=== PATIENT | female | born 1950 | race Caucasian/White ===

== ENCOUNTER 2016-11-25 15:35 | Inpatient (IN) | payer MEDICARE, OTHER ==
[2016-11-25 18:08] LABS: Urine Bacteria Absent (Absent); Urine Bilirubin Negative (Negative); Urine Glucose Negative (Negative); Urine Nitrite Negative (Negative)
[2016-11-25] MEDS ORDERED: NS 0.9% 1000 ML* 1,000 ML IV ONE ×2 (18:28→20:36)
[2016-11-25] MEDS ORDERED: Morphine INJ* 4 MG/ML 1 ML SYRINGE IV ONE (18:28)
--- NOTE | 2016-11-25 18:39 | ED ---
GI/ HPI - HPI Summary HPI Summary: Pt here w/ possible UTI. Started as pressure in lower pelvic area associated w/ urgency to urinate. She admits she ignored this and sx advanced to incontinence. States she's had UTI's in the past and this feels similar. Also admits to incontinence over the years but worse with recent sx. Vomited once. This has progressed to flank pain today - Rt > Lt. She also reports a fever last night of 102F - took excederin w/ some relief. Fever returned today and took excederin again at 11:00. Went to PCP who dx'd her w/ UTI and provided zofran along with cipro. She has taken 1 dose of each - nausea and vomiting resolved but feeling worse over all in general (legs are weak, difficulty recalling, etc), decided to come to ED. Pain in flanks worse with driving over bumps on way in today. Denies fullness in vaginal area - still has uterus and ovaries - no itching or irritation at present. - History of Current Complaint Chief Complaint: EDFlankPain Time Seen by Provider: 11/25/16 18:12 Stated Complaint: POSS UTI/FEVER Hx Obtained From: Patient, Family/Commutator Operator - daughter - nurse Pain Intensity: 5 - Allergy/Home Medications Allergies/Adverse Reactions: Allergies Allergy/AdvReac Type Severity Reaction Status Date / Time Latex Allergy Rash Verified 07/08/13 11:32 Penicillins Allergy Hives Verified 07/08/13 11:32 Sulfa Drugs Allergy Hives Verified 07/08/13 11:32 PMH/Surg Hx/FS Hx/Imm Hx Previously Healthy: Yes Endocrine/Hematology History: Denies: Hx Anticoagulant Therapy, Hx Blood Disorders Cardiovascular History: Reports: Hx Hypertension - controlled w/ atenolol GI History: Reports: Other GI Disorders - perferated bowel 10/2013 - resected Musculoskeletal History: Reports: Other Musculoskeletal History - left ankle/ foot surgery Sensory History: Reports: Hx Contacts or Glasses - reading glasses. Opthamlomology History: Reports: Hx Contacts or Glasses - reading glasses. 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 Lives: With Family - a friend Alcohol Use: Daily - couple of glasses of wine with dinner Hx Substance Use: No - none currently Substance Use Type: Reports: Marijuana Hx Tobacco Use: Yes Smoking Status (MU): Current Every Day Smoker Amount Used/How Often: 2 packs per week Length of Time of Smoking/Using Tobacco: Quit but recently restarted Review of Systems Positive: Fever - see HPI Cardiovascular: Negative Negative: Chest Pain Respiratory: Negative Negative: Shortness Of Breath Gastrointestinal: Other - see HPI Positive: Diarrhea - baseline Positive: see HPI Musculoskeletal: Negative Skin: Negative Neurological: Negative Psychological: Normal All Other Systems Reviewed And Are Negative: Yes Physical Exam Triage Information Reviewed: Yes Vital Signs On Initial Exam: Initial Vitals Temp Pulse Resp BP Pulse Ox 98.4 F 87 20 183/50 98 11/25/16 15:59 11/25/16 15:59 11/25/16 15:59 11/25/16 15:59 11/25/16 15:59 Vital Signs Reviewed: Yes Appearance: Positive: Well-Appearing - appears mildly fatigued, No Pain Distress - at rest - appears uncomfortable w/ sitting up, trying to move, Well- Nourished Skin: Positive: Warm, Dry Head/Face: Positive: Normal Head/Face Inspection Eyes: Positive: Normal, EOMI, Conjunctiva Clear - anicteric sclera ENT: Positive: Hearing grossly normal, Pharynx normal - mucosa moist Respiratory/Lung Sounds: Positive: Clear to Auscultation, Breath Sounds Present. Negative: Rales, Rhonchi, Wheezes Cardiovascular: Positive: Normal, RRR, Pulses are Symmetrical in both Upper and Lower Extremities Abdomen Description: Positive: Soft, CVA Tenderness (R) - Rt > Lt, CVA Tenderness (L), Other: - RUQ TTP, Rt side,flank and lower pelvis TTP; Lt side TTP as well - no rebounding Bowel Sounds: Positive: Present Musculoskeletal: Positive: Normal, Strength/ROM Intact Neurological: Positive: Normal, Sensory/Motor Intact, Alert, Oriented to Person Place, Time, CN Intact II-III Psychiatric: Positive: Normal - Philip Coma Scale Coma Scale Total: 15 Diagnostics - Vital Signs Vital Signs Temp Pulse Resp BP Pulse Ox 11/25/16 17:47 89 98 11/25/16 17:43 116/58 11/25/16 16:02 98.9 F 91 20 183/50 100 11/25/16 15:59 98.4 F 87 20 183/50 98 - Laboratory Lab Results: Lab Results 11/25/16 Range/Units 17:55 Urine Color Yellow Urine Appearance Cloudy Urine pH 7.0 (5-9) Ur Specific [place] 1.009 L (1.010-1.030) Urine Protein 1+(30 mg/dl) H (Negative) Urine Ketones Trace H (Negative) Urine Blood 2+ H (Negative) Urine Nitrate Negative (Negative) Urine Bilirubin Negative (Negative) Urine Urobilinogen Negative (Negative) Ur Leukocyte Esterase 3+ H (Negative) Urine WBC (Auto) 3+(>20/hpf) H (Absent) Urine RBC (Auto) 3+(>10/hpf) H (Absent) Urine Bacteria Absent (Absent) Urine Glucose Negative (Negative) Lab Statement: Any lab studies that have been ordered have been reviewed, and results considered in the medical decision making process.
[2016-11-25 18:59] LABS: Hematocrit 39 % (35-47); Mean Corpuscular HGB Conc 33 g/dl (31-36); Mean Corpuscular Hemoglobin 32 pg (27-31); Mean Corpuscular Volume 96 fL (80-97); Mean Platelet Volume 8 um3 (7.4-10.4); Red Blood Count 4.11 10^6/ul (4.0-5.4); Red Cell Distribution Width 13 % (10.5-15); White Blood Count 20.7 10^3/ul (3.5-10.8)
[2016-11-25 19:14] LABS: Albumin 3.9 g/dL (3.2-5.2); BUN/Creatinine Ratio 11.9 (8-20); C Reactive Protein 175.51 mg/L (< 5.00); Calcium 9.8 mg/dL (8.6-10.3); EGFR African American 87.8 (>60); EGFR Non-African American 68.3 (>60); Potassium 3.7 mmol/L (3.5-5.0); Total Bilirubin 0.8 mg/dL (0.2-1.0); Total Protein 6.9 g/dL (6.4-8.9)
--- NOTE | 2016-11-25 19:28 | RAD ---
INDICATION: Urinary tract infection right greater than left flank pain. COMPARISON: Comparison is made with a prior CT of the abdomen and pelvis from November 06, 2012. TECHNIQUE: A CT scan of the abdomen and pelvis was performed without intravenous or oral contrast. Contiguous axial sections were obtained from the lung bases through the symphysis pubis. Images were reconstructed in the coronal and sagittal planes. FINDINGS: There is mild dependent bilateral lower lobe subsegmental atelectasis. No pleural effusion is present. There is mild to moderate enlargement of the liver and spleen. No significant focal abnormalities are seen on this noncontrast study. No calcified gallstones are noted. The pancreas appears to be within normal limits. The adrenal glands and kidneys are normal in size. No renal calculi or hydronephrosis is seen. There is perinephric stranding around the right kidney which is a nonspecific finding although given the patient's history of a urinary tract infection would be suspicious for pyelonephritis. No ureteral or bladder calculi are seen. There is a small bubble of air within the urinary bladder. There is mild stranding around the urinary bladder suspicious for cystitis. The aorta is normal in caliber with moderate calcific plaque present. No significant enlarged retroperitoneal lymph nodes are seen. The stomach, small and large bowel appear nondistended. The appendix is not visualized. There is a surgical suture line present in the descending and proximal transverse colon. There is no evidence for diverticulitis or colitis. No free intraperitoneal air or fluid is seen. There are mild compression fractures of the L1 and L2 vertebral body superior endplates which are unchanged. IMPRESSION: 1. THERE IS PERINEPHRIC STRANDING AROUND THE RIGHT KIDNEY AND STRANDING AROUND THE URINARY BLADDER. THESE FINDINGS ARE NONSPECIFIC ALTHOUGH GIVEN THE PATIENT'S HISTORY OF URINARY TRACT INFECTION WOULD BE SUSPICIOUS FOR CYSTITIS AND PYELONEPHRITIS. 2. HEPATOSPLENOMEGALY, UNCHANGED.
[2016-11-25] MEDS ORDERED: Ondansetron INJ* 2 MG/ML VIAL IV PRN (20:36)
[2016-11-25] MEDS ORDERED: Nicotine GUM* 2 MG PO PRN (20:44)
[2016-11-25] MEDS ORDERED: NS 0.9% 1000 ML* 1,000 ML IV SCH (20:45)
[2016-11-25] MEDS: clonazePAM TAB(*) 1 MG PO SCH (22:24)
[2016-11-25] MEDS: traZODone TAB* 100 MG PO PRN (22:25)
[2016-11-25] MEDS: diPHENhydraMINE PO* 50 MG PO SCH (22:25)
[2016-11-25] MEDS: Lithium Carbonate TAB* 300 MG PO SCH (22:30)
[2016-11-25] MEDS: Heparin VIAL(*) 5000 UNITS/ML VIAL (FIVE THOUSAND) SUBCUT SCH (22:33)
--- NOTE | 2016-11-25 23:02 | HP ---
CC: Dr. Kinsey* HISTORY AND PHYSICAL: DATE OF ADMISSION: 11/25/16 PRIMARY CARE PROVIDER: Dr. Kinsey. ATTENDING PHYSICIAN WHILE IN THE HOSPITAL: Dr. Vikram Munguia * (report dictated by Rehan Rivera NP) CHIEF COMPLAINT: 1. Not feeling well. 2. Back pain. 3. Fever. HISTORY OF PRESENT ILLNESS: Ms. Zimmerman is a 65-year-old female patient, she has a history of gastrointestinal AVM, status post bowel resection; history of hypertension; anxiety. She comes into the ER today stating the last couple of weeks, she has not been feeling well. She started out having some urgency and frequency. She then developed having a backache throughout the last week, but last night it got much worse, she became nauseated, she was having dry heave, she vomited, and she spiked a fever of 102.2. She was concerned, she went to her primary today, who evaluated her. Her primary was concerned that she may have a pyelonephritis. She instructed the patient to return to the ER should she have any fevers, should she not feel well, or should she not be able to keep the medications down. She, today, was not feeling well despite being on antibiotics just started today, she was started on Keflex, and came to the ER. She was evaluated, noticed to have elevated white count, her CT scan showed that she had pyelonephritis, we were asked to evaluate for admission. PAST MEDICAL HISTORY: Significant for: 1. AVM. 2. Hypertension. 3. Anxiety. PAST SURGICAL HISTORY: She has had: 1. Tubal ligation. 2. Bowel resection. 3. Heart cath x2. MEDICATIONS: Home meds include: 1. Trazodone 100 mg at bedtime as needed. 2. Benadryl 50 mg at bedtime. 3. Clonazepam 1 mg at bedtime, 0.5 mg in the morning as needed. 4. Wellbutrin 200 mg daily. 5. Pravachol 20 mg at bedtime. 6. Multivitamin 1 tablet daily. 7. [place] 300 mg daily, 600 mg at bedtime. 8. Atenolol 25 mg daily. ALLERGIES TO MEDICATIONS: LATEX, PENICILLIN, and SULFA. FAMILY HISTORY: Father had heart disease, mother has fibromyalgia and still alive at 91. SOCIAL HISTORY: She is a smoker. She does drink about 1 to 2 glasses of wine on nightly basis. Surrogate decision make is her daughter, Hyacinth. REVIEW OF SYSTEMS: There is a documented fever. She denied having any significant weight change. There was no double vision. She denied having any ear discharge. There was no rhinorrhea. No sore throat. No thyroid enlargement. Denied having any chest pain. There was no orthopnea, no nocturnal dyspnea. There was no abdominal pain. She was having some flank pain radiating on the right side into the front of her abdomen. There was nausea and vomiting. There was no dysuria, but there is frequency and urgency. She denied having any lightheadedness. No loss of consciousness. No pruritus , no skin ulcerations. Review of 14 systems completed, all others negative. PHYSICAL EXAMINATION GENERAL: At this time, Ms. Zimmerman is a 65-year-old female patient. She is sitting in the ER stretcher. She does not appear to be in any acute distress. VITAL SIGNS: Reveal blood pressure 127/45, pulse 82, respirations 16, O2 sat 98 %, temperature 98.9. HEENT: Head is atraumatic and normocephalic. Eyes, EOMs are intact. Sclerae anicteric, not pale. Throat: Oral mucosa appears to be moist. No oropharyngeal erythema. NECK: Supple. LUNGS: Clear to auscultation bilaterally. No wheezes, rales, or rhonchi. HEART: Heart sounds S1 and S2. Regular rate and rhythm. No murmurs, rubs, or gallops. ABDOMEN: Soft, flat. There was CVA tenderness on the right side. EXTREMITIES: Pulses 2+ throughout. She is able to move all 4 extremities with 5/5 strength. NEUROLOGIC: The patient is awake, she is alert, she is oriented x3. Tongue midline. Emergency Operator were equal. No gross focal deficits. SKIN: Grossly intact. DIAGNOSTIC STUDIES/LAB DATA: Today revealed WBC of 20.7, RBC of 4.11, hemoglobin 13.0, hematocrit 39, platelet count 206. Sodium is 133, potassium 3.7, chloride 102, bicarb of 23, BUN 10, creatinine of 0.84, glucose 117, lactate 0.7, calcium 9.8. Total bili 0.8, AST 11, ALT 10, CRP 175. Albumin 3.9 , lipase 16. Urine showed a low specific gravity, 3+ wbc's, 3+ leukocyte esterase, 3+ rbc's. She had an abdominal pelvis CT obtained today, which revealed, impression: There is perinephritic stranding around the right kidney and stranding around the urinary bladder. These findings are not specific, although given the patient's history of urinary tract infection, this would be suspicious for cystitis and pyelonephritis, hepatosplenomegaly unchanged. Old medical records reviewed. ASSESSMENT AND PLAN: Ms. Zimmerman is a 65-year-old female patient, coming into the emergency department today with complaints of right-sided flank pain. In addition to this, also complains of urgency and frequency, on evaluation found to have an elevated white count and found to have CT scan concerning for pyelonephritis. She will be admitted under inpatient status for: 1. Pyelonephritis, at this point I will go ahead and hydrate her with 2 L of fluid. Blood cultures were sent by the ED. I will go ahead and put her on Rocephin and we will continue to follow. 2. History of arteriovenous malformation. She can follow with primary, not an active issue at this point, this has been resected. 3. Hypertension. Continue meds as prescribed. 4. History of anxiety. Continue her current medical regimen. 5. DVT prophylaxis. She is high risk, will be placed on heparin subcu. 6. Code status. She wished to be DNR. 7. Fluids, electrolytes, and nutrition. She can have a heart-healthy diet. TIME SPENT: On admission was 60 minutes, greater than half the time spent face- to- face with the patient obtaining my history and physical, other half time spent going over the plan of care with the patient and implementing plan of care. I did discuss the plan of care with my attending, Dr. Munguia; he is in agreement. REHAN RIVERA, MANAGER TRAFFIC [id number]/[facility] #: [id number] [place]
[2016-11-26] MEDS: Acetaminophen TAB* 325 MG PO PRN ×4 (00:50→20:41)
[2016-11-26] MEDS ORDERED: NS 0.9% 1000 ML* 1,000 ML IV ONE (04:30)
[2016-11-26] MEDS: Heparin VIAL(*) 5000 UNITS/ML VIAL (FIVE THOUSAND) SUBCUT SCH ×3 (06:00→22:00)
[2016-11-26 06:49] LABS: Hematocrit 35 % (35-47); Hemoglobin 11.5 g/dl (12.0-16.0); Mean Corpuscular HGB Conc 33 g/dl (31-36); Mean Corpuscular Hemoglobin 32 pg (27-31); Mean Corpuscular Volume 98 fL (80-97); Mean Platelet Volume 9 um3 (7.4-10.4); Red Blood Count 3.54 10^6/ul (4.0-5.4); Red Cell Distribution Width 13 % (10.5-15); White Blood Count 18.3 10^3/ul (3.5-10.8)
[2016-11-26 07:09] LABS: BUN/Creatinine Ratio 12.5 (8-20); Calcium 8.2 mg/dL (8.6-10.3); EGFR African American 104.9 (>60); EGFR Non-African American 81.6 (>60); Potassium 3.4 mmol/L (3.5-5.0)
[2016-11-26] MEDS: Lithium Carbonate TAB* 300 MG PO SCH ×2 (08:10→20:43)
[2016-11-26] MEDS: buPROPion TAB* 100 MG PO SCH (08:10)
--- NOTE | 2016-11-26 08:47 | PN ---
Subjective Date of Service: 11/26/16 Interval History: Patient seen this morning. Says she is feeling a little better today. Still feeling some flank pain and feels "wiped out". Has been urinating, no dysuria but feels some lower abdominal pressure. Family History: Unchanged from Admission Social History: Unchanged from Admission Past Medical History: Unchanged from Admission Objective Active Medications: Acetaminophen (Tylenol Tab*) 650 mg PO Q4H PRN Atenolol (Tenormin Tab*) 25 mg PO DAILY ISAIAH Bupropion HCl (Wellbutrin Tab*) 200 mg PO DAILY ISAIAH Clonazepam (Klonopin Tab(*)) 1 mg PO BEDTIME ISAIAH Diphenhydramine HCl (Benadryl Po*) 50 mg PO BEDTIME ISAIAH Heparin Sodium (Porcine) (Heparin Vial(*)) 5,000 units SUBCUT Q8HR ISAIAH Sodium Chloride (Ns 0.9% 1000 Ml*) 1,000 mls @ 125 mls/hr IV PER RATE ISAIAH Ceftriaxone Sodium 1,000 mg/ (Sodium Chloride) 50 mls @ 200 mls/hr IVPB Q24H ISAIAH [place] Carbonate ([place] Carbonate Tab*) 300 mg PO DAILY ISAIAH [place] Carbonate ([place] Carbonate Tab*) 600 mg PO BEDTIME ISAIAH Nicotine Polacrilex (Nicotine Gum*) 2 mg PO Q2H PRN Ondansetron HCl (Zofran Inj*) 4 mg IV Q6H PRN Trazodone HCl (Desyrel Tab*) 100 mg PO BEDTIME PRN Vital Signs 11/25/16 11/25/16 11/25/16 21:00 21:50 22:15 Temperature 100.3 F Pulse Rate 79 87 Respiratory 18 18 Rate Blood Pressure 129/52 (mmHg) O2 Sat by Pulse 95 94 Oximetry 11/26/16 11/26/16 11/26/16 03:39 06:04 07:24 Temperature 98.8 F 98.7 F Pulse Rate 77 78 73 Respiratory 16 17 Rate Blood Pressure 88/42 98/50 99/52 (mmHg) O2 Sat by Pulse 92 93 92 Oximetry Oxygen Devices in Use Now: None Appearance: Middle-aged, F, laying in bed in NAD Eyes: No Scleral Icterus Ears/Nose/Mouth/Throat: Mucous Membranes Moist Neck: NL Appearance and Movements; NL JVP Respiratory: Symmetrical Chest Expansion and Respiratory Effort, Clear to Auscultation Cardiovascular: NL Sounds; No Murmurs; No JVD, RRR Abdominal: NL Sounds; No Tenderness; No Distention, - - B/L CVA tenderness, R>L Lymphatic: No Cervical Adenopathy Extremities: No Edema Skin: No Rash or Ulcers Neurological: Alert and Oriented x 3 Result Diagrams: 11/26/16 06:23 11/26/16 06:23 Additional Lab and Data: Assess/Plan/Problems-Billing Assessment: Pyelonephritis in a 65 yo F with hx of HTN, anxiety - Patient Problems (1) Pyelonephritis Current Visit: Yes Comment: Leukocytosis trending down but still elevated at 18K. Continue IV CTX and NS 100 cc/hr. Follow culture data. (2) HTN (hypertension) Current Visit: Yes Comment: BPs low this AM. Holding Atenolol. (3) Anxiety Current Visit: Yes Comment: Depression. Continue home psych meds. (4) DVT prophylaxis Current Visit: Yes Comment: HSQ Status and Disposition: Inpatient for pyelonephritis, IV ABx
[2016-11-26] MEDS ORDERED: Ibuprofen TAB* 400 MG PO PRN (08:56)
[2016-11-26] MEDS ORDERED: Atenolol TAB* 25 MG PO SCH (09:00)
[2016-11-26] MEDS ORDERED: LORazepam TAB(*) 0.5 MG PO PRN (09:01)
[2016-11-26] MEDS: oxyCODONE/Acetamin 5/325 MG* TAB PO PRN ×3 (09:22→20:40)
[2016-11-26] MEDS: NS 0.9% 1000 ML* 1,000 ML IV SCH (19:14)
[2016-11-26] MEDS: cefTRIAXone VIAL(*) 1,000 MG in NS 0.9% 50 ML* 50 ML IVPB SCH (19:15)
[2016-11-26] MEDS: diPHENhydraMINE PO* 50 MG PO SCH (20:42)
[2016-11-26] MEDS: clonazePAM TAB(*) 1 MG PO SCH (20:43)
[2016-11-26] MEDS: traZODone TAB* 100 MG PO PRN (20:47)
[2016-11-27] MEDS: oxyCODONE/Acetamin 5/325 MG* TAB PO PRN ×2 (03:16→20:07)
[2016-11-27] MEDS: Acetaminophen TAB* 325 MG PO PRN (03:16)
[2016-11-27] MEDS: NS 0.9% 1000 ML* 1,000 ML IV SCH (05:00)
[2016-11-27] MEDS: Heparin VIAL(*) 5000 UNITS/ML VIAL (FIVE THOUSAND) SUBCUT SCH ×3 (05:29→21:20)
[2016-11-27 05:32] LABS: Hematocrit 32 % (35-47); Hemoglobin 10.6 g/dl (12.0-16.0); Mean Corpuscular HGB Conc 33 g/dl (31-36); Mean Corpuscular Hemoglobin 32 pg (27-31); Mean Corpuscular Volume 98 fL (80-97); Mean Platelet Volume 8 um3 (7.4-10.4); Red Blood Count 3.28 10^6/ul (4.0-5.4); Red Cell Distribution Width 13 % (10.5-15); White Blood Count 10.7 10^3/ul (3.5-10.8)
--- NOTE | 2016-11-27 08:18 | PN ---
Subjective Date of Service: 11/27/16 Interval History: Fever to 101F yesterday afternoon. Patient says she is still feeling "worn out". Pain in R flank seems to be less constant and less severe. Ambulating to the bathroom to urinate, does feel a bit light-headed at times. No chest pain, no SOB, no dysuria. Family History: Unchanged from Admission Social History: Unchanged from Admission Past Medical History: Unchanged from Admission Objective Active Medications: Acetaminophen (Tylenol Tab*) 325 mg PO Q4H PRN Bupropion HCl (Wellbutrin Tab*) 200 mg PO DAILY ISAIAH Clonazepam (Klonopin Tab(*)) 1 mg PO BEDTIME ISAIAH Diphenhydramine HCl (Benadryl Po*) 50 mg PO BEDTIME ISAIAH Heparin Sodium (Porcine) (Heparin Vial(*)) 5,000 units SUBCUT Q8HR ISAIAH Ceftriaxone Sodium 1,000 mg/ (Sodium Chloride) 50 mls @ 200 mls/hr IVPB Q24H ISAIAH [place] Carbonate ([place]el Carbonate Tab*) 300 mg PO DAILY ISAIAH [place]el Carbonate ([place]el Carbonate Tab*) 600 mg PO BEDTIME ISAIAH Nicotine Polacrilex (Nicotine Gum*) 2 mg PO Q2H PRN Ondansetron HCl (Zofran Inj*) 4 mg IV Q6H PRN Oxycodone/Acetaminophen (Percocet 5/325 Tab*) 1 tab PO Q6H PRN Trazodone HCl (Desyrel Tab*) 100 mg PO BEDTIME PRN Vital Signs 11/26/16 11/26/16 11/26/16 08:30 09:22 11:18 Temperature 99.1 F Pulse Rate 74 Respiratory 14 16 Rate Blood Pressure 89/41 (mmHg) O2 Sat by Pulse 92 95 Oximetry 11/26/16 11/26/16 11/26/16 11:20 15:10 15:16 Temperature 101.0 F Pulse Rate Respiratory 16 16 Rate Blood Pressure (mmHg) O2 Sat by Pulse Oximetry 11/26/16 11/26/16 11/26/16 15:46 17:02 19:25 Temperature 99.4 F 99.2 F Pulse Rate 79 80 Respiratory 17 16 17 Rate Blood Pressure 108/40 106/46 (mmHg) O2 Sat by Pulse 98 97 Oximetry 11/26/16 11/26/16 11/26/16 20:00 20:40 20:42 Temperature Pulse Rate Respiratory 16 16 16 Rate Blood Pressure (mmHg) O2 Sat by Pulse Oximetry 11/26/16 11/26/16 11/27/16 20:43 23:54 03:13 Temperature 99.9 F 99.3 F Pulse Rate 89 83 Respiratory 16 20 16 Rate Blood Pressure 109/42 114/33 (mmHg) O2 Sat by Pulse 94 99 Oximetry 11/27/16 11/27/16 11/27/16 03:16 04:15 04:22 Temperature Pulse Rate 81 Respiratory 16 14 Rate Blood Pressure 92/32 90/32 (mmHg) O2 Sat by Pulse 92 Oximetry 11/27/16 05:35 Temperature Pulse Rate 80 Respiratory 14 Rate Blood Pressure 100/44 (mmHg) O2 Sat by Pulse 93 Oximetry Oxygen Devices in Use Now: None Appearance: Middle-aged, F, laying in bed in NAD Eyes: No Scleral Icterus Ears/Nose/Mouth/Throat: Mucous Membranes Moist Neck: NL Appearance and Movements; NL JVP Respiratory: Symmetrical Chest Expansion and Respiratory Effort, Clear to Auscultation Cardiovascular: NL Sounds; No Murmurs; No JVD, RRR Abdominal: NL Sounds; No Tenderness; No Distention, - - R CVA tenderness Lymphatic: No Cervical Adenopathy Extremities: No Edema Skin: No Rash or Ulcers Neurological: Alert and Oriented x 3 Result Diagrams: 11/27/16 05:24 11/26/16 06:23 Additional Lab and Data: Assess/Plan/Problems-Billing Assessment: Pyelonephritis in a 65 yo F with hx of HTN, anxiety - Patient Problems (1) Pyelonephritis Current Visit: Yes Comment: Leukocytosis resolved, fever of 101F on 11/26. Continue IV CTX for now. Will d/c IVF and monitor BPs. No growth on UCx or BCx (2) HTN (hypertension) Current Visit: Yes Comment: BPs continue to be soft. Holding Atenolol. (3) Anxiety Current Visit: Yes Comment: Depression. Continue home psych meds. (4) DVT prophylaxis Current Visit: Yes Comment: HSQ Status and Disposition: Inpatient for pyelonephritis, IV ABx
[2016-11-27] MEDS: Lithium Carbonate TAB* 300 MG PO SCH ×2 (09:02→21:18)
[2016-11-27] MEDS: buPROPion TAB* 100 MG PO SCH (09:02)
[2016-11-27] MEDS: cefTRIAXone VIAL(*) 1,000 MG in NS 0.9% 50 ML* 50 ML IVPB SCH (20:08)
[2016-11-27] MEDS: diPHENhydraMINE PO* 50 MG PO SCH (21:19)
[2016-11-27] MEDS: clonazePAM TAB(*) 1 MG PO SCH (21:19)
[2016-11-27] MEDS: traZODone TAB* 100 MG PO PRN (21:28)
[2016-11-28] MEDS: Heparin VIAL(*) 5000 UNITS/ML VIAL (FIVE THOUSAND) SUBCUT SCH (06:22)
[2016-11-28 07:39] VITALS: BP 134/56
--- NOTE | 2016-11-28 08:37 | DCNOTE ---
Patient seen this morning. Feeling better. Still some mild flank pain at times. Fever overnight. On exam, RRR, s1 and s2 present, no m/g/r, lungs CTA B/L, no w/r/r, abd soft, NTND, BS+ D/C home to complete course of oral ABx for pyelo. F/U with PCP.
[2016-11-28] MEDS: Lithium Carbonate TAB* 300 MG PO SCH (08:45)
[2016-11-28] MEDS: buPROPion TAB* 100 MG PO SCH (08:45)
--- NOTE | 2016-11-29 11:55 | DS ---
CC: Dr. Kinsey DISCHARGE SUMMARY: DATE OF ADMISSION: 11/25/16 DATE OF DISCHARGE: 11/28/16 PRIMARY CARE PHYSICIAN: Dr. Kinsey. PRINCIPAL DISCHARGE DIAGNOSIS: Pyelonephritis. SECONDARY DIAGNOSES: 1. Hypertension. 2. Anxiety. DISCHARGE MEDICATION REGIMEN: 1. Ciprofloxacin 500 mg by mouth 2 times daily. 2. [place] 300 mg by mouth daily. 3. Bupropion 200 mg by mouth daily. 4. [place] 600 mg by mouth at bedtime. 5. Atenolol 25 mg by mouth daily. 6. Multivitamin 1 tablet by mouth daily. 7. Pravastatin 20 mg by mouth daily. 8. Klonopin 1 mg by mouth at bedtime, 0.5 mg by mouth every morning as needed for anxiety. 9. Benadryl 50 mg by mouth at bedtime. 10. Trazodone 100 mg by mouth at bedtime as needed for insomnia. STUDIES DURING HOSPITALIZATION: CT of the abdomen and pelvis without contrast, impression: Perinep hric stranding around the right kidney and stranding around the urinary bladder, these findings are not specific although given the patient's history of urinary tract infection, it would be suspicious for cystitis, pyelonephritis, hepatosplenomegaly unchanged. HISTORY OF PRESENT ILLNESS AND HOSPITAL SUMMARY: Please see the full history and physical by Rehan molina NP, for full details. Briefly, Ms. Zimmerman is a 65-year- old female with past medical histor y as above, who presented to the hospital with urgency and frequency which developed into back pain, nausea, vomiting, and fever. Patient came into the hospital and was diagnosed with pyelonephritis. She was started on ceftriaxone and given IV fluids. Over the course of the following days, her sym ptoms improved. Her blood pressures remained a bit on the soft side. However, on the day of dischar ge they seem to have normalized. The patient had a fever of 101.1 at 3 a.m. on the day of discharge ; however, she was feeling significantly better, had been ambulating around the unit, having good p. o. intake, and a decision was made to discharge her to complete oral antibiotics as an outpatient. The patient is to follow up with her PCP. TIME SPENT: Total time spent on this discharge, 35 minutes. This is a summary of the hospitalization. Please see the full medical record for further details. [id number]/[facility] #: [id number]
== END 2016-11-28 10:55 | disposition home or self-care (01) | DRG 690 ==
LOC: ED 15:35 → MED 20:32
PROVIDERS: ADMIT Hospitalist; ATTEND Hospitalist
DX: N12 Tubulo-interstitial nephritis, not specified as acute or chronic (principal); R16.2 Hepatomegaly with splenomegaly, not elsewhere classified; I10 Essential (primary) hypertension; Z88.0 Allergy status to penicillin; Z88.2 Allergy status to sulfonamides; Z91.040 Latex allergy status; F41.9 Anxiety disorder, unspecified; F32.9 Major depressive disorder, single episode, unspecified; F17.200 Nicotine dependence, unspecified, uncomplicated; R40.2412 Glasgow coma scale score 13-15, at arrival to emergency department; Z98.51 Tubal ligation status; Z82.49 Family history of ischemic heart disease and other diseases of the circulatory system
CPT/HCPCS: 36415; 74176; 80048; 80053; 81003; 81015; 83605; 83690; 85025; 85610; 86140; 87040; 87086; 94760; A9270-GY; J0696; J1644; J2270

== ENCOUNTER 2018-03-31 14:42 | Emergency (ER) | payer MEDICARE, MEDICAID, OTHER ==
[2018-03-31 15:07] LABS: ABS Basophils 0 10^3/ul (0-0.2); ABS Eosinophils 0.2 10^3/ul (0-0.6); ABS Lymphocytes 2.4 10^3/ul (1.0-4.8); ABS Monocytes 0.6 10^3/ul (0-0.8); ABS Neutrophils 7.3 10^3/ul (1.5-7.7); ABS Nucleated RBC 0 10^3/ul; Eosinophil % 1.8 % (0-6); Hematocrit 43 % (35-47); Hemoglobin 14.6 g/dl (12.0-16.0); Lymphocyte % 22.5 % (25-47); Mean Corpuscular HGB Conc 34 g/dl (31-36); Mean Corpuscular Hemoglobin 33 pg (27-31); Mean Corpuscular Volume 96 fL (80-97); Mean Platelet Volume 7.7 um3 (7.4-10.4); Nucleated Red Blood Cells % 0.1; Platelet Count 261 10^3/ul (150-450); Red Blood Count 4.46 10^6/ul (4.00-5.40); Red Cell Distribution Width 14 % (10.5-15); White Blood Count 10.5 10^3/ul (3.5-10.8)
--- NOTE | 2018-03-31 15:07 | ED ---
Abdominal Pain/Female - HPI Summary HPI Summary: This patient is a 67 year old F presenting to [facility] with a chief complaint of abdominal pain. She states the pain radiates to her back and describes it as being shot through the abdomen. She also states the pain radiates to her jaw. She denies nausea, vomiting, and sweating. The patient has a Hx of angina, HTN, HLD. She rates her pain 0/10 in severity. - History of Current Complaint Chief Complaint: EDChestPainROMI Stated Complaint: CHEST PAIN Time Seen by Provider: 03/31/18 14:51 Hx Obtained From: Patient Onset/Duration: Sudden Onset Severity Initially: Mild Severity Currently: None Pain Intensity: 0 Pain Scale Used: 0-10 Numeric Location: Diffuse Radiates to: Back, Other - Jaw Allergies/Adverse Reactions: Allergies Allergy/AdvReac Type Severity Reaction Status Date / Time latex Allergy Swelling Verified 03/31/18 14:45 Penicillins Allergy Hives Verified 03/31/18 14:45 Sulfa (Sulfonamide Allergy Hives Verified 03/31/18 14:45 Antibiotics) PMH/Surg Hx/FS Hx/Imm Hx Endocrine/Hematology History: Denies: Hx Anticoagulant Therapy, Hx Blood Disorders Cardiovascular History: Reports: Hx Hypertension - controlled w/ atenolol GI History: Reports: Other GI Disorders - perferated bowel 10/2013 - resected Musculoskeletal History: Reports: Other Musculoskeletal History - left ankle/ foot surgery Sensory History: Reports: Hx Contacts or Glasses - reading glasses. Denies: Hx Hearing Aid Opthamlomology History: Reports: Hx Contacts or Glasses - reading glasses. 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 Hx Anesthesia Reactions: No - Immunization History Date of Tetanus Vaccine: Unknown Date of Influenza Vaccine: Unknown Infectious Disease History: No Infectious Disease History: Denies: Traveled Outside the [place] in Last 30 Days - Family History Known Family History: Positive: Other - child w/ opiate addiction - Social History Alcohol Use: Daily - couple of glasses of wine with dinner Hx Substance Use: No - none currently Substance Use Type: Reports: Marijuana Hx Tobacco Use: Yes Smoking Status (MU): Current Every Day Smoker Amount Used/How Often: 2 packs per week Length of Time of Smoking/Using Tobacco: Quit but recently restarted Review of Systems Negative: Fever, Skin Diaphoresis Positive: Abdominal Pain. Negative: Vomiting, Nausea All Other Systems Reviewed And Are Negative: Yes Physical Exam - Summary Physical Exam Summary: VITAL SIGNS: Reviewed. GENERAL: Patient is a well-developed and nourished FEMALE who is lying comfortable in the stretcher. Patient is not in any acute respiratory distress. HEAD AND FACE: No signs of trauma. No ecchymosis, hematomas or skull depressions. No sinus tenderness. EYES: PERRLA, EOMI x 2, No injected conjunctiva, no nystagmus. EARS: Hearing grossly intact. Ear canals and tympanic membranes are within normal limits. MOUTH: Oropharynx within normal limits. NECK: Supple, trachea is midline, no adenopathy, no JVD, no carotid bruit, no c- spine tenderness, neck with full ROM. CHEST: Symmetric, no tenderness at palpation LUNGS: Clear to auscultation bilaterally. No wheezing or crackles. CVS: Regular rate and rhythm, S1 and S2 present, no murmurs or gallops appreciated. ABDOMEN: Soft, non-tender. No signs of distention. No rebound no guarding, and no masses palpated. Bowel sounds are normal. EXTREMITIES: FROM in all major joints, no edema, no cyanosis or clubbing. NEURO: Alert and oriented x 3. No acute neurological deficits. Speech is normal and follows commands. SKIN: Dry and warm Triage Information Reviewed: Yes Vital Signs On Initial Exam: Initial Vitals Temp Pulse Resp BP Pulse Ox 97.6 F 86 14 141/64 100 03/31/18 14:45 03/31/18 14:45 03/31/18 14:45 03/31/18 14:45 03/31/18 14:45 Vital Signs Reviewed: Yes Diagnostics - Vital Signs Vital Signs Temp Pulse Resp BP Pulse Ox 03/31/18 14:45 97.6 F 86 14 141/64 100 - Laboratory Result Diagrams: 03/31/18 14:58 03/31/18 14:58 Lab Statement: Any lab studies that have been ordered have been reviewed, and results considered in the medical decision making process. - Radiology Chest XR Xray Interpretation: No Acute Changes Radiology Interpretation Completed By: Radiologist - No active cardiopulmonary disease is noted. ED Physician has reviewed this report. - EKG 1515 Cardiac Rate: NL - 78 BPM EKG Rhythm: Sinus Rhythm EKG Interpretation: ST depression in V4, V5, and V6. Re-Evaluation - Re-Evaluation First Eval Re-Evaluation Time: 18:33 Change: Improved - Discussed results and plan for discharge. Abdominal Pain Fem Course/Dx - Course Course Of Treatment: This patient is a 67 year old F presenting to [facility] with a chief complaint of abdominal pain. She states the pain radiates to her back and describes it as being shot through the abdomen. She also states the pain radiates to her jaw. She denies nausea, vomiting, and sweating. The patient has a Hx of angina, HTN, HLD. She rates her pain 0/10 in severity. Blood test results without any significant abnormality. 2 troponins 4 hours apart 0.00. The patient also continues to be asymptomatic. The patient does have any chest pain. At this time I discussed all the findings and test results with the patient and the need to follow-up with primary care physician. The patient also be be given a referral for cardiology follow-up. I offered the patient to give a prescription for nitroglycerin however she declined. I discussed all the findings and test results with the patient. Patient was instructed to return to the emergency room immediately if any of the symptoms return or worsens. Plan of care was discussed with the patient and understands and agrees. All questions were answered at patient satisfaction. There were no further complaints or concerns. Lung exam before discharge: CTA B/L. Good air exchange. No wheezing or crackles heard. CVS: S1 and S2 present. No murmurs appreciated. Patient is alert and oriented x 3. Patient is hemodynamically stable. Patient will be discharged home with follow up PCP in the next 2-3 days. Heart score = 2 - Diagnoses Differential Diagnosis: Positive: ACS, VA, Pneumonia, Urinary Tract Infection Provider Diagnoses: Atypical chest pain Discharge - Sign-Out/Discharge Documenting (check all that apply): Patient Departure - Discharge - Discharge Plan Condition: Stable Disposition: HOME Patient Education Materials: Chest Pain (ED) Referrals: [facility] [Provider Group] Brittany Kinsey DO [Primary Care Provider] - Additional Instructions: Return to ED if experiencing any new or worsening symptoms. - Billing Disposition and Condition Condition: STABLE Disposition: Home - Attestation Statements Document Initiated by Scribe: Yes Documenting Scribe: Carson Tsai Provider For Whom Scribe is Documenting (Include Credential): Sharif Castellanos MD Scribe Attestation: ICarson, scribed for Sharif Castellanos MD on 04/01/18 at 0750. Scribe Documentation Reviewed: Yes Provider Attestation: The documentation as recorded by the Carson howe accurately reflects the service I personally performed and the decisions made by , Sharif Castellanos MD
[2018-03-31 15:19] LABS: INR 0.86 (0.77-1.02)
--- NOTE | 2018-03-31 15:24 | RAD ---
Indication: Chest pain. Single frontal view of the chest performed at 1504 hours was reviewed. No prior study is available. No mediastinal shift is noted. Heart is of normal size and configuration. Lung murray appear clear. IMPRESSION: NO ACTIVE CARDIOPULMONARY DISEASE IS NOTED.
[2018-03-31 15:25] LABS: EGFR Non-African American 76.1 (>60)
[2018-03-31] MEDS ORDERED: Magnesium Oxide TAB* 400 MG PO ONE (15:49)
[2018-03-31 16:30] LABS: Urine Appearance Clear; Urine Blood Negative (Negative); Urine Color Yellow; Urine Ketones Negative (Negative); Urine Protein Negative (Negative); Urine Specific Gravity 1.012 (1.010-1.030); Urine Urobilinogen Negative (Negative)
[2018-03-31 20:02] VITALS: BP 133/74
== END 2018-03-31 19:00 | disposition home or self-care (01) ==
LOC: ED 14:42
DX: R07.89 Other chest pain (principal); F17.210 Nicotine dependence, cigarettes, uncomplicated; Z88.0 Allergy status to penicillin; I10 Essential (primary) hypertension
CPT/HCPCS: 36415; 71045; 80053; 81003; 82550; 82553; 83605; 83735; 83880; 84443; 84484; 85025; 85610; 85730; 93005; 99283

== ENCOUNTER 2019-04-05 10:24 | Emergency (ER) | payer MEDICARE, MEDICAID ==
--- OUTSIDE RECORDS SUMMARY | 2019-04-05 11:01 | XMS REPORT | Continuity of Care Document ---
:1950 External Reference #:[id number] Author Name Lamont Krishnamurthy MD (transmitted by agent of provider Azucena Gomes) Address [address], [address] [place] [address] Care Team Providers Name Role Phone Jonathon Kinsey, - Family Care Team Information [employer] Medicine Problems Description No Information Available Social History Type Date Description Comments Sex Unknown ETOH Use consumes 1-2 glasses of wine per day Tobacco Use Start: Unknown Light tobacco smoker (10 or fewer cigarettes/day) Recreational Drug Use Never Used Drugs Smoking Status Reviewed: 03/07/19 Light tobacco smoker (10 or fewer cigarettes/day) Exercise Type/Frequency Exercises sporadically Allergies, Adverse Reactions, Alerts Active Allergies Reaction Severity Comments Date Penicillin 10/01/2018 Sulfa Antibiotics 10/01/2018 Latex 10/01/2018 Medications Active Medications SIG Qnty Indications Ordering Date Provider Nicotine Step 1 1 patch apply to Z72.0 Lamont Krishnamurthy, 03/07/2019 skin every day 21mg/24HR Patches 24HR Aspirin 81 take 1 tab by mouth 90tabs Thelma Nguyen, 02/14/2019 81mg Tablets daily N.P. Nitroglycerin 1 sl q5 mins x3 as 25tabs R07.9 Konstantin Lawrence 01/14/2019 0.4mg needed for chest Yazan Atkinson Tablets Sub pain Ventolin HFA 2 inhalations every Unknown 4-6 hours 108(90Base) mcg/Act Aerosol Advair Diskus 1 puff twice a day Unknown 250-50mcg/Dose Aerosol Gabapentin 1 by mouth twice a Unknown 300mg day Capsules Atenolol 1 by mouth every Unknown 25mg Tablets day Pravastatin Sodium take one tablet by Unknown 40mg mouth every evening Tablets Omeprazole 1 by mouth every Unknown 20mg day Capsules DR Staples Complete daily Unknown Capsules Benadryl Allergy 2 tablets as Unknown 25mg needed Capsules Clonazepam 1 tablet by mouth Unknown 1mg Tablets twice daily as needed Thebes Carbonate 1 capsule in the Unknown 300mg morning, and 2 at Capsules night Trazodone HCL 1/2- 1 every night Unknown 100mg at bedtime Tablets Wellbutrin SR take one tablet by Unknown 150mg mouth three times Tablets ER 12HR daily, needs appt for further refills History Medications Nitro-Dur 1 patch every day 30units R07.9 Konstantin Lawrence 01/14/2019 - 0.1mg/HR on in the Yazan Atkinson 02/14/2019 Patches 24HR morning, off at night Fluticasone 1 snort nasal 32gm J32.9 Lamont Krishnamurthy MD 01/03/2019 - Propionate twice a day 02/02/2019 50mcg/Act Suspension Immunizations Description No Information Available Vital Signs Date Vital Result Comment 03/07/2019 11:07am Height 65 inches 5'5" Weight 161.00 lb Heart Rate 76 /min BP Systolic Sitting 132 mmHg Lue regular cuff BP Diastolic Sitting 86 mmHg Lue regular cuff Respiratory Rate 12 /min O2 % BldC Oximetry 96 % BMI (Body Mass Index) 26.8 kg/m2 02/14/2019 11:22am Height 65 inches 5'5" Weight 161.25 lb with shoes Heart Rate 80 /min left radial BP Systolic Sitting 132 mmHg ule reg cuff BP Diastolic Sitting 90 mmHg ule reg cuff BMI (Body Mass Index) 26.8 kg/m2 Results Test Date Facility Test Result H/L Range Note Cath Panel 02/04/2019 [facility] Partial 31.2 seconds Normal 26.0-38.[address] [place] [address] PTT [phone] CBC Auto 02/04/2019 [facility] White Blood 10.7 10^3/uL Normal 3.5-10.[address] [place] [address] [phone] Red Blood Count 4.17 10^6/uL Normal 3.70-4.87 Hemoglobin 14.0 g/dL Normal 12.0-16.0 Hematocrit 41 % Normal 35-47 Mean Corpuscular Volume 98 fL High 80-97 Mean Corpuscular Hemoglobin 34 pg High 27-31 Mean Corpuscular HGB Conc 34 g/dL Normal 31-36 Red Cell Distribution Width 13 % Normal 10-15 Platelet Count 271 10^3/uL Normal 150-450 Mean Platelet Volume 7.9 fL Normal 7.4-10.4 Abs Neutrophils 6.8 10^3/uL Normal 1.5-7.7 Abs Lymphocytes 3.0 10^3/uL Normal 1.0-4.8 Abs Monocytes 0.6 10^3/uL Normal 0-0.8 Abs Eosinophils 0.2 10^3/uL Normal 0-0.6 Abs Basophils 0.1 10^3/uL Normal 0-0.2 Abs Nucleated RBC 0.0 10^3/uL Granulocyte % 63.3 % Lymphocyte % 28.3 % Monocyte % 5.7 % Eosinophil % 2.2 % Basophil % 0.5 % Nucleated Red Blood Cells % 0.0 Inr/Protime 02/04/2019 [facility] Inr 0.92 Normal 0.82-1.[address] [place] [address] [phone] Lipid Panel - 02/04/2019 [facility] Creatine 29 U/L Normal 10- 223 [address] Kinase(CK) [place] [address] [phone] Comp Metabolic 02/04/2019 [facility] Sodium 139 Normal 135- [address] mmol/[place] [address] [phone] Potassium 4.5 mmol/L Normal 3.5-5.0 Chloride 107 mmol/L Normal 101-111 Co2 Carbon Dioxide 27 mmol/L Normal 22-32 Anion Gap 5 mmol/L Normal 2-11 Glucose 83 mg/dL Normal 70-100 Blood Urea Nitrogen 9 mg/dL Normal 6-24 Creatinine 0.84 mg/dL Normal 0.51-0.95 BUN/Creatinine Ratio 10.7 Normal 8-20 Calcium 10.5 mg/dL High 8.6-10.3 Total Protein 6.3 g/dL Low 6.4-8.9 Albumin 4.2 g/dL Normal 3.2-5.2 Globulin 2.1 g/dL Normal 2-4 Albumin/Globulin Ratio 2.0 Normal 1-3 Total Bilirubin 0.30 mg/dL Normal 0.2-1.0 Alkaline Phosphatase 50 U/L Normal 34-104 Alt 14 U/L Normal 7-52 Ast 14 U/L Normal 13-39 Egfr Non- 67.6 >60 Egfr 81.8 >60 4 Lipid Profile 02/04/2019 [facility] Triglycerides 348 mg/dL 5 (Trig/Chol/HDL) [address] [place] [address] [phone] Cholesterol 187 mg/dL 6 HDL Cholesterol 47.4 mg/dL 7 LDL Cholesterol 70 mg/dL 8 1 FASTING Copy Result to: JONATHON KINSEY ([id number]) 2 Standard intensity warfarin therapeutic range: 2.0-3.0 High intensity warfarin therapeutic range: 2.5-3.5 3 FASTING Copy Result to: JONATHON KINSEY ([id number]) 4 Because ethnic data is not always readily available, this report includes an eGFR for both -Americans and non- Americans. The National Kidney Disease Education Program (NKDEP) does not endorse the use of the MDRD equation for patients that are not between the ages of 18 and 70, are , have extremes of body size, muscle mass, or nutritional status, or are non- or non-. According to the National Kidney Foundation, irrespective of diagnosis, the stage of the disease is based on the level of kidney function: Stage Description GFR(mL/min/1.73 m(2)) 1 Kidney damage with normal or decreased GFR 90 2 Kidney damage with mild decrease in GFR 60-89 3 Moderate decrease in GFR 30-59 4 Severe decrease in GFR 15-29 5 Kidney failure <15 (or dialysis) 5 Desirable: <150 Borderline High: 150-199 High: 200-499 Very High: >500 6 Desirable: <200 Borderline High: 200-239 High: >239 7 Low: <40 Desirable: 40-60 High: >60 8 Desirable: <100 Near Optimal: 100-129 Borderline High: 130-159 High: 160-189 Very High: >189 Procedures Date Code Description Status 02/05/2019 21248 Intravascular Blood Flow Velocity Completed 02/05/2019 94252 Left Heart Cath. Incl S/I Coronaries, Angio S/I V Gram If Completed Done 01/18/2019 99753 Treadmill Interp/Report Only Completed 01/18/2019 93436 Stress Test Supervsn W/Out I/R Completed 01/14/2019 21504 EKG Tracing & Interpretation Completed 11/14/2018 58740 ECHO Stress Test Incl Perf Contiuous ekg Monitoring W/Phys Completed Superv Medical Devices Description No Information Available Encounters Type Date Location Provider Dx Diagnosis Office Visit 02/14/2019 [facility] Thelma Nguyen, R07.9 Chest pain , 11:30a N.P. 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 02/14/2019 I11.9 Hypertensive heart disease Thelma Nguyen, N.P. 02/14/2019 I10 Benign hypertension Thelma Nguyen, N.P. 02/14/2019 E78.00 Hypercholesterolemia Thelma Nguyen, N.P. 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 01/14/2019 I20.9 Angina pectoris Konstantin Atkinson M.D. 01/14/2019 I11.9 Hypertensive heart disease Konstantin Atkinson M.D. 01/14/2019 I10 Benign hypertension Konstantin Atkinson M.D. 01/14/2019 E78.00 Hypercholesterolemia Konstantin Atkinson M.D. 01/14/2019 J44.9 Chronic obstructive lung disease Konstantin Atkinson M.D. 01/03/2019 R05 Cough Lamont Krishnamurthy MD 01/03/2019 Z72.0 Tobacco use Lamont Krishnamurthy MD 01/03/2019 G47.30 Sleep apnea, unspecified Lamont Krishnamurthy MD 01/03/2019 J32.9 Chronic sinusitis, unspecified Lamont Krishnamurthy MD 12/03/2018 M54.5 Low back pain Kai Boyd MD 12/03/2018 M47.26 Other spondylosis with radiculopathy, Kai Boyd MD lumbar region 11/14/2018 R07.89 Chest discomfort Konstantin Atkinson M.D. 11/14/2018 E78.00 Hypercholesterolemia Konstantin Atkinson M.D. 11/14/2018 I10 Essential hypertension Konstantin Atkinson M.D. 10/01/2018 M54.5 Low back pain Kai Boyd MD 10/01/2018 M54.16 Radiculopathy, lumbar region Kai Boyd MD 10/01/2018 M25.552 Pain in left hip Kai Boyd MD 10/01/2018 M25.562 Pain in left knee Kai Boyd MD Plan of Treatment Future Appointment(s):05/27/2019 11:00 am - Konstantin Atkinson M.D. at [place] [facility]/23/2020 8:30 am - Efe Martinez M.D. at [facility]03/07/2019 - Lamont Krishnamurthy, MDR05 CoughComments:The patient should continue use Advair. I have counseled the patient on daily use of Advair. The albuterol can be used on an as-needed basis.J44.9 Chronic obstructive lung diseaseComments:Continue the patient on Advair and albuterol when necessary. I am using the steroid component in her inhalers as she has a clinically significant bronchodilator response. She will establish care withthe judicial reporter in [place].Z72.0 Tobacco useNew Medication:Nicotine Step 1 21 mg/24HR - 1 patch apply to skin every dayComments:I counseled the patient on tobacco cessation. She is interested in nicotine patches. I will prescribe nicotine patches for her. I reviewed her low dose CT chest report findings with her. She is to establish care with a judicial reporter in [place] and continue low dose CT chest in 1 year. I communicated this to the patient.G47.30 Sleep apnea, unspecifiedComments:She reports that she should undergo sleep study in [place]. The patient is instructed to exercise care when operating heavy machinery and driving. Functional Status Description No Information Available Mental Status Description No Information Available Referrals Description No Information Available
--- OUTSIDE RECORDS SUMMARY | 2019-04-05 11:01 | XMS REPORT | Continuity of Care Document ---
:1950 External Reference #:[id number] Author Name Thelma Nguyen N.P. (transmitted by agent of provider Denisse Golden) Address [address] [place] [address] Care Team Providers Name Role Phone Jonathon Kinsey, DO - Family Care Team Information [employer] Supervisor [phone] Medicine Problems Description No Information Available Social History Type Date Description Comments Sex Unknown ETOH Use consumes 1-2 glasses of wine per day Tobacco Use Start: Unknown Light tobacco smoker (10 or fewer cigarettes/day) Recreational Drug Use Never Used Drugs Smoking Status Reviewed: 02/14/19 Light tobacco smoker (10 or fewer cigarettes/day) Exercise Type/Frequency Exercises sporadically Allergies, Adverse Reactions, Alerts Active Allergies Reaction Severity Comments Date Penicillin 10/01/2018 Sulfa Antibiotics 10/01/2018 Latex 10/01/2018 Medications Active Medications SIG Qnty Indications Ordering Date Provider Nitroglycerin 1 sl q5 mins x3 as 25tabs R07.9 Konstantin Lawrence 01/14/2019 0.4mg needed for chest Yazan Atkinson Tablets Sub pain Wellbutrin SR take one tablet by Unknown 150mg mouth three times Tablets ER 12HR daily, needs appt for further refills Trazodone HCL 1/2- 1 every night Unknown 100mg at bedtime Tablets [place] Carbonate 1 capsule in the Unknown 300mg morning, and 2 at Capsules night Clonazepam 1 tablet by mouth Unknown 1mg Tablets twice daily as needed Benadryl Allergy 2 tablets as Unknown 25mg needed Capsules Multi Complete daily Unknown Capsules Omeprazole 1 by mouth every Unknown 20mg day Capsules DR Pravastatin Sodium take one tablet by Unknown 40mg mouth every evening Tablets Atenolol 1 by mouth every Unknown 25mg Tablets day Gabapentin 1 by mouth twice a Unknown 300mg day Capsules Turmeric 1 by mouth every Unknown 500mg Tablets day Advair Diskus 1 puff twice a day Unknown 250-50mcg/Dose Aerosol Ventolin HFA 2 inhalations every Unknown 4-6 hours 108(90Base) mcg/Act Aerosol History Medications Nitro-Dur 1 patch every day 30units R07.9 Konstantin Lawrence 01/14/2019 - 0.1mg/HR on in the Yazan Atkinson 02/14/2019 Patches 24HR morning, off at night Fluticasone 1 snort nasal 32gm J32.9 Lamont Krishnamurthy MD 01/03/2019 - Propionate twice a day 02/02/2019 50mcg/Act Suspension Immunizations Description No Information Available Vital Signs Date Vital Result Comment 02/14/2019 11:22am Height 65 inches 5'5" Weight 161.25 lb with shoes Heart Rate 80 /min left radial BP Systolic Sitting 132 mmHg ule reg cuff BP Diastolic Sitting 90 mmHg ule reg cuff BMI (Body Mass Index) 26.8 kg/m2 01/14/2019 9:33am Height 65 inches 5'5" Weight 162.75 lb with shoes Heart Rate 70 /min radial, regular BP Systolic Sitting 134 mmHg Ra, reg cuff BP Diastolic Sitting 86 mmHg Ra, reg cuff BP Systolic Standing 130 mmHg LA sitting, reg cuff BP Diastolic Standing 84 mmHg LA sitting, reg cuff BP Systolic Lying Down 116 mmHg LA standing, reg cuff BP Diastolic Lying Down 80 mmHg LA standing, reg cuff BMI (Body Mass Index) 27.1 kg/m2 Ejection Fraction 55%-60% stress echo 11/14/18 Results Test Date Facility Test Result H/L Range Note Cath Panel 02/04/2019 [facility] Partial 31.2 seconds Normal 26.0-38.[address] [place] [address] PTT [phone] CBC Auto 02/04/2019 [facility] White Blood 10.7 10^3/uL Normal 3.5-10.[address] [place] [address] [phone] Red Blood Count 4.17 10^6/uL Normal 3.70-4.87 [...] Red Blood Cells % 0.0 Inr/Protime 02/04/2019 [facility] Inr 0.92 Normal 0.82-1.[address] [place] [address] [phone] Lipid Panel - 02/04/2019 [facility] Creatine 29 U/L Normal 10- 223 [address] Kinase(CK) [place] [address] [phone] Comp Metabolic 02/04/2019 [facility] Sodium 139 Normal 135- [address] mmol/[place] [address] [phone] Potassium 4.5 mmol/L Normal 3.5-5.0 Chloride 107 [...] Egfr 81.8 >60 4 Lipid Profile 02/04/2019 [facility] Triglycerides 348 mg/dL 5 (Trig/Chol/HDL) [address] [place] [address] [phone] Cholesterol 187 mg/dL 6 HDL Cholesterol 47.4 mg/dL 7 LDL Cholesterol 70 mg/dL 8 1 FASTING Copy Result to: JONATHON KINSEY ([id number]) 2 Standard intensity warfarin therapeutic range: 2.0-3.0 High intensity warfarin therapeutic range: 2.5-3.5 3 FASTING Copy Result to: JONATHON KINSEY ([id number]) 4 Because ethnic data is not always [...] >189 Procedures Date Code Description Status 02/05/2019 62473 Intravascular Blood Flow Velocity Completed 02/05/2019 69132 Left Heart Cath. Incl S/I Coronaries, Angio S/I V Gram If Completed Done 01/18/2019 65874 Treadmill Interp/Report Only Completed 01/18/2019 68244 Stress Test Supervsn W/Out I/R Completed 01/14/2019 55248 EKG Tracing & Interpretation Completed 11/14/2018 05966 ECHO Stress Test Incl Perf Contiuous ekg Monitoring W/Phys Completed Superv Medical Devices Description No Information Available Encounters Type Date Location Provider Dx Diagnosis Office Visit 01/14/2019 [facility] Konstantin Lawrence I20.9 Angina pectoris, 9:40a Yazan Atkinson unspecified I11.9 Hypertensive heart disease without heart failure I10 Essential (primary) hypertension E78.00 Pure hypercholesterolemia, unspecified J44.9 Chronic obstructive pulmonary disease, unspecified Office Visit 01/03/2019 9:15a [facility] Lamont Krishnamurthy MD R05 [facility] Z72.0 Tobacco use G47.30 Sleep apnea, unspecified J32.9 Chronic sinusitis, unspecified Office Visit 12/03/2018 10:00a [facility] Kai Combs M54.5 [facility] AT Dwayne Boyd MD pain M47.26 Other spondylosis with radiculopathy, lumbar region Office Visit 10/01/2018 10:00a [facility] Kai Combs M54.5 [facility] Dwayne Boyd MD pain M54.16 Radiculopathy, lumbar region M25.552 Pain in left hip M25.562 Pain in left knee Assessments Date Code Description Provider 02/14/2019 R07.9 Chest pain, unspecified Thelma Nguyen, N.P. 02/14/2019 I11.9 Hypertensive heart disease Thelma Nguyen, N.P. 02/14/2019 I10 Benign hypertension Thelma Nguyen, N.P. 02/14/2019 E78.00 Hypercholesterolemia Thelma Nguyen, N.P. 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 at [facility]27/23/2020 8:30 am - Efe Martinez M.D. at [facility]02/14/2019 - Thelma Nguyen N.P.R07.9 Chest pain, unspecifiedFollow up:[facility] 05/2019Recommendations:Ok to take nitro for chest pain. If episodes > 1x week, we could reconsider other medication for them.I11.9 Hypertensive heart diseaseRecommendations:BP ok 128/84 If palpitations continue, we could get a holter.I10 Benign azsyufvcczcsN53.00 HypercholesterolemiaRecommendations:cholesterol at goal. triglycerides are 348; try to avoid rice, pasta, sugar, potatoes. Taking fish oil may help.I25.10 Atherosclerotic heart disease of mohe[place] coronary artery without angina pectorisRecommendations:Start ASA for mild coronary disease in left main. Functional Status Description No Information Available Mental Status Description No Information Available Referrals Description No Information Available
--- NOTE | 2019-04-05 12:33 | ED ---
Lower Extremity - HPI Summary HPI Summary: 68 year old female reports to [facility] with a chief complaint of intermittent left calf pain that began last week, worse since last night. She also reports back pain, left calf numbness, myalgia throughout her body, and shaky hands that prevent her from writing. Brain MRI from several months ago was interpreted negative. She has a history of bipolar disorder. PSHx of a bowel resection for AVM. She smokes 10 cigarettes a day, but is trying to quit. Drinks alcohol daily. No recreational drug history. Family history of AR and HTN. She experiences a large amount of stress at home. - History of Current Complaint Chief Complaint: EDExtremityLower Stated Complaint: LEFT LEG AND BACK PAIN PER PT Time Seen by Provider: 04/05/19 12:08 Hx Obtained From: Patient Onset of Pain: Days Onset/Duration: Still Present Severity Initially: Mild Severity Currently: Moderate Pain Intensity: 4 Pain Scale Used: 0-10 Numeric Timing: Intermittent, Lasting Minutes Location: Is Discrete @ - Left calf Associated Signs And Symptoms: Positive: Other - Back pain, general myalgia, hands shake Able to Bear Weight: Yes - Allergies/Home Medications Allergies/Adverse Reactions: Allergies Allergy/AdvReac Type Severity Reaction Status Date / Time latex Allergy Swelling Verified 04/05/19 10:31 Sulfa (Sulfonamide Allergy Hives Verified 04/05/19 10:31 Antibiotics) Home Medications: Home Medications Fluticasone NASAL SPRAY 50MCG* [Flonase NASAL SPRAY 50MCG*] 1 spray BOTH NARES DAILY 04/05/19 [History Confirmed 04/05/19] Gabapentin CAP(*) [Neurontin 300 CAP(*)] 300 mg PO BID 04/05/19 [History Confirmed 04/05/19] Nitroglycerin 0.1 mg/Hr PATCH* [Nitroglycerin 2.5 MG PATCH*] 1 patch TRANSDERM DAILY 04/05/19 [History Confirmed 04/05/19] PMH/Surg Hx/FS Hx/Imm Hx Endocrine/Hematology History: Denies: Hx Anticoagulant Therapy, Hx Blood Disorders, Hx Diabetes Cardiovascular History: Reports: Hx Angina, Hx Hypercholesterolemia, Hx Hypertension - controlled w/ atenolol Denies: Hx Pacemaker/ICD Respiratory History: Reports: Hx Chronic Obstructive Pulmonary Disease (COPD) GI History: Reports: Other GI Disorders - perferated bowel 10/2013 - resected History: Denies: Hx Dialysis, Hx Renal Disease Musculoskeletal History: Reports: Other Musculoskeletal History - left ankle/ foot surgery Sensory History: Denies: Hx Contacts or Glasses, Hx Hearing Aid Opthamlomology History: Denies: Hx Contacts or Glasses Psychiatric History: Reports: Hx Anxiety, Hx Depression, Hx Suicide Attempt Denies: Hx Panic Disorder - Cancer History Cancer Type, Location 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 - Surgical History Surgery Procedure, Year, and Place: perforated bowel-resection, left ankle/foot surgery, c-sections, tubal Hx Anesthesia Reactions: No - Immunization History Date of Tetanus Vaccine: Unknown Date of Influenza Vaccine: Unknown Infectious Disease History: No Infectious Disease History: Denies: Traveled Outside the [place] in Last 30 Days - Family History Known Family History: Positive: Other - child w/ opiate addiction - Social History Alcohol Use: Daily Alcohol Amount: 2 glasses wine per night Hx Substance Use: No - none currently Substance Use Type: Reports: Marijuana Substance Use Comment - Amount & Last Used: rare Hx Tobacco Use: Yes Smoking Status (MU): Light Every Day Tobacco Smoker Type: Cigarettes Amount Used/How Often: 2 packs per week Length of Time of Smoking/Using Tobacco: Quit but recently restarted Have You Smoked in the Last Year: Yes Review of Systems Positive: Myalgia, Other - Hands shake, back pain Positive: Numbness All Other Systems Reviewed And Are Negative: Yes Physical Exam - Summary Physical Exam Summary: VITAL SIGNS: Reviewed. GENERAL: Patient is a well-developed and nourished female who is lying comfortable in the stretcher.Patient is not in any acute respiratory distress. HEAD AND FACE: No signs of trauma. No ecchymosis, hematomas or skull depressions. No sinus tenderness. EYES: PERRLA, EOMI x 2, No injected conjunctiva, no nystagmus. No photophobia. EARS: Hearing grossly intact. Ear canals and tympanic membranes are within normal limits. MOUTH: Oropharynx within normal limits. NECK: Supple, trachea is midline, no adenopathy, no JVD, no carotid bruit, no c- spine tenderness, neck with full ROM. No meningeal signs, no Kernig's or brudzinskis signs. CHEST: Symmetric, no tenderness at palpation. LUNGS: Clear to auscultation bilaterally. No wheezing or crackles. CVS: Regular rate and rhythm, S1 and S2 present, no murmurs or gallops appreciated. ABDOMEN: Soft, non-tender. No signs of distention. No rebound, no guarding, and no masses palpated. Bowel sounds are normal. EXTREMITIES: FROM in all major joints, no edema, no cyanosis or clubbing. NEURO: Alert and oriented x 3. No acute neurological deficits. Speech is normal and follows commands. SKIN: Dry and warm. GCS: 15 NIH: 0 Triage Information Reviewed: Yes Vital Signs On Initial Exam: Initial Vitals Temp Pulse Resp BP Pulse Ox 98.1 F 84 16 140/72 96 04/05/19 10:28 04/05/19 10:28 04/05/19 10:28 04/05/19 10:28 04/05/19 10:28 Vital Signs Reviewed: Yes - [place] Coma Scale Best Eye Response: 4 - Spontaneous Best Motor Response: 6 - Obeys Commands Best Verbal Response: 5 - Oriented Coma Scale Total: 15 Procedures - Sedation Patient Received Moderate/Deep Sedation with Procedure: No Diagnostics - Vital Signs Vital Signs Temp Pulse Resp BP Pulse Ox 04/05/19 10:28 98.1 F 84 16 140/72 96 - Laboratory Result Diagrams: 04/05/19 12:44 04/05/19 12:43 Lab Statement: Any lab studies that have been ordered have been reviewed, and results considered in the medical decision making process. - Ultrasound Venous Doppler Study Ultrasound Interpretation Completed By: Radiologist Summary of Ultrasound Findings: NO EVIDENCE OF DEEP VENOUS THROMBOSIS IS IDENTIFIED. An ED physician has reviewed this report. National Institutes Of Health - NIH Scale Level of Consciousness: Alert/Keenly Responsive Ask Patient the Month and His/Her Age: Both Correct Ask Pt to Open/Close Eyes and Maintenance Controller/Release Non-Paretic Hand: Both Correctly Best Gaze (Only Horizontal Eye Movement): Normal Visual Field Testing: No Visual Loss Facial Paresis-Pt to Smile & Close Eyes or Grimace Symmetry: Normal/Symmetrical Motor Function - Right Arm: No Drift-Holds 10 Seconds Motor Function - Left Arm: No Drift-Holds 10 Seconds Motor Function - Right Leg: No Drift-Holds 10 Seconds Motor Function - Left Leg: No Drift-Holds 10 Seconds Limb Ataxia-Must be out of Proportion to Weakness Present: Absent Sensory (Use Pinprick to Test Arms/Legs/Trunk/Face): Normal Best Language (Describe Picture, Name Items): No Aphasia Dysarthria (Read Several Words): Normal Extinction and Inattention: No Abnormality Total Score: 0 Lower Extremity Course/Dx - Course Assessment/Plan: Patient is a 68-year-old female who presents to the emergency department with chief complaint of having intermittent left calf pain. Patient also reports that she has myalgias: Often she has an appointment with a neurologist. Blood test results without any significant abnormality. Urinalysis contaminated therefore we will send for urine culture. Left lower extremity ultrasound impression: Negative for DVT. Therefore the patient was discharged home with follow-up with her primary care physician or neurologist. At this point I discussed all the findings and test results with the patient. He was instructed to return to the emergency room immediately if any of the symptoms return or worsen. Patient understand and agree. Neurological exam before discharge: Patient is alert and oriented x 3. No acute neurological deficits. Patient's vital signs are stable. Patient is to follow up with CPP in the next 2 3 days. They understand and agree. Plan of care was discussed with the patient and patient understands and agrees with the plan of care. All questions were answered at the patient's satisfaction. There were no further complaints or concerns. - Diagnoses Provider Diagnoses: Calf pain Discharge ED - Sign-Out/Discharge Documenting (check all that apply): Patient Departure - discharge - Discharge Plan Condition: Stable Disposition: HOME Patient Education Materials: Leg Cramps (ED) Referrals: Brittany Kinsey DO [Primary Care Provider] - Additional Instructions: Follow up with your primary care provider in 2-3 days. Return to the Emergency Department if you experience new or worsened symptoms. - Attestation Statements Document Initiated by Opal: Yes Documenting Scribe: Esteban Hernandez Provider For Whom Opal is Documenting (Include Credential): Dr. Sharif Castellanos MD. Scribe Attestation: Esteban Hammer scribed for Dr. Sharif Castellanos MD. on 04/05/19 at 1736. Status of Scribe Document: Ready
[2019-04-05 12:52] LABS: ABS Basophils 0.1 10^3/ul (0-0.2); ABS Eosinophils 0.2 10^3/ul (0-0.6); ABS Monocytes 0.5 10^3/ul (0-0.8); ABS Neutrophils 7.4 10^3/ul (1.5-7.7); Hematocrit 42 % (35-47); Hemoglobin 14.2 g/dL (12.0-16.0); Lymphocyte % 19.8 %; Mean Corpuscular HGB Conc 34 g/dL (31-36); Mean Corpuscular Hemoglobin 33 pg (27-31); Mean Corpuscular Volume 99 fL (80-97); Mean Platelet Volume 7.4 fL (7.4-10.4); Platelet Count 263 10^3/uL (150-450); Red Blood Count 4.26 10^6 /uL (3.70-4.87); Red Cell Distribution Width 14 % (10-15); White Blood Count 10.2 10^3/uL (3.5-10.8)
[2019-04-05 13:11] LABS: C Reactive Protein 4.22 mg/L (<8.01); Uric Acid 4.9 mg/dL (2.3-6.6)
[2019-04-05 14:59] LABS: Urine Appearance Cloudy; Urine Bacteria 1+ (Absent); Urine Bilirubin Negative (Negative); Urine Blood Negative (Negative); Urine Color Yellow; Urine Glucose Negative (Negative); Urine Ketones Negative (Negative); Urine Nitrite Negative (Negative); Urine Protein Negative (Negative); Urine Red Blood Cell Trace(0-2/hpf) (Absent); Urine Specific Gravity 1.013 (1.010-1.030); Urine Squamous Epithelial Cell Present (Absent); Urine Urobilinogen Negative (Negative); Urine White Blood Cell 3+(>20/hpf) (Absent)
[2019-04-05 15:37] LABS: Albumin 4.2 g/dL (3.2-5.2); Potassium 4.4 mmol/L (3.5-5.0); Total Bilirubin 0.5 mg/dL (0.2-1.0)
[2019-04-05 15:44] LABS: Albumin/Globulin Ratio 1.4 (1-3); BUN/Creatinine Ratio 15.9 (8-20); EGFR African American 84.1 (>60); EGFR Non-African American 69.5 (>60); Total Protein 7.2 g/dL (6.4-8.9)
[2019-04-05 16:18] VITALS: BP 142/78
[2019-04-05 16:18] LABS: Lithium 0.93 mmol/L (0.6-1.2)
--- NOTE | 2019-04-07 15:22 | ED ---
Imaging and Labs Follow Up Follow Up Type: Labs/Cultures Labs/Culture Result: Urine culture growing >100k GBS Patient Communication/Plan: Called and spoke with pt. today at 1515. Pt. notes she has been having mild dysuria. Will tx with keflex. Rx sent to pharmacy. Provider Diagnoses: Calf pain
== END 2019-04-05 16:19 | disposition home or self-care (01) ==
LOC: ED 10:24
DX: M79.662 Pain in left lower leg (principal); E78.00 Pure hypercholesterolemia, unspecified; I10 Essential (primary) hypertension; J44.9 Chronic obstructive pulmonary disease, unspecified; F31.9 Bipolar disorder, unspecified; F17.210 Nicotine dependence, cigarettes, uncomplicated; Z88.2 Allergy status to sulfonamides; Z91.040 Latex allergy status; Z79.51 Long term (current) use of inhaled steroids; Z79.899 Other long term (current) drug therapy
CPT/HCPCS: 36415; 80053; 80178; 81003; 81015; 84550; 85025; 86140; 87077; 87086; 99282

== ENCOUNTER 2019-05-18 16:19 | Emergency (ER) | payer MEDICARE, MEDICAID ==
--- NOTE | 2019-05-18 17:05 | ED ---
Lower Extremity - HPI Summary HPI Summary: The pt is a 68 yr old female presenting to [facility] c/o lower left extremity cramping beginning 2 months [employer]. She notes that she has had LLE cramping on and off for about 2 months and has been seen many times at the ED for similar symptoms. She had ultrasounds which were negative and has also seen the primary provider with no diagnosis. She is currently seeing neurology for possible parkinsons disease. She states the spasm happens when she has been sleeping and then wakes up but the cramp starts before she gets out of bed. She rates her current pain severity a 5/10. No aggravating or alleviating factors noted. She also denies any fever. She has Hx of cyst behind her left knee. - History of Current Complaint Chief Complaint: EDExtremityLower Stated Complaint: CRAMP IN LEFT LEG PER PT Time Seen by Provider: 05/18/19 16:54 Hx Obtained From: Patient Onset of Pain: Prior to Arrival Onset/Duration: Weeks - 2 months Severity Initially: Moderate Severity Currently: Moderate Pain Intensity: 5 Pain Scale Used: 0-10 Numeric Timing: Intermittent, Lasting Weeks Location: Is Discrete @ - LLE Character Of Pain: Sharp Associated Signs And Symptoms: Negative: Fever Aggravating Factor(s): Nothing Alleviating Factor(s): Nothing - Allergies/Home Medications Allergies/Adverse Reactions: Allergies Allergy/AdvReac Type Severity Reaction Status Date / Time latex Allergy Swelling Verified 05/18/19 16:27 Sulfa (Sulfonamide Allergy Hives Verified 05/18/19 16:27 Antibiotics) PMH/Surg Hx/FS Hx/Imm Hx Endocrine/Hematology History: Denies: Hx Anticoagulant Therapy, Hx Blood Disorders, Hx Diabetes Cardiovascular History: Reports: Hx Angina, Hx Hypercholesterolemia, Hx Hypertension - controlled w/ atenolol Denies: Hx Pacemaker/ICD Respiratory History: Reports: Hx Chronic Obstructive Pulmonary Disease (COPD) GI History: Reports: Other GI Disorders - perferated bowel 10/2013 - resected History: Denies: Hx Dialysis, Hx Renal Disease Musculoskeletal History: Reports: Other Musculoskeletal History - left ankle/ foot surgery Sensory History: Denies: Hx Contacts or Glasses, Hx Hearing Aid Opthamlomology History: Denies: Hx Contacts or Glasses Psychiatric History: Reports: Hx Anxiety, Hx Depression, Hx Suicide Attempt Denies: Hx Panic Disorder - Cancer History Cancer Type, Location 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 - Surgical History Surgery Procedure, Year, and Place: perforated bowel-resection, left ankle/foot surgery, c-sections, tubal Hx Anesthesia Reactions: No - Immunization History Date of Tetanus Vaccine: Unknown Date of Influenza Vaccine: Unknown Infectious Disease History: No Infectious Disease History: Denies: Traveled Outside the [place] in Last 30 Days - Family History Known Family History: Positive: Other - child w/ opiate addiction - Social History Alcohol Use: Daily Alcohol Amount: 2 glasses wine per night Hx Substance Use: No - none currently Substance Use Type: Reports: Marijuana Substance Use Comment - Amount & Last Used: rare Hx Tobacco Use: Yes Smoking Status (MU): Light Every Day Tobacco Smoker Type: Cigarettes Amount Used/How Often: 2 packs per week Length of Time of Smoking/Using Tobacco: Quit but recently restarted Have You Smoked in the Last Year: Yes Review of Systems Negative: Fever Musculoskeletal: Other - pos - LLE cramping All Other Systems Reviewed And Are Negative: Yes Physical Exam - Summary Physical Exam Summary: Constitutional: Well-developed, Well-nourished, Alert. (-) Distressed Skin: Warm, Dry HENT: Normocephalic; Atraumatic Eyes: Conjunctiva normal Neck: Musculoskeletal ROM normal neck. (-) JVD, (-) Stridor, (-) Tracheal deviation Cardio: Rhythm regular, rate normal, Heart sounds normal; Intact distal pulses; The pedal pulses are 2+ and symmetric. Radial pulses are 2+ and symmetric. (-) Murmur Pulmonary/Chest wall: Effort normal. (-) Respiratory distress, (-) Wheezes, (-) Rales Abd: Soft, (-) tenderness, (-) Distension, (-) Guarding, (-) Rebound Musculoskeletal: (-) Edema Left Leg: No pain at palpation throughout the calve, no swelling or erythema, NV intact Lymph: (-) Cervical adenopathy Neuro: Alert, Oriented x3 Psych: Mood and affect Normal Triage Information Reviewed: Yes Vital Signs On Initial Exam: Initial Vitals Temp Pulse Resp BP Pulse Ox 96.1 F 67 14 135/60 98 05/18/19 16:20 05/18/19 16:20 05/18/19 16:20 05/18/19 16:20 05/18/19 16:20 Vital Signs Reviewed: Yes Procedures - Sedation Patient Received Moderate/Deep Sedation with Procedure: No Diagnostics - Vital Signs Vital Signs Temp Pulse Resp BP Pulse Ox 05/18/19 16:20 96.1 F 67 14 135/60 98 - Laboratory Lab Statement: Any lab studies that have been ordered have been reviewed, and results considered in the medical decision making process. Lower Extremity Course/Dx - Course Course Of Treatment: The pt is a 68 yr old female presenting to [facility] c/o lower left extremity cramping beginning 2 months [employer]. She notes that she has had LLE cramping on and off for about 2 months and has been seen many times at the ED for similar symptoms. She had ultrasounds which were negative and has also seen the primary provider with no diagnosis. She is currently seeing neurology for possible parkinsons disease. She states the spasm happens when she has been sleeping and then wakes up but the cramp starts before she gets out of bed. No test or imaging results to report. Final Dx are leg pain and neuropathy. Pt will be discharged home with ortho and PCP follow up. Pt is agreeable with this plan. - Diagnoses Provider Diagnoses: Leg pain, Neuropathy Discharge ED - Sign-Out/Discharge Documenting (check all that apply): Patient Departure - discharge - Discharge Plan Condition: Stable Disposition: HOME Prescriptions: Cyclobenzaprine TAB* [Flexeril 10 MG TAB*] 10 mg PO TID PRN #15 tab PRN Reason: Spasms predniSONE [Prednisone 20 MG TAB] 40 mg PO DAILY 4 Days #8 tablet Patient Education Materials: Leg Cramps (ED) Referrals: Brittany Kinsey DO [Primary Care Provider] - 3 Days Kentrell Duarte MD [Medical Doctor] - 3 Days Additional Instructions: Please follow up with you primary care provider within 3 days. Please return to the ED for any new or worsening symptoms. - Billing Disposition and Condition Condition: STABLE Disposition: Home - Attestation Statements Document Initiated by Lilyibe: Yes Documenting Scribe: Atul Guillermo Provider For Whom Opal is Documenting (Include Credential): Charles Frost DO Scribe Attestation: Atul Hammer scribed for Charles Frost DO on 05/18/19 at 1825. Scribe Documentation Reviewed: Yes Provider Attestation: The documentation as recorded by the Atul howe accurately reflects the service I personally performed and the decisions made by me, Charles Frost, DO Status of Scribnilsa Document: Viewed
[2019-05-18] MEDS ORDERED: Cyclobenzaprine TAB* 10 MG PO ONE (17:15)
[2019-05-18] MEDS ORDERED: predniSONE TAB* 20 MG PO ONE (17:15)
[2019-05-18 18:03] VITALS: BP 140/73
--- OUTSIDE RECORDS SUMMARY | 2019-05-21 15:42 | XMS REPORT | Continuity of Care Document ---
:1950 External Reference #:[id number] Author Name Harvey Rivera N.P. (transmitted by agent of provider Neisha Gonzales) Address [address], [place] [address] Care Team Providers Name Role Phone Brittany Kinsey, DO - Family Care Team Information Case Reviewer Medicine Problems Description No Information Available Social History Type Date Description Comments Sex Unknown ETOH Use consumes 1-2 glasses of wine per day Tobacco Use Start: Unknown Light tobacco smoker (10 or fewer cigarettes/day) Recreational Drug Use Never Used Drugs Smoking Status Reviewed: 05/13/19 Light tobacco smoker (10 or fewer cigarettes/day) Exercise Type/Frequency Exercises sporadically Allergies, Adverse Reactions, Alerts Active Allergies Reaction Severity Comments Date Penicillin 10/01/2018 Sulfa Antibiotics 10/01/2018 Latex 10/01/2018 Medications Active Medications SIG Qnty Indications Ordering Provider Date Fluticasone Propionate 1 snort nasal 32gm J32.9 Lamont Krishnamurthy MD 2018 twice a day 50mcg/Act Suspension Fish Oil 1 by mouth every Unknown 500mg Capsules day Albuterol Sulfate HFA Unknown 108(90Base) mcg/Act Aerosol Advair Diskus 1 puff twice a Unknown day 250-50mcg/Dose Aerosol Atenolol 1 by mouth every Unknown 25mg Tablets day Pravastatin Sodium take one tablet Unknown 40mg by mouth every Tablets evening Omeprazole 1 by mouth every Unknown 20mg Capsules day DR Multi Complete daily Unknown Capsules Benadryl Allergy 2 tablets as Unknown 25mg needed Capsules Clonazepam 1 tablet by mouth Unknown 1mg Tablets twice daily as needed [place] Carbonate 1 capsule in the Unknown 300mg morning, and 2 at Capsules night Trazodone HCL 1/2- 1 every Unknown 100mg night at bedtime Tablets Wellbutrin SR take one tablet Unknown 150mg by mouth three Tablets ER 12HR times daily, needs appt for further refills History Medications Nicotine Step 1 1 patch apply Z72.0 Lamont Krishnamurthy MD 03/07/2019 - 21mg/24HR to skin every 04/06/2019 Patches 24HR day Aspirin 81 take 1 tab by 90tabs Thelma Nguyen 02/14/2019 - 81mg Tablets mouth daily N.P. 04/23/2019 DR Oneil 1 patch every 30units R07.9 Konstantin Lawrence 01/14/2019 - 0.1mg/HR day on in the Yazan Atkinson 05/05/2019 Patches 24HR morning, off at night Nitroglycerin 1 sl q5 mins x3 25tabs R07.9 Konstantin Lawrence 01/14/2019 - 0.4mg as needed for Yazan Atkinson 05/05/2019 Tablets Sub chest pain Immunizations Description No Information Available Vital Signs Date Vital Result Comment 05/13/2019 9:50am Height 65 inches 5'5" Weight 162.00 lb Heart Rate 68 /min BP Systolic 122 mmHg BP Diastolic 84 mmHg BMI (Body Mass Index) 27.0 kg/m2 05/06/2019 8:39am Height 65 inches 5'5" Weight 166.25 lb Heart Rate 61 /min BP Systolic Sitting 142 mmHg BP Diastolic Sitting 88 mmHg Body Temperature 98.3 F BMI (Body Mass Index) 27.7 kg/m2 Results Test Acquired Date Facility Test Result H/L Range Note Cath Panel 02/04/2019 [facility] Partial 31.2 seconds Normal 26.0-38.[address] [place] [address] PTT [phone] CBC Auto 02/04/2019 [facility] White Blood 10.7 10^3/uL Normal 3.5-10.[address] [place] [address] [phone] Red Blood Count 4.17 10^6/uL Normal 3.70-4.87 [...] Red Blood Cells % 0.0 Inr/Protime 02/04/2019 [facility] Inr 0.92 Normal 0.82-1.[address] [place] [address] [phone] Lipid Panel - 02/04/2019 [facility] Creatine 29 U/L Normal 10- 223 [address] [address] Kinase(CK) [place] [address] [phone] Comp Metabolic 02/04/2019 [facility] Sodium 139 Normal 135- [address] mmol/[place] [address] [phone] Potassium 4.5 mmol/L Normal 3.5-5.0 Chloride 107 [...] Egfr 81.8 >60 4 Lipid Profile 02/04/2019 [facility] Triglycerides 348 mg/dL 5 (Trig/Chol/HDL) [address] [place] [address] [phone] Cholesterol 187 mg/dL 6 HDL Cholesterol 47.4 mg/dL 7 LDL Cholesterol 70 mg/dL 8 1 FASTING Copy Result to: BRITTANY KINSEY ([id number]) 2 Standard intensity warfarin therapeutic range: 2.0-3.0 High intensity warfarin therapeutic range: 2.5-3.5 3 FASTING Copy Result to: BRITTANY KINSEY ([id number]) 4 Because ethnic data is not always [...] High: >189 Procedures Date Code Description Status 03/04/2019 12117 Diffusing Capacity Completed 03/04/2019 03605 Plethysmography Determination Lung Volumes & Per Airway Completed Resist 03/04/2019 62122 Pulmonary Function><Bronchodil Completed 02/05/2019 68882 Intravascular Blood Flow Velocity Completed 02/05/2019 38021 Left Heart Cath. Incl S/I Coronaries, Angio S/I V Gram If Completed Done 01/18/2019 21647 Treadmill Interp/Report Only Completed 01/18/2019 72832 Stress Test Supervsn W/Out I/R Completed 01/14/2019 40940 EKG Tracing & Interpretation Completed 11/14/2018 41185 ECHO Stress Test Incl Perf Contiuous ekg Monitoring W/Phys Completed Superv Medical Devices Description No Information Available Encounters Type Date Location Provider Dx Diagnosis Office Visit 03/07/2019 11:20a [facility] Lamont Krishnamurthy MD R05 [facility] J44.9 Chronic obstructive pulmonary disease, unspecified Z72.0 Tobacco use G47.30 Sleep apnea, unspecified Office Visit 02/14/2019 11:30a [facility] Thelma Robins R07.9 Chest pain, Patrick, N.P. unspecified I11.9 Hypertensive heart disease without heart failure I10 Essential (primary) hypertension E78.00 Pure hypercholesterolemia, unspecified I25.10 Athscl heart disease of [place] coronary artery w/o ang pctrs Office Visit 01/14/2019 9:40a [facility] Konstantin Lawrence I20.9 Angina pectorisDemetrio M.D. unspecified I11.9 Hypertensive heart disease without heart failure I10 Essential (primary) hypertension E78.00 Pure hypercholesterolemia, unspecified J44.9 Chronic obstructive pulmonary disease, unspecified Office Visit 01/03/2019 9:15a [facility] Lamont Krishnamurthy MD R05 [facility] Z72.0 Tobacco use G47.30 Sleep apnea, unspecified J32.9 Chronic sinusitis, unspecified Office Visit 12/03/2018 10:00a [facility] Kai F M54.5 Low back at Dwayne Boyd MD pain M47.26 Other spondylosis with radiculopathy, lumbar region Assessments Date Code Description Provider 05/13/2019 R25.1 Tremor, unspecified Harvey Rivera N.P. 05/13/2019 R26.81 Unsteadiness on feet Harvey Rivera, N.P. 05/13/2019 R41.3 Other amnesia Harvey Rivera, N.P. 05/13/2019 G40.89 Other seizures Harvey Rivera, N.P. 05/13/2019 R13.10 Dysphagia, unspecified Harvey Rivera, N.P. 05/06/2019 R25.2 Cramp and spasm Kai Boyd MD 05/06/2019 M25.562 Pain in left knee Kai Boyd MD 03/07/2019 R05 Cough Lamont Krishnamurthy MD 03/07/2019 J44.9 Chronic obstructive lung disease Lamont Krishnamurthy MD 03/07/2019 Z72.0 Tobacco use Lamont Krishnamurthy MD 03/07/2019 G47.30 Sleep apnea, unspecified Lamont Krishnamurthy MD 03/04/2019 R05 Cough Soraya Lee MD 02/14/2019 R07.9 Chest pain, unspecified Thelma Nguyen, N.P. 02/14/2019 I11.9 Hypertensive heart disease Thelma Nguyen, N.P. 02/14/2019 I10 Benign hypertension Thelma Nguyen, N.P. 02/14/2019 E78.00 Hypercholesterolemia Thelma Nguyen, N.P. 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 01/18/2019 R07.9 Chest pain, unspecified Konstantin Atkinson [...] 11/14/2018 I10 Essential hypertension Konstantin Atkinson M.D. Plan of Treatment Future Appointment(s):07/19/2019 9:30 am - Harvey Rivera N.PRoel at [facility]06/17/2019 8:15 am - Kai Boyd MD at [facility] at Rxcopunx84/09/2019 11:00 am - Konstantin Atkinson M.D. at [place] [facility]dvlujyexp40/25/2019 - Harvey Rivera, N.PRoelR25.1 Tremor, unspecifiedFollow up:6-8 mfbqtZ27.81 Unsteadiness on feetNew Therapy:Physical XxkspyvM71.3 Other aqjqaqsM86.89 Other wltetycgQ08.10 Dysphagia, unspecifiedNew Therapy:Speech Therapy Functional Status Description No Information Available Mental Status Description No Information Available Referrals Description No Information Available
--- OUTSIDE RECORDS SUMMARY | 2019-05-21 15:42 | XMS REPORT | Continuity of Care Document ---
:1950 External Reference #:[id number] Author Name Kai Boyd MD (transmitted by agent of provider Cintia Kraus) Address [address] [place] [address] Care Team Providers Name Role Phone Jonathon Kinsey, DO - Family Care Team Information Table Games Dual Rate Supervisor Medicine Problems Description No Information Available Social History Type Date Description Comments Sex Unknown ETOH Use consumes 1-2 glasses of wine per day Tobacco Use Start: Unknown Light tobacco smoker (10 or fewer cigarettes/day) Recreational Drug Use Never Used Drugs Smoking Status Reviewed: 05/06/19 Light tobacco smoker (10 or fewer cigarettes/day) Exercise Type/Frequency Exercises sporadically Allergies, Adverse Reactions, Alerts Active Allergies Reaction Severity Comments Date Penicillin 10/01/2018 Sulfa Antibiotics 10/01/2018 Latex 10/01/2018 Medications Active Medications SIG Qnty Indications Ordering Provider Date Fluticasone Propionate 1 snort nasal 32gm J32.9 Lamont Krishnamurthy MD 2018 twice a day 50mcg/Act Suspension Diclofenac Sodium one tablet by Unknown 50mg mouth tid Tablets Albuterol Sulfate HFA Unknown 108(90Base) mcg/Act Aerosol Advair Diskus 1 puff twice a Unknown day 250-50mcg/Dose Aerosol Atenolol 1 by mouth every Unknown 25mg Tablets day Pravastatin Sodium take one tablet Unknown 40mg by mouth every Tablets evening Omeprazole 1 by mouth every Unknown 20mg Capsules day Multi Complete daily Unknown Capsules Benadryl Allergy 2 tablets as Unknown 25mg needed Capsules Clonazepam 1 tablet by mouth Unknown 1mg Tablets twice daily as needed [place] Carbonate 1 capsule in the Unknown 300mg [...] Available Vital Signs Date Vital Result Comment 05/06/2019 8:39am Height 65 inches 5'5" Weight 166.25 lb Heart Rate 61 /min BP Systolic Sitting 142 mmHg BP Diastolic Sitting 88 mmHg Body Temperature 98.3 F BMI (Body Mass Index) 27.7 kg/m2 03/07/2019 11:07am Height 65 inches 5'5" Weight 161.00 lb Heart Rate 76 /min BP Systolic Sitting 132 mmHg Lue regular cuff BP Diastolic Sitting 86 mmHg Lue regular cuff Respiratory Rate 12 /min O2 % BldC Oximetry 96 % BMI (Body Mass Index) 26.8 kg/m2 Results Test Acquired Date Facility Test Result H/L Range Note Cath Panel 02/04/2019 [facility] Partial 31.2 seconds Normal 26.0-38.[address] [place] [address] PTT [phone] CBC Auto 02/04/2019 [facility] White Blood 10.7 10^3/uL Normal 3.5-10.[address] [place] [address] [phone] Red Blood Count 4.17 10^6/uL Normal 3.70-4.87 [...] Red Blood Cells % 0.0 Inr/Protime 02/04/2019 [facility] Inr 0.92 Normal 0.82-1.[address] [place] [address] [phone] Lipid Panel - 02/04/2019 [facility] Creatine 29 U/L Normal 10- 223 [address] [address] Kinase(CK) [place] [address] [phone] Comp Metabolic 02/04/2019 [facility] Sodium 139 Normal 135- [address] mmol/[place] [address] [phone] Potassium 4.5 mmol/L Normal 3.5-5.0 Chloride 107 [...] Egfr 81.8 >60 4 Lipid Profile 02/04/2019 [facility] Triglycerides 348 mg/dL 5 (Trig/Chol/HDL) [address] [place] [address] [phone] Cholesterol 187 mg/dL 6 HDL Cholesterol 47.4 mg/dL 7 LDL Cholesterol 70 mg/dL 8 1 FASTING Copy Result to: JONATHON KINSEY ([id number]) 2 Standard intensity warfarin therapeutic range: 2.0-3.0 High intensity warfarin therapeutic range: 2.5-3.5 3 FASTING Copy Result to: JONATHON KINSEY ([id number]) 4 Because ethnic data is not always [...] >189 Procedures Date Code Description Status 03/04/2019 90217 Diffusing Capacity Completed 03/04/2019 85107 Plethysmography Determination Lung Volumes & Per Airway Completed Resist 03/04/2019 56839 Pulmonary Function><Bronchodil Completed 02/05/2019 55162 Intravascular Blood Flow Velocity Completed 02/05/2019 69208 Left Heart Cath. Incl S/I Coronaries, Angio S/I V Gram If Completed Done 01/18/2019 25108 Treadmill Interp/Report Only Completed 01/18/2019 20142 Stress Test Supervsn W/Out I/R Completed 01/14/2019 31851 EKG Tracing & Interpretation Completed 11/14/2018 80890 ECHO Stress Test Incl Perf Contiuous ekg Monitoring W/Phys Completed Superv Medical Devices Description No Information Available Encounters Type Date Location Provider Dx Diagnosis Office Visit 03/07/2019 11:20a Pulmonology And Sleep Lamont Krishnamurthy MD R05 [facility] J44.9 Chronic obstructive pulmonary disease, unspecified Z72.0 Tobacco use G47.30 Sleep apnea, unspecified Office Visit 02/14/2019 11:30a [facility] Thelma Robins R07.9 Chest pain, Foster, N.P. unspecified I11.9 Hypertensive heart disease without heart failure I10 Essential (primary) hypertension E78.00 Pure hypercholesterolemia, unspecified I25.10 Athscl heart disease of [place] coronary artery w/o ang pctrs Office Visit 01/14/2019 9:40a [facility] Konstantin Lawrence I20.9 Angina pectorisDemetrio M.D. unspecified I11.9 Hypertensive heart disease without heart failure I10 Essential (primary) hypertension E78.00 Pure hypercholesterolemia, unspecified J44.9 Chronic obstructive pulmonary disease, unspecified Office Visit 01/03/2019 9:15a Pul[facility]ology And Sleep Lamont Krishnamurthy MD R05 [facility] Z72.0 Tobacco use G47.30 Sleep apnea, unspecified J32.9 Chronic sinusitis, unspecified Office Visit 12/03/2018 10:00a [facility] Kai F M54.5 Low back at Dwayne Boyd MD pain M47.26 Other spondylosis with radiculopathy, lumbar region Assessments Date Code Description Provider 05/06/2019 R25.2 Cramp and spasm Kai Boyd [...] N.P. 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 Plan of Treatment Future Appointment(s):06/17/2019 8:15 am - Kai Boyd MD at [facility] at Qzuxrzql67/25/2019 10:00 am - Harvey Rivera N.P. at [facility]05/27/2019 11:00 am - Konstantin Atkinson M.D. at [facility]05/06/2019 - Kai Boyd, MDR25.2 Cramp and spasmFollow up:Follow up: 6 weeks prn Patient will be seeing a neurologist next week.M25.562 Pain in left knee Functional Status Description No Information Available Mental Status Description No Information Available Referrals Description No Information Available
--- OUTSIDE RECORDS SUMMARY | 2019-05-21 15:42 | XMS REPORT ---
:1950 Author Organization [facility] Care Team Providers Name Role Phone PaulYessyalexsandra Primary Care Physician Unavailable Allergies, Adverse Reactions, Alerts Allergy Code CodeSystem Reaction Severity Criticality Status Start Substance Date Moderate Medications Medication Medication Medication Start Stop Route Dose Status Fill Code CodeSystem Date Date Instructions bupropion HCl 030827 RxNorm 2019- oral 150 mg completed for 90 5- 05-17 tablet day(s) sustaine d-releas e 12 hr pravastatin 713149 RxNorm 2017-06 oral 40 mg active for 90 2-13 tablet day(s) trazodone 507987 RxNorm 2018- oral 100 mg completed for 90 2- 05-17 tablet day(s) atenolol 903110 RxNorm oral 25 mg active for 90 3-18 tablet day(s) clonazepam 902901 RxNorm 2019- oral 1 mg completed for 30 5- 06-06 tablet day(s) gabapentin 768262 RxNorm oral 100 mg active for 30 3-22 capsule day(s) clonazepam 452543 RxNorm 2019- oral 1 mg completed for 30 3-19 05-07 tablet day(s) lithium 19780125 RxNorm 2019- oral 300 mg completed for 30 carbonate 2-20 05-17 capsule day(s) bupropion HCl 986972 RxNorm 2019- oral 150 mg 2 active 2 tablet 11-02 08-15 tablet once a day sustaine for 90 day(s) d-releas e 12 hr once a day trazodone 395714 RxNorm 2019- oral 100 mg 1 active 1 tablet at 11-02 08-15 tablet bedtime for at 90 day(s) bedtime clonazepam 702449 RxNorm 2018- oral 1 mg 1 completed 1 tablet 12-10-24 tablet twice a day twice a as needed for day 30 day(s) lithium 103790 RxNorm 2018- oral 300 mg active for 30 carbonate 17 08-15 capsule day(s) Problems Problem Code CodeSystem Alternate Alternate Start End Status Narrative Name Code CodeSystem Date Date Bipolar 45354363 SNOMED-CT 2018-08 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 Relevant diagnostic tests/laboratory data Narrative No Information Procedures Procedure Code CodeSystem Target Date of Status Service Device Device Device Name Site Procedure Delivery Code Name UID Location Psychotherap 960040 SNOMED-CT () 2019-04-15 complete Mental y, 45 04 d Health- minutes with [place] patient [address], [phone] [id number] Psychotherap 727579 SNOMED-CT () 2019-03-01 complete Mental y, 45 04 d Health- minutes with [place] patient [address], [phone] Office or 965361 SNOMED-CT () 2019-04-19 complete Mental other 6 d Health- outpatient [place] visit for [address], established [id number] patient, [phone] which requires at least 2 of these 3 de la fuente components: A problem focused history; A problem focused examination; Straightforw mark medical decision making. Counselin Office or 012508 SNOMED-CT () 2018-11-14 complete Mental other 6 d Health- outpatient [place] visit for [address], [facility] [phone] patient, [phone] which requires at least 2 of these 3 de la fuente components: A problem focused history; A problem focused examination; Straightforw mark medical decision making. Counselin Office or 124439 SNOMED-CT () 2019-02-15 complete Mental other 6 d Health- outpatient [place] visit for [address], established [phone] patient, [phone] which requires at least 2 of these 3 de la fuente components: A problem focused history; A problem focused examination; Straightforw mark medical decision making. Rashmi SNOMED-CT () 2019-03-19 complete Mental d Health- [place] [address], [phone] Encounters/Encounter Diagnoses Encounter Name Encounter Diagnosis Diagnosis Diagnosis Date of Service Code Code Name CodeSystem Diagnosis Delivery Location [facility] [address]178 [id number] Bipolar II SNOMED-CT 2019-05-06 Behavioral Individual 30 disorder [facility] , , , Vital Signs No Information Social History Element Description Description Start End Code CodeSystem AdditionalInfo Date Date SexAssignedAtBirth Female 1950-0 F AdministrativeGender 6-24 Hospital Discharge Instructions Reason For Referral Medical Equipment FDA Assessments
== END 2019-05-18 18:00 | disposition home or self-care (01) ==
LOC: ED 16:19
DX: M79.605 Pain in left leg (principal); G62.9 Polyneuropathy, unspecified; I10 Essential (primary) hypertension; Z88.2 Allergy status to sulfonamides; Z91.040 Latex allergy status; F17.210 Nicotine dependence, cigarettes, uncomplicated
CPT/HCPCS: 99281; A9270-GY; J7512

== ENCOUNTER 2019-06-13 08:45 | Emergency (ER) | payer MEDICARE, MEDICAID ==
--- OUTSIDE RECORDS SUMMARY | 2019-06-13 09:39 | XMS REPORT | Continuity of Care Document ---
:1950 External Reference #:[id number] Author Name Konstantin Atkinson M.D. (transmitted by agent of provider Bailee Thrasher ) Address [address] [facility] [address] [place] [address] Care Team Providers Name Role Phone Brittany Kinsey, DO - Family Care Team Information Local Company [employer] Medicine Problems Description No Information Available Social History Type Date Description Comments Sex Unknown ETOH Use consumes 1-2 glasses of wine per day Tobacco Use Start: Unknown Light tobacco smoker (10 or fewer cigarettes/day) Recreational Drug Use Never Used Drugs Smoking Status Reviewed: 05/27/19 Light tobacco smoker (10 or fewer cigarettes/day) Exercise Type/Frequency Exercises sporadically Allergies, Adverse Reactions, Alerts Active Allergies Reaction Severity Comments Date Penicillin 10/01/2018 Sulfa Antibiotics 10/01/2018 Latex 10/01/2018 Medications Active Medications SIG Qnty Indications Ordering Provider Date Atorvastatin Calcium 1 by mouth every 90tabs Konstantin Lawrence 05/27/2019 day Yazan Atkinson 10mg Tablets Fluticasone 1 snort nasal 32gm J32.9 Lamont Krishnamurthy MD 01/03/2019 Propionate twice a day 50mcg/Act Suspension Tums 1 tab by mouth Unknown 500mg Chewtabs four times a day as needed Fish Oil 1 by mouth every Unknown 500mg Capsules day Albuterol Sulfate HFA 1 puff as needed Unknown 108(90Base) mcg/Act Aerosol Advair Diskus 1 puff twice a Unknown day 250-50mcg/Dose Aerosol Atenolol 1 by mouth every Unknown 25mg Tablets day Omeprazole 1 by mouth every Unknown 20mg day Capsules DR Multi Complete daily Unknown Capsules Benadryl Allergy 1 tablet by Unknown 25mg mouth as needed Capsules for insomnia Clonazepam 1 tablet by mouth Unknown 1mg Tablets twice daily as needed Amonate Carbonate 1 capsule in the Unknown 300mg morning, and 2 at Capsules night Trazodone HCL 1/2- 1 every Unknown 100mg night at bedtime Tablets Wellbutrin SR take one tablet Unknown 150mg by mouth twice Tablets ER 12HR times daily, needs appt for further refills History Medications Nicotine Step 1 1 patch apply Z72.0 Lamont Krishnamurthy MD 03/07/2019 - 21mg/24HR to skin every 04/06/2019 Patches 24HR day Aspirin 81 take 1 tab by 90tabs Thelma Nguyen 02/14/2019 - 81mg Tablets mouth daily N.P. 04/23/2019 DR Cash-Dur 1 patch every 30units R07.9 Konstantin Lawrence 01/14/2019 - 0.1mg/HR day on in the Yazan Atkinson 05/05/2019 Patches 24HR morning, off at night Nitroglycerin 1 sl q5 mins x3 25tabs R07.9 Konstantin Lawrence 01/14/2019 - 0.4mg as needed for Yazan Atkinson 05/05/2019 Tablets Sub chest pain Immunizations Description No Information Available Vital Signs Date Vital Result Comment 05/27/2019 11:15am Height 65 inches 5'5" Weight 163.38 lb with shoes Heart Rate 84 /min radial,regular BP Systolic Sitting 138 mmHg LA,reg cuff BP Diastolic Sitting 88 mmHg LA,reg cuff BP Systolic Standing 140 mmHg LA,reg cuff BP Diastolic Standing 90 mmHg LA,reg cuff BP Systolic Lying Down 124 mmHg la repeat sitting BP Diastolic Lying Down 75 mmHg la repeat sitting BMI (Body Mass Index) 27.2 kg/m2 05/13/2019 9:50am Height 65 inches 5'5" Weight 162.00 lb Heart Rate 68 /min BP Systolic 122 mmHg BP Diastolic 84 mmHg BMI (Body Mass Index) 27.0 kg/m2 Results Test Acquired Date Facility Test Result H/L Range Note CBC Auto 05/14/2019 [facility] White Blood 10.6 10^3/uL Normal 3.5-10.[address] [place] [address] [phone] Red Blood Count 4.35 10^6/uL Normal 3.70-4.87 Hemoglobin 14.8 g/dL Normal 12.0-16.0 Hematocrit 43 % Normal 35-47 Mean Corpuscular Volume 99 fL High 80-97 Mean Corpuscular Hemoglobin 34 pg High 27-31 Mean Corpuscular HGB Conc 35 g/dL Normal 31-36 Red Cell Distribution Width 13 % Normal 10-15 Platelet Count 330 10^3/uL Normal 150-450 Mean Platelet Volume 8.0 fL Normal 7.4-10.4 Abs Neutrophils 7.3 10^3/uL Normal 1.5-7.7 Abs Lymphocytes 2.4 10^3/uL Normal 1.0-4.8 Abs Monocytes 0.6 10^3/uL Normal 0-0.8 Abs Eosinophils 0.2 10^3/uL Normal 0-0.6 Abs Basophils 0.0 10^3/uL Normal 0-0.2 Abs Nucleated RBC 0.0 10^3/uL Granulocyte % 69.2 % Lymphocyte % 22.6 % Monocyte % 6.0 % Eosinophil % 1.8 % Basophil % 0.4 % Nucleated Red Blood Cells % 0.2 Comp Metabolic 05/14/2019 [facility] Sodium 138 mmol/L Normal 135-[address] [place] [address] [phone] Potassium 4.0 mmol/L Normal 3.5-5.0 Chloride 105 mmol/L Normal 101-111 Co2 Carbon Dioxide 27 mmol/L Normal 22-32 Anion Gap 6 mmol/L Normal 2-11 Glucose 96 mg/dL Normal 70-100 Blood Urea Nitrogen 10 mg/dL Normal 6-24 Creatinine 0.82 mg/dL Normal 0.51-0.95 BUN/Creatinine Ratio 12.2 Normal 8-20 Calcium 10.7 mg/dL High 8.6-10.3 Total Protein 6.9 g/dL Normal 6.4-8.9 Albumin 4.4 g/dL Normal 3.2-5.2 Globulin 2.5 g/dL Normal 2-4 Albumin/Globulin Ratio 1.8 Normal 1-3 Total Bilirubin 0.60 mg/dL Normal 0.2-1.0 Alkaline Phosphatase 62 U/L Normal 34-104 Alt 13 U/L Normal 7-52 Ast 14 U/L Normal 13-39 Egfr Non- 69.5 >60 Egfr 84.1 >60 1 Laboratory test 05/14/2019 [facility] C Reactive 1.88 mg/L Normal <8.[address] [place] [address] [phone] Erythrocyte Sed Rate 3 mm/Hr Normal 0-29 Ceruloplasmin 23.5 mg/dL 2 Copper, Serum 0.92 g/mL 0.75-1.45 3 Amonate 0.85 mmol/L Normal 0.6-1.2 Vitamin B12 05/14/2019 [facility] Vitamin B12 794 pg/mL Normal 180-914 4 And Folate [address] [facility] [place] [address] [phone] Folic Acid (Folate) > 20.00 ng/mL >3.99 Laboratory test 05/14/2019 [facility] Methylmalonic Acid 0.09 <=0.40 5 finding [address] [facility] Mma nmol/[place] [address] [phone] TSH (Thyroid Stim Horm) 2.08 mcIU/mL Normal 0.34-5.60 Free T4 (Free Thyroxine) 0.85 ng/dL Normal 0.61-1.12 Lipid Profile 02/04/2019 [facility] Triglycerides 348 mg/dL 6 (Trig/Chol/HDL) [address] [place] [address] [phone] Cholesterol 187 mg/dL 7 HDL Cholesterol 47.4 mg/dL 8 LDL Cholesterol 70 mg/dL 9 Comp Metabolic 02/04/2019 [facility] Sodium 139 mmol/L Normal 135-145 Panel [address] [place] [address] [phone] Potassium 4.5 mmol/L Normal 3.5-5.0 Chloride 107 [...] Egfr Non- 67.6 >60 Egfr 81.8 >60 10 Lipid Panel 02/04/2019 [facility] Creatine 29 U/L Normal 10- 223 11 - JFM [address] Kinase(CK) [place] [address] [phone] Inr/Protime 02/04/2019 [facility] Inr 0.92 Normal 0.82-1.[address] [place] [address] [phone] CBC Auto 02/04/2019 [facility] White Blood 10.7 Normal 3.5- 10.[address] Count 10^3/[place] [address] [phone] Red Blood Count 4.17 10^6/uL Normal 3.70-4.87 [...] % Nucleated Red Blood Cells % 0.0 Cath Panel 02/04/2019 [facility] Partial 31.2 seconds Normal 26.0-38.[address] [place] [address] PTT [phone] 1 Because ethnic data is not always readily [...] 15-29 5 Kidney failure <15 (or dialysis) 2 REFERENCE VALUE 20.0 - 51.0 Test Performed by: [address] [address] Echo Tech: Levi Toney M.D. Ph.D.; CLIA# [id number] 3 ADDITIONAL INFORMATION This test was developed and its performance characteristics determined by [facility] in a manner consistent with CLIA requirements. This test has not been cleared or approved by the U.S. Food and Drug Administration. Test Performed by: [facility] [address] [place] [address] Echo Tech: Levi Toney M.D. Ph.D.; CLIA# [id number] 4 Normal Range 180 to 914 Indeterminate Range 145 to 180 Deficient Range <145 5 ADDITIONAL INFORMATION This test was developed and its performance characteristics determined by [facility] in a manner consistent with CLIA requirements. This test has not been cleared or approved by the U.S. Food and Drug Administration. Test Performed by: [facility] - [address] [address] Echo Tech: Levi Toney M.D. Ph.D.; CLIA# [id number] 6 Desirable: <150 Borderline High: 150-199 High: 200-499 Very High: >500 7 Desirable: <200 Borderline High: 200-239 High: >239 8 Low: <40 Desirable: 40-60 High: >60 9 Desirable: <100 Near Optimal: 100-129 Borderline High: 130-159 High: 160-189 Very High: >189 10 Because ethnic data is not always readily [...] 15-29 5 Kidney failure <15 (or dialysis) 11 FASTING Copy Result to: BRITTANY KINSEY ([id number]) 12 Standard intensity warfarin therapeutic range: 2.0-3.0 High intensity warfarin therapeutic range: 2.5-3.5 13 FASTING Copy Result to: BRITTANY KINSEY ([id number]) Procedures Date Code Description Status 05/27/2019 99136 EKG Tracing & Interpretation Completed 03/04/2019 58900 Diffusing Capacity Completed 03/04/2019 63283 Plethysmography Determination Lung Volumes & Per Airway Completed Resist 03/04/2019 22004 Pulmonary Function><Bronchodil Completed 02/05/2019 86023 Intravascular Blood Flow Velocity Completed 02/05/2019 17252 Left Heart Cath. Incl S/I Coronaries, Angio S/I V Gram If Completed Done 01/18/2019 22714 Treadmill Interp/Report Only Completed 01/18/2019 14795 Stress Test Supervsn W/Out I/R Completed 01/14/2019 72130 EKG Tracing & Interpretation Completed Medical Devices Description No Information Available Encounters Type Date Location Provider Dx Diagnosis Office Visit 05/06/2019 [facility] Kai Combs R25.2 Cramp and spasm 8:15a at Dwayne Boyd MD M25.562 Pain in left knee Office Visit 03/07/2019 11:20a [facility] Lamont Krishnamurthy MD R05 [facility] [address] J44.9 Chronic obstructive pulmonary disease, unspecified Z72.0 Tobacco use G47.30 Sleep apnea, unspecified Office Visit 02/14/2019 11:30a [facility] Thelma Robins R07.9 Chest pain, Foster, N.P. 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 unspecified I11.9 Hypertensive heart disease without heart failure I10 Essential (primary) hypertension E78.00 Pure hypercholesterolemia, unspecified J44.9 Chronic obstructive pulmonary disease, unspecified Office Visit 01/03/2019 9:15a [facility] Lamont Krishnamurthy MD R05 [facility] [address] Z72.0 Tobacco use G47.30 Sleep apnea, unspecified J32.9 Chronic sinusitis, unspecified Office Visit 12/03/2018 10:00a [facility] Kai Combs M54.5 Low back at Dwayne Boyd MD pain M47.26 Other spondylosis with radiculopathy, lumbar region Assessments Date Code Description Provider 05/27/2019 R25.2 Cramp and spasm Konstantin Atkinson M.D. 05/27/2019 I10 Benign hypertension Konstantin Atkinson M.D. 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 05/27/2019 E78.5 Hyperlipidemia Konstantin Atkinson M.D. 05/13/2019 R25.1 Tremor, unspecified Harvey Rivera, N.P. 05/13/2019 R26.81 Unsteadiness on feet Harvey Rivera, N.P. 05/13/2019 R41.3 Other amnesia Harvey Miguel, N.P. 05/13/2019 G40.89 Other seizures Harvey Miguel, N.P. 05/13/2019 R13.10 Dysphagia, unspecified Harvey Rivera, [...] N.P. 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 at [facility]06/20/2019 3:00 pm - Thelma Nguyen N.PRoel at [facility]07/19/2019 9:30 am - Harvey Rivera N.P. at [facility]06/17/2019 8:15 am - Kai Boyd MD at [facility] at [facility]/09/2019 - Konstantin Atkinson M.D.R25.2 Cramp and spasmFollow up:ov 2 -4 weeks [employer] Thelma ov J[facility] 4 mI10 Benign rttizxpqeyebP83.10 Atherosclerotic heart disease of pala coronary artery without angina cixzsskhX28.4 Diffuse spasm of ekvtmrtrmR13.5 Hyperlipidemia Functional Status Description No Information Available Mental Status Description No Information Available Referrals Description No Information Available
[2019-06-13 10:22] VITALS: BP 145/83
--- NOTE | 2019-06-13 11:05 | ED ---
Lower Extremity - HPI Summary HPI Summary: This patient is a 68-year-old female with a history of left lower leg cramping as any to the ED with left leg cramping since last evening. 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 With ambulation, symptoms resolved. She does have a history of low back pain and recently had an MRI obtained last week. She does not results. She states she has had spinal stenosis in pinched nerves which she feels is contributory. Her cramping is to the left lower extremity just below the knee to the lateral side. She states the area cramps and spasms and improves with ambulation. She was previously placed on magnesium, however she discontinued this medication and she feels this was interfering with her lithium and Wellbutrin. She recently discontinued her Wellbutrin and [place] because she thought these medications were contributing to her symptoms. - History of Current Complaint Chief Complaint: EDExtremityLower Stated Complaint: LEG PAIN PER PT Time Seen by Provider: 06/13/19 08:51 Hx Obtained From: Patient Mechanism Of Injury: Other - spasms - LLE Onset/Duration: Worse Since - last evening Severity Initially: Moderate Severity Currently: Moderate Pain Intensity: 0 Pain Scale Used: 0-10 Numeric Timing: Constant Location: Is Discrete @ - left lower ext - lateral side Aggravating Factor(s): Nothing Alleviating Factor(s): Other - walking Able to Bear Weight: Yes - Allergies/Home Medications Allergies/Adverse Reactions: Allergies Allergy/AdvReac Type Severity Reaction Status Date / Time Sulfa (Sulfonamide Allergy Intermediate Hives Verified 06/13/19 08:50 Antibiotics) latex Allergy Mild Swelling Verified 06/13/19 08:50 PMH/Surg Hx/FS Hx/Imm Hx Previously Healthy: Yes Endocrine/Hematology History: Denies: Hx Anticoagulant Therapy, Hx Blood Disorders, Hx Diabetes Cardiovascular History: Reports: Hx Angina, Hx Hypercholesterolemia, Hx Hypertension - controlled w/ atenolol Denies: Hx Pacemaker/ICD Respiratory History: Reports: Hx Chronic Obstructive Pulmonary Disease (COPD) GI History: Reports: Other GI Disorders - perferated bowel 10/2013 - resected History: Denies: Hx Dialysis, Hx Renal Disease Musculoskeletal History: Reports: Other Musculoskeletal History - left ankle/ foot surgery Sensory History: Denies: Hx Contacts or Glasses, Hx Hearing Aid Opthamlomology History: Denies: Hx Contacts or Glasses Psychiatric History: Reports: Hx Anxiety, Hx Depression, Hx Suicide Attempt Denies: Hx Panic Disorder - Cancer History Cancer Type, Location 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 left ankle/foot surgery - [facility]. tubal Hx Anesthesia Reactions: No - Immunization History Date of Tetanus Vaccine: Unknown Date of Influenza Vaccine: Unknown Hx Pertussis Vaccination: No Immunizations Up to Date: Yes Infectious Disease History: No Infectious Disease History: Denies: Traveled Outside the in Last 30 Days - Family History Known Family History: Positive: Other - child w/ opiate addiction - Social History Occupation: Unemployed Lives: With Family Alcohol Use: Daily Alcohol Amount: 2 glasses wine per night Hx Substance Use: No - none currently Substance Use Type: Reports: Marijuana Substance Use Comment - Amount & Last Used: rare Hx Tobacco Use: Yes Smoking Status (MU): Light Every Day Tobacco Smoker Type: Cigarettes Amount Used/How Often: 2 packs per week Length of Time of Smoking/Using Tobacco: Quit but recently restarted Have You Smoked in the Last Year: Yes Review of Systems Negative: Fever, Chills, Fatigue, Skin Diaphoresis Negative: Palpitations, Chest Pain Negative: Shortness Of Breath, Cough Negative: Abdominal Pain, Vomiting, Diarrhea Positive: Other - spasms - LLE. Negative: Arthralgia, Myalgia Skin: Negative All Other Systems Reviewed And Are Negative: Yes Physical Exam Triage Information Reviewed: Yes Vital Signs On Initial Exam: Initial Vitals Temp Pulse Resp BP Pulse Ox 98.0 F 91 19 144/68 98 06/13/19 08:46 06/13/19 08:46 06/13/19 08:46 06/13/19 08:46 06/13/19 08:46 Vital Signs Reviewed: Yes Appearance: Positive: Well-Appearing, Well-Nourished Skin: Positive: Warm, Skin Color Reflects Adequate Perfusion Head/Face: Positive: Normal Head/Face Inspection Neck: Positive: Supple, Nontender, No Lymphadenopathy Respiratory/Lung Sounds: Positive: Clear to Auscultation, Breath Sounds Present Cardiovascular: Positive: RRR, Pulses are Symmetrical in both Upper and Lower Extremities Musculoskeletal: Positive: Other - left leg cramping Neurological: Positive: Speech Normal Psychiatric: Positive: Affect/Mood Appropriate AVPU Assessment: Alert Procedures - Sedation Patient Received Moderate/Deep Sedation with Procedure: No Diagnostics - Vital Signs Vital Signs Temp Pulse Resp BP Pulse Ox 06/13/19 10:17 97.3 F 80 18 145/83 98 06/13/19 08:46 98.0 F 91 19 144/68 98 - Laboratory Lab Statement: Any lab studies that have been ordered have been reviewed, and results considered in the medical decision making process. Lower Extremity Course/Dx - Course Course Of Treatment: Discussed with patient at length the probable causes of her symptoms. She has been seen for this leg cramping for the past several months to year, without improvement, likely this is restless leg syndrome. She is currently being worked up for parkinsonian-like symptoms to her neurologist. She has not seen a neurosurgeon, however recently had an MRI completed of her lower spine due to low back pain. She states the low back pain started many years ago and has progressively worsened. She was previously on magnesium for her leg cramping, however she discontinue this medication. I discussed with the patient this is likely restless leg syndrome and have given her instructions for magnesium gluconate 400 mg at bedtime, drinking plenty of water and exercising the leg when the area begins to cramp. I discussed that her at home medications such as her muscle cramping medications since they have not been helping, there is little evidence a new medication of this nature would be of benefit. I have encouraged an RLS medication and encouraged her to speak with her PCP regarding this. MRI results given to pt. She is ambulating well at discharge and denies any symptoms currently. - Diagnoses Differential Diagnosis/HQI/PQRI: Positive: Other - RLS, nerve pain Provider Diagnoses: Leg cramps Discharge ED - Sign-Out/Discharge Documenting (check all that apply): Patient Departure - Discharge Plan Condition: Stable Disposition: HOME Patient Education Materials: Restless Legs Syndrome (ED) Referrals: Brittany Kinsey DO [Primary Care Provider] - Alyse Lambert MD [Medical Doctor] - Additional Instructions: Please follow up with your PCP related to your spasms/restless leg Take magnesium glycinate 400 mg at bedtime Drink plenty of water throughout the day and especially prior to sleep If you develop cramps in the middle of the night, try taking a tablespoon of mustard Also get up in the middle of the night while having the leg cramps to try to exercise the leg, this should fatigue it enough to get back to bed Most leg cramps will last for several hours Only exercise and walking during the cramps will help relieve the symptoms more immediately Eat plenty of bananas, sweet potatoes and potassium-rich foods Talk to your PCP about possibly starting a restless leg syndrome medication and tryout for a minimum of 8 weeks - Billing Disposition and Condition Condition: STABLE Disposition: Home - Attestation Statements Provider Attestation: I was available for consultation for this patient. I did not evaluate the patient or participate in any medical decision making or disposition decisions unless I am specifically named in the chart as having consulted on the patient. If I have consulted on the patient, please see my own ED note on the patient encounter. Guido Haines MD
== END 2019-06-13 10:18 | disposition home or self-care (01) ==
LOC: ED 08:45
DX: R25.2 Cramp and spasm (principal); E78.00 Pure hypercholesterolemia, unspecified; I10 Essential (primary) hypertension; J44.9 Chronic obstructive pulmonary disease, unspecified; F41.9 Anxiety disorder, unspecified; F32.9 Major depressive disorder, single episode, unspecified; F17.210 Nicotine dependence, cigarettes, uncomplicated; Z85.820 Personal history of malignant melanoma of skin; Z88.2 Allergy status to sulfonamides; Z91.040 Latex allergy status
CPT/HCPCS: 99282

== ENCOUNTER 2019-06-14 11:51 | Emergency (ER) | payer MEDICARE, MEDICAID ==
[2019-06-14] MEDS ORDERED: NS 0.9% 1000 ML** 1,000 ML IV ONE (12:04)
[2019-06-14] MEDS ORDERED: Magnesium Sulfate 2 GM IV* 2 GM/50 ML BAG IVPB ONE (12:04)
--- NOTE | 2019-06-14 12:04 | ED ---
Lower Extremity - HPI Summary HPI Summary: This pt is a 68 y/o female presenting to [facility] via EMS for left leg and left foot pain for the past 2.5 months. Pt reports the first time she came to the ED for leg pain was on April 02, 2019 however she had been having this pain a week before that. Pt describes pain as cramping. She states she usually gets only one episode of cramping that starts at 0300 but for the past 2 days she has had two episodes of leg cramping. Pt reports she had an MRI and was told her leg cramping might be due to "something" in her lumbar region in her spine. Pt was in the ED yesterday and was discharged home with referral to a neurosurgeon. She states there's only one neurosurgeon in the area and would like a referral to another one who can see her sooner. PMHx previous surgeries in left foot, "years ago" done at [facility] for a workers comp case, bowel resection in 1011 or 2012. She states she discontinued her [place] to take magnesium and Ibuprofen. Pt also discontinued her Wellbutrin because CANDIDA Fernando found "spikes in brain waves" that might cause seizures. Of note, patient had a lumbar spine MRI showing severe left L5-S1 stenosis as well as moderate L3-L4 stenosis on the right. - History of Current Complaint Stated Complaint: LEG CRAMPS Hx Obtained From: Patient Mechanism Of Injury: Other - no known trauma Onset/Duration: Weeks Severity Currently: Moderate Pain Intensity: 7 Pain Scale Used: 0-10 Numeric Timing: Lasting Weeks Location: Is Discrete @ - left leg Associated Signs And Symptoms: Positive: Swelling Aggravating Factor(s): Nothing Alleviating Factor(s): Nothing Able to Bear Weight: Yes - Allergies/Home Medications Allergies/Adverse Reactions: Allergies Allergy/AdvReac Type Severity Reaction Status Date / Time Sulfa (Sulfonamide Allergy Intermediate Hives Verified 06/13/19 08:50 Antibiotics) latex Allergy Mild Swelling Verified 06/13/19 08:50 PMH/Surg Hx/FS Hx/Imm Hx Endocrine/Hematology History: Denies: Hx Anticoagulant Therapy, Hx Blood Disorders, Hx Diabetes Cardiovascular History: Reports: Hx Angina, Hx Hypercholesterolemia, Hx Hypertension - controlled w/ atenolol Denies: Hx Pacemaker/ICD Respiratory History: Reports: Hx Chronic Obstructive Pulmonary Disease (COPD) GI History: Reports: Other GI Disorders - perferated bowel 10/2013 - resected History: Denies: Hx Dialysis, Hx Renal Disease Musculoskeletal History: Reports: Other Musculoskeletal History - left ankle/ foot surgery Sensory History: Denies: Hx Contacts or Glasses, Hx Hearing Aid Opthamlomology History: Denies: Hx Contacts or Glasses Psychiatric History: Reports: Hx Anxiety, Hx Depression, Hx Suicide Attempt Denies: Hx Panic Disorder - Cancer History Cancer Type, Location 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 left ankle/[place] [facility] [place] tub[place] Hx Anesthesia Reactions: No - Immunization History Date of Tetanus Vaccine: Unknown Date of Influenza Vaccine: Unknown Infectious Disease History: Denies: Traveled Outside the in Last 30 Days - Family History Known Family History: Positive: Other - child w/ opiate addiction - Social History Alcohol Use: Daily Alcohol Amount: 2 glasses wine per night Hx Substance Use: No - none currently Substance Use Type: Reports: Marijuana Substance Use Comment - Amount & Last Used: rare Hx Tobacco Use: Yes Smoking Status (MU): Light Every Day Tobacco Smoker Type: Cigarettes Amount Used/How Often: 2 packs per week Length of Time of Smoking/Using Tobacco: Quit but recently restarted Have You Smoked in the Last Year: Yes Review of Systems Negative: Fever Cardiovascular: Negative Respiratory: Negative Gastrointestinal: Negative Musculoskeletal: Other - POSITIVE: left leg pain and left foot pain Positive: Edema - left All Other Systems Reviewed And Are Negative: Yes Physical Exam - Summary Physical Exam Summary: Constitutional: Well-developed, Well-nourished, Alert. (-) Distressed Skin: Warm, Dry HENT: Normocephalic; Atraumatic Eyes: Conjunctiva normal Neck: Musculoskeletal ROM normal neck. (-) JVD, (-) Stridor Cardio: Rhythm regular, rate normal, Heart sounds normal; Intact distal pulses; Radial pulses are 2+ and symmetric. (-) Murmur Pulmonary/Chest wall: Effort normal. (-) Respiratory distress, (-) Wheezes, (-) Rales Abd: Soft, (-) tenderness, (-) Distension, (-) Guarding, (-) Rebound Musculoskeletal: Old scar to left ankle. Patient is clutching her left calf. Tenderness to left calf. Neuro: Alert, Oriented x3, strength 5/5 LE. SILT. Psych: Mood and affect Normal Triage Information Reviewed: Yes Vital Signs On Initial Exam: Initial Vitals Temp Pulse Resp BP Pulse Ox 98.1 F 96 19 131/72 96 06/14/19 11:56 06/14/19 11:56 06/14/19 11:56 06/14/19 11:56 06/14/19 11:56 Vital Signs Reviewed: Yes Procedures - Sedation Patient Received Moderate/Deep Sedation with Procedure: No Re-Evaluation - Re-Evaluation First Eval Re-Evaluation Time: 12:25 Comment: Per ED nurse, Crys, pt is reporting SI with a plan. Second Eval Re-Evaluation Time: 13:04 Comment: Her SI plan is to cut or burn herself or get in her car and turn on the garage. Third Eval Re-Evaluation Time: 14:31 Comment: Mental health veneer stapler reports she did a mental health evaluation and case was discussed with Dr. Padgett, psychiatrist. Dr. Padgett recommends discharge with outpatient follow up. Dx: depression NOS. Fourth Eval Re-Evaluation Time: 14:40 Comment: Discussed discharge plan with pt. Lower Extremity Course/Dx - Course Course Of Treatment: 68-year-old female with a history of lumbar stenosis recent MRI showing severe stenosis of the left side L5-S1, presenting w left calf cramping. Physical exam with a well-appearing female, neuro exam notable for sensation intact LE, strength 5/5 bilaterally. Suspect that cramping could be secondary to some neuropathy secondary to her severe stenosis. Patient wa given gabapentin and Flexeril. She is to follow-up with neurosurgery. While in the ED, patient admitted to having some passive suicidal ideation, patient was seen and cleared by psychiatry team. - Diagnoses Provider Diagnoses: Depression, Lumbar radiculopathy Discharge ED - Sign-Out/Discharge Documenting (check all that apply): Patient Departure - Discharge home - Discharge Plan Condition: Stable Disposition: HOME Prescriptions: Cyclobenzaprine TAB* [Flexeril 10 MG TAB*] 10 mg PO TID PRN 4 Days #12 tab PRN Reason: Pain - Moderate Gabapentin CAP(*) [Neurontin 300 CAP(*)] 300 mg PO BEDTIME 30 Days #30 cap Patient Education Materials: Lumbar Radiculopathy (ED) Referrals: Brittany Kinsey DO [Primary Care Provider] - Additional Instructions: You were seen in the emergency department for leg cramping and suicidal ideation. You can take gabapentin at night freely crabbing as well as Flexeril as needed. Please follow up with our neurosurgeon or a neurosurgeon her choice. Please follow up with your primary care doctor in next 2-3 days and return to emergency department for worsening pain, bowel or bladder problems, numbness or weakness of legs, or concerning symptoms. It was a pleasure taking care of you today. - Billing Disposition and Condition Condition: STABLE Disposition: Home - Attestation Statements Document Initiated by Opal: Yes Documenting Scribe: Claire Monson Provider For Whom Opal is Documenting (Include Credential): Guido Haines MD Scribe Attestation: Claire Hammer, scribed for Guido Haines MD on 06/14/19 at 1907. Scribe Documentation Reviewed: Yes Provider Attestation: The documentation as recorded by the Claire howe accurately reflects the service I personally performed and the decisions made by me, Guido Haines MD Status of Scribe Document: Viewed
[2019-06-14] MEDS ORDERED: Cyclobenzaprine TAB* 10 MG PO ONE (12:05)
[2019-06-14] MEDS ORDERED: Gabapentin CAP(*) 300 MG PO ONE (12:22)
[2019-06-14 14:54] VITALS: BP 139/77
== END 2019-06-14 14:53 | disposition home or self-care (01) ==
LOC: ED 11:51
DX: M54.16 Radiculopathy, lumbar region (principal); F32.9 Major depressive disorder, single episode, unspecified; E78.00 Pure hypercholesterolemia, unspecified; I10 Essential (primary) hypertension; J44.9 Chronic obstructive pulmonary disease, unspecified; F41.9 Anxiety disorder, unspecified; F17.210 Nicotine dependence, cigarettes, uncomplicated; Z85.820 Personal history of malignant melanoma of skin; Z98.51 Tubal ligation status; Z79.899 Other long term (current) drug therapy; Z88.2 Allergy status to sulfonamides; Z91.040 Latex allergy status
CPT/HCPCS: 99285; A9270-GY

== ENCOUNTER 2019-08-23 20:12 | Inpatient (IN) | payer MEDICARE, MEDICAID ==
[2019-08-23 21:00] LABS: ABS Basophils 0.1 10^3/ul (0-0.2); ABS Eosinophils 0.2 10^3/ul (0-0.6); ABS Lymphocytes 2.7 10^3/ul (1.0-4.8); ABS Monocytes 0.6 10^3/ul (0-0.8); ABS Neutrophils 5.1 10^3/ul (1.5-7.7); Eosinophil % 2.5 %; Hematocrit 40 % (35-47); Hemoglobin 14.2 g/dL (12.0-16.0); Lymphocyte % 31.1 %; Mean Corpuscular HGB Conc 35 g/dL (31-36); Mean Corpuscular Hemoglobin 33 pg (27-31); Mean Corpuscular Volume 94 fL (80-97); Mean Platelet Volume 8.2 fL (7.4-10.4); Nucleated Red Blood Cells % 0.1; Platelet Count 222 10^3/uL (150-450); Red Blood Count 4.29 10^6 /uL (3.70-4.87); Red Cell Distribution Width 13 % (10-15); White Blood Count 8.7 10^3/uL (3.5-10.8)
[2019-08-23 21:16] LABS: Anion Gap 10 mmol/L (2-11); BUN/Creatinine Ratio 22.2 (8-20); Blood Urea Nitrogen 16 mg/dL (6-24); CO2 Carbon Dioxide 24 mmol/L (22-32); Calcium 9.7 mg/dL (8.6-10.3); Chloride 107 mmol/L (101-111); EGFR African American 97.8 (>60); EGFR Non-African American 80.8 (>60); Glucose 99 mg/dL (70-100); Potassium 3.9 mmol/L (3.5-5.0); Sodium 141 mmol/L (135-145); Total Protein 6.6 g/dL (6.4-8.9)
[2019-08-23 21:17] LABS: ALT 12 U/L (7-52); AST 16 U/L (13-39); Albumin/Globulin Ratio 1.5 (1-3); Alkaline Phosphatase 55 U/L (34-104); Globulin 2.6 g/dL (2-4)
--- OUTSIDE RECORDS SUMMARY | 2019-08-23 21:34 | XMS REPORT | Continuity of Care Document ---
:1950 External Reference #:[id number] Author Name Thelma Nguyen N.P. (transmitted by agent of provider Denisse Golden) [facility] [address] [facility] [address] [facility] [place] [address] Care Team Providers Name Role Phone [facility] - Primary Care Care Team Information Client Service Supervisor [phone] Pauline Musa MD - Care Team Information Client Service Supervisor Family Medicine Problems Active Problems Provider Date Other seizures Efe Martinez M.D. Onset: 07/29/2019 Amnesia Efe Martinez M.D. Onset: 07/29/2019 Low back pain Efe Martinez M.D. Onset: 07/29/2019 Abnormal gait Efe Martinez M.D. Onset: 07/29/2019 Abnormal involuntary movement Efe Martinez M.D. Onset: 07/29/2019 Social History Type Date Description Comments Sex Unknown Tobacco Use Start: Unknown Light tobacco smoker (10 or fewer cigarettes/day) Smoking Status Reviewed: 07/31/19 Light tobacco smoker (10 or fewer cigarettes/day) ETOH Use consumes 1-2 glasses of wine per day Tobacco Use Start: Unknown Light tobacco smoker (10 or fewer cigarettes/day) Recreational Drug Use Never Used Drugs Exercise Type/Frequency Exercises sporadically Allergies, Adverse Reactions, Alerts Active Allergies Reaction Severity Comments Date NKDA 06/24/2019 Sulfa Antibiotics 10/01/2018 Latex 10/01/2018 Medications Active Medications SIG Qnty Indications Ordering Date Provider Atorvastatin Calcium 1 by mouth every 90tabs Konstantin Lawrence 05/27/2019 10mg day Yazan Atkinson Tablets Fluticasone Propionate 1 snort nasal 32gm J32.9 Lamont Krishnamurthy MD 2018 twice a day 50mcg/Act Suspension Cyclobenzaprine HCL 1 by mouth two Unknown 5mg times a day Tablets Divalproex Sodium ER Take 1 Tablet By Unknown 500mg Mouth AT Bedtime Tablets ER 24HR For 7 Days Then Increase To 2 AT Bedtime If Needed Olanzapine 1 by mouth every Unknown 5mg Tablets morning Tylenol PM Extra 1 by mouth at Unknown Strength bedtime as 500-25mg Tablets needed insomnia Nitroglycerin one s/l as Unknown 0.3mg Tablets needed for chest Sub pain. Gabapentin 1 by mouth 2x a Unknown 300mg Capsules day Tums 1 tab by mouth Unknown 500mg Chewtabs four times a day as needed Fish Oil 1 by mouth every Unknown 500mg Capsules day Albuterol Sulfate HFA 1 puff as needed Unknown 108(90Base) mcg/Act Aerosol Advair Diskus 1 puff twice a Unknown day 250-50mcg/Dose Aerosol Atenolol 1 by mouth every Unknown 25mg Tablets day Omeprazole 1 by mouth every Unknown 20mg Capsules DR day Multi Complete daily Unknown Capsules Clonazepam 1 tablet by Unknown 1mg Tablets mouth twice daily as needed Trazodone HCL 1/2- 1 every Unknown 100mg Tablets night at bedtime History Medications Nicotine Step 1 1 patch apply to Z72.0 Lamont Krishnamurthy MD 03/07/2019 - skin every day 04/06/2019 21mg/24HR Patches 24HR Aspirin 81 take 1 tab by 90tabs Thelma Nguyen 02/14/2019 - 81mg mouth daily N.P. 04/23/2019 Tablets Immunizations Description No Information Available Vital Signs Date Vital Result Comment 07/31/2019 9:35am Height 64 inches 5'4" Weight 167.12 lb Heart Rate 70 /min Right Radial BP Systolic Sitting 132 mmHg Upe regular cuff BP Diastolic Sitting 90 mmHg Upe regular cuff BP Systolic Standing 136 mmHg Upe regular cuff BP Diastolic Standing 88 mmHg Upe regular cuff BMI (Body Mass Index) 28.7 kg/m2 07/29/2019 10:28am Height 64 inches 5'4" Weight 166.00 lb Heart Rate 78 /min BP Systolic 132 mmHg BP Diastolic 76 mmHg BMI (Body Mass Index) 28.5 kg/m2 Results Test Acquired Date Facility Test Result H/L Range Note Order 07/11/2019 [facility] EEG, Routine <pending> [address] [place] [address] [phone] CBC Auto 05/14/2019 [facility] White Blood 10.6 10^3/uL Normal 3.5-10.[address] [place] [address] [phone] Red Blood Count 4.35 10^6/uL Normal 3.70-4.87 [...] Blood Cells % 0.2 Comp Metabolic 05/14/2019 [facility] Sodium 138 mmol/L Normal 135-[address] [place] [address] [phone] Potassium 4.0 mmol/L Normal 3.5-5.0 Chloride 105 [...] Egfr 84.1 >60 1 Laboratory test 05/14/2019 [facility] C Reactive 1.88 mg/L Normal <8.[address] [place] [address] [phone] Erythrocyte Sed Rate 3 mm/Hr Normal 0-29 Ceruloplasmin 23.5 mg/dL 2 Copper, Serum 0.92 g/mL 0.75-1.45 3 [place] 0.85 mmol/L Normal 0.6-1.2 Vitamin B12 05/14/2019 [facility] Vitamin B12 794 pg/mL Normal 180-914 4 [address] Folate [address] [place] [address] [phone] Folic Acid (Folate) > 20.00 ng/mL >3.99 Laboratory test 05/14/2019 [facility] Methylmalonic Acid 0.09 <=0.40 [address] Mma nmol/[place] [address] [phone] TSH (Thyroid Stim Horm) 2.08 mcIU/mL Normal 0.34-5.60 Free T4 (Free Thyroxine) 0.85 ng/dL Normal 0.61-1.12 Cath Panel 02/04/2019 [facility] Partial 31.2 seconds Normal 26.0-38.[address] [address] PTT [phone] CBC Auto 02/04/2019 [facility] White Blood 10.7 10^3/uL Normal 3.5-10.[address] [place] [address] [phone] Red Blood Count 4.17 10^6/uL Normal 3.70-4.87 [...] Red Blood Cells % 0.0 Inr/Protime 02/04/2019 [facility] Inr 0.92 Normal 0.82-1.[address] [place] [address] [phone] Lipid Panel - 02/04/2019 [facility] Creatine 29 U/L Normal 10- 223 [address] [address] Kinase(CK) [place] [address] [phone] Comp Metabolic 02/04/2019 [facility] Sodium 139 Normal 135- [address] mmol/[place] [address] [phone] Potassium 4.5 mmol/L Normal 3.5-5.0 Chloride 107 [...] Egfr Non- 67.6 >60 Egfr 81.8 >60 9 Lipid Profile 02/04/2019 [facility] Triglycerides 348 mg/dL 10 (Trig/Chol/HDL) [address] [place] [address] [phone] Cholesterol 187 mg/dL 11 HDL Cholesterol 47.4 mg/dL 12 LDL Cholesterol 70 mg/dL 13 1 Because ethnic data is not always [...] VALUE 20.0 - 51.0 Test Performed by: [place] [address] Grinder Dresser: Levi Toney M.D. Ph.D.; CLIA# [id number] 3 ADDITIONAL INFORMATION This test was developed and its performance characteristics determined by [facility] in a manner consistent with CLIA requirements. This test has not been cleared or approved by the U.S. Food and Drug Administration. Test Performed by: [facility] - [facility] [address] [place] [address] Grinder Dresser: Levi Toney M.D. Ph.D.; CLIA# [id number] 4 Normal Range 180 to 914 Indeterminate Range 145 to 180 Deficient Range <145 5 ADDITIONAL INFORMATION This test was developed and its performance characteristics determined by [facility] in a manner consistent with CLIA requirements. This test has not been cleared or approved by the U.S. Food and Drug Administration. Test Performed by: [facility] - [address] [address] Grinder Dresser: Levi Toney M.D. Ph.D.; CLIA# [id number] 6 FASTING Copy Result to: JONATHON LOMELI ([id number]) 7 Standard intensity warfarin therapeutic range: 2.0-3.0 High intensity warfarin therapeutic range: 2.5-3.5 8 FASTING Copy Result to: JONATHON LOMELI ([id number]) 9 Because ethnic data is not always readily [...] 15-29 5 Kidney failure <15 (or dialysis) 10 Desirable: <150 Borderline High: 150-199 High: 200-499 Very High: >500 11 Desirable: <200 Borderline High: 200-239 High: >239 12 Low: <40 Desirable: 40-60 High: >60 13 Desirable: <100 Near Optimal: 100-129 Borderline High: 130-159 High: 160-189 Very High: >189 Procedures Date Code Description Status 05/27/2019 63716 EKG Tracing & Interpretation Completed 05/14/2019 66553 EEG Recording Awake & Drowsy Completed 03/04/2019 97324 Diffusing Capacity Completed 03/04/2019 20733 Plethysmography Determination Lung Volumes & Per Airway Completed Resist 03/04/2019 54130 Pulmonary Function><Bronchodil Completed 02/05/2019 43585 Intravascular Blood Flow Velocity Completed 02/05/2019 56532 Left Heart Cath. Incl S/I Coronaries, Angio S/I V Gram If Completed Done Medical Devices Description No Information Available Encounters Type Date Location Provider Dx Diagnosis Office Visit 06/24/2019 [facility] Harvey Rivera, G40.89 Other seizures 1:00p Services Of Luis N.P. 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 unspecified R26.81 Unsteadiness on feet R41.3 Other amnesia G40.89 Other seizures R13.10 Dysphagia, unspecified Office Visit 05/06/2019 8:15a [facility] Kai Combs R25.2 Cramp and at Dwayne Boyd MD spasm M25.562 Pain in left knee Office Visit 03/07/2019 11:20a [facility] Lamont Krishnamurthy MD R05 Cough [facility] J44.9 Chronic obstructive pulmonary disease, unspecified Z72.0 Tobacco use G47.30 Sleep apnea, unspecified Office Visit 02/14/2019 11:30a [facility] Thelma Robins R07.9 Chest pain, Foster, N.P. unspecified I11.9 Hypertensive heart disease without heart failure I10 Essential (primary) hypertension E78.00 Pure hypercholesterolemia, unspecified I25.10 Athscl heart disease of [place] coronary artery w/o ang pctrs Assessments Date Code Description Provider 07/31/2019 I10 Benign hypertension Thelma S. Patrick, N.P. 07/31/2019 I25.10 Atherosclerotic heart disease of Thelma Robins Patrick, N.P. [place] coronary artery without angina pectoris 07/31/2019 K22.4 Diffuse spasm of esophagus Thelma SteffanyRoel Nguyen, N.P. 07/31/2019 E78.5 Hyperlipidemia Thelma SteffanyRoel Nguyen, N.P. 07/29/2019 R25.1 Tremor, unspecified Efe Martinez M.D. 07/29/2019 R26.81 Unsteadiness on feet Efe Martinez M.D. 07/29/2019 M54.5 Low back pain Efe Martinez M.D. 07/29/2019 R41.3 Other amnesia Efe Martinez M.D. 07/29/2019 G40.89 Other seizures Efe Martinez M.D. 06/24/2019 G40.89 Other seizures Harvey Rivera, N.P. 06/24/2019 R25.1 Tremor, unspecified Harveymelvin Rivera, N.P. 06/24/2019 R26.81 Unsteadiness on feet Harvey Rivera, N.P. 06/24/2019 M54.5 Low back pain Harvey Rivera, N.P. 06/24/2019 R41.3 Other amnesia Harvey Rivera, N.P. 06/17/2019 M25.562 Pain in left knee Kai Boyd MD 06/17/2019 M25.561 Pain in right knee Kai Boyd MD 06/17/2019 M79.662 Pain in left lower leg Kai Boyd MD 05/27/2019 R25.2 Cramp and spasm Konstantin Atkinson M.D. 05/27/2019 I10 Benign hypertension Konstantin Atkinson M.D. 05/27/2019 I25.10 Atherosclerotic heart disease of Konstantin Atkinson M.D. [place] coronary artery without angina pectoris 05/27/2019 K22.4 Diffuse spasm of esophagus Konstantin Atkinson M.D. 05/27/2019 E78.5 Hyperlipidemia Konstantin Atkinson M.D. 05/14/2019 G40.89 Other seizures Davis Salcedo MD 05/13/2019 R25.1 Tremor, unspecified Harvey Rivera, N.P. 05/13/2019 R26.81 Unsteadiness on feet Harveymelvin Rivera, N.P. 05/13/2019 R41.3 Other amnesia Harvey [...] N.P. 02/14/2019 I25.10 Atherosclerotic heart disease of Thelma Nguyen, N.PRoel [place] coronary artery without angina pectoris 02/05/2019 R07.9 Chest pain, unspecified Stepan Thorpe MD, [facility], [facility] Plan of Treatment Future Appointment(s):12/09/2019 4:00 pm - Efe Martinez M.D. at [facility]09/26/2019 8:20 am - Konstantin Atkinson M.D. at [facility] Ctfmubqxmj72/12/2020 - Thelma Nguyen, N.P.I10 Benign hypertensionFollow up:please reprint lab order from 07/08 OV 09/2019 JFMRecommendations:Possibility of adding diltiazem or substituting diltiazem for wljhqldcH30.10 Atherosclerotic heart disease of [place] coronary artery without angina dwzckjdwW21.4 Diffuse spasm of acbiwtgneM31.5 HyperlipidemiaRecommendations: have labs today; we could add fish oil to your regimen. Functional Status Description No Information Available Mental Status Description No Information Available Referrals Refer to Reason for Referral Status Appt Date Alyse Lambert MD Sent [address] [place] [phone]
--- OUTSIDE RECORDS SUMMARY | 2019-08-23 21:34 | XMS REPORT | Continuity of Care Document ---
:1950 External Reference #:[id number] Author Name Efe Martinez M.D. (transmitted by agent of provider Neisha Gonzales) Address [address] [place] [address] Care Team Providers Name Role Phone [facility] - Primary Care Care Team Information Front Office Manager [phone] Pauline Musa MD - Care Team Information Front Office Manager Family Medicine Problems Active Problems Provider Date [...] (10 or fewer cigarettes/day) Smoking Status Reviewed: 07/29/19 Light tobacco smoker (10 or fewer cigarettes/day) [...] two Unknown 5mg times a day Tablets Olanzapine once at bedtime Unknown 10mg Tablets Divalproex Sodium ER Take 1 Tablet [...] 81 take 1 tab by 90tabs Thelma Nguyen, 02/14/2019 - 81mg mouth daily N.P. 04/23/2019 Tablets Immunizations Description No Information Available Vital Signs Date Vital Result Comment 07/29/2019 10:28am Height 64 inches 5'4" Weight 166.00 lb Heart Rate 78 /min BP Systolic 132 mmHg BP Diastolic 76 mmHg BMI (Body Mass Index) 28.5 kg/m2 06/24/2019 1:09pm Height 64 inches 5'4" Weight 166.00 lb Heart Rate 79 /min BP Systolic 136 mmHg BP Diastolic 82 mmHg BMI (Body Mass Index) 28.5 kg/m2 Results Test Acquired Date Facility Test Result H/L Range Note Order 07/11/2019 [facility] EEG, Routine <pending> [address] [place] [address] [phone] CBC Auto 05/14/2019 [facility] White Blood 10.6 10^3/uL Normal 3.5-10.[address] [place] [address] [phone] Red Blood Count 4.35 10^6/uL Normal 3.70-4.87 [...] Blood Cells % 0.2 Comp Metabolic 05/14/2019 [facility] Sodium 138 mmol/L Normal 135-[address] [place] [address] [phone] Potassium 4.0 mmol/L Normal 3.5-5.0 Chloride 105 [...] Egfr 84.1 >60 1 Laboratory test 05/14/2019 [facility] C Reactive 1.88 mg/L Normal <8.[address] [place] [address] [phone] Erythrocyte Sed Rate 3 mm/Hr Normal 0-29 Ceruloplasmin 23.5 mg/dL 2 Copper, Serum 0.92 g/mL 0.75-1.45 3 Villas 0.85 mmol/L Normal 0.6-1.2 Vitamin B12 05/14/2019 [facility] Vitamin B12 794 pg/mL Normal 180-914 [address] F[address] [place] [address] [phone] Folic Acid (Folate) > 20.00 ng/mL >3.99 Laboratory test 05/14/2019 [facility] Methylmalonic Acid 0.09 <=0.40 [address] Mma nmol/[place] [address] [phone] TSH (Thyroid Stim Horm) 2.08 mcIU/mL Normal 0.34-5.60 Free T4 (Free Thyroxine) 0.85 ng/dL Normal 0.61-1.12 Cath Panel 02/04/2019 [facility] Partial 31.2 seconds Normal 26.0-38.[address] [place] [address] PTT [phone] CBC Auto 02/04/2019 [facility] White Blood 10.7 10^3/uL Normal 3.5-10.[address] [place] [address] [phone] Red Blood Count 4.17 10^6/uL Normal 3.70-4.87 [...] Red Blood Cells % 0.0 Inr/Protime 02/04/2019 [facility] Inr 0.92 Normal 0.82-1.[address] [place] [address] [phone] Lipid Panel - 02/04/2019 [facility] Creatine 29 U/L Normal 10- 223 [address] Kinase(CK) [place] [address] [phone] Comp Metabolic 02/04/2019 [facility] Sodium 139 Normal 135- [address] mmol/[place] [address] [phone] Potassium 4.5 mmol/L Normal 3.5-5.0 Chloride 107 [...] Egfr 81.8 >60 9 Lipid Profile 02/04/2019 [facility] Triglycerides 348 mg/dL 10 (Trig/Chol/HDL) [address] [place] [address] [phone] Cholesterol 187 mg/dL 11 HDL Cholesterol 47.4 [...] VALUE 20.0 - 51.0 Test Performed by: [address] [address] Map Drafter: Levi Toney M.D. Ph.D.; CLIA# [id number] 3 ADDITIONAL INFORMATION This test was developed and its performance characteristics determined by [facility] in a manner consistent with CLIA requirements. This test has not been cleared or approved by the U.S. Food and Drug Administration. Test Performed by: [facility] [address] [place] [address] Map Drafter: Levi Toney M.D. Ph.D.; CLIA# [id number] 4 Normal Range 180 to 914 Indeterminate Range 145 to 180 Deficient Range <145 5 ADDITIONAL INFORMATION This test was developed and its performance characteristics determined by [facility] in a manner consistent with CLIA requirements. This test has not been cleared or approved by the U.S. Food and Drug Administration. Test Performed by: [facility] - [address] [address] Map Drafter: Levi Toney M.D. Ph.D.; CLIA# [id number] 6 FASTING Copy Result to: JONATHON LOMELI ([id number]) 7 Standard intensity warfarin therapeutic range: 2.0-3.0 High intensity warfarin therapeutic range: 2.5-3.5 8 FASTING Copy Result to: JONATHON LOMELI ([id number]) 9 Because ethnic data is not always [...] >189 Procedures Date Code Description Status 05/27/2019 38255 EKG Tracing & Interpretation Completed 05/14/2019 60016 EEG Recording Awake & Drowsy Completed 03/04/2019 01282 Diffusing Capacity Completed 03/04/2019 12265 Plethysmography Determination Lung Volumes & Per Airway Completed Resist 03/04/2019 53242 Pulmonary Function><Bronchodil Completed 02/05/2019 74179 Intravascular Blood Flow Velocity Completed 02/05/2019 69953 Left Heart Cath. Incl S/I Coronaries, Angio S/I V Gram If Completed Done Medical Devices Description No Information Available Encounters Type Date Location Provider Dx Diagnosis Office Visit 06/24/2019 [facility] Harvey Rivera, G40.89 Other seizures 1:00p 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 unspecified R26.81 Unsteadiness on feet R41.3 Other amnesia G40.89 Other seizures R13.10 Dysphagia, unspecified Office Visit 05/06/2019 8:15a [facility] Combs R25.2 Cramp and at Dwayne Boyd MD spasm M25.562 Pain in left knee Office Visit 03/07/2019 11:20a [facility] Lamont Krishnamurthy MD R[address] [facility] J44.9 Chronic obstructive pulmonary disease, unspecified Z72.0 Tobacco use G47.30 Sleep apnea, unspecified Office Visit 02/14/2019 11:30a [facility] Thelma S. R07.9 Chest pain, Foster, N.P. unspecified I11.9 Hypertensive heart disease without heart failure I10 Essential (primary) hypertension E78.00 Pure hypercholesterolemia, unspecified I25.10 Athscl heart disease of [place] coronary artery w/o ang pctrs Assessments Date Code Description Provider 07/29/2019 R25.1 Tremor, unspecified Efe Martinez M.D. 07/29/2019 R26.81 Unsteadiness on feet Efe Martinez M.D. 07/29/2019 M54.5 Low back pain Efe Martinez M.D. 07/29/2019 R41.3 Other amnesia Efe Martinez M.D. 07/29/2019 G40.89 Other seizures Efe Martinez M.D. 06/24/2019 G40.89 Other seizures Harvey Rivera, N.P. 06/24/2019 R25.1 Tremor, unspecified Harvey Miguel, N.P. 06/24/2019 R26.81 Unsteadiness on feet Harvey Rivera, N.P. 06/24/2019 M54.5 Low back pain Harveyskinny Rivera, N.P. 06/24/2019 R41.3 Other amnesia Harvey Rivera, N.P. 06/17/2019 M25.562 Pain in left knee Kai Boyd MD 06/17/2019 M25.561 Pain in right knee Kai Boyd MD 06/17/2019 M79.662 Pain in left lower leg Kai Boyd MD 05/27/2019 R25.2 Cramp and spasm Konstantin [place] M.D. 05/27/2019 I10 Benign hypertension Konstantin [place] M.D. 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 02/14/2019 I10 Benign hypertension Thelma Nguyen N.P. 02/14/2019 E78.00 Hypercholesterolemia Thelma Nguyen, N.P. 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 at [facility]07/31/2019 10:00 am - Thelma Nguyen, N.P. at [facility]/09/2020 8:20 am - Konstantin [place] M.D. at [facility]03/2020 - Efe Martinez M.D.R25.1 Tremor, unspecifiedFollow up:Follow up in 4 dtmrtkU73.81 Unsteadiness on feetM54.5 Low back painR41.3 Other pzbljdqK66.89 Other seizures Functional Status Description No Information Available Mental Status Description No Information Available Referrals Refer to Reason for Referral Status Appt Date Alyse Lambert MD Sent [address] [place] [phone]
--- OUTSIDE RECORDS SUMMARY | 2019-08-23 21:34 | XMS REPORT ---
:1950 Author Organization [facility] Care Team Providers Name Role Phone HARPER CONKLIN Primary Care Physician Unavailable Allergies, Adverse Reactions, Alerts Allergy Code CodeSystem Reaction Severity Criticality Status Start Substance Date Moderate Medications Medication Medication Medication Start Stop Route Dose Status Fill Code CodeSystem Date Date Instructions trazodone 208001 RxNorm 2019- oral 100 mg 1 active 1 tablet at 11-02 08-15 tablet bedtime for at 90 day(s) bedtime lithium 19780125 RxNorm 2019- oral 300 mg completed for 30 carbonate 2-20 05-17 capsule day(s) bupropion HCl 413613 RxNorm 2019- oral 150 mg 2 active 2 tablet 11-02 08-15 tablet once a day sustaine for 90 day(s) d-releas e 12 hr once a day lithium 19780125 RxNorm 2018- oral 300 mg active for 30 carbonate 5-17 08-15 capsule day(s) clonazepam 19740727 RxNorm 2019- oral 1 mg completed for 30 - 06-06 tablet day(s) clonazepam 19740727 RxNorm 2019- oral 1 mg completed for 30 -19 05-07 tablet day(s) trazodone 336992 RxNorm 2019- oral 100 mg completed for 90 2-28 05-17 tablet day(s) gabapentin 523452 RxNorm oral 100 mg active for 30 3-22 capsule day(s) atenolol 125755 RxNorm 2019- oral 25 mg active for 90 3-18 tablet day(s) bupropion HCl 140914 RxNorm 2019- oral 150 mg completed for 90 5- 05-17 tablet day(s) sustaine d-releas e 12 hr pravastatin 272321 RxNorm 2017-06 oral 40 mg active for 90 2-13 tablet day(s) clonazepam 187540 RxNorm 2019- oral 1 mg 1 completed 1 tablet 12-10-24 tablet twice a day twice a as needed for day 30 day(s) Problems Problem Code CodeSystem Alternate Alternate Start End Status Narrative Name Code CodeSystem Date Date Bipolar 48108517 SNOMED-CT 2018-08 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 Relevant diagnostic tests/laboratory data Narrative No Information Procedures Procedure Code CodeSystem Target Date of Status Service Device Device Device Name Site Procedure Delivery Code Name UID Location Psychotherap 942252 SNOMED-CT () 2019-04-15 complete Mental y, 45 04 d Health- minutes with [facility] patient [address], [id number] [phone] SNOMED-CT () 2019-06-25 complete Mental d Health- [place], [id number] [id number] Office [place] [id number] SNOMED-CT () 2019-02-15 complete Mental other 6 d Health- outpatient [place] visit for [address], established [id number] patient, [phone] which requires at least 2 of these 3 de [place] fuente components: A problem focused history; A problem focused examination; Straightforw mark medical decision making. Counselin Psychotherap [id number] SNOMED-CT () 2019-05-06 complete Mental y, 45 04 d Health- minutes with [place] patient [address], [id number] [phone] SNOMED-CT () 2019-03-19 complete Mental d Health- [place], [id number] [phone] Office or [id number] SNOMED-CT () 2019-07-04 complete Mental other 7 d Health- outpatient [place] visit for [address], established [id number] patient, [id number] which requires at least 2 of these 3 de la fuente components: An expanded problem focused history; An expanded problem focused examination; Medical decision making of [facility] Office or [id number] SNOMED-CT () 2019-07-11 complete Mental other 7 d Health- outpatient [place] visit for [address], established [id number] patient, [id number] which requires at least 2 of these 3 de la fuente components: An expanded problem focused history; An expanded problem focused examination; Medical decision making of low Psychotherap 149902 SNOMED-CT () 2019-03-01 complete Mental y, 45 04 d Health- minutes with [place] patient [address], [id number] [phone] Psychotherap [id number] SNOMED-CT () 2019-07-15 complete Mental y, 45 04 d Health- minutes with [place] patient [address], [id number] [phone] Office or [id number] SNOMED-CT () 2018-11-14 complete Mental other 6 d Health- outpatient [place] visit for [address], established [id number] patient, [id number] which requires at least 2 of these 3 de la fuente components: A problem focused history; A problem focused examination; Straightforw mark medical decision making. Counselin Office or [id number] SNOMED-CT () 2019-04-19 complete Mental other 6 d Health- outpatient [place] visit for [address] established [id number] patient, [phone] which requires at least 2 of these 3 de la fuente components: A problem focused history; A problem focused examination; Straightforw mark medical decision making. Counselin Encounters/Encounter Diagnoses Encounter Name Encounter Diagnosis Diagnosis Diagnosis Date of Service Code Code Name CodeSystem Diagnosis Delivery Location [facility] - [address] [id number] Bipolar II SNOMED-CT 2019-07-22 Behavioral Individual 30 disorder [facility] , , , Vital Signs No Information Social History Element Description Description Start End Code CodeSystem AdditionalInfo Date Date SexAssignedAtBirth Female 195-0 F AdministrativeGender 6-24 Hospital Discharge Instructions Reason For Referral Medical Equipment FDA Assessments
--- OUTSIDE RECORDS SUMMARY | 2019-08-23 21:34 | XMS REPORT | Summary of Care ---
:1950 Author Organization [facility] Address [address] [facility] [place] [id number] Care Team Providers Name Role Phone Brittany Kinsey DO Primary Care Provider Reason for Referral Refer to Department Only (Routine) Status Reason Specialty Diagnoses / Referred By Referred To Procedures Contact Contact Authorized FAMILY PRACTICE / Diagnoses Hypertension, unspecified type [facility] Judy Mckeon MD [address] [place] [address] Reason for Visit Reason Comments Follow Up Encounter Details Date Type Department Care Team Description 08/14/2019 Office Visit [facility] [place] Hypertension, unspecified type (Primary Dx); Practice Pauline Mckeon MD Bipolar 1 disorder (HCC); [address] [place] [address] Depression, unspecified depression type; [place] [address] [place] [address] Mixed hyperlipidemia [phone] Allergies Active Allergy Reactions Severity Noted Date Comments Latex Rash High 02/27/2013 Penicillins Hives 11/30/2007 Sulfa Antibiotics Hives 11/30/2007 Tape: Silk Or Adhesive Rash 01/20/2016 & Band aids documented as of this encounter (statuses as of 08/14/2019) Medications Medication Sig Dispensed Refills Start Date End Date Status Aspirin 81 MG Oral Take 1 Tab by mouth 30 Tab 0 07/01/2019 Active Tab EVERY EVENING. atenolol (TENORMIN) Take 1 Tab by mouth 30 Tab 0 07/01/2019 Active 25 MG Oral Tab EVERY MORNING. atorvastatin Take 20 mg by mouth 0 07/01/2019 Active (LIPITOR) 20 MG Oral DAILY. Tab Clonazepam 0.5 MG Take 2 Tabs by 180 Tab 0 07/01/2019 Active Oral TABLET mouth TWO TIMES DISPERSIBLE DAILY NEEDED. Max Daily Amount: 2 mg. OLANZapine (ZYPREXA) Take 1 Tab by mouth 30 Tab 0 07/02/2019 Active 5 MG Oral DAILY. Indications: TabIndications: hypomania hypomania therapeutic Take by mouth. 0 07/01/2019 Active multivitamin (THERAGRAN-M) Oral Tab trazodone (DESYREL) Take 1 Tab by mouth 30 Tab 0 07/01/2019 Active 100 MG Oral Tab EVERY BEDTIME. gabapentin Take 1 Cap by mouth 0 07/01/2019 Active (NEURONTIN) 300 MG TWICE DAILY. Oral Cap polyethylene glycol Take 1 PKT by mouth 7 Packet 0 07/01/2019 Active (MIRALAX) Oral Pack DAILY NEEDED. Mometasone Take 2 INHL by 0 07/01/2019 Active Furo-Formoterol Fum inhalation TWICE (DULERA) 200-5 DAILY. MCG/ACT Inhalation Aerosol B Complex Vitamins Take by mouth 0 07/01/2019 Active (VITAMIN B COMPLEX) EVERY MORNING. Oral Tab Loratadine 10 MG Oral Take 10 mg by mouth 30 Cap 0 07/01/2019 Active Cap EVERY MORNING. fluticasone (FLONASE) [place] in nose 0 07/01/2019 Active 50 MCG/ACT Nasal TWICE DAILY. Suspension fluticasone-salmetero Take 1 INHL by 60 Each 0 07/01/2019 Active l diskus (ADVAIR inhalation TWICE DISKUS) 250-50 DAILY. MCG/DOSE Inhalation AEROSOL POWDER, BREATH ACTIVATED Omeprazole delayed Take 20 mg by mouth 0 07/01/2019 Active rel cap 20 MG Oral EVERY MORNING. CAPSULE DELAYED RELEASE Multiple Vitamin Take by mouth. 30 Tab 0 07/01/2019 Active (MULTI-VITAMIN DAILY) Oral Tab Nicotine Polacrilex 1 Each by 270 Each 0 07/01/2019 Active (NICORETTE) 4 MG Mouth/Throat route Mouth/Throat Gum NEEDED. Melatonin 1 MG Oral Take by mouth. 0 Active Tab divalproex (DEPAKOTE Take 500 mg by 0 Active ER) 500 MG Oral mouth. TABLET SR 24 HR Etodolac PO cap 200 Take 200 mg by 90 Cap 0 07/18/2019 Active mg 200 MG Oral mouth EVERY EIGHT CapIndications: HOURS NEEDED Sciatica of left side (pain). documented as of this encounter (statuses as of 08/14/2019) Active Problems Problem Noted Date Hypomanic episode 07/01/2019 Lumbosacral spondylosis with radiculopathy 06/26/2019 History of bowel resection 11/06/2015 Mental health disorder 11/06/2015 Perforated bowel 11/06/2015 Mixed hyperlipidemia 11/06/2015 Tachycardia 11/06/2015 Vitamin D deficiency 11/06/2015 Loss of weight 11/06/2015 Diarrhea 11/06/2015 Tardive dyskinesia 11/06/2015 Former cigarette smoker 11/06/2015 Fatigue 11/06/2015 Depression 11/14/2014 HTN (hypertension) 11/14/2014 Tobacco abuse 11/14/2014 Arteriovenous malformation of colon 11/14/2014 FH: colon polyps 11/14/2014 Overview: Father Bipolar 1 disorder 02/27/2013 documented as of this encounter (statuses as of 08/14/2019) Immunizations Name Administration Dates Next Due Influenza Vaccine High Dose 03/28/2019, 03/10/2017 Influenza Virus Vaccine w/Pres 6-35 months 04/23/2016 PNEUMOCOCCAL POLYSACCHARIDE VACCINE 04/04/2018 Pneumococcal Conjugate Vaccine 04/01/2015 TDAP Vaccine 04/01/2015 documented as of this encounter Social History Tobacco Use Types Packs/Day Years Used Date Current Every Day Smoker Cigarettes 1 35.0 Smokeless Tobacco: Never Used Comments: quit a year but resumed, 1/2 ppd Alcohol Use Drinks/Week oz/Week Comments Yes 14 Glasses of wine 14.0 15 oz week Sex Assigned at Date Recorded Not on file documented as of this encounter Last Filed Vital Signs Vital Sign Reading Time Taken Comments Blood Pressure 130/80 08/14/2019 11:39 AM EST Pulse 101 08/14/2019 11:18 AM EST Temperature 37.3 08/14/2019 11:18 AM EST C (99.2 F) Respiratory Rate - - Oxygen Saturation 93% 08/14/2019 11:18 AM EST Inhaled Oxygen Concentration - - Weight 76.7 kg (169 lb) 08/14/2019 11:18 AM EST Height 162.6 cm (5' 4") 08/14/2019 11:18 AM EST Body Mass Index 29.01 08/14/2019 11:18 AM EST documented in this encounter Patient Instructions Patient InstructionsCannariato, Pauline J, MD - 08/14/2019 11:00 AM ESTGlad you are getting all your consults done. Please continue current medications See if your insurance covers the new Shingles shot, Shingrix.. If so for an appointment for injection. documented in this encounter Progress Notes Pauline Musa MD - 08/14/2019 11:00 AM EST Nursing Notes: Lia Krueger LPN 08/14/2019 11:31 AM Signed Chief Complaint Patient presents with ? 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 We set her up for some referrals the last 2 visits, all of which have been schedule. She established care 07/12/2019 for a hospital follow up She saw Maggie REECE 07/18/2019 for sciatica, wanting pain medications and hoping we would doher psychiatric medications. She was referred to pain clinica and back to her psychiatrist to manage her psychiatric medications. She now sees Dr Maher for psychiatry She had been hospitalized at [facility] : 06/26-07/01/201920 for hypomanic episode, mood disorder, Bipolar 1 She reported worsening balance problems since March,seen at [facility] Er several times. She was worried she has Parkinson's Patient was admitted to [facility] Mental Health unit. [place], prior saw a primary care provider in [facility]. She wanted to switch to [place]. Her mental health follow up was with [facility] on 07/04/19. I notified her at her first visit with me that I am primary care and will not be doing her MH care. During that hospitalization: [place] was discontinued and she was started on Olanzapine 5 mg. Cyclobenzaprine was given for chronic back pain. Upon discharge she was moving in with her sister Trudy. It appears she is back home with her boyfriend. Boyfriend is Ray and last visit it was reported he was very controlling of Samreen. Samreen does not indicate this today. Bipolar: Being seen at [facility] since hospital discharge. They added Depakote in June on depakote, olanzapine, clonazepam, They will manage her mental health medications. Lost wt on Geodon and then got Tardive Dyskinesia. Neurology: Saw Dr Rivera, had spikes on EEG, has appointment but then switching to Dr Martinez 07/29/2019, had another EEG spike. He is watching her.. She told Maggie REECE she had an EEG the week prior. She reports her shaking and staggeringresolved stopping lithium. Back pain: Severe pain at night, radiates down left buttock, thigh, ot know, then left lateral calf cramps. It appears she has seen Dr Tse for chronic back pain. He recommended pain clinic on 06/26/2019. Has left knee pain also, has been seen at [facility] ER several times and had multiple xrays and ultrasounds. She report a hx of peroneal tendonitis on that leg and past surgery. Leg cramps are a bit better but still there. She has a Pain clinic appointment Monday. Hypertension: On atenolol, now a lower dose than prior to her weight gain. Has CAD, sees Dr Atkinson Cardiac: Cardiology increased increased lipitor to 20 mg daily. They may change atenolol to diltiazem in the future. Knee pain: She asked to see orthopedics for her knee last visit She has no complaints today She had her mammogram today at [facility] Prior records reviewed: Has a Flores's cyst and was referred to orthopedics by her primary care provider in April. Head CT negative 04/08/15 Carotid doppler 04/08/15: no sign stenosis Left knee xray 04/05/18: NAD Left hip xray 04/05/18: Mild arthritis CT Lung screen 05/22/18: bilateral parenchymal scarring, minimal pericardial effusion. Lab Results Component Value Date NA 139 07/18/2019 K 4.1 07/18/2019 CL 106 07/18/2019 CO2 25 07/18/2019 GLUCOSE 86 07/18/2019 BUN 17 07/18/2019 CREATININE 0.7 07/18/2019 CALCIUM 9.3 07/18/2019 TP 7.3 06/26/2019 ALBUMIN 4.3 06/26/2019 AST 22 06/26/2019 ALT 31 06/26/2019 ALK 48 06/26/2019 TBILI 0.3 06/26/2019 EGFR >60 07/18/2019 Lab Results Component Value Date WBC 7.59 07/18/2019 HGB 13.5 07/18/2019 HCT 43.1 07/18/2019 PLAT 229 07/18/2019 No results found for: CHOL, TRIG, HDL, LDL, LDLHDLRATIO, CHOLHDLRATIO Lab Results Component Value Date TSH 1.43 07/18/2019 Ref. Range 06/26/2019 13:55 06/27/2019 06:41 06/29/2019 08:43 ACETAMINOPHEN Latest Ref Range: 10 .0 - 30.0 ug/mL <10.0 Alcohol % Latest Ref Range: None Detected % 0.03 Blood Alcohol Latest Ref Range: 0.00 - 10.00 MG/DL 34.10 (H) [place] Level Latest Ref Range: 0.60 - 1.20 MMOL/L 1.00 1.30 (H) 0.40 (L) Salicylate Level Latest Ref Range: 2 - 20 mg/dl <1 (L) Results for SAMREEN CAMPO ( ) as of 07/11/2019 17:29 Ref. Range 06/26/2019 13:55 Urine Amphetamines Latest Ref Range: Negative Negative Urine Barbiturates Latest Ref Range: Negative Negative Urine Benzodiazepine Latest Ref Range: Negative Negative Urine Cannabinoids Latest Ref Range: Negative Negative Urine Cocaine Latest Ref Range: Negative Negative Urine Methadone Latest Ref Range: Negative Negative Urine Opiates Latest Ref Range: Negative Negative Oxycodone Latest Ref Range: Negative Negative Urine Phencyclidine Latest Ref Range: Negative Negative Results for SAMRENE CAMPO ( ) as of 07/11/2019 17:29 Ref. Range 06/26/2019 13:55 Propoxyphene Latest Ref Range: Negative Negative MRI at [facility] 06/10/19 Patient Active Problem List Diagnosis ? Bipolar 1 disorder (HCC) ? Depression ? HTN (hypertension) ? Tobacco abuse ? Arteriovenous malformation of colon ? FH: colon polyps ? History of bowel resection ? Mental health disorder ? Perforated bowel (HCC) ? Mixed hyperlipidemia ? Tachycardia ? Vitamin D deficiency ? Loss of weight ? Diarrhea ? Tardive dyskinesia ? Former cigarette smoker ? Fatigue ? Lumbosacral spondylosis with radiculopathy ? Hypomanic episode (HCC) Past Medical History: Diagnosis Date ? Acute pharyngitis ? Acute sinusitis ? Adult failure to thrive ? Anxiety ? 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 Atypical chest pain 08/19: normal nuclear stress, equivocal cath with tight LM ? Bipolar affective (HCC) Dr. Smith (psychiatrist) in [place], [place]; also sees counselor locally ? Bipolar depression (HCC) ? COPD (chronic obstructive pulmonary disease) (HCC) ? Depression 11/14/2014 ? Diarrhea ? Dyslipidemia intolerant of statins, L153, H53 in 03/25 ? Family history of high cholesterol ? Fatigue ? HTN (hypertension) 11/14/2014 ? Hyperlipidemia ? Loss of weight ? Lung nodules ? Malaise ? Positive CHET 1:320 of unclear significance ? Postural imbalance ? Rapid heart rate ? Tardive dyskinesia ? Tobacco abuse ? Tobacco dependence in remission ? Unstable gait ? Vitamin D deficiency Past Surgical History: Procedure Laterality Date ? BILAT TUBAL DIVISION NEC ? BOWEL DIAGNOST PROC NEC ? CARDIAC CATH 2002 [facility] and [place], has mild Left main dz ? COLONOSCOPY N/A 01/21/2016 Procedure: COLONOSCOPY; Surgeon: Cintia Chavira MD; Location: [facility] MAIN OR ? COLONOSCOPY DIAGNOSTIC ? FOOT SYNOVECTOMY Current Outpatient Medications: ? Aspirin 81 MG Oral Tab, Take 1 Tab by mouth EVERY EVENING., Disp: 30 Tab, Rfl: 0 ? atenolol (TENORMIN) 25 MG Oral Tab, Take 1 Tab by mouth EVERY MORNING. , Disp: 30 Tab, Rfl: 0 ? atorvastatin (LIPITOR) 20 MG Oral Tab, Take 20 mg by mouth DAILY., Disp : , Rfl: 0 ? B Complex Vitamins (VITAMIN B COMPLEX) Oral Tab, Take by mouth EVERY MORNING., Disp: , Rfl: 0 ? Clonazepam 0.5 MG Oral TABLET DISPERSIBLE, Take 2 Tabs by mouth TWO TIMES DAILY NEEDED. Max Daily Amount: 2 mg., Disp: 180 Tab, Rfl: 0 ? divalproex (DEPAKOTE ER) 500 MG Oral TABLET SR 24 HR, Take 500 mg by mouth., Disp: , Rfl: ? Etodolac PO cap 200 mg 200 MG Oral Cap, Take 200 mg by mouth EVERY EIGHT HOURS NEEDED (pain)., Disp: 90 Cap, Rfl: 0 ? fluticasone (FLONASE) 50 MCG/ACT Nasal Suspension, [place] in nose TWICE DAILY., Disp: , Rfl: 0 ? fluticasone-salmeterol diskus (ADVAIR DISKUS) 250-50 MCG/DOSE Inhalation AEROSOL POWDER, BREATH ACTIVATED, Take 1 INHL by inhalation TWICE DAILY., Disp: 60 Each, Rfl: 0 ? gabapentin (NEURONTIN) 300 MG Oral Cap, Take 1 Cap by mouth TWICE DAILY., Disp: , Rfl: 0 ? Loratadine 10 MG Oral Cap, Take 10 mg by mouth EVERY MORNING., Disp: 30 Cap, Rfl: 0 ? Melatonin 1 MG Oral Tab, Take by mouth., Disp: , Rfl: ? Mometasone Furo-Formoterol Fum (DULERA) 200-5 MCG/ACT Inhalation Aerosol, Take 2 INHL by inhalation TWICE DAILY., Disp: , Rfl: 0 ? Multiple Vitamin (MULTI-VITAMIN DAILY) Oral Tab, Take by mouth., Disp : 30 Tab, Rfl: 0 ? Nicotine Polacrilex (NICORETTE) 4 MG Mouth/Throat Gum, 1 Each by Mouth/ Throat route NEEDED., Disp: 270 Each, Rfl: 0 ? OLANZapine (ZYPREXA) 5 MG Oral Tab, Take 1 Tab by mouth DAILY. Indications: hypomania, Disp: 30 Tab, Rfl: 0 ? Omeprazole delayed rel cap 20 MG Oral CAPSULE DELAYED RELEASE, Take 20 mg by mouth EVERY MORNING., Disp: , Rfl: 0 ? polyethylene glycol (MIRALAX) Oral Pack, Take 1 PKT by mouth DAILY NEEDED., Disp: 7 Packet, Rfl: 0 ? therapeutic multivitamin (THERAGRAN-M) Oral Tab, Take by mouth., Disp : , Rfl: 0 ? trazodone (DESYREL) 100 MG Oral Tab, Take 1 Tab by mouth EVERY BEDTIME. , Disp: 30 Tab, Rfl:0 Allergies Allergen Reactions ? Latex Rash ? Pcn [Penicillins] Hives ? Sulfa Antibiotics Hives ? Tape: Silk Or Adhesive Rash & Band aids Social History Socioeconomic History ? Marital status: Spouse name: Not on file ? Number of children: Not on file ? Years of education: Not on file ? Highest education level: Not on file Occupational History ? Not on file Social Needs ? Financial resource strain: Not on file ? Food insecurity Worry: Not on file Inability: Not on file ? Transportation needs Medical: Not on file Non-medical: Not on file Tobacco Use ? Smoking status: Current Every Day Smoker Packs/day: 1.00 Years: 35.00 Pack years: 35.00 Types: Cigarettes ? Smokeless tobacco: Never Used ? Tobacco comment: quit a year but resumed, 1/2 ppd Substance and Sexual Activity ? Alcohol use: Yes Alcohol/week: 14.0 standard drinks Types: 14 Glasses of wine per week Comment: 15 oz week ? Drug use: No ? Sexual activity: Not Currently Partners: Male Lifestyle ? Physical activity Days per week: Not on file Minutes per session: Not on file ? Stress: Not on file Relationships ? Social connections Talks on phone: Not on file Gets together: Not on file Attends congregational service: Not on file Active member of club or organization: Not on file Attends meetings of clubs or organizations: Not on file Relationship status: Not on file ? Intimate partner violence Fear of current or ex partner: Not on file Emotionally abused: Not on file Physically abused: Not on file Forced sexual activity: Not on file Other Topics Concern ? Not on file Social History Narrative Lives with sig other, Aden, but reports he is controlling. Currently staying with her sister . Family in area. Worked for [employer] in [place] in the past Was raising her 4 y/o grandson but her other adult son recently took custody away from her. Prior records reviewed. Has a Flores's cyst and was referred to orthopedics by her primary care provider in April. Head CT negative 04/08/15 Carotid doppler 04/08/15: no sign stenosis Left knee xray 04/05/18: NAD Left hip xray 04/05/18: Mild arthritis CT Lung screen 05/22/18: bilateral parenchymal scarring, minimal pericardial effusion. Family History Problem Relation Age of Onset ? Arthritis Mother ? Hypertension Mother ? Fibromyalgia Mother ? Heart Father ? GI Father colon polyps ? Cancer Father esophageal cancer ? Heart Sister [place] ? Unknown Psych Disorder Child mood disorder ? High Cholesterol Other Health Maintenance Topic Date Due ? MEDICARE ANNUAL WELLNESS VISIT 1950 ? ZOSTER IMMUNIZATION SERIES (1 of 2) 12/10/2001 ? LUNG CANCER SCREENING 12/10/2006 ? MAMMOGRAM (SCREENING) 05/22/2019 ? LIPID DISORDER SCREENING 07/01/2020 ? DEPRESSION SCREENING 07/12/2020 ? FALL RISK ASSESSMENT 07/12/2020 ? DIABETES SCREENING 07/18/2020 ? Colonoscopy 01/20/2021 ? OSTEOPOROSIS SCREENING 07/23/2023 ? DTaP/Tdap/Td Vaccines (2 - Tdap) 04/01/2025 ? INFLUENZA VACCINE Completed ? PNEUMOCOCCAL 65+YRS Completed ? HEPATITIS A IMMUNIZATION SERIES Aged Out ? HPV IMMUNIZATION SERIES Aged Out ? MENINGOCOCCAL VACCINE IMM Aged Out ROS General ROS: negative for - chills or fever, unexpected weight changes ENT ROS: negative for - headaches,visual changes Respiratory ROS: negative for - shortness of breath Cardiovascular ROS: negative for - chest pain, dyspnea on exertion, edema Gastrointestinal ROS: no abdominal pain, change in bowel habits Psych: Feels better on current meds Exam: BP 130/80 | Pulse 101 | Temp 99.2 F (37.3 C) | Ht 5' 4" (1.626 m) | Wt 169 lb (76.7 kg)| SpO2 93% | BMI 29.01 kg/m Physical Exam Physical Examination: General appearance - alert, well appearing, and in no distress Mental status - alert, oriented to person, place, and time, normal mood, behavior, speech, dress, motor activity, and thought processes Eyes - pupils equal, sclera anicteric Neck - supple, no cervical or supraclavicular adenopathy, carotids upstroke normal bilaterally, no bruits, thyroid exam: thyroid is normal in size without nodules or tenderness, no neck masses palpated. Chest/Lungs - clear to auscultation, no wheezes, rales or rhonchi, symmetric air entry, good aeration Heart - normal rate, regular rhythm, normal S1, S2, no murmurs, rubs, clicks or gallops Abdomen - soft, non tender on palpation, nondistended, no masses or hepatosplenomegaly, bowel soundsnormal, normal to percussion, no guarding or rebound. No costervertebral angle tenderness Neurological - alert, oriented, normal speech, no gross focal findings or movement disorder noted Extremities - dorsalis pedis pulses normal, trace bilateral ankle pedal edema, no clubbing or cyanosis ASSESSMENT/PLAN: ICD-9-CM ICD-10-CM 1. Hypertension, unspecified type 401.9 I10 REFER TO WELLNESS NURSE FOR AWV 2. Bipolar 1 disorder (HCC) 296.7 F31.9 3. Depression, unspecified depression type 311 F32.9 4. Mixed hyperlipidemia 272.2 E78.2 Patient Instructions Glad you are getting all your consults done. Please continue current medications See if your insurance covers the new Shingles shot, Shingrix.. If so for an appointment for injection. Author: Pauline Msua MD 08/14/2019 13:09 documented in this encounter Plan of Treatment Date Type Specialty Care Team Description 11/26/2019 Office Visit Family Practice Pauline Musa MD [address] [place] [address] [phone] Name Type Priority Associated Diagnoses Order Schedule REFER TO WELLNESS Referral Routine Hypertension, Expected: 08/14/2019, NURSE FOR AWV unspecified type Expires: 08/14/2020 Health Maintenance Due Date Last Done Comments MEDICARE ANNUAL WELLNESS VISIT 1950 ZOSTER IMMUNIZATION SERIES (1 12/10/2001 of 2) LUNG CANCER SCREENING 12/10/2006 MAMMOGRAM (SCREENING) 05/22/2019 05/22/2018, 05/22/2018 LIPID DISORDER SCREENING 07/01/2020 07/01/2019 DEPRESSION SCREENING 07/12/2020 07/12/2019, 07/12/2019 FALL RISK ASSESSMENT 07/12/2020 07/12/2019, 07/12/2019 DIABETES SCREENING 07/18/2020 07/18/2019, 06/29/2019, 06/26/2019 Colonoscopy 01/20/2021 01/21/2016, 01/21/2016 OSTEOPOROSIS SCREENING 07/23/2023 07/23/2013, 07/23/2013 DTaP/Tdap/Td Vaccines (2 - 04/01/2025 04/01/2015 Tdap) PNEUMOCOCCAL 65+YRS Completed 04/04/2018, 04/01/2015 INFLUENZA VACCINE Completed 03/28/2019, 03/10/2017 HEPATITIS A IMMUNIZATION Aged Out No longer eligible based SERIES on patient's age to complete this topic HPV IMMUNIZATION SERIES Aged Out No longer eligible based on patient's age to complete this topic MENINGOCOCCAL VACCINE IMM Aged Out No longer eligible based on patient's age to complete this topic documented as of this encounter Goals Goal Patient Goal Associated Recent Patient-Stated? Author Type Problems Progress Blood Pressure Blood Pressure 130/80 No Gilma, < 150/90 (08/14/2019 Kristel, 11:39 AM EST) RN Note: This is an individualized treatment (blood pressure) goal for Samreen Campo: Displayed above (on the left) is your goal for blood pressure control. Your most recent blood pressure is also shown above, on the right. You should try to achieve blood pressures that are lower than your goal listed above (on the left). Depression screen Depression 17 (07/12/2019 11:44 AM No Kristel Dillard RN (PHQ-9) total score < 5 EST) Note: This is an individualized treatment (depression) goal for Samreen Campo: Displayed above is your goal for a depression screening (PHQ-9) score that would indicate good control of your depression. Keep a regular sleep schedule Lifestyle Kristel Graham RN Note: This is an individualized lifestyle goal for Samreen Campo: Please maintain a regular sleep schedule. This may help with some symptoms of depression. Take all prescribed medications as Self-management No Kristel Dillard RN directed Note: This is an individualized self-management goal for Samreen Campo: Please take all prescribed medications as directed. 1. Do not skip doses. If you cannot afford your medications, talk with your doctor. 2. Use a pill reminder system such as a pill box if needed. Your pharmacist can help you with this. 3. Contact your Pharmacy 5 days before your medication runs out. If you cannot take your medications for any reasons, talk with your doctor. 4. Please bring all of your medication bottles and inhalers (or a list of all your medications/inhalers) with you to every visit. Potential barriers to meeting all of your care plan goals will continue to be addressed on an ongoing basis. documented as of this encounter Results Not on filedocumented in this encounter Visit Diagnoses Diagnosis Bipolar 1 disorder (HCC) Bipolar I disorder, most recent episode (or current) unspecified Depression, unspecified depression type Hypertension, unspecified type Mixed hyperlipidemia documented in this encounter Insurance Payer Benefit Plan / Subscriber ID Effective Dates Phone Address Type Group [employer]CE[employer] EXCELL [id number] 2015-[facility] MEDICARE MEDICARE BLUE t ADVANTAGE PPO ([phone]) MEDICAID [facility] [id number] 01/17/2019-[place] Medicaid [place] MEDICAID t documented as of this encounter Advance Directives Type Date Recorded Patient C T Tech Explanation Advance Directives 01/21/2016 7:20 PM
--- OUTSIDE RECORDS SUMMARY | 2019-08-23 21:34 | XMS REPORT ---
:1950 Author Organization [facility] Care Team Providers Name Role Phone HARPER CONKLIN Primary Care Physician Unavailable Allergies, Adverse Reactions, Alerts Allergy Code CodeSystem Reaction Severity Criticality Status Start Substance Date Moderate Medications Medication Medication Medication Start Stop Route Dose Status Fill Code CodeSystem Date Date Instructions clonazepam 19740727 RxNorm 2018- oral 1 mg 1 completed 1 tablet 12-10-24 tablet twice a day twice a as needed for day 30 day(s) gabapentin 878613 RxNorm oral 100 mg active for 30 3-22 capsule day(s) lithium 19780125 RxNorm 2018- oral 300 mg completed for 30 carbonate 2-20 05-17 capsule day(s) bupropion HCl 355730 RxNorm 2018- oral 150 mg 2 active 2 tablet 11-02 08-15 tablet once a day sustaine for 90 day(s) d-releas e 12 hr once a day trazodone 812628 RxNorm 2019- oral 100 mg completed for 90 2-28 05-17 tablet day(s) clonazepam 19740727 RxNorm 2018- oral 1 mg completed for 30 3-19 05-07 tablet day(s) pravastatin 159361 RxNorm 2017-06 oral 40 mg active for 90 2-13 tablet day(s) lithium 19780125 RxNorm 2018- oral 300 mg active for 30 carbonate 5-17 08-15 capsule day(s) clonazepam 19740727 RxNorm 2018- oral 1 mg completed for 30 - 06-06 tablet day(s) trazodone 063373 RxNorm 2019- oral 100 mg 1 active 1 tablet at -17 08-15 tablet bedtime for at 90 day(s) bedtime bupropion HCl 627662 RxNorm 2019- oral 150 mg completed for 90 5- 05-17 tablet day(s) sustaine d-releas e 12 hr atenolol 663986 RxNorm oral 25 mg active for -18 tablet day(s) Problems Problem Code CodeSystem Alternate Alternate Start End Status Narrative Name Code CodeSystem Date Date [facility] [id number] 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 Counsel[place] Office or [id number] SNOMED-CT () 2019-02-15 complete Mental other 6 d Health- outpatient [place] visit for [address], established [id number] patient, [phone] which requires at least 2 of these 3 de la fuente components: A problem focused history; A problem focused examination; [place] medical decision making. [facility] Psychotherap [id number] SNOMED-CT () 2019-03-01 complete Mental y, 45 04 d Health- minutes with [place] patient [address], [id number] [id number] SNOMED-CT () 2019-03-19 complete Mental d Health- [place] [address], [id number] Psychotherap [id number] SNOMED-CT () 2019-04-15 complete Mental y, 45 04 d Health- minutes with [place] patient [address], [id number] [phone] Office or [id number] SNOMED-CT () 2019-04-19 complete Mental other 6 d Health- outpatient [place] visit for [address], [facility] [id number] patient, [phone] which requires at least 2 of these 3 de la fuente components: A problem focused history; A problem focused examination; [place] medical decision making. [facility] Psychotherap [id number] SNOMED-CT () 2019-05-06 complete Mental y, 45 04 d Health- minutes with [place] patient [address], [id number] SNOMED-CT () 2019-06-25 complete Mental d Health- [place] [address], [id number] [phone] Office or [id number] SNOMED-CT () 2019-07-04 complete Mental other 7 d Health- outpatient [place] visit for [address], established [id number] patient, [phone] which requires at least 2 of these 3 de la fuente components: An expanded problem focused history; An expanded problem focused examination; Medical decision making of [facility] Office or [id number] SNOMED-CT () 2019-07-11 complete Mental other 7 d Health- outpatient [place] visit for [address], [facility], established [id number] patient, [phone] which requires at least 2 of these 3 de la fuente components: An expanded problem focused history; An expanded problem focused examination; Medical decision making of [facility] Psychotherap [id number] SNOMED-CT () 2019-07-15 complete Mental y, 45 04 d Health- minutes with [place] patient [address], [id number] [phone] Psychotherap [id number] SNOMED-CT () 2019-07-22 complete Mental y, 45 04 d Health- minutes with [place] patient [address], [id number] [phone] Encounters/Encounter Diagnoses Encounter Name Encounter Diagnosis Diagnosis Diagnosis Date of Service Code Code Name CodeSystem Diagnosis Delivery Location Psychotherapy [id number] Bipolar II SNOMED-CT 2019-07-22 Behavioral Individual 30 disorder [facility] [address] [place] [address], [phone] Vital Signs No Information Social History Element Description Description Start End Code CodeSystem AdditionalInfo Date Date SexAssignedAtBirth Female 2-0 F AdministrativeGender 6-24 Hospital Discharge Instructions Reason For Referral Medical Equipment FDA Assessments
--- OUTSIDE RECORDS SUMMARY | 2019-08-23 21:35 | XMS REPORT ---
:1950 Author Organization [facility] Care Team Providers Name Role Phone HARPER CONKLIN Primary Care Physician Unavailable Allergies, Adverse Reactions, Alerts Allergy Code CodeSystem Reaction Severity Criticality Status Start Substance Date Moderate Medications Medication Medication Medication Start Stop Route Dose Status Fill Code CodeSystem Date Date Instructions bupropion HCl 599187 RxNorm 2019- oral 150 mg 2 active 2 tablet 11-02 08-15 tablet once a day sustaine for 90 day(s) d-releas e 12 hr once a day lithium 19780125 RxNorm 2018- oral 300 mg active for 30 carbonate 11-02 08-15 capsule day(s) trazodone 797142 RxNorm 2019- oral 100 mg completed for 90 2-28 05-17 tablet day(s) gabapentin 177514 RxNorm oral 100 mg active for 30 3-22 capsule day(s) bupropion HCl 895558 RxNorm 2019- oral 150 mg completed for 90 - 05-17 tablet day(s) sustaine d-releas e 12 hr pravastatin 936434 RxNorm 2017-06 oral 40 mg active for 90 2-13 tablet day(s) clonazepam 19740727 RxNorm 2018- oral 1 mg completed for 30 3-19 05-07 tablet day(s) trazodone 639818 RxNorm 2019- oral 100 mg 1 active 1 tablet at 11-02 08-15 tablet bedtime for at 90 day(s) bedtime clonazepam 19740727 RxNorm 2019- oral 1 mg completed for 30 5- 06-06 tablet day(s) lithium 19780125 RxNorm 2019- oral 300 mg completed for 30 carbonate 2-20 05-17 capsule day(s) clonazepam 19740727 RxNorm 2018- oral 1 mg 1 completed 1 tablet 24 07-24 tablet twice a day twice a as needed for day 30 day(s) atenolol 336900 RxNorm 2019- oral 25 mg active for 3-18 tablet day(s) Problems Problem Code CodeSystem Alternate Alternate Start End Status Narrative Name Code CodeSystem Date Date Bipolar [id number] SNOMED-CT 2018-08 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 Relevant diagnostic tests/laboratory data Narrative No Information Procedures Procedure Code CodeSystem Target Date of Status Service Device Device Device Name Site Procedure Delivery Code Name UID Location Psychotherap [id number] SNOMED-CT () 2019-04-15 complete Mental y, 45 04 d Health- minutes with [place] patient [address], [id number] [phone] Psychotherap [id number] SNOMED-CT () 2019-03-01 complete Mental y, 45 04 d Health- minutes with [place] patient [address], [id number] [phone] Psychotherap [id number] SNOMED-CT () 2019-05-06 complete Mental y, 45 04 d Health- minutes with [place] patient [address], [id number] [phone] Office or [id number] SNOMED-CT () 2019-07-04 complete Mental other 7 d Health- outpatient [place] visit for [address], established [id number] patient, [phone] which requires at least 2 of these 3 de la fuente components: An expanded problem focused history; An expanded problem focused examination; Medical decision making of [place] Office or [id number] SNOMED-CT () 2019-07-11 complete Mental other 7 d Health- outpatient [place] visit for [address], established [id number] patient, [phone] which requires at least 2 of these 3 de la fuente components: An expanded problem focused history; An expanded problem focused examination; Medical decision making of [place] Office or [id number] SNOMED-CT () 2019-04-19 complete Mental other 6 d Health- outpatient [place] visit for [address], established [id number] patient, [phone] which requires at least 2 of these 3 de la fuente components: A problem focused history; A problem focused examination; [place] medical decision making. Counsel[place] Office or [id number] SNOMED-CT () 2018-11-14 complete Mental other 6 d Health- outpatient [place] visit for [address], established [id number] patient, [phone] which requires at least 2 of these 3 de la fuente components: A problem focused history; A problem focused examination; [place] medical decision making. Counsel[place] Office or [id number] SNOMED-CT () 2019-02-15 complete Mental other 6 d Health- outpatient [place] visit for [address], [facility] [id number] patient, [phone] which requires at least 2 of these 3 de la fuente components: A problem focused history; A problem focused examination; [place] medical decision making. [facility] SNOMED-CT () 2019-03-19 complete Mental d [address], [id number] [phone] SNOMED-CT () 2019-06-25 complete Mental d Health[address], [id number] [phone] Encounters/Encounter Diagnoses Encounter Encounter Diagnosis Diagnosis Diagnosis Date of Service Name Code Code Name CodeSystem Diagnosis Delivery Location Non-Billable [id number] Bipolar II SNOMED-CT 2019-07-15 Behavioral disorder [facility] , , , Vital Signs No Information Social History Element Description Description Start End Code CodeSystem AdditionalInfo Date Date SexAssignedAtBirth Female F AdministrativeGender 12-10 Hospital Discharge Instructions Reason For Referral Medical Equipment FDA Assessments
--- OUTSIDE RECORDS SUMMARY | 2019-08-23 21:35 | XMS REPORT ---
:1950 Author Organization [facility] Care Team Providers Name Role Phone LUCEROHARPER POTTS Primary Care Physician Unavailable Allergies, Adverse Reactions, Alerts Allergy Code CodeSystem Reaction Severity Criticality Status Start Substance Date Moderate Medications Medication Medication Medication Start Stop Route Dose Status Fill Code CodeSystem Date Date Instructions trazodone 965077 RxNorm 2019- oral 100 mg 1 active 1 tablet at 11-02 08-15 tablet bedtime for at 90 day(s) bedtime lithium 19780125 RxNorm 2019- oral 300 mg completed for 30 carbonate 2-20 05-17 capsule day(s) trazodone 547522 RxNorm 2019- oral 100 mg completed for 90 2-28 05-17 tablet day(s) clonazepam 19740727 RxNorm 2019- oral 1 mg completed for 30 5- 06-06 tablet day(s) atenolol 240660 RxNorm oral 25 mg active for 90 3-18 tablet day(s) clonazepam 19740727 RxNorm 2019- oral 1 mg completed for 30 3-19 05-07 tablet day(s) bupropion HCl 036026 RxNorm 2019- oral 150 mg 2 active 2 tablet 11-02 08-15 tablet once a day sustaine for 90 day(s) d-releas e 12 hr once a day bupropion HCl 010736 RxNorm 2019- oral 150 mg completed for 90 5- 05-17 tablet day(s) sustaine d-releas e 12 hr clonazepam 178525 RxNorm 2019- oral 1 mg 1 completed 1 tablet 12-10 07-24 tablet twice a day twice a as needed for day 30 day(s) gabapentin 280689 RxNorm 2019 oral 100 mg active for 30 3-22 capsule day(s) pravastatin 459219 RxNorm 2017-06 oral 40 mg active for 90 2-13 tablet day(s) lithium 230351 RxNorm 2018- oral 300 mg active for 30 carbonate 5-17 08-15 capsule day(s) Problems Problem Code CodeSystem Alternate Alternate Start End Status Narrative Name Code CodeSystem Date Date Bipolar [id number] SNOMED-CT 2018-08 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 Relevant diagnostic tests/laboratory data Narrative No Information Procedures Procedure Code CodeSystem Target Date of Status Service Device Device Device Name Site Procedure Delivery Code Name UID Location SNOMED-CT () 2019-06-25 complete Mental d Health- [address], [id number] SNOMED-CT () 2019-03-19 complete Mental d Health- [address], [id number] [phone] Psychotherap [id number] SNOMED-CT () 2019-04-15 complete Mental y, 45 04 d Health- minutes with [place] patient [address], [id number] [phone] Psychotherap [id number] SNOMED-CT () 2019-03-01 complete Mental y, 45 04 d Health- minutes with [place] patient [address], [id number] [phone] Psychotherap [id number] SNOMED-CT () 2019-05-06 complete Mental y, 45 04 d Health- minutes with [place] patient [address], [id number] [phone] Office or [id number] SNOMED-CT () 2019-07-04 complete Mental other 7 d Health- outpatient [place] visit for [address], established [id number] patient, [phone] which requires at least 2 of these 3 de la fuente components: An expanded problem focused history; An expanded problem focused examination; Medical decision making of [facility] Office or [id number] SNOMED-CT () 2019-04-19 complete Mental other 6 d Health- outpatient [place] visit for [address], established [id number] patient, [phone] which requires at least 2 of these 3 de la fuente components: A problem focused history; A problem focused examination; [place] medical decision making. Counsel[place] Office or [id number] SNOMED-CT () 2018-11-14 complete Mental other 6 d Health- outpatient [place] visit for [address], established [id number] patient, [phone] which requires at least 2 of these 3 de la fuente components: A problem focused history; A problem focused examination; [place] medical decision making. [place] Office or [id number] SNOMED-CT () 2019-02-15 complete Mental other 6 d Health- outpatient [place] visit for [address], established [phone] patient, [phone] which requires at least 2 of these 3 de la fuente components: A problem focused history; A problem focused examination; [place] medical decision making. [place] Encounters/Encounter Diagnoses Encounter Name Encounter Diagnosis Diagnosis Diagnosis Date of Service Code Code Name CodeSystem Diagnosis Delivery Location Established [id number] Bipolar II SNOMED-CT 2019-07-11 Behavioral patient 15-29 disorder Health minutes Clinic , , , Vital Signs No Information Social History Element Description Description Start End Code CodeSystem AdditionalInfo Date Date SexAssignedAtBirth Female 1950-0 F AdministrativeGender 12-10 Hospital Discharge Instructions Reason For Referral Medical Equipment FDA Assessments
--- OUTSIDE RECORDS SUMMARY | 2019-08-23 21:35 | XMS REPORT | Summary of Care ---
:1950 Author Organization [facility] Address [address] [facility] [place] [address] Care Team Providers Name Role Phone Birttany Kinsey DO Primary Care Provider Reason for Referral Refer to Department Only (Routine) Status Reason Specialty Diagnoses / Referred By Referred To Procedures Contact Contact Authorized Orthopedics Diagnoses Sciatica of left side Maggie Hudson NP [address] [phone] Reason for Visit Reason Comments Check Up back pain possible sciatica since April 02 2019 Encounter Details Date Type Department Care Team Description 07/18/2019 Office Visit [place] Maggie Hudson Sciatica of left side Practice [employer] [employer] (Primary Dx) [address] [place] [address] [place] [address] [phone] Allergies Active Allergy Reactions Severity Noted Date Comments Latex Rash High 02/27/2013 Penicillins Hives 11/30/2007 Sulfa Antibiotics Hives 11/30/2007 Tape: Silk Or Adhesive Rash 01/20/2016 & Band aids documented as of this encounter (statuses as of 07/18/2019) Medications Medication Sig Dispensed Refills Start Date End Date Status Aspirin 81 MG Oral Tab Take 1 Tab by 30 Tab 0 07/01/2019 Active mouth EVERY EVENING. atenolol (TENORMIN) 25 Take 1 Tab by 30 Tab 0 07/01/2019 Active MG Oral Tab mouth EVERY MORNING. atorvastatin (LIPITOR) Take 1 Tab by 0 07/01/2019 Active 10 MG Oral Tab mouth DAILY. Clonazepam 0.5 MG Oral Take 2 Tabs by 180 Tab 0 07/01/2019 Active TABLET DISPERSIBLE mouth TWO TIMES DAILY NEEDED. Max Daily Amount: 2 mg. cyclobenzaprine Take 1 Tab by 42 Tab 0 07/01/2019 07/22/2019 Active (FLEXERIL) 5 MG Oral mouth THREE TIMES Tab DAILY NEEDED (muscle pain) for up to 21 days. OLANZapine (ZYPREXA) 5 Take 1 Tab by 30 Tab 0 07/02/2019 Active MG Oral mouth DAILY. TabIndications: Indications: hypomania hypomania therapeutic Take by mouth. 0 07/01/2019 Active multivitamin (THERAGRAN-M) Oral Tab trazodone (DESYREL) Take 1 Tab by 30 Tab 0 07/01/2019 Active 100 MG Oral Tab mouth EVERY BEDTIME. gabapentin (NEURONTIN) Take 1 Cap by 0 07/01/2019 Active 300 MG Oral Cap mouth TWICE DAILY. polyethylene glycol Take 1 PKT by 7 Packet 0 07/01/2019 Active (MIRALAX) Oral Pack mouth DAILY NEEDED. Mometasone Take 2 INHL by 0 07/01/2019 Active Furo-Formoterol Fum inhalation TWICE (DULERA) 200-5 MCG/ACT DAILY. Inhalation Aerosol B Complex Vitamins Take by mouth 0 07/01/2019 Active (VITAMIN B COMPLEX) EVERY MORNING. Oral Tab Loratadine 10 MG Oral Take 10 mg by 30 Cap 0 07/01/2019 Active Cap mouth EVERY MORNING. fluticasone (FLONASE) [place] in nose 0 07/01/2019 Active 50 MCG/ACT Nasal TWICE DAILY. Suspension fluticasone-salmeterol Take 1 INHL by 60 Each 0 07/01/2019 Active diskus (ADVAIR DISKUS) inhalation TWICE 250-50 MCG/DOSE DAILY. Inhalation AEROSOL POWDER, BREATH ACTIVATED Omeprazole delayed rel Take 20 mg by 0 07/01/2019 Active cap 20 MG Oral CAPSULE mouth EVERY DELAYED RELEASE MORNING. Multiple Vitamin Take by mouth. 30 Tab 0 07/01/2019 Active (MULTI-VITAMIN DAILY) Oral Tab Nicotine Polacrilex 1 Each by 270 Each 0 07/01/2019 Active (NICORETTE) 4 MG Mouth/Throat Mouth/Throat Gum route NEEDED. Melatonin 1 MG Oral Take by mouth. 0 Active Tab divalproex (DEPAKOTE Take 500 mg by 0 Active ER) 500 MG Oral TABLET mouth. SR 24 HR Etodolac PO cap 200 mg Take 200 mg by 90 Cap 0 07/18/2019 Active 200 MG Oral mouth EVERY EIGHT CapIndications: HOURS NEEDED Sciatica of left side (pain). documented as of this encounter (statuses as of 07/18/2019) Active Problems Problem Noted Date Hypomanic episode [...] as of this encounter (statuses as of 07/18/2019) Immunizations Name Administration Dates Next Due Influenza [...] Assigned at Date Recorded Not on file Job Start Date Occupation Industry Not on file Not on file Not on file Travel History Travel Start Travel End No recent travel history available. documented as of this encounter Last Filed Vital Signs Vital Sign Reading Time Taken Comments Blood Pressure 124/62 07/18/2019 11:04 AM EST Pulse 73 07/18/2019 11:04 AM EST Temperature 36.9 07/18/2019 11:04 AM EST C (98.5 F) Respiratory Rate - - Oxygen Saturation 96% 07/18/2019 11:04 AM EST Inhaled Oxygen Concentration - - Weight 76.2 kg (168 lb) 07/18/2019 11:04 AM EST Height 162.6 cm (5' 4") 07/18/2019 11:04 AM EST Body Mass Index 28.84 07/18/2019 11:04 AM EST documented in this encounter Patient Instructions Patient InstructionsMaggie Hudson NP - 07/18/2019 11:00 AM EST Referral to pain clinic is in - we will work on getting this set up for you with Dr. Spain, Continue physical therapy. Do blood work today. Etodolac - one tablet three times daily as needed for pain. Take this medication with food. ? Biofreeze or Icy/Hot to the area as needed ? Heating pads and cold packs. ? Practice good body ergonomics while doing house work, sitting at your desk, heavy lifting, etc ? Rest and avoid aggravating activities Lower Back Exercises WHAT YOU NEED TO KNOW: Lower back exercises help heal and strengthen your back muscles to prevent another injury. Ask your healthcare provider if you need to see a physical therapist for more advanced exercises. DISCHARGE INSTRUCTIONS: Return to the emergency department if: You have severe pain that prevents you from moving. Contact your healthcare provider if: Your pain becomes worse. You have new pain. You have questions or concerns about your condition or care. Do lower back exercises safely: Do the exercises on a mat or firm surface (not on a bed) to support your spine and prevent lowback pain. Move slowly and smoothly. Avoid fast or jerky motions. Breathe normally. Do not hold your breath. Stop if you feel pain. It is normal to feel some discomfort at first. Regular exercise will help decrease your discomfort over time. Lower back exercises: Your healthcare provider may recommend that you do back exercises 10 to 30 minutes each day. He may also recommend that you do exercises 1 to 3 times each day. Ask your healthcare provider which exercises are best for you and how often to do them. Ankle pumps: Lie on your back. Move your foot up (with your toes pointing toward your head). Then, move your foot down (with your toes pointing away from you). Repeat this exercise 10 times on each side. Heel slides: Lie on your back. Slowly bend one leg and then straighten it. Next, bend the other leg and then straighten it. Repeat 10 times on each side. Pelvic tilt: Lie on your back with your knees bent and feet flat on the floor. Place your armsin a relaxed position beside your body. Tighten the muscles of your abdomen and flatten your back against the floor. Hold for 5 seconds. Repeat 5 times. Back stretch: Lie on your back with your hands behind your head. Bend your knees and turn the lower half of your body to one side. Hold this position for 10 seconds. Repeat 3 times on each side. Straight leg raises: Lie on your back with one leg straight. Bend the other knee. Tighten yourabdomen and then slowly lift the straight leg up about 6 to 12 inches off the floor. Hold for 1 to 5seconds. Lower your leg slowly. Repeat 10 times on each leg. Juqg-jw-yyofb: Lie on your back with your knees bent and feet flat on the floor. Pull one of your knees toward your chest and hold it there for 5 seconds. Return your leg to the starting position. Lift the other knee toward your chest and hold for 5 seconds. Do this 5 times on each side. Cat and camel: Place your hands and knees on the floor. Arch your back upward toward the ceiling and lower your head. Round out your spine as much as you can. Hold for 5 seconds. Lift your head upward and push your chest downward toward the floor. Hold for 5 seconds. Do 3 sets or as directed. Wall squats: Stand with your back against a wall. Tighten the muscles of your abdomen. Slowly lower your body until your knees are bent at a 45 degree angle. Hold this position for 5 seconds. Slowly move back up to a standing position. Repeat 10 times. Curl up: Lie on your back with your knees bent and feet flat on the floor. Place your hands, palms down, underneath the curve in your lower back. Next, with your elbows on the floor, lift your shoulders and chest 2 to 3 inches. Keep your head in line with your shoulders. Hold this position for 5seconds. When you can do this exercise without pain for 10 to 15 seconds, you may add a rotation. While your shoulders and chest are lifted off the ground, turn slightly to the left and hold. Repeat onthe other side. Bird dog: Place your hands and knees on the floor. Keep your wrists directly below your shoulders and your knees directly below your hips. Pull your belly button in toward your spine. Do not flatten or arch your back. Tighten your abdominal muscles. Raise one arm straight out so that it is aligned with your head. Next, raise the leg opposite your arm. Hold this position for 15 seconds. Lower your arm and leg slowly and change sides. Do 5 sets. 2016 [employer]. Information is for End User's use only and may not be sold, redistributed or otherwise used for commercial purposes. All illustrations and images included in CareNotes are the copyrighted property of [employer] or [employer]. The above information is an educational psychology teacher only. It is not intended as medical advice for individual conditions or treatments. Talk to your doctor, nurse or pharmacist before following any medical regimen to see if it is safe and effective for you. documented in this encounter Progress Notes Maggie Hudson NP - 07/18/2019 11:00 AM EST PATIENT: Samreen Zimmerman : 1950 DATE OF SERVICE: 07/18/2019 CHIEF COMPLAINT: Chief Complaint Patient presents with Check Up back pain possible sciatica since April 02 2019 Subjective HISTORY OF PRESENT ILLNESS: Samreen Zimmerman is a 68-y.o. female. HPI Boyfriend Ray accompanying patient to this visit today. He is concerned because she does not sleep well d/t the back pain and this is making it difficult for him to sleep. She had EEG done either on Monday or last week. For shaking hands, staggering gait - done by neurology to check for parkisons but when she came off the lithium this was better, blood work showed toxic levels of the lithium. Stopped the lithium a couple of weeks ago. Currently for bipolar: no lithium, zyprexa, depakote, clonazepam and trazadone. [facility] following - Dr. Jarvis - but she is leaving and so will have to get a new psychiatrist. She went to physical therapy for the knee pain and leg cramps, also ankle on the left, left buttocksand lower back. Boyfriend brings her to the ER several times for leg cramps - that's his main concern. Has been to the walk-in clinic a few times for this. Has bakers cysts but not bothering her, not related to the leg cramping. physical therapy told her would take time to feel better with the exercises. Neurosurgeon (Dr. Tse in [place]) said no surgery even though severe stenosis. Boyfriend says cramps stopped when the medications were stopped in the hospital - patient says no they were severe in the hospital. Cramps are always at night. Taking aleve, wears off after about 4 hours. Then lingering leg pain throughout the day. 2-4 hours of sleep per night. Cramps are relieved during the day when she is up and about - worse when laying down. Symptoms since March 2019. Established with Dr. Musa on 07/12/19 after admission to [facility]. Next visitwith Dr. Musa is in July. 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 Smith (psychiatrist) in [place], [place]; also sees counselor locally Bipolar depression (HCC) COPD (chronic obstructive pulmonary disease) (HCC) Depression 11/14/2014 Diarrhea Dyslipidemia intolerant of statins, L153, H53 in 03/25 Family history of high cholesterol Fatigue HTN (hypertension) 11/14/2014 Hyperlipidemia Loss of weight Lung nodules Malaise Positive CHET 1:320 of unclear significance Postural imbalance Rapid heart rate Tardive dyskinesia Tobacco abuse Tobacco dependence in remission Unstable gait Vitamin D deficiency Family History Problem Relation Age of Onset Arthritis Mother Hypertension Mother Fibromyalgia Mother Heart Father GI Father colon polyps Cancer Father esophageal cancer Heart Sister DC Unknown Psych Disorder Child mood disorder High Cholesterol Other Current Outpatient Medications Medication Sig Aspirin 81 MG Oral Tab Take 1 Tab by mouth EVERY EVENING. atenolol (TENORMIN) 25 MG Oral Tab Take 1 Tab by mouth EVERY MORNING. atorvastatin (LIPITOR) 10 MG Oral Tab Take 1 Tab by mouth DAILY. B Complex Vitamins (VITAMIN B COMPLEX) Oral Tab Take by mouth EVERY MORNING. Clonazepam 0.5 MG Oral TABLET DISPERSIBLE Take 2 Tabs by mouth TWO TIMES DAILY NEEDED. MaxDaily Amount: 2 mg. cyclobenzaprine (FLEXERIL) 5 MG Oral Tab Take 1 Tab by mouth THREE TIMES DAILY NEEDED (muscle pain) for up to 21 days. divalproex (DEPAKOTE ER) 500 MG Oral TABLET SR 24 HR Take 500 mg by mouth. Etodolac PO cap 200 mg 200 MG Oral Cap Take 200 mg by mouth EVERY EIGHT HOURS NEEDED (pain). fluticasone (FLONASE) 50 MCG/ACT Nasal Suspension [place] in nose TWICE DAILY. fluticasone-salmeterol diskus (ADVAIR DISKUS) 250-50 MCG/DOSE Inhalation AEROSOL POWDER, BREATH ACTIVATED Take 1 INHL by inhalation TWICE DAILY. gabapentin (NEURONTIN) 300 MG Oral Cap Take 1 Cap by mouth TWICE DAILY. Loratadine 10 MG Oral Cap Take 10 mg by mouth EVERY MORNING. Melatonin 1 MG Oral Tab Take by mouth. Mometasone Furo-Formoterol Fum (DULERA) 200-5 MCG/ACT Inhalation Aerosol Take 2 INHL by inhalation TWICE DAILY. Multiple Vitamin (MULTI-VITAMIN DAILY) Oral Tab Take by mouth. Nicotine Polacrilex (NICORETTE) 4 MG Mouth/Throat Gum 1 Each by Mouth/ Throat route NEEDED. OLANZapine (ZYPREXA) 5 MG Oral Tab Take 1 Tab by mouth DAILY. Indications : hypomania Omeprazole delayed rel cap 20 MG Oral CAPSULE DELAYED RELEASE Take 20 mg by mouth EVERY MORNING. polyethylene glycol (MIRALAX) Oral Pack Take 1 PKT by mouth DAILY NEEDED. therapeutic multivitamin (THERAGRAN-M) Oral Tab Take by mouth. trazodone (DESYREL) 100 MG Oral Tab Take 1 Tab by mouth EVERY BEDTIME. No current facility-administered medications for this visit. Allergies Allergen Reactions Latex Rash Pcn [Penicillins] Hives Sulfa Antibiotics Hives Tape: Silk Or Adhesive Rash & Band aids Social History Socioeconomic History Marital status: Spouse name: Not on file Number of children: Not on file Years of education: Not on file Highest education level: Not on file Occupational History Not on file Social Needs Financial resource strain: Not on file Food insecurity Worry: Not on file Inability: Not on file Transportation needs Medical: Not on file Non-medical: Not on file Tobacco Use Smoking status: Current Every Day Smoker Packs/day: 1.00 Years: 35.00 Pack years: 35.00 Types: Cigarettes Smokeless tobacco: Never Used Tobacco comment: quit a year but resumed, 1/2 ppd Substance and Sexual Activity Alcohol use: Yes Alcohol/week: 14.0 standard drinks Types: 14 Glasses of wine per week Comment: 15 oz week Drug use: No Sexual activity: Not Currently Partners: Male Lifestyle Physical activity Days per week: Not on file Minutes per session: Not on file Stress: Not on file Relationships Social connections Talks on phone: Not on file Gets together: Not on file Attends zoroastrian service: Not on file Active member of club or organization: Not on file Attends meetings of clubs or organizations: Not on file Relationship status: Not on file Intimate partner violence Fear of current or ex partner: Not on file Emotionally abused: Not on file Physically abused: Not on file Forced sexual activity: Not on file Other Topics Concern Not on file Social History Narrative Lives with sig other, Aden, but reports he is controlling. Currently staying with her sister . Family in area. Worked for [employer] in [place] in the past Was raising her 4 [...] 05/22/18: bilateral parenchymal scarring, minimal pericardial effusion. Over the last 2 weeks, have you been feeling down, depressed, anxious, or hopeless?: 3 Over the past 2 weeks, have you felt little interest or pleasure in doing things ?: 0 Trouble falling or staying asleep, or sleeping too much?: 0 Feeling tired or having little energy?: 3 Poor appetite or overeating?: 1 Feeling bad about yourself or that you are a failure or have let yourself or your family down?: 3 Trouble concentrating on things, such as reading the newspaper or watching TV?: 3 Moving or speaking so slowly that other people notice OR being fidgety and restless?: 1 Thoughts that you would be better off or of hurting yourself in some way?: 3 PHQ-9 TOTAL SCORE: 17 How difficult have these problems made it for you to do your work, take care of things at home or get along with people?: Extremely difficult In the past 2 years, have you felt depressed or sad most days, even if you felt ok?: Yes REVIEW OF SYSTEMS: Review of Systems Gastrointestinal: No incontinence Genitourinary: Negative for dysuria, frequency and urgency. Musculoskeletal: Positive for back pain, joint pain and myalgias. Neurological: Positive for tingling and sensory change. Negative for tremors, weakness and headaches. Psychiatric/Behavioral: Negative for suicidal ideas. The patient has insomnia. Bipolar see hpi Objective PHYSICAL EXAM: VITALS: BP 124/62 (BP Location: Left arm, Patient Position: Sitting) | Pulse 73 | Temp 98.5 F(36.9 C) (Tympanic) | Ht 5' 4" (1.626 m) | Wt 168 lb (76.2 kg) | SpO2 96% | BMI 28.84 kg/m Body mass index is 28.84 kg/m. Physical Exam Vitals signs and nursing note reviewed. Constitutional: General: She is not in acute distress. Appearance: Normal appearance. She is well-developed. Cardiovascular: Rate and Rhythm: Normal rate and regular rhythm. Heart sounds: Normal heart sounds. No murmur. No friction rub. No gallop. Pulmonary: Effort: Pulmonary effort is normal. No respiratory distress. Breath sounds: Normal breath sounds. Musculoskeletal: Right hip: Normal. Left hip: Normal. Cervical back: Normal. Thoracic back: Normal. Lumbar back: Normal. Comments: Tenderness in left buttock Negative straight leg raise No pain with internal or external rotation of hips Neurological: Mental Status: She is alert. Psychiatric: Mood and Affect: Mood and affect normal. Speech: Speech normal. Behavior: Behavior normal. Behavior is cooperative. ASSESSMENT / IMPRESSION: ICD-9-CM ICD-10-CM 1. Sciatica of left side 724.3 M54.32 MAGNESIUM LEVEL VITAMIN B12 / FOLATE THYROID STIMULATING HORMONE FERRITIN BASIC METABOLIC PANEL Etodolac PO cap 200 mg 200 MG Oral Cap REFER TO ORTHOPEDICS CBC NO DIFFERENTIAL MAGNESIUM LEVEL VITAMIN B12 / FOLATE THYROID STIMULATING HORMONE FERRITIN BASIC METABOLIC PANEL CBC NO DIFFERENTIAL Plan 1. Sciatica of left side -For nocturnal leg cramps, will check electrolytes and vitamin levels - although K+ and NA normal a few weeks ago. -Referral in for pain clinic on 07/12, has not pursued this yet. Will send to Dr. Spain to establishher there. -etodolac one tab three times daily as needed -continue physical therapy - MAGNESIUM LEVEL; Future - VITAMIN B12 / FOLATE; Future - THYROID STIMULATING HORMONE; Future - FERRITIN; Future - BASIC METABOLIC PANEL; Future - Etodolac PO cap 200 mg 200 MG Oral Cap; Take 200 mg by mouth EVERY EIGHT HOURS NEEDED (pain).Dispense: 90 Cap; Refill: 0 - REFER TO ORTHOPEDICS; Future - CBC NO DIFFERENTIAL; Future - MAGNESIUM LEVEL - VITAMIN B12 / FOLATE - THYROID STIMULATING HORMONE - FERRITIN - BASIC METABOLIC PANEL - CBC NO DIFFERENTIAL Author: Maggie Hudson NP 07/18/2019 11:48 documented in this encounter Plan of Treatment Date Type Specialty Care Team Description 08/14/2019 Office Visit [facility] Pauline Musa MD [address] [place] [address] [phone] 11/26/2019 Office Visit [facility] Pauline Musa MD [address] [place] [address] [phone] Name Type Priority Associated Diagnoses Date/Time MAGNESIUM LEVEL Lab Routine Sciatica of left side 07/18/2019 11:49 AM EST VITAMIN B12 / FOLATE Lab Routine Sciatica of left side 07/18/2019 11:49 AM EST THYROID STIMULATING Lab Routine Sciatica of left side 07/18/2019 11:49 AM EST HORMONE FERRITIN Lab Routine Sciatica of left side 07/18/2019 11:49 AM EST BASIC METABOLIC PANEL Lab Routine Sciatica of left side 07/18/2019 11:49 AM EST CBC NO DIFFERENTIAL Lab Routine Sciatica of left side 07/18/2019 11:49 AM EST Name Type Priority Associated Diagnoses Order Schedule MAGNESIUM LEVEL Lab Routine Sciatica of left side Expected: 07/18/2019 (Approximate), Expires: 07/18/2020 VITAMIN B12 / FOLATE Lab Routine Sciatica of left side Expected: 07/18/2019 (Approximate), Expires: 07/18/2020 THYROID STIMULATING HORMONE Lab Routine Sciatica of left side Expected: (Approximate), Expires: 07/18/2020 FERRITIN Lab Routine Sciatica of left side Expected: 07/18/2019 (Approximate), Expires: 07/18/2020 BASIC METABOLIC PANEL Lab Routine Sciatica of left side Expected: 2019 (Approximate), Expires: 07/18/2020 CBC NO DIFFERENTIAL Lab Routine Sciatica of left side Expected: 07/18/2019 (Approximate), Expires: 07/18/2020 Name Type Priority Associated Diagnoses Order Schedule REFER TO ORTHOPEDICS Referral Routine Sciatica of left side Expected: 07/18, Expires: 07/18/2020 Health Maintenance Due Date Last Done Comments MEDICARE ANNUAL WELLNESS VISIT 1950 HIV SCREENING 12/10/1966 HEPATITIS C SCREENING 1991 MAMMOGRAM (SCREENING) 1991 ZOSTER IMMUNIZATION SERIES (1 12/10/2001 of 2) LUNG CANCER SCREENING 12/10/2006 OSTEOPOROSIS SCREENING 12/10/2016 DIABETES SCREENING 06/29/2020 06/29/2019, 06/26/2019 LIPID DISORDER SCREENING 07/01/2020 07/01/2019 DEPRESSION SCREENING 07/12/2020 07/12/2019, 07/12/2019 FALL RISK ASSESSMENT 07/12/2020 07/12/2019, 07/12/2019 Colonoscopy 01/20/2021 01/21/2016, 01/21/2016 DTaP/Tdap/Td Vaccines (2 - 04/01/2025 04/01/2015 Tdap) [...] Type Problems Progress Blood Pressure Blood Pressure 124/62 No [place], < 150/90 (07/18/2019 Kristel, 11:04 AM EST) RN Note: This is an individualized treatment (blood pressure) goal for Samreen Zimmerman: Displayed above (on the left) is your [...] an individualized treatment (depression) goal for Samreen Zimmerman: Displayed above is your goal for a depression screening (PHQ-9) score that would indicate good control of your depression. Keep a regular sleep schedule Lifestyle No Kristel Dillard RN Note: This is an individualized lifestyle goal for Samreen Zimmerman: Please maintain a regular sleep schedule. This may help with some symptoms of depression. Take all prescribed medications as Self-management No Kristel Dillard RN directed Note: This is an individualized self-management goal for Samreen Zimmerman: Please take all prescribed medications as directed. [...] filedocumented in this encounter Visit Diagnoses Diagnosis Sciatica of left side Sciatica documented in this encounter Insurance Payer Benefit Plan / Subscriber ID Effective Dates Phone Address Type Group [employer] xxxxxxxxxxxx 2015-[place] [employer] MEDICARE MEDICARE BLUE t ADVANTAGE PPO ([phone]) MEDICAID [facility] xxxxxxxx 2019-[place] Medicaid [place] MEDICA[place] t documented as of this encounter Advance Directives Type Date Recorded Patient Veneer Department Manager Explanation Advance Directives 01/21/2016 7:20 PM
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
--- OUTSIDE RECORDS SUMMARY | 2019-08-23 21:35 | XMS REPORT ---
:1950 Author Organization [facility] Care Team Providers Name Role Phone Paul Yessyalexsandra Primary Care Physician Unavailable Allergies, Adverse Reactions, Alerts Allergy Code CodeSystem Reaction Severity Criticality Status Start Substance Date Moderate Medications Medication Medication Medication Start Stop Route Dose Status Fill Code CodeSystem Date Date Instructions lithium 19780125 RxNorm 2019- oral 300 mg active for 30 carbonate 11-02 08-15 capsule day(s) bupropion HCl 572755 RxNorm 2019- oral 150 mg completed for 90 10-18 05-17 tablet day(s) sustaine d-releas e 12 hr clonazepam 19740727 RxNorm 2018- oral 1 mg 1 completed 1 tablet 12-10-24 tablet twice a day twice a as needed for day 30 day(s) pravastatin 210828 RxNorm 2017-06 oral 40 mg active for 90 2-13 tablet day(s) clonazepam 19740727 RxNorm 2019- oral 1 mg completed for 30 10-23 06-06 tablet day(s) atenolol 412874 RxNorm oral 25 mg active for 90 3-18 tablet day(s) trazodone 290390 RxNorm 2019- oral 100 mg completed for 90 08-16 05-17 tablet day(s) gabapentin 206981 RxNorm oral 100 mg active for 30 3-22 capsule day(s) bupropion HCl 627403 RxNorm 2019- oral 150 mg 2 active 2 tablet 11-02 08-15 tablet once a day sustaine for 90 day(s) d-releas e 12 hr once a day trazodone 675641 RxNorm 2019- oral 100 mg 1 active 1 tablet at 11-02 08-15 tablet bedtime for at 90 day(s) bedtime clonazepam 19740727 RxNorm 2019- oral 1 mg completed for 30 - 05-07 tablet day(s) lithium 191131 RxNorm 2018- oral 300 mg completed for 30 carbonate 08-08 05-17 capsule day(s) Problems Problem Code CodeSystem Alternate Alternate Start End Status Narrative Name Code CodeSystem Date Date Bipolar 55341282 SNOMED-CT 2018-08 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 Relevant diagnostic tests/laboratory data Narrative No Information Procedures Procedure Code CodeSystem Target Date of Status Service Device Device Device Name Site Procedure Delivery Code Name UID Location Psychotherap [id number] SNOMED-CT () 2019-04-15 complete Mental y, 45 04 d Health- minutes with [place] patient [address], [id number] Psychotherap [id number] SNOMED-CT () 2019-03-01 complete Mental y, 45 04 d Health- minutes with [place] patient [address], [id number] Psychotherap [id number] SNOMED-CT () 2019-05-06 complete Mental y, 45 04 d Health- minutes with [place] patient [address], [id number] [id number] Office or [id number] SNOMED-CT () 2019-04-19 complete Mental other 6 d Health- outpatient [place] visit for [address], established [id number] patient, [id number] which requires at least 2 of these 3 de la fuente components: A problem focused history; A problem focused examination; Straightforw mark medical decision making. Counselin Office or [id number] SNOMED-CT () 2018-11-14 complete Mental other 6 d Health- outpatient [place] visit for [address], established [phone] patient, [id number] which requires at least 2 of these 3 de la fuente components: A problem focused history; A problem focused examination; Straightforw mark medical decision making. Counselin Office or [id number] SNOMED-CT () 2019-02-15 complete Mental other 6 d Health- outpatient [place] visit for [address], established [phone] patient, [id number] which requires at least 2 of these 3 de la fuente components: A problem focused history; A problem focused examination; Straightforw mark medical decision making. Counselin SNOMED-CT () 2019-03-19 complete Mental [address], [id number] Encounters/Encounter Diagnoses Encounter Name Encounter Diagnosis Diagnosis Diagnosis Date of Service Code Code Name CodeSystem Diagnosis Delivery Location [facility] [id number] Bipolar II SNOMED-CT 2019-05-06 Behavioral Individual 30 disorder [facility] [address] [place], [place], [phone] Vital Signs No Information Social History Element Description Description Start End Code CodeSystem AdditionalInfo Date Date SexAssignedAtBirth Female 1950-0 F AdministrativeGender 624 Hospital Discharge Instructions Reason For Referral Medical Equipment FDA Assessments
--- OUTSIDE RECORDS SUMMARY | 2019-08-23 21:35 | XMS REPORT | Clinical Summary ---
:1950 Author Organization [facility] Address [address] [facility] [place] [address] Care Team Providers Name Role Phone Brittany Kinsey DO Primary Care Provider Allergies Active Allergy Reactions Severity Noted Date Comments Latex Rash High 02/27/2013 Penicillins Hives 11/30/2007 Sulfa Antibiotics Hives 11/30/2007 Tape: Silk Or Adhesive Rash 01/20/2016 & Band aids Medications Medication Sig Dispensed Refills Start End Date Status Date Aspirin 81 MG Oral Take 1 Tab by 30 Tab 0 Active Tab mouth EVERY 0 EVENING. atenolol (TENORMIN) Take 1 Tab by 30 Tab 0 Active 25 MG Oral Tab mouth EVERY 0 MORNING. atorvastatin Take 1 Tab by 0 Active (LIPITOR) 10 MG Oral mouth DAILY. 0 Tab Clonazepam 0.5 MG Take 2 Tabs by 180 Tab 0 Active Oral TABLET mouth TWO 0 DISPERSIBLE TIMES DAILY NEEDED. Max Daily Amount: 2 mg. cyclobenzaprine Take 1 Tab by 42 Tab 0 07/22/19 Active (FLEXERIL) 5 MG Oral mouth THREE 0 20 Tab TIMES DAILY NEEDED (muscle pain) for up to 21 days. OLANZapine (ZYPREXA) Take 1 Tab by 30 Tab 0 Active 5 MG Oral mouth DAILY. 0 TabIndications: Indications: hypomania hypomania therapeutic Take by 0 Active multivitamin mouth. 0 (THERAGRAN-M) Oral Tab trazodone (DESYREL) Take 1 Tab by 30 Tab 0 Active 100 MG Oral Tab mouth EVERY 0 BEDTIME. gabapentin Take 1 Cap by 0 Active (NEURONTIN) 300 MG mouth TWICE 0 Oral Cap DAILY. polyethylene glycol Take 1 PKT by 7 Packet 0 Active (MIRALAX) Oral Pack mouth DAILY 0 NEEDED. Mometasone Take 2 INHL by 0 Active Furo-Formoterol Fum inhalation 0 (DULERA) 200-5 TWICE DAILY. MCG/ACT Inhalation Aerosol B Complex Vitamins Take by mouth 0 Active (VITAMIN B COMPLEX) EVERY MORNING. 0 Oral Tab Loratadine 10 MG Take 10 mg by 30 Cap 0 Active Oral Cap mouth EVERY 0 MORNING. fluticasone [place] in nose 0 Active (FLONASE) 50 MCG/ACT TWICE DAILY. 0 Nasal Suspension fluticasone-salmeter Take 1 INHL by 60 Each 0 Active ol diskus (ADVAIR inhalation 0 DISKUS) 250-50 TWICE DAILY. MCG/DOSE Inhalation AEROSOL POWDER, BREATH ACTIVATED Omeprazole delayed Take 20 mg by 0 Active rel cap 20 MG Oral mouth EVERY 0 CAPSULE DELAYED MORNING. RELEASE Multiple Vitamin Take by 30 Tab 0 Active (MULTI-VITAMIN mouth. 0 DAILY) Oral Tab Nicotine Polacrilex 1 Each by 270 Each 0 Active (NICORETTE) 4 MG Mouth/Throat 0 Mouth/Throat Gum route NEEDED. CLONAZEPAM 0.5 MG Take 1 mg by 0 07/01/19 Discontinued Oral TABLET mouth TWO 20 (Reorder) DISPERSIBLE TIMES DAILY NEEDED. atenolol (TENORMIN) Take 25 mg by 0 07/01/19 Discontinued 25 MG Oral Tab mouth EVERY 20 (Reorder) MORNING. pravastatin Take 20 mg by 0 07/01/19 Discontinued (PRAVACHOL) 20 MG mouth EVERY 20 (Alternative Oral Tab BEDTIME. Therapy) buPROPion Take 200 mg by 0 07/01/19 Discontinued (WELLBUTRIN) 75 MG mouth EVERY 20 (Patient stopped Oral TabIndications: MORNING. the medication) Pt currently taking Indications: 200mg PO QD Pt currently taking 200mg PO QD Aspirin 81 MG Oral Take 81 mg by 0 07/01/19 Discontinued Tab mouth EVERY 20 (Reorder) EVENING. Imaqxb-CmDfr-MaOvyg- Take 1 Tab by 0 07/01/19 Discontinued FA-[place] mouth EVERY 20 (MULTIVITAMIN/MINERA MORNING. LS PO) B Complex Vitamins Take 1 Tab by 0 07/01/19 Discontinued (VITAMIN B COMPLEX mouth EVERY 20 PO) MORNING. lithium 300 MG Oral Take 300 mg by 0 07/01/19 Discontinued Cap mouth TWICE 20 (Patient stopped DAILY. the medication) trazodone (DESYREL) Take 100 mg by 0 07/01/19 Discontinued 100 MG Oral Tab mouth EVERY 20 (Reorder) BEDTIME. Nicotine Polacrilex 1 Each by 0 07/01/19 Discontinued (NICORETTE) 4 MG Mouth/Throat 20 (Reorder) Mouth/Throat Gum route NEEDED. diphenhydrAMINE Take 50 mg by 0 07/01/19 Discontinued (BENADRYL ALLERGY) mouth EVERY 20 (Patient 25 MG Oral Cap BEDTIME. Discharged) Loratadine 10 MG Take 10 mg by 0 07/01/19 Discontinued Oral Cap mouth EVERY 20 (Reorder) MORNING. atorvastatin Take 10 mg by 0 07/01/19 Discontinued (LIPITOR) 10 MG Oral mouth DAILY. 20 (Reorder) Tab Omeprazole delayed Take 20 mg by 0 07/01/19 Discontinued rel cap 20 MG Oral mouth EVERY 20 (Reorder) CAPSULE DELAYED MORNING. RELEASE gabapentin Take 300 mg by 0 07/01/19 Discontinued (NEURONTIN) 300 MG mouth TWICE 20 (Reorder) Oral Cap DAILY. fluticasone-salmeter Take 1 INHL by 0 07/01/19 Discontinued ol diskus (ADVAIR inhalation 20 (Reorder) DISKUS) 250-50 TWICE DAILY. MCG/DOSE Inhalation AEROSOL POWDER, BREATH ACTIVATED Multiple Vitamin Take by 0 07/01/19 Discontinued (MULTI-VITAMIN DAILY mouth. 20 PO) FLUTICASONE [place] in nose 0 07/01/19 Discontinued PROPIONATE NA TWICE DAILY. 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 (Primary Dx) from Last 3 Months Family History Medical History Relation Name Comments Unknown Psych Disorder Child mood disorder Cancer Father esophageal cancer GI Father colon polyps Heart Father Arthritis Mother Fibromyalgia Mother Hypertension Mother High Cholesterol Other family Heart Sister [place] Relation Name Status Comments Brother Alive Child Daughter Alive Father Mother Alive Other family Sister Alive Son Alive Son Alive Social History Tobacco Use Types Packs/Day Years Used Date Former Smoker Cigarettes 1 35.0 Smokeless Tobacco: Never Used Tobacco Cessation: Counseling Given: No Alcohol Use Drinks/Week oz/Week Comments Yes 14 Glasses of wine 14.0 15 oz week Sex Assigned at Date Recorded Not on file Job Start Date Occupation Industry Not on file Not on file Not on file Travel History Travel Start Travel End No recent travel history available. Last Filed Vital Signs Vital Sign Reading Time Taken Comments Blood Pressure 153/73 07/01/2019 6:01 AM EST Pulse 91 07/01/2019 6:00 AM EST Temperature 36.4 07/01/2019 6:00 AM EST C (97.5 F) Respiratory Rate 18 07/01/2019 6:00 AM EST Oxygen Saturation 97% 06/26/2019 1:10 PM EST Inhaled Oxygen Concentration - - Weight 73.3 kg (161 lb 8 oz) 07/01/2019 6:00 AM EST Height 162.6 cm (5' 4") 06/26/2019 5:48 PM EST Body Mass Index 27.72 06/26/2019 5:48 PM EST Plan of Treatment Date Type Specialty Care Team Description 07/12/2019 Office Visit Family Practice Pauline Musa MD [address] [place] [address] [phone] 07/22/2019 Office Visit Family Practice Maggie Hudson NP [address] [place] [address] [phone] 11/26/2019 Office Visit Family Practice Pauline Musa MD [address] [place] [address] [phone] Health Maintenance Due Date Last Done Comments MEDICARE ANNUAL WELLNESS VISIT 1950 DTaP/Tdap/Td Vaccines (1 - 12/10/1962 Tdap) DEPRESSION SCREENING 1963 HIV SCREENING 12/10/1966 HEPATITIS C SCREENING 1991 MAMMOGRAM (SCREENING) 1991 ZOSTER IMMUNIZATION SERIES (1 12/10/2001 of 2) FALL RISK ASSESSMENT 12/10/2016 OSTEOPOROSIS SCREENING 12/10/2016 PNEUMOCOCCAL 65+YRS (1 of 2 - 12/10/2016 PCV13) INFLUENZA VACCINE (#1) 2019 DIABETES SCREENING 06/29/2020 06/29/2019, 06/26/2019 LIPID DISORDER SCREENING 07/01/2020 07/01/2019 Colonoscopy 01/20/2021 01/21/2016, 01/21/2016 HEPATITIS A IMMUNIZATION Aged Out No longer eligible based SERIES on patient's age to complete this topic HPV IMMUNIZATION SERIES Aged Out No longer eligible based on patient's age to complete this topic MENINGOCOCCAL VACCINE IMM Aged Out No longer eligible based on patient's age to complete this topic Goals Goal Patient Goal Associated Recent Patient-Stated? Author Type Problems Progress Blood Pressure Blood Pressure 153/73 No Gilma, < 150/90 (07/01/2019 Kristel, 6:01 AM EST) RN Note: This is an individualized treatment (blood pressure) goal for Samreen Zimmerman: Displayed above (on the left) is your goal for blood pressure control. Your most recent blood pressure is also shown above, on the right. You should try to achieve blood pressures that are lower than your goal listed above (on the left). Depression screen (PHQ-9) total score < 5 Depression No Kristel Dillard , RN Note: This is an individualized treatment (depression) goal for Samreen Zimmerman: Displayed above is your goal for a depression screening (PHQ-9) score that would indicate good control of your depression. Keep a regular sleep schedule Lifestyle No Kristel Dillard, RN Note: This is an individualized lifestyle goal for Samreen Zimmerman: Please maintain a regular sleep schedule. This may help with some symptoms of depression. Take all prescribed medications as Self-management No Kristel Dillard, RN directed Note: This is an individualized [...] to be addressed on an ongoing basis. Procedures Procedure Name Priority Date/Time Associated Comments Diagnosis LITHIUM LEVEL Routine 06/29/2019 8:43 Results for this AM EST procedure are in the results section. BASIC METABOLIC PANEL Routine 06/29/2019 8:43 Results for this AM EST procedure are in the results section. LITHIUM LEVEL Routine 06/27/2019 6:41 Results for this AM EST procedure are in the results section. LITHIUM LEVEL STAT 06/26/2019 1:55 Results for this PM EST procedure are in the results section. CBC NO DIFFERENTIAL STAT 06/26/2019 1:55 Results for this PM EST procedure are in the results section. ACETAMINOPHEN LEVEL STAT 06/26/2019 1:55 Results for this PM EST procedure are in the results section. SALICYLATE LEVEL STAT 06/26/2019 1:55 Results for this PM EST procedure are in the results section. ALCOHOL LEVEL, MEDICAL STAT 06/26/2019 1:55 Results for this PM EST procedure are in the results section. URINE DRUG SCREEN STAT 06/26/2019 1:55 Results for this PM EST procedure are in the results section. THYROID STIMULATING STAT 06/26/2019 1:55 Results for this HORMONE PM EST procedure are in the results section. COMPREHENSIVE STAT 06/26/2019 1:55 Results for this METABOLIC PANEL PM EST procedure are in the results section. EXTERNAL SCANNED 06/10/2019 12:00 RADIOLOGY PM EST from Last 3 Months Results LITHIUM LEVEL (06/29/2019 8:43 AM EST)Only the most recent of3 resultswithin the time period is included. Fortine Level 0.40 (L) 0.60 - 1.20 MMOL/L [facility] Specimen Blood - Blood specimen (specimen) Performing Organization Address [facility] Phone Number [facility] [address] [place] [address] BASIC METABOLIC PANEL (06/29/2019 8:43 AM EST) Glucose 136 (H) 70 - 99 mg/dl [facility] BUN 14 7 - 17 mg/dl [facility] Creatinine 0.6 (L) 0.7 - 1.2 mg/dl [facility] Sodium 139 134 - 145 mmol/L [facility] Potassium 3.9 3.5 - 5.1 mmol/L [facility] Chloride 106 98 - 107 mmol/L [facility] CO2 24 22 - 30 mmol/L [facility] Calcium 10.3 (H) 8.3 - 10.1 mg/dl [facility] eGFR >[address] [facility] Comment: Below ml/min/1.73ml GROUP Estimated GFR Interpretation: LABORATORY Above 60ml/min/1.73m2 = Normal Renal Function 30-59 ml/min/1.73m2 = Stage 3 Chronic Kidney Disease 15-29 ml/min/1.73m2 = Stage 4 Chronic Kidney Disease Less than 15 ml/min/1.73m2 = Stage 5 Chronic Kidney Disease The GFR value is calculated using the Modification of Diet in Renal Disease ( MDRD) Study Equation which can be found at: https://www.kidney.org/content/ppwj-dtdbd-cbefczpz BUN/Creatinine 23 (H) 6 - 22 [facility]AT[facility] LABORATORY Anion Gap 9 3 - 11 mmol/L [facility] Specimen Blood - Blood specimen (specimen) Performing Organization Address [facility] Phone Number [facility] [address] [place] [address] URINE DRUG SCREEN (06/26/2019 1:55 PM EST) Amphetamines Negative Negative [facility] Barbiturates Negative Negative [facility] Benzodiazepine Negative Negative [facility] Cannabinoids Negative Negative [facility] Cocaine Negative Negative [facility] Methadone Negative Negative [facility] Opiates Negative Negative [facility] Oxycodone Negative Negative [facility] Phencyclidine Negative Negative [facility] Propoxyphene Negative Negative [facility] Specimen Urine - Urine specimen obtained by clean catch procedure (specimen) Narrative Performed At Drug Name [facility] Cut-off Level Amphetamine (AMP/METH) 1000 ng/ml Barbiturates (ARPAN) 200 ng/ml Benzodiazepines (NISHA) 200 ng/ml Cannabinoids (THC) 50 ng/ml Cocaine (TOÑA) 300 ng/ml Methadone (MTD) 300 ng/ml Opiates (OPI) 300 ng/ml Oxycodone (OXY) 100 ng/ml Phencyclidine (PCP) 25 ng/ml Propoxyphene (PPX) 300 ng/ml Test results from this drug screen are to be used for medical purposes only. If positive, the sample is presumed to contain detectable drug concentrations equal to or greater than the cut-off concentrations listed above. A positive result indicates the presence of the drug or drug metabolite and does not indicate the level of intoxication or urinary concentration. Confirmation is available upon request to [facility]. Request for confirmation must be made within 5 days of the drug screen result. Performing Organization Address [facility] Phone Number [facility] [address] [place] [address] THYROID STIMULATING HORMONE (06/26/2019 1:55 PM EST) TSH 1.06 0.47 - 4.68 uIu/ml [facility] Specimen Blood - Blood specimen (specimen) Performing Organization Address [facility] Phone Number [facility] [address] [place] [address] SALICYLATE LEVEL (06/26/2019 1:55 PM EST) Salicylate <1 (L) 2 - 20 mg/dl [facility] Specimen Blood - Blood specimen (specimen) Performing Organization Address [facility] Phone Number [facility] [address] [facility] [place] [address] COMPREHENSIVE METABOLIC PANEL (06/26/2019 1:55 PM EST) Sodium 142 134 - 145 mmol/L [facility] Potassium 3.4 (L) 3.5 - 5.1 mmol/L [facility] Chloride 108 (H) 98 - 107 mmol/L [facility] CO2 25 22 - 30 mmol/L [facility] Calcium 10.2 (H) 8.3 - 10.1 mg/dl [facility] Albumin 4.3 3.5 - 5.0 g/dl [facility] BUN 11 7 - 17 mg/dl [facility] Creatinine 0.7 0.7 - 1.2 mg/dl [facility] Glucose 81 70 - 99 mg/dl [facility] Total Protein 7.3 6.3 - 8.2 g/dl [facility] Total Bilirubin 0.3 0.0 - 1.1 MG/DL [facility] AST 22 15 - 46 U/L [facility] ALT 31 9 - 52 U/L [facility] Alkaline 48 40 - 150 U/L [facility] LABORATORY eGFR >[address] [facility] Comment: Below ml/min/1.73ml GROUP Estimated GFR Interpretation: Sq LABORATORY Above 60ml/min/1.73m2 = Normal Renal Function 30-59 ml/min/1.73m2 = Stage 3 Chronic Kidney Disease 15-29 ml/min/1.73m2 = Stage 4 Chronic Kidney Disease Less than 15 ml/min/1.73m2 = Stage 5 Chronic Kidney Disease The GFR value is calculated using the Modification of Diet in Renal Disease ( MDRD) Study Equation which can be found at: https://www.kidney.org/content/ckrz-zjlxk-nruqiout BUN/Creatinine 16 6 - 22 RAT[facility] GROUP LABORATORY Anion Gap 9 3 - 11 mmol/L [facility] A/G Ratio 1.4 0.8 - 2.0 ratio [facility] Specimen Blood - Blood specimen (specimen) Performing Organization Address [facility] Phone Number [facility] [address] [facility] [place] [place] [address] ALCOHOL LEVEL, MEDICAL (06/26/2019 1:55 PM EST) Blood Alcohol 34.10 (H) 0.00 - 10.00 MG/DL [facility] Alcohol % 0.03 None Detected % [facility] Specimen Blood - Blood specimen (specimen) Performing Organization Address [facility] Phone Number [facility] [address] [place] [address] [phone] ACETAMINOPHEN LEVEL (06/26/2019 1:55 PM EST) Acetaminophen <10.0 10 .0 - 30.0 ug/mL [facility] Specimen Blood - Blood specimen (specimen) Performing Organization Address [facility] Phone Number [facility] [address] [place] [address] CBC NO DIFFERENTIAL (06/26/2019 1:55 PM EST) WBC Count 9.51Comment: 3.98 - 10.04 [facility] Methodology was K/uL GROUP LABORATORY changed 06/21/2018. Please note updated reference range and units. RBC Count 4.27 3.93 - 5.22 [facility] M/UL [facility] LAB[facility]AT[facility] Hemoglobin 14.0 11.2 - 15.7 [facility] g/dL [facility] LAB[facility]ATORY Hematocrit 43.3 34.1 - 44.9 % [facility] MCV 101.4 (H) 79.4 - 94.8 [facility] FL GROUP LABORATORY MCH 32.8 (H) 25.6 - 32.2 [facility] PG GROUP LABORATORY MCHC 32.3 32.2 - 35.5 [facility] g/dL GROUP LABORATORY Platelet Count 205 182 - 369 [facility] K/uL [facility] LABORATORY MPV 9.6 9.4 - 12.3 [place] [facility] RDW 12.0 11.7 - 14.4 % [facility] Specimen Blood - Blood specimen (specimen) Performing Organization Address [facility] Phone Number [facility] [address] [place] [address] EXTERNAL SCANNED RADIOLOGY (06/10/2019 12:00 PM EST) Narrative Performed At from Last 3 Months Insurance Payer Benefit Plan / Subscriber ID Effective Dates Phone Address Type Group CELSA RANKIN xxxxxxxxxxxx 2015-[employer] MEDICARE MEDICARE BLUE t ADVANTAGE PPO ([phone]) [place]ICAID [place] xxxxxxxx 2019-Pres[place] Medicaid [place] t Advance Directives Type Date Recorded Patient 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
--- OUTSIDE RECORDS SUMMARY | 2019-08-23 21:35 | XMS REPORT | Summary of Care ---
:1950 Author Organization [facility] Address [address] [address] Care Team Providers Name Role Phone Brittany Kinsey DO Primary Care Provider Reason for Visit Reason Comments New Patient No therapy/ Pain management Back Pain Mid- to lower back Neck Pain Leg Pain left hip/leg really bad pain, Right hip/ leg Numbness both legs and feet Encounter Details Date Type Department Care Team Description 06/26/2019 Office Visit [facility] Jimbo Tse, Lumbosacral spondylosis 1 Kate Barker MD with radiculopathy [place] [address] [id number] 1 KATE BARKER (Primary Dx) [phone] [place] [address] [id number] Allergies Active Allergy Reactions Severity Noted Date Comments Latex Rash High 02/27/2013 Penicillins Hives 11/30/2007 Sulfa Antibiotics Hives 11/30/2007 Tape: Silk Or Adhesive Rash 01/20/2016 & Band aids documented as of this encounter (statuses as of 07/02/2019) Medications Medication Sig Dispensed Refills Start End Date Status Date CLONAZEPAM 0.5 MG Take 1 mg by [...] Discontinued Tab mouth EVERY 20 (Reorder) EVENING. Guukkg-YxErj-FcPdoz- Take 1 Tab by 0 07/01/19 Discontinued FA-Eldred mouth EVERY 20 (MULTIVITAMIN/MINERA MORNING. LS PO) [...] Oral Cap mouth EVERY 20 (Reorder) MORNING. documented as of this encounter (statuses as of 07/02/2019) Active Problems Problem Noted Date Hypomanic episode [...] as of this encounter (statuses as of 07/02/2019) Social History Tobacco Use Types Packs/Day Years [...] Sign Reading Time Taken Comments Blood Pressure 120/70 06/26/2019 9:59 AM EST Pulse - - Temperature - - Respiratory Rate - - Oxygen Saturation - - Inhaled Oxygen Concentration - - Weight 75.5 kg (166 lb 8 oz) 06/26/2019 9:59 AM EST Height 165.1 cm (5' 5") 06/26/2019 9:59 AM EST Body Mass Index 27.71 06/26/2019 9:59 AM EST documented in this encounter Progress Notes Jimbo Tse MD - 06/26/2019 9:40 AM EST PATIENT: Samreen Zimmerman : 1950 Date of Service: 06/26/2019 REFERRING PROVIDER: Brittany Kinsey PCP: Brittany Kinsey CHIEF COMPLAINT: Chief Complaint Patient presents with New Patient No therapy/ Pain management Back Pain Mid- to lower back Neck Pain Leg Pain left hip/leg really bad pain, Right hip/ leg Numbness both legs and feet SUBJECTIVE: Samreen Zimmerman is a 68-y.o. female who presents with a long history of low back pain with reported episodes of mild to moderate trauma to her back over the last several decades. Presently she has had low back pain that she notes has been present for years but has waxed and waned. She noted beginning in March of last year some cramping involving the left calf. She also had pain in the left patella. She described the left leg pain as shooting and I did not get the feeling that there was persistent radicular pain. The right leg had similar symptoms radiating from the hip down to the level of thecalf. Throughout our conversation the description of her symptoms was difficult to follow and she would often wander in the conversation to other aspects of her physical findings. From the standpointof numbness and tingling she has noted some numbness involving the lateral left calf into the foot.She had similar symptoms involving the lateral calf of the right leg. She notes that she has had surgery on the left foot in the past. I could not get a clear history of focal motor weakness. She did appear to describe a feeling of diffuse weakness. There is no report of any bowel bladder compromise. She has had inserted measures to an extent in the past. The balance of the neurological review of systems was unremarkable. 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 Smith (psychiatrist) in [place], [place]; also sees counselor locally Bipolar depression ([facility]) Depression 11/14/2014 Diarrhea Dyslipidemia intolerant of statins, L153, H53 in 03/25 Family history of high cholesterol Fatigue HTN (hypertension) 11/14/2014 Hyperlipidemia Loss of weight Malaise Positive CHET 1:320 of unclear significance Postural imbalance Rapid heart rate Tardive dyskinesia Tobacco abuse Tobacco dependence in remission Unstable gait Vitamin D deficiency Past Surgical History: Procedure Laterality Date BILAT TUBAL DIVISION NEC BOWEL DIAGNOST PROC NEC CARDIAC [place] [facility] [place]OSCOPY N/A 01/21/2016 Procedure: COLONOSCOPY; Surgeon: Cintia Chavira MD; [facility] COLONOS[facility] DIAGNOSTIC FOOT SYNOVECTOMY Family History Problem Relation Age of Onset Arthritis Mother Hypertension Mother Fibromyalgia Mother Heart Father GI Father colon polyps Cancer Father esophageal cancer Heart Sister [place] Unknown Psych Disorder Child mood disorder High Cholesterol Other Social History Socioeconomic History Marital status: Spouse [...] Not on file Tobacco Use Smoking status: Former Smoker Packs/day: 1.00 Years: 35.00 Pack years: 35.00 Types: Cigarettes Smokeless tobacco: Never Used Substance and Sexual Activity Alcohol use: Yes Alcohol/week: 14.0 standard drinks Types: 14 Glasses of wine per week Comment: 15 oz week Drug use: No Sexual activity: Not on file Lifestyle Physical activity Days per week: Not on file Minutes per session: Not on file Stress: Not on file Relationships Social connections Talks on phone: Not on file Gets together: Not on file Attends mosque service: Not on file Active member of [...] Lives alone. Family in area. Works for [employer] in [place]. Current Outpatient Medications Medication Sig Aspirin 81 MG Oral Tab Take 81 mg by mouth EVERY EVENING. atenolol (TENORMIN) 25 MG Oral Tab Take 25 mg by mouth EVERY MORNING. B Complex Vitamins (VITAMIN B COMPLEX PO) Take 1 Tab by mouth EVERY MORNING. buPROPion (WELLBUTRIN) 75 MG Oral Tab Take 200 mg by mouth EVERY MORNING. Indications: Pt currently taking 200mg PO QD CLONAZEPAM 0.5 MG Oral TABLET DISPERSIBLE Take 0.5 mg by mouth NEEDED. diphenhydrAMINE (BENADRYL ALLERGY) 25 MG Oral Cap Take 50 mg by mouth EVERY BEDTIME. lithium 300 MG Oral Cap Take 300 mg by mouth. 300 mg QAM, 600mg QPM Loratadine 10 MG Oral Cap Take 10 mg by mouth EVERY MORNING. Nicotine Polacrilex (NICORETTE) 4 MG Mouth/Throat Gum 1 Each by Mouth/ Throat route NEEDED. pravastatin (PRAVACHOL) 20 MG Oral Tab Take 20 mg by mouth EVERY BEDTIME. Lpdndv-CuLfk-RwQofe-FA-Eldred (MULTIVITAMIN/MINERALS PO) Take 1 Tab by mouth EVERY MORNING. trazodone (DESYREL) 100 MG Oral Tab Take 100 mg by mouth EVERY BEDTIME. No current facility-administered medications for this visit. Allergies Allergen Reactions Latex Rash Pcn [Penicillins] Hives Sulfa Antibiotics Hives Tape: Silk Or Adhesive Rash & Band aids Review of Systems: Constitutional : negative for - chills, fever, weight gain or weight loss Ophthalmic ROS: negative for - blurry vision or decreased vision ENT: negative for - hearing change Hematological and Lymphatic: negative for - blood clots, bruising or jaundice Respiratory: negative for: cough, shortness of breath, or wheezing Cardiovascular: negative for: chest pain or dyspnea on exertion Gastrointestinal: negative for: abdominal pain, change in bowel habits, or black or bloody stools Genito-Urinary: negative for: dysuria, trouble voiding, or hematuria Musculoskeletal: negative for - muscle pain or muscular weakness Endocrine: negative for - unexpected weight changes Neurological: negative for: TIA or stroke symptoms Dermatological: negative for - skin lesion changes OBJECTIVE: Physical Exam BP 120/70 | Ht 5' 5" (1.651 m) | Wt 166 lb 8 oz (75.5 kg) | BMI 27.71 kg/m Body mass index is 27.71 kg/m. GENERAL: alert, oriented, no acute distress. SKIN: normal, no rashes or abnormalities noted. HEENT: conjunctivae are clear, nasopharynx is with mild edema, pink mucosa, and clear secretions, oropharynx is clear. NECK: supple. LUNGS: exam deferred. HEART: exam deferred. ABDOMEN: exam deferred. NEUROLOGICAL: CONSTITUTIONAL: The patient appears to be in no acute distress. CV: Peripheral vascular examination reveals palpable arterial pulses . MUSCULOSKELETAL: Station and gait are normal. Muscle strength is normal in both arms and legs. There was a degree of impersistence of effort. Motor tone is normal in both upper and lower extremities. NEUROLOGICAL: Oriented to time, place, and person. Memory appears to be grossly intact. Language function appears to be normal with normal receptive and motor speech function. CRANIAL NERVES: 2nd cranial nerve: full visual murray to confrontation. 3rd, 4th, and 6th cranial nerves: pupils equal round and reactive to light. Full EOMs. 5th cranial nerve: facial sensation is intact. 7th cranial nerve: facial movement symmetric. 8th cranial nerve: hearing intact to finger rub bilaterally. 9th, 10th cranial nerves: normal phonation. 11th cranial nerve: normal shoulder shrug. 12th cranial nerve: tongue midline. SENSATION: Intact throughout to light touch . REFLEXES: (R) biceps 1-2+, (L) biceps 1-2+, (R) triceps 1+, (L) triceps 1+, (R ) knee 1-2+, (L) knee 1-2+, (R) ankle trace, (L) ankle trace. No pathologic reflexes noted. COORDINATION: Qxrdvk-dolq-vawjco examination done well. RADIOLOGY: An MRI of the lumbar spine was done in late May. The study shows reduced lumbar lordosis. There is marked disc desiccation and loss of height at multiple levels. Despite the spondylosis is central canal is well- preserved. There is a relative stenosis at the L3-4 level but there is still adequate space for the cauda equina. The neuroforamina as visualized on either side with the parasagittal images appear to be well preserved and there does not appear to be any evidence of a lateral disc herniation. IMPRESSION/PLAN: Present time given her neurologic examination and the fact that it is nonfocal as well as the findings on her MRI of no central canal stenosis and no foraminal compromise I cannot recommend any consideration for surgery. While there is clearly marked spondylosis evident there are no "structural" changes such as a spondylolisthesis or fracture or abnormality of the vertebral bodies themselves. Recommendation is for the physical therapy or consideration for interventional pain management. ICD-9-CM ICD-10-CM 1. Lumbosacral spondylosis with radiculopathy 721.3 M47.27 Follow up: No neurosurgical follow up required in the absence of focal neurologic signs or anatomic change in her lumbar studies. Author: Jimbo Tse MD 06/26/2019 10:39 documented in this encounter Plan of Treatment Date Type Specialty Care Team Description 07/12/2019 Office Visit Family [facility] Pauline Musa MD [address] [place] [address] [phone] 07/22/2019 Office Visit Family Practice Maggie Hudson NP [address] [place] [address] [phone] 11/26/2019 Office Visit [facility] Pauline Musa MD [address] [place] [address] [phone] Health Maintenance Due Date Last Done Comments [...] score < 5 Depression No Kristel Dillard RN Note: This is an individualized treatment [...] filedocumented in this encounter Visit Diagnoses Diagnosis Lumbosacral spondylosis with radiculopathy documented in this encounter Insurance Payer Benefit Plan / Subscriber ID Effective Dates Phone Address Type Group 7 [employer] 7 [employer] xxxxxxxxxxxx 2015-Pres [employer] MEDICARE MEDICARE BLUE t ADVANTAGE PPO ([phone]) MEDICAID [facility] xxxxxxxx 2019-Presen Medicaid [place] MEDICAID t documented as of this encounter Advance Directives Type Date Recorded Patient 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
--- OUTSIDE RECORDS SUMMARY | 2019-08-23 21:35 | XMS REPORT ---
:1950 Author Organization [facility] Care Team Providers Name Role Phone RUBINTRISTANMIRIAM Primary Care Physician Unavailable Allergies, Adverse Reactions, Alerts Allergy Code CodeSystem Reaction Severity Criticality Status Start Substance Date Moderate Medications Medication Medication Medication Start Stop Route Dose Status Fill Code CodeSystem Date Date Instructions atenolol 795335 RxNorm oral 25 mg active for 90 3-18 tablet day(s) clonazepam 19740727 RxNorm 2018- oral 1 mg completed for 30 3-19 05-07 tablet day(s) trazodone 311726 RxNorm 2019- oral 100 mg 1 active 1 tablet at 5-17 08-15 tablet bedtime for at 90 day(s) bedtime bupropion HCl 573422 RxNorm 2019- oral 150 mg completed for 90 5-02 05-17 tablet day(s) sustaine d-releas e 12 hr clonazepam 19740727 RxNorm 2018- oral 1 mg completed for 30 5- 06-06 tablet day(s) trazodone 309572 RxNorm 2019- oral 100 mg completed for 90 2-28 05-17 tablet day(s) pravastatin 795647 RxNorm 2017-06 oral 40 mg active for 90 2-13 tablet day(s) lithium 19780125 RxNorm 2019- oral 300 mg completed for 30 carbonate 2-20 05-17 capsule day(s) clonazepam 588825 RxNorm 2018- oral 1 mg 1 completed 1 tablet 6-24 07-24 tablet twice a day twice a as needed for day 30 day(s) gabapentin 533333 RxNorm oral 100 mg active for 30 3-22 capsule day(s) lithium 19780125 RxNorm 2019- oral 300 mg active for 30 carbonate 5-17 08-15 capsule day(s) bupropion HCl 934685 RxNorm 2019- oral 150 mg 2 active 2 tablet 5-17 08-15 tablet once a day sustaine for 90 day(s) d-releas e 12 hr once a day Problems Problem Code CodeSystem Alternate Alternate Start End Status Narrative Name Code CodeSystem Date Date Bipolar 91052101 SNOMED-CT 2018-08 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 Relevant diagnostic tests/laboratory data Narrative No Information Procedures Procedure Code CodeSystem Target Date of Status Service Device Device Device Name Site Procedure Delivery Code Name UID Location Psychotherap [id number] SNOMED-CT () 2019-04-15 complete Mental y, 45 04 d Health- minutes with [place] patient [address], [id number] [phone] Psychotherap [id number] SNOMED-CT () 2019-03-01 complete Mental y, 45 04 d Health- minutes with [place] patient [address], [id number] Psychotherap [id number] SNOMED-CT () 2019-05-06 complete Mental y, 45 04 d Health- minutes with [place] patient [address], [id number] [id number] Office or [id number] SNOMED-CT () 2019-04-19 complete Mental other 6 d Health- outpatient [place] visit for [address], established [id number] patient, [id number] which requires at least 2 of these 3 de la fuente components: A problem focused history; A problem focused examination; Straightforw mark medical decision making. Counselin Office or [id number] SNOMED-CT () 2018-11-14 complete Mental other 6 d Health- outpatient [place] visit for [address], established [id number] patient, [phone] which requires at least 2 of these 3 de la fuente components: A problem focused history; A problem focused examination; Straightforw mark medical decision making. Counselin Office or [id number] SNOMED-CT () 2019-02-15 complete Mental other 6 d Health- outpatient [place] visit for [address], established [id number] patient, [phone] which requires at least 2 of these 3 de la fuente components: A problem focused history; A problem focused examination; Straightforw mark medical decision making. Counselin SNOMED-CT () 2019-03-19 complete Mental d [address], [id number] [id number] SNOMED-CT () 2019-06-25 complete Mental d [address], [id number] [phone] Encounters/Encounter Diagnoses Encounter Name Encounter Diagnosis Diagnosis Diagnosis Date of Service Code Code Name CodeSystem Diagnosis Delivery Location [facility] [id number] Bipolar II SNOMED-CT 2019-07-04 Behavioral patient 15-29 disorder [facility] , , , Vital Signs No Information Social History Element Description Description Start End Code CodeSystem AdditionalInfo Date Date SexAssignedAtBirth Female 0 F AdministrativeGender 12-10 Hospital Discharge Instructions Reason For Referral Medical Equipment FDA Assessments
--- NOTE | 2019-08-23 21:43 | ED ---
Psychiatric Complaint - HPI Summary HPI Summary: Seen in triage at 20:25 This patient is a 68 year old F presenting to [facility] accompanied by with a chief complaint of suiciding ideation since 08/23/19. Pt came in after talking to her psychiatrist today, who suggested she be evaluated for admission. Pt had a transient brief episode of suicidal ideation. Pt admits to some alcohol use today. Pt has a history of bipolar disorder. Home Medications Medication Instructions Recorded Confirmed Type Atenolol TAB* [Tenormin TAB* 25 MG] 25 mg PO QAM 11/06/12 08/23/19 History clonazePAM TAB(*) [Klonopin TAB(*)] 1 mg PO BID PRN 02/05/19 08/23/19 History traZODone TAB* [Desyrel TAB*] 100 mg PO BEDTIME 02/05/19 08/23/19 History Fluticasone NASAL SPRAY 50MCG* 1 spray BOTH NARES BID 04/05/19 08/23/19 History [Flonase NASAL SPRAY 50MCG*] Gabapentin CAP(*) [Neurontin 300 300 mg PO BID 04/05/19 08/23/19 History CAP(*)] Aspirin 81 mg CHEW TAB* 81 mg PO QAM 08/16/19 08/23/19 History Atorvastatin* [Lipitor 10 MG*] 20 mg PO QPM 08/16/19 08/23/19 History [place]-3/Dha/Epa/Fish Oil [Fish Oil] 500 mg PO QAM 08/16/19 08/23/19 History tiZANidine TAB* [Zanaflex TAB*] 2 mg PO TID PRN 08/16/19 08/23/19 History Divalproex ER TAB(*) [Depakote ER 1,000 mg PO QPM 08/23/19 08/23/19 History TAB(*)] Etodolac 200 mg PO TID PRN 08/23/19 08/23/19 History Magnesium Oxide TAB* [MagOx 400 400 mg PO DAILY 08/23/19 08/23/19 History TAB*] OLANzapine TAB* [Zyprexa 10 MG 10 mg PO BEDTIME 08/23/19 08/23/19 History TAB*] OLANzapine TAB* [Zyprexa 5 MG TAB*] 5 mg PO QAM 08/23/19 08/23/19 History Omeprazole CAP (NF) [Prilosec CAP* 20 mg PO DAILY 08/23/19 08/23/19 History 20 MG] - History Of Current Complaint Chief Complaint: EDMentalHealth Time Seen by Provider: 08/23/19 20:29 Accompanied By: Hx Obtained From: Patient Onset/Duration: Gradual Onset, Resolved Timing: Intermittent Episode Lasting Severity Currently: None Character: Depressed Aggravating Factor(s): Alcohol Use Alleviating Factor(s): Counseling Associated Signs And Symptoms: Positive: Negative Related History: Positive For: Prior Psychiatric Issues Has Suicidal: Reports: Thoughts Ingestion History: Type/Name Of Drug - EtOH - Allergies/Home Medications Allergies/Adverse Reactions: Allergies Allergy/AdvReac Type Severity Reaction Status Date / Time Sulfa (Sulfonamide Allergy Intermediate Hives Verified 08/16/19 08:47 Antibiotics) latex Allergy Mild Swelling Verified 08/16/19 08:47 Adhesive Tape Allergy Unknown Unknown Verified 08/16/19 08:47 Reaction Details Home Medications: Home Medications Atenolol TAB* [Tenormin TAB* 25 MG] 25 mg PO QAM 11/06/12 [History Confirmed 12/06] clonazePAM TAB(*) [Klonopin TAB(*)] 1 mg PO BID PRN 02/05/19 [History Confirmed 08/23/19] traZODone TAB* [Desyrel TAB*] 100 mg PO BEDTIME 02/05/19 [History Confirmed 12/06] Fluticasone NASAL SPRAY 50MCG* [Flonase NASAL SPRAY 50MCG*] 1 spray BOTH NARES BID 04/05/19 [History Confirmed 08/23/19] Gabapentin CAP(*) [Neurontin 300 CAP(*)] 300 mg PO BID 04/05/19 [History Confirmed 08/23/19] Aspirin 81 mg CHEW TAB* 81 mg PO QAM 08/16/19 [History Confirmed 08/23/19] Atorvastatin* [Lipitor 10 MG*] 20 mg PO QPM 08/16/19 [History Confirmed 08/23/19 ] [place]-3/Dha/Epa/Fish Oil [Fish Oil] 500 mg PO QAM 08/16/19 [History Confirmed ] tiZANidine TAB* [Zanaflex TAB*] 2 mg PO TID PRN 08/16/19 [History Confirmed 12/06] Divalproex ER TAB(*) [Depakote ER TAB(*)] 1,000 mg PO QPM 08/23/19 [History Confirmed 08/23/19] Etodolac 200 mg PO TID PRN 08/23/19 [History Confirmed 08/23/19] Magnesium Oxide TAB* [MagOx 400 TAB*] 400 mg PO DAILY 08/23/19 [History Confirmed 08/23/19] OLANzapine TAB* [Zyprexa 10 MG TAB*] 10 mg PO BEDTIME 08/23/19 [History Confirmed 08/23/19] OLANzapine TAB* [Zyprexa 5 MG TAB*] 5 mg PO QAM 08/23/19 [History Confirmed 12/06] Omeprazole CAP (NF) [Prilosec CAP* 20 MG] 20 mg PO DAILY 08/23/19 [History Confirmed 08/23/19] Nicotine GUM* 4MG FRUIT FLAVOR [Nicotine GUM*] 4 mg PO Q2H PRN 08/24/19 [ History Confirmed 08/24/19] PMH/Surg Hx/FS Hx/Imm Hx Endocrine/Hematology History: Denies: Hx Anticoagulant Therapy, Hx Blood Disorders, Hx Diabetes Cardiovascular History: Reports: Hx Angina, Hx Hypercholesterolemia, Hx Hypertension - controlled w/ atenolol Denies: Hx Pacemaker/ICD Respiratory History: Reports: Hx Chronic Obstructive Pulmonary Disease (COPD) GI History: Reports: Other GI Disorders - perferated bowel 10/2013 - resected History: Denies: Hx Dialysis, Hx Renal Disease Musculoskeletal History: Reports: Other Musculoskeletal History - left ankle/ foot surgery Sensory History: Denies: Hx Contacts or Glasses, Hx Hearing Aid Opthamlomology History: Denies: Hx Contacts or Glasses Psychiatric History: Reports: Hx Anxiety, Hx Depression, Hx Suicide Attempt Denies: Hx Panic Disorder - Cancer History Cancer Type, Location 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 left ankle/foot surgery [place] [facility] [place] tubal Hx Anesthesia Reactions: No - Immunization History Date of Tetanus Vaccine: Unknown Date of Influenza Vaccine: Unknown Infectious Disease History: No Infectious Disease History: Denies: Traveled Outside the [place] in Last 30 Days - Family History Known Family History: Positive: Other - child w/ opiate addiction - Social History Alcohol Use: Daily Alcohol Amount: 2 glasses wine per night Hx Substance Use: No - none currently Substance Use Type: Reports: Marijuana Substance Use Comment - Amount & Last Used: rare Hx Tobacco Use: Yes Smoking Status (MU): Never Smoked Tobacco Type: Cigarettes Amount Used/How Often: 2 packs per week Length of Time of Smoking/Using Tobacco: Quit but recently restarted Have You Smoked in the Last Year: Yes Review of Systems Negative: Fever Positive: Other - Sucidal All Other Systems Reviewed And Are Negative: Yes Physical Exam - Summary Physical Exam Summary: Appearance: Well-appearing, Well-nourished, lying in bed comfortably Skin: Warm, dry, no obvious rash Eyes: sclera anicteric, no conjunctival pallor HENT: mucous membranes moist, pharynx appears normal Neck: Supple, nontender Respiratory: Clear to auscultation, no signs of respiratory distress Cardiovascular: Normal S1, S2. No murmurs. Normal distal pulses in tibial and radial bilaterally. Abdomen: Soft, nontender, normal active bowel sounds present Musculoskeletal: Normal, Strength/ROM Intact Neurological: A&Ox3, awake and alert, mentation is normal, speech is fluent and appropriate Psychiatric: affect is normal, does not appear anxious or depressed Triage Information Reviewed: Yes Vital Signs On Initial Exam: Initial Vitals Temp Pulse Resp BP Pulse Ox 98.2 F 92 20 137/94 94 08/23/19 20:15 08/23/19 20:15 08/23/19 20:15 08/23/19 20:15 08/23/19 20:15 Vital Signs Reviewed: Yes Procedures - Sedation Patient Received Moderate/Deep Sedation with Procedure: No Diagnostics - Vital Signs Vital Signs Temp Pulse Resp BP Pulse Ox 08/23/19 20:15 98.2 F 92 20 137/94 94 - Laboratory Lab Results: Lab Results 08/23/19 08/23/19 Range/Units 20:55 20:55 WBC 8.7 (3.5-10.8) 10^3/uL RBC 4.29 (3.70-4.87) 10^6 /uL Hgb 14.2 (12.0-16.0) g/dL Hct 40 (35-47) % MCV 94 (80-97) fL MCH 33 H (27-31) pg MCHC 35 (31-36) g/dL RDW 13 (10-15) % Plt Count 222 (150-450) 10^3/uL MPV 8.2 (7.4-10.4) fL Neut % (Auto) 58.6 % Lymph % (Auto) 31.1 % [place] % (Auto) 6.9 % Eos % (Auto) 2.5 % Baso % (Auto) 0.9 % Absolute Neuts (auto) 5.1 (1.5-7.7) 10^3/ul Absolute Lymphs (auto) 2.7 (1.0-4.8) 10^3/ul Absolute Monos (auto) 0.6 (0-0.8) 10^3/ul Absolute Eos (auto) 0.2 (0-0.6) 10^3/ul Absolute Basos (auto) 0.1 (0-0.2) 10^3/ul Absolute Nucleated RBC 0.0 10^3/ul Nucleated RBC % 0.1 Sodium 141 (135-145) mmol/L Potassium 3.9 (3.5-5.0) mmol/L Chloride 107 (101-111) mmol/L Carbon Dioxide 24 (22-32) mmol/L Anion Gap 10 (2-11) mmol/L BUN 16 (6-24) mg/dL Creatinine 0.72 (0.51-0.95) mg/dL Est GFR ( Amer) 97.8 (>60) Est GFR (Non-Af Amer) 80.8 (>60) BUN/Creatinine Ratio 22.2 H (8-20) Glucose 99 (70-100) mg/dL Calcium 9.7 (8.6-10.3) mg/dL Total Bilirubin 0.40 (0.2-1.0) mg/dL AST 16 (13-39) U/L ALT 12 (7-52) U/L Alkaline Phosphatase 55 (34-104) U/L Total Protein 6.6 (6.4-8.9) g/dL Albumin 4.0 (3.2-5.2) g/dL Globulin 2.6 (2-4) g/dL Albumin/Globulin Ratio 1.5 (1-3) TSH Pending Salicylates Pending Acetaminophen Pending [place] Pending Serum Alcohol Pending Result Diagrams: 08/23/19 20:55 08/23/19 20:55 Lab Statement: Any lab studies that have been ordered have been reviewed, and results considered in the medical decision making process. Re-Evaluation - Re-Evaluation First Eval Re-Evaluation Time: 23:18 Comment: Cleared for [facility] evaluation. Second Eval Re-Evaluation Time: 23:19 Comment: Pt reports that she has a past medical history of a serious kidney infection. Pt denies any current urinary symptoms. Course/Dx - Course Course Of Treatment: This patient is a 68 year old F presenting to [facility] accompanied by with a chief complaint of suiciding ideation since . Pt came in after talking to her psychiatrist today, who suggested she be evaluated for admission. Pt had a transient brief episode of suicidal ideation. Pt admits to some alcohol use today. Pt has a history of bipolar disorder. Physical Exam Findings are nml. Blood work obtained. MCH is 33, and BUN/ Creatinine Ratio is 22.2. UA obtained. We discussed patient care with Dr. Maher and they recommended pt be admitted. The patient is agreeable with this plan. - Differential Dx/Clinical Impression Provider Diagnosis: Mood disorder - Physician Notifications Discussed Care Of Patient With: Elie Maher Time Discussed With Above Provider: 01:35 Instructed by Provider To: Other - admission Discharge ED - Sign-Out/Discharge Documenting (check all that apply): Patient Departure - Admit - Discharge Plan Condition: Stable Disposition: PSYCHIATRIC FACILITY[place] [place] Billing Disposition and Condition Condition: STABLE Disposition: Psychiatric Facility [facility] - Attestation Statements Document Initiated by Opal: Yes Documenting Scribe: Amie Castillo Provider For Whom Opal is Documenting (Include Credential): Davon Livingston MD Scribe Attestation: Amie Hammer, scribed for Davon Livingston MD on 08/24/19 at 0431. Scribe Documentation Reviewed: Yes Provider Attestation: The documentation as recorded by the Amie howe accurately reflects the service I personally performed and the decisions made by me, Davon Livingston MD Status of Scribe Document: Viewed
[2019-08-23 21:50] LABS: Acetaminophen < 15 mcg/mL; Alcohol 19 mg/dL (<10); Lithium < 0.10 mmol/L (0.6-1.2); Salicylate < 2.50 mg/dL (<30)
[2019-08-23 22:04] LABS: TSH (Thyroid Stimulating Horm) 1.06 mcIU/mL (0.34-5.60)
[2019-08-23 22:33] LABS: Urine Appearance Cloudy; Urine Bilirubin Negative (Negative); Urine Blood Negative (Negative); Urine Color Yellow; Urine Glucose Negative (Negative); Urine Ketones Negative (Negative); Urine Nitrite Negative (Negative); Urine Protein Negative (Negative); Urine Specific Gravity 1.009 (1.010-1.030); Urine Urobilinogen Negative (Negative)
[2019-08-23 22:35] LABS: Urine Bacteria 1+ (Absent); Urine Red Blood Cell Trace(0-2/hpf) (Absent); Urine Squamous Epithelial Cell Present (Absent); Urine White Blood Cell 3+(>20/hpf) (Absent)
[2019-08-23 22:47] LABS: Urine Benzodiazepine Screen None Detected (None Detect); Urine Opiates Screen None Detected (None Detect)
[2019-08-23] MEDS ORDERED: Nitrofurantoin Macrocrystals* 100 MG CAP PO ONE (23:20)
[2019-08-24] MEDS ORDERED: ETODOLAC 200 MG PO PRN (02:18)
[2019-08-24] MEDS: Acetaminophen TAB* 325 MG PO PRN ×3 (03:17→20:23)
[2019-08-24] MEDS: clonazePAM TAB(*) 1 MG PO PRN (03:18)
[2019-08-24] MEDS: tiZANidine TAB* 2 MG PO PRN (03:18)
[2019-08-24] MEDS: Gabapentin CAP(*) 300 MG PO SCH ×2 (08:14→20:18)
[2019-08-24] MEDS: Magnesium Oxide TAB* 400 MG PO SCH (08:14)
[2019-08-24] MEDS: Fluticasone NASAL SPRAY 50MCG* 16 gm SPRAY BTL BOTH NARES SCH ×2 (08:14→20:20)
[2019-08-24] MEDS: Vitamin THERAPEUTIC TAB PO SCH (08:15)
[2019-08-24] MEDS: Pantoprazole TAB * 40 MG TAB PO SCH (08:15)
[2019-08-24] MEDS: Atenolol TAB* 25 MG PO SCH (08:15)
[2019-08-24] MEDS: OLANzapine TAB* 5 MG PO SCH (08:15)
[2019-08-24] MEDS: Aspirin 81 mg CHEW TAB* 81 MG TAB.CHEW PO SCH (08:15)
[2019-08-24] MEDS: FISH OIL 500 MG PO SCH (08:16)
[2019-08-24] MEDS: Nicotine* 4MG (FRUIT FLAVOR) GUM PO PRN ×3 (11:14→20:23)
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
[2019-08-24] MEDS: Atorvastatin* 20 MG TAB PO SCH (20:18)
[2019-08-24] MEDS: traZODone TAB* 100 MG PO SCH (20:18)
[2019-08-24] MEDS: Divalproex ER TAB(*) 500 MG PO SCH (20:20)
[2019-08-24] MEDS ORDERED: OLANzapine TAB* 10 MG PO SCH (21:00)
[2019-08-24] MEDS: OLANzapine TAB* 10 MG PO SCH (21:17)
[2019-08-25] MEDS: Acetaminophen TAB* 325 MG PO PRN ×3 (00:59→22:02)
[2019-08-25] MEDS: tiZANidine TAB* 2 MG PO PRN ×2 (00:59→08:01)
[2019-08-25] MEDS: Gabapentin CAP(*) 300 MG PO SCH (08:01)
[2019-08-25] MEDS: OLANzapine TAB* 5 MG PO SCH (08:01)
[2019-08-25] MEDS: Magnesium Oxide TAB* 400 MG PO SCH (08:01)
[2019-08-25] MEDS: Vitamin THERAPEUTIC TAB PO SCH (08:02)
[2019-08-25] MEDS: Pantoprazole TAB * 40 MG TAB PO SCH (08:02)
[2019-08-25] MEDS: Aspirin 81 mg CHEW TAB* 81 MG TAB.CHEW PO SCH (08:02)
[2019-08-25] MEDS: Atenolol TAB* 25 MG PO SCH (08:02)
[2019-08-25] MEDS: Fluticasone NASAL SPRAY 50MCG* 16 gm SPRAY BTL BOTH NARES SCH ×2 (08:04→20:34)
[2019-08-25] MEDS: Nicotine* 4MG (FRUIT FLAVOR) GUM PO PRN ×4 (08:10→20:47)
[2019-08-25 08:23] LABS: HDL Cholesterol 54.7 mg/dL
[2019-08-25] MEDS: FISH OIL 500 MG PO SCH (09:10)
--- NOTE | 2019-08-25 14:04 | PN ---
Progress Note - Progress Note Date of Service: 08/25/19 Note: Patient reports she continues to have swelling of feet/ankles - recommend elevation and will begin taper off gabapentin, assessed by nursing as 1 nonpitting edema. Patient reports constipation x 2+ days, add senna at night. Patient reports atenolol helps with anxiety and racing heart asking for increased dose to 50 mg, instructed to take this increased dose where if she becomes dizzy any fall would be onto bed or other soft surface. Patient reports having taken Depakote only at 500 mg dose until it was increased here to 1000 mg, so low VPA at 0.48 may not be reliable check of level - recheck on Monday.
[2019-08-25] MEDS: tiZANidine TAB* 2 MG PO SCH ×2 (17:55→20:35)
[2019-08-25] MEDS: Atorvastatin* 20 MG TAB PO SCH (20:33)
[2019-08-25] MEDS: Divalproex ER TAB(*) 500 MG PO SCH (20:33)
[2019-08-25] MEDS: Gabapentin CAP(*) 100 MG PO SCH (20:34)
[2019-08-25] MEDS: traZODone TAB* 100 MG PO SCH (20:35)
[2019-08-25] MEDS: OLANzapine TAB* 10 MG PO SCH (20:35)
[2019-08-26] MEDS: Acetaminophen TAB* 325 MG PO PRN ×2 (02:44→13:41)
[2019-08-26] MEDS: Fluticasone NASAL SPRAY 50MCG* 16 gm SPRAY BTL BOTH NARES SCH ×2 (09:08→20:26)
[2019-08-26] MEDS: Magnesium Oxide TAB* 400 MG PO SCH (09:09)
[2019-08-26] MEDS: Atenolol TAB* 50 MG PO SCH (09:10)
[2019-08-26] MEDS: Vitamin THERAPEUTIC TAB PO SCH (09:10)
[2019-08-26] MEDS: Aspirin 81 mg CHEW TAB* 81 MG TAB.CHEW PO SCH (09:10)
[2019-08-26] MEDS: tiZANidine TAB* 2 MG PO SCH ×4 (09:10→20:23)
[2019-08-26] MEDS: Pantoprazole TAB * 40 MG TAB PO SCH (09:11)
[2019-08-26] MEDS: OLANzapine TAB* 5 MG PO SCH (09:11)
[2019-08-26] MEDS: FISH OIL 500 MG PO SCH (09:11)
[2019-08-26] MEDS: Gabapentin CAP(*) 100 MG PO SCH ×2 (09:12→20:22)
[2019-08-26] MEDS: Nicotine* 4MG (FRUIT FLAVOR) GUM PO PRN ×4 (09:15→20:28)
--- NOTE | 2019-08-26 13:41 | PN ---
Subjective - Subjective Date of Service: 08/26/19 Service Type: 00852 Hosp care 25 min moderate complexity Subjective: Patient requested to meet while her sister, Ángela who is a retired OPHTHALMIC TECHNICIAN APPRENTICE, is present. Samreen and Ángela were visiting during lunch and spoke with Bailee Dillon, ANTHONY and caption writer. In conversation, she is over-inclusive and attends to information about family members while avoiding direct questions about her. Mary continues to present as dysphoric and tearful with perseveration of topic surrounding her 4yo grandson, Bin. She reiterates much information already provided to admitting psychiatrist. In regards to symptomology, she endorses being in a mixed manic state. She states she is experiencing sleep deprivation to the point of seeing hallucinations and endorses seeing spiders, cats and lee moving continuing into hospitalization. She reports labile mood and decreased memory. She dismisses the notion that any of the symptoms are related to alcohol abuse or withdrawal. Patient notified of urine micro positive for e coli. She states she tends to have explosive BMs due to previous bowel resection. She states preference for midstream/clean catch urine sample prior to starting an antibiotic. Objective - General Observations Appearance: Well Groomed Stature: Overweight Posture: WNL Eye Contact: Average Behavior/Activity: WNL - Interaction Observations Attitude Towards Examiner: Cooperative Stated Mood: Dysphoric Affect: Full - tearful at times, congruent to topic of conversation Speech Pattern/Tone: Clear, Appropriate, Normal Volume Thought Process: Loose Associations, Circumstantial, Over Inclusive Perception: WNL Thought Content: Preoccupation/Ruminations, Depressive Thought Process: Lethality: Passive Wish Hallucination Type: Visual Delusion Type: Denies - Cognitive Function Orientation: A&O x 4 Level of Consciousness: Alert Cognition: Impaired Attention/Concentration Estimated Intelligence: Normal Insight: Mostly Blames Others for Problems Judgment Within Normal Limits: No Ability to Make Reasonable Decisions: Serverely Impaired - Medication Compliance Cooperative with Inpatient Medication Regimen: Yes - Group Participation Participates in Group Activities: Yes Assessment - Assessment Merits Inpatient Hospitalization: For Immediate Safety, For Stabilization Inpatient DSM-V Dx: F31.64 Clinical Impression: 68yo wf, domiciled, disabled with history of bipolar I disorder who presented to ED after an appointment with her outpatient therapist due to suicidal ideation with plans. She had been drinking alcohol prior to arrival, as well. She merits hospitalization for immediate safety and stabilization. Plan - Plan Treatment Plan: Name: SAMREEN CAMPO Birthdate: 1950 [id number] continue acute intensive psychiatric treatment. may decrease to q30min and allow staff pass. consider changing olanzapine to lurasidone, pending insurance coverage. add diphenhydramine at bedtime. SW to contact [facility]. obtain clean-catch midstream urine specimen. discharge to include outpatient providers. Continued Medication Management: Consider Medication Medications: Current Medications Acetaminophen (Tylenol Tab*) 650 mg PO Q4H PRN PRN Reason: PAIN or TEMP > 101 F Last Admin: 08/26/19 02:44 Dose: 650 mg Al Hydrox/Mg Hydrox/Simethicone (Maalox Plus*) 30 ml PO Q4H PRN PRN Reason: INDIGESTION Aspirin (Aspirin 81 Mg Chew Tab*) 81 mg PO QAM [facility] Last Admin: 08/26/19 09:10 Dose: 81 mg Atenolol (Tenormin Tab*) 50 mg PO QAM [facility] Last Admin: 08/26/19 09:10 Dose: 50 mg Atorvastatin Calcium (Lipitor*) 20 mg PO BEDTIME [facility] Last Admin: 08/25/19 20:33 Dose: 20 mg Clonazepam (Klonopin Tab(*)) 1 mg PO BID PRN PRN Reason: ANXIETY Last Admin: 08/24/19 03:18 Dose: 1 mg Diphenhydramine HCl (Benadryl Po*) 50 mg PO BEDTIME [facility] Divalproex Sodium (Depakote Er Tab(*)) 1,000 mg PO BEDTIME [facility] Last Admin: 08/25/19 20:33 Dose: 1,000 mg Fluticasone Propionate (Flonase Nasal [place] 50mcg*) 1 spray BOTH NARES BID [facility] Last Admin: 08/26/19 09:08 Dose: 1 spray Gabapentin (Neurontin Cap(*)) 200 mg PO BID [facility] Last Admin: 08/26/19 09:12 Dose: 200 mg Ibuprofen (Motrin Tab*) 600 mg PO Q8H PRN PRN Reason: PAIN - MILD Magnesium Oxide (Magox 400 Tab*) 400 mg PO DAILY@1200 ISAIAH Multivitamins (Theragran Tab*) 1 tab PO DAILY [facility] Last Admin: 08/26/19 09:10 Dose: 1 tab Nicotine Polacrilex (Nicotine Gum*) 4 mg PO Q2H PRN PRN Reason: SUPERVISOR FISHING Last Admin: 08/26/19 09:15 Dose: 4 mg Olanzapine (Zyprexa Tab*) 5 mg PO QAM [facility] Last Admin: 08/26/19 09:11 Dose: 5 mg Olanzapine (Zyprexa Tab*) 15 mg PO BEDTIME [facility] Last Admin: 08/25/19 20:35 Dose: 15 mg Pantoprazole Sodium (Protonix Tab*) 40 mg PO DAILY [facility] Last Admin: 08/26/19 09:11 Dose: 40 mg Senna (Senokot 8.6 Mg Tab*) 1 tab PO BEDTIME PRN PRN Reason: CONSTIPATION Tizanidine HCl (Zanaflex Tab*) 2 mg PO QID [facility] Last Admin: 08/26/19 13:26 Dose: 2 mg Trazodone HCl (Desyrel Tab*) 100 mg PO BEDTIME [facility] Last Admin: 08/25/19 20:35 Dose: 100 mg - Discharge Plan Discharge Plan: Inpatient Hospitalization
[2019-08-26] MEDS: Ibuprofen TAB* 600 MG PO PRN (18:01)
[2019-08-26] MEDS: traZODone TAB* 100 MG PO SCH (20:22)
[2019-08-26] MEDS: OLANzapine TAB* 10 MG PO SCH (20:24)
[2019-08-26] MEDS: Atorvastatin* 20 MG TAB PO SCH (20:25)
[2019-08-26] MEDS: diPHENhydraMINE PO* 50 MG PO SCH (20:25)
[2019-08-26] MEDS: Divalproex ER TAB(*) 500 MG PO SCH (20:26)
[2019-08-26] MEDS: Senna TAB 8.6 mg* TAB PO PRN (20:28)
[2019-08-26] MEDS: Polyethylene Glycol 3350* 17 GM PACKET PO PRN (21:44)
[2019-08-26 21:52] LABS: Urine Appearance Clear; Urine Bilirubin Negative (Negative); Urine Blood Negative (Negative); Urine Color Yellow; Urine Glucose Negative (Negative); Urine Ketones Trace (Negative); Urine Nitrite Negative (Negative); Urine Protein Negative (Negative); Urine Specific Gravity 1.014 (1.010-1.030); Urine Urobilinogen Negative (Negative)
[2019-08-26 21:57] LABS: Urine Bacteria Absent (Absent); Urine Red Blood Cell Trace(0-2/hpf) (Absent); Urine Squamous Epithelial Cell Present (Absent); Urine White Blood Cell Trace(0-5/hpf) (Absent)
[2019-08-27] MEDS: Acetaminophen TAB* 325 MG PO PRN (00:39)
[2019-08-27] MEDS: clonazePAM TAB(*) 1 MG PO PRN (01:39)
[2019-08-27] MEDS: Ibuprofen TAB* 600 MG PO PRN ×2 (02:02→20:19)
[2019-08-27] MEDS: Pantoprazole TAB * 40 MG TAB PO SCH (08:47)
[2019-08-27] MEDS: Aspirin 81 mg CHEW TAB* 81 MG TAB.CHEW PO SCH (08:47)
[2019-08-27] MEDS: Atenolol TAB* 50 MG PO SCH (08:47)
[2019-08-27] MEDS: tiZANidine TAB* 2 MG PO SCH ×4 (08:47→20:16)
[2019-08-27] MEDS: OLANzapine TAB* 5 MG PO SCH (08:48)
[2019-08-27] MEDS: Vitamin THERAPEUTIC TAB PO SCH (08:48)
[2019-08-27] MEDS: Gabapentin CAP(*) 100 MG PO SCH ×2 (08:48→20:16)
[2019-08-27] MEDS: Nicotine* 4MG (FRUIT FLAVOR) GUM PO PRN ×3 (08:49→17:49)
[2019-08-27] MEDS: Fluticasone NASAL SPRAY 50MCG* 16 gm SPRAY BTL BOTH NARES SCH ×2 (10:58→20:16)
[2019-08-27] MEDS: Magnesium Oxide TAB* 400 MG PO SCH (14:01)
--- NOTE | 2019-08-27 15:35 | PN ---
Subjective - Subjective Date of Service: 08/27/19 Service Type: 54378 Hosp care 25 min moderate complexity Subjective: Patient is labile with tangential speech. She continues to perseverate on her grandson's custody and interactions with her son and his . She reports many "serendipitous" things are happening to her on the unit. She reports VH of a "fuzzy little thing" on her ceiling and AH of music playing from the wheels of her walker. She endorses being able to identify that these are symptoms. She agrees to change depakote to BID dosing and to increase dose. Patient states she is hopeful to be able to attend a nerve conduction test tomorrow. [place] Measure[employer] phoned office of Dr Mccoy and rescheduled appt for next week. We discussed medication history. Patient reports severe TD symptoms with aripiprazole and ziprasidone. She also endorses alopecia and weight gain on currently prescribed Depakote and olanzapine. She states that she thought that Latuda was not covered by insurance. [place] [employer] spoke with [facility] to clarify prior medication trials. Latuda was approved in april 2016. She was prescribed this briefly but did not have a full therapeutic trial. Objective - General Observations Appearance: Well Groomed Stature: Overweight Posture: WNL Eye Contact: Average Behavior/Activity: Accelerated - Interaction Observations Attitude Towards Examiner: Cooperative Stated Mood: Expansive Affect: Labile Speech Pattern/Tone: Excessive, Perseverating Thought Process: Over Inclusive Perception: WNL Thought Content: Preoccupation/Ruminations, Grandiose Thought Process: Lethality: Paranoid Ideation Hallucination Type: Auditory, Visual Delusion Type: Denies - Cognitive Function Orientation: A&O x 4 Level of Consciousness: Alert Cognition: Impaired Attention/Concentration Estimated Intelligence: Normal Insight: Difficulty Acknowledging Presence of Psyciatric Problems Judgment Within Normal Limits: No Ability to Make Reasonable Decisions: Serverely Impaired - Medication Compliance Cooperative with Inpatient Medication Regimen: Yes - Group Participation Participates in Group Activities: Yes Assessment - Assessment Merits Inpatient Hospitalization: For Immediate Safety, For Stabilization Inpatient DSM-V Dx: F31.64 Clinical Impression: 68yo wf, domiciled, disabled with history of bipolar I disorder who presented to ED after an appointment with her outpatient therapist due to suicidal ideation with plans. She had been drinking alcohol prior to arrival, as well. She merits hospitalization for immediate safety and stabilization. Plan - Plan Treatment Plan: Name: BEATRICE CAMPO Birthdate: 1950 [id number] continue acute intensive psychiatric treatment. may decrease to q30min and allow staff pass. DC depakote ER to IR and dose change to 500mg qam and 1000mg qhs. DC olanzapine. Start lurasidone 40mg daily with dinner. discharge [facility] and [facility]. Continued Medication Management: Start Medication Medications: Current Medications Acetaminophen (Tylenol Tab*) 650 mg PO Q4H PRN PRN Reason: PAIN or TEMP > 101 F Last Admin: 08/27/19 00:39 Dose: 650 mg Al Hydrox/Mg Hydrox/Simethicone (Maalox Plus*) 30 ml PO Q4H PRN PRN Reason: INDIGESTION Aspirin (Aspirin 81 Mg Chew Tab*) 81 mg PO QAM [facility] Last Admin: 08/27/19 08:47 Dose: 81 mg Atenolol (Tenormin Tab*) 50 mg PO QAM [facility] Last Admin: 08/27/19 08:47 Dose: 50 mg Atorvastatin Calcium (Lipitor*) 20 mg PO BEDTIME [facility] Last Admin: 08/26/19 20:25 Dose: 20 mg Clonazepam (Klonopin Tab(*)) 1 mg PO BID PRN PRN Reason: ANXIETY Last Admin: 08/27/19 01:39 Dose: 1 mg Diphenhydramine HCl (Benadryl Po*) 50 mg PO BEDTIME [facility] Last Admin: 08/26/19 20:25 Dose: 50 mg Divalproex Sodium (Depakote Dr Tab(*)) 500 mg PO DAILY [facility] Divalproex Sodium (Depakote Dr Tab(*)) 1,000 mg PO BEDTIME [facility] Fluticasone Propionate (Flonase Nasal [place] 50mcg*) 1 spray BOTH NARES BID [facility] Last Admin: 08/27/19 10:58 Dose: 1 spray Gabapentin (Neurontin Cap(*)) 200 mg PO BID [facility] Last Admin: 08/27/19 08:48 Dose: 200 mg Ibuprofen (Motrin Tab*) 600 mg PO Q8H PRN PRN Reason: PAIN - MILD Last Admin: 08/27/19 02:02 Dose: 600 mg Magnesium Oxide (Magox 400 Tab*) 400 mg PO DAILY@1200 [facility] Last Admin: 08/27/19 14:01 Dose: 400 mg Multivitamins (Theragran Tab*) 1 tab PO DAILY [facility] Last Admin: 08/27/19 08:48 Dose: 1 tab Nicotine Polacrilex (Nicotine Gum*) 4 mg PO Q2H PRN PRN Reason: TELLER Last Admin: 08/27/19 14:02 Dose: 4 mg Olanzapine (Zyprexa Tab*) 5 mg PO QAM [facility] Last Admin: 08/27/19 08:48 Dose: 5 mg Olanzapine (Zyprexa Tab*) 15 mg PO BEDTIME [facility] Last Admin: 08/26/19 20:24 Dose: 15 mg Pantoprazole Sodium (Protonix Tab*) 40 mg PO DAILY [facility] Last Admin: 08/27/19 08:47 Dose: 40 mg Polyethylene Glycol/Electrolytes (Miralax (17 Gm Dose [place])) 17 gm PO DAILY PRN PRN Reason: CONSTIPATION Last Admin: 08/26/19 21:44 Dose: 17 gm Senna (Senokot 8.6 Mg Tab*) 1 tab PO BEDTIME PRN PRN Reason: CONSTIPATION Last Admin: 08/26/19 20:28 Dose: 1 tab Tizanidine HCl (Zanaflex Tab*) 2 mg PO QID [facility] Last Admin: 08/27/19 14:01 Dose: 2 mg Trazodone HCl (Desyrel Tab*) 100 mg PO BEDTIME [facility] Last Admin: 08/26/19 20:22 Dose: 100 mg - Discharge Plan Discharge Plan: Inpatient Hospitalization
[2019-08-27] MEDS ORDERED: Lurasidone(*) 40 MG TAB PO SCH (17:00)
[2019-08-27] MEDS: Divalproex DR TAB(*) 500 MG PO SCH (20:16)
[2019-08-27] MEDS: diPHENhydraMINE PO* 50 MG PO SCH (20:16)
[2019-08-27] MEDS: Atorvastatin* 20 MG TAB PO SCH (20:16)
[2019-08-27] MEDS: Senna TAB 8.6 mg* TAB PO PRN (20:17)
[2019-08-27] MEDS: traZODone TAB* 100 MG PO SCH (20:18)
[2019-08-28] MEDS: clonazePAM TAB(*) 1 MG PO PRN ×2 (01:40→22:25)
[2019-08-28] MEDS: Nicotine* 4MG (FRUIT FLAVOR) GUM PO PRN ×4 (01:40→20:44)
[2019-08-28] MEDS: Acetaminophen TAB* 325 MG PO PRN (01:40)
[2019-08-28] MEDS: Ibuprofen TAB* 600 MG PO PRN ×2 (03:30→15:52)
[2019-08-28] MEDS: Fluticasone NASAL SPRAY 50MCG* 16 gm SPRAY BTL BOTH NARES SCH ×2 (08:54→20:47)
[2019-08-28] MEDS: Gabapentin CAP(*) 100 MG PO SCH ×2 (08:54→20:39)
[2019-08-28] MEDS: Atenolol TAB* 50 MG PO SCH (08:55)
[2019-08-28] MEDS: tiZANidine TAB* 2 MG PO SCH ×4 (08:55→20:40)
[2019-08-28] MEDS: Aspirin 81 mg CHEW TAB* 81 MG TAB.CHEW PO SCH (08:56)
[2019-08-28] MEDS: Pantoprazole TAB * 40 MG TAB PO SCH (08:56)
[2019-08-28] MEDS: Vitamin THERAPEUTIC TAB PO SCH (08:56)
[2019-08-28] MEDS: Divalproex DR TAB(*) 500 MG PO SCH ×2 (08:56→20:41)
[2019-08-28] MEDS: Magnesium Oxide TAB* 400 MG PO SCH (12:06)
[2019-08-28] MEDS: Al Hydrox/Mg Hydrox/Simet LIQ* 30 ML UDC PO PRN (14:01)
--- NOTE | 2019-08-28 14:41 | PN ---
Subjective - Subjective Date of Service: 08/28/19 Service Type: 47370 Hosp care 25 min moderate complexity Subjective: Patient continues to present as labile and grandiose with some disorganized thoughts. She has asked multiple staff members about the pain clinic appt that was rescheduled from today to next week. When I told her the appt is on september 02, she was disappointed and asked for a sooner one. Once she was reoriented to today's date, she was accepting. From there, she was circumstantial about court proceedings and pleading to be discharged tomorrow. Objective - General Observations Appearance: Well Groomed Stature: Overweight Posture: Slumped Eye Contact: Avoidant Behavior/Activity: Accelerated - Interaction Observations Attitude Towards Examiner: Cooperative, Anxious Stated Mood: Dysphoric Affect: Labile Speech Pattern/Tone: Excessive, Pressured, Perseverating Thought Process: Tangential, Over Inclusive Perception: WNL Thought Content: Preoccupation/Ruminations, Grandiose Thought Process: Lethality: Paranoid Ideation Hallucination Type: Auditory Delusion Type: Persecution - Cognitive Function Orientation: A&O x 4 Level of Consciousness: Alert Cognition: Impaired Attention/Concentration Estimated Intelligence: Normal Insight: Mostly Blames Others for Problems, Difficulty Acknowledging Presence of Psyciatric Problems Judgment Within Normal Limits: No Ability to Make Reasonable Decisions: Serverely Impaired - Medication Compliance Cooperative with Inpatient Medication Regimen: Yes - Group Participation Participates in Group Activities: Partial Assessment - Assessment Merits Inpatient Hospitalization: For Immediate Safety, For Stabilization Inpatient DSM-V Dx: F31.64 Clinical Impression: 68yo wf, domiciled, disabled with history of bipolar I disorder who presented to ED after an appointment with her outpatient therapist due to suicidal ideation with plans. She had been drinking alcohol prior to arrival, as well. She merits hospitalization for immediate safety and stabilization. Plan - Plan Treatment Plan: Name: BEATRICE CAMPO Birthdate: 1950 [id number] continue acute intensive psychiatric treatment. may decrease to q30min and allow staff pass. continue depakote DR 500mg qam and 1000mg qhs. Increase lurasidone to 60mg daily with dinner. add advair diskus and albuterol MDI per patient request. discharge to include [facility] providers and [facility]. patient rescinded 72-hour notice. obtain valproic acid level on 08/30/19. Continued Medication Management: Start Medication Medications: Current Medications Acetaminophen (Tylenol Tab*) 650 mg PO Q4H PRN PRN Reason: PAIN or TEMP > 101 F Last Admin: 08/28/19 01:40 Dose: 650 mg Al Hydrox/Mg Hydrox/Simethicone (Maalox Plus*) 30 ml PO Q4H PRN PRN Reason: INDIGESTION Last Admin: 08/28/19 14:01 Dose: 30 ml Aspirin (Aspirin 81 Mg Chew Tab*) 81 mg PO QAM [facility] Last Admin: 08/28/19 08:56 Dose: 81 mg Atenolol (Tenormin Tab*) 50 mg PO QAM [facility] Last Admin: 08/28/19 08:55 Dose: 50 mg Atorvastatin Calcium (Lipitor*) 20 mg PO BEDTIME [facility] Last Admin: 08/27/19 20:16 Dose: 20 mg Clonazepam (Klonopin Tab(*)) 1 mg PO BID PRN PRN Reason: ANXIETY Last Admin: 08/28/19 01:40 Dose: 1 mg Diphenhydramine HCl (Benadryl Po*) 50 mg PO BEDTIME [facility] Last Admin: 08/27/19 20:16 Dose: 50 mg Divalproex Sodium (Depakote Dr Tab(*)) 500 mg PO DAILY [facility] Last Admin: 08/28/19 08:56 Dose: 500 mg Divalproex Sodium (Depakote Dr Tab(*)) 1,000 mg PO BEDTIME [facility] Last Admin: 08/27/19 20:16 Dose: 1,000 mg Fluticasone Propionate (Flonase Nasal [place] 50mcg*) 1 spray BOTH NARES BID [facility] Last Admin: 08/28/19 08:54 Dose: 1 spray Gabapentin (Neurontin Cap(*)) 200 mg PO BID [facility] Last Admin: 08/28/19 08:54 Dose: 200 mg Ibuprofen (Motrin Tab*) 600 mg PO Q8H PRN PRN Reason: PAIN - MILD Last Admin: 08/28/19 03:30 Dose: 600 mg Lurasidone HCl (Latuda) 60 mg PO 1700 [facility] Magnesium Oxide (Magox 400 Tab*) 400 mg PO DAILY@1200 [facility] Last Admin: 08/28/19 12:06 Dose: 400 mg Multivitamins (Theragran Tab*) 1 tab PO DAILY [facility] Last Admin: 08/28/19 08:56 Dose: 1 tab Nicotine Polacrilex (Nicotine Gum*) 4 mg PO Q2H PRN 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
[2019-08-28] MEDS ORDERED: Albuterol HFA INHALER* 8 gm MDI INH PRN (15:54)
--- NOTE | 2019-08-28 16:08 | PN ---
BSU: Group Therapy Note - Service Type Service Type: 14320 Group Psychotherapy - Extremely chatty and tends to be overly open about her own personal experiences. Still, generally on target with discussion. - Group Participation Patient Participating in Group: Yes Level of Group Participation: Attentive, Spontaneously Participate Relatedness to Group: Other
[2019-08-28] MEDS ORDERED: Lurasidone(*) 60 MG TAB PO SCH (17:00)
[2019-08-28] MEDS: Lurasidone(*) 40 MG TAB PO SCH (17:14)
[2019-08-28] MEDS: diPHENhydraMINE PO* 50 MG PO SCH (20:40)
[2019-08-28] MEDS: Atorvastatin* 20 MG TAB PO SCH (20:41)
[2019-08-28] MEDS: Mometasone/Formoter 200/5 MDI INH SCH (20:46)
[2019-08-28] MEDS: Polyethylene Glycol 3350* 17 GM PACKET PO PRN (21:50)
[2019-08-29] MEDS: Ibuprofen TAB* 600 MG PO PRN ×2 (03:49→15:37)
[2019-08-29] MEDS: tiZANidine TAB* 2 MG PO SCH ×4 (09:30→20:05)
[2019-08-29] MEDS: Divalproex DR TAB(*) 500 MG PO SCH ×2 (09:30→20:05)
[2019-08-29] MEDS: Pantoprazole TAB * 40 MG TAB PO SCH (09:31)
[2019-08-29] MEDS: Gabapentin CAP(*) 100 MG PO SCH ×2 (09:31→20:05)
[2019-08-29] MEDS: Vitamin THERAPEUTIC TAB PO SCH (09:32)
[2019-08-29] MEDS: Atenolol TAB* 50 MG PO SCH (09:32)
[2019-08-29] MEDS: Aspirin 81 mg CHEW TAB* 81 MG TAB.CHEW PO SCH (09:33)
[2019-08-29] MEDS: Fluticasone NASAL SPRAY 50MCG* 16 gm SPRAY BTL BOTH NARES SCH ×2 (09:33→20:06)
[2019-08-29] MEDS: Nicotine* 4MG (FRUIT FLAVOR) GUM PO PRN ×3 (09:36→18:16)
[2019-08-29] MEDS: Mometasone/Formoter 200/5 MDI INH SCH ×2 (10:06→20:06)
--- NOTE | 2019-08-29 10:24 | PN ---
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 She presents as mildly irritable and labile. She is circumstantial about a few topics. She states she is having "shooting pains" in her head and is concerned about side effects of latuda. She also references (multiple times ) having seen neurologist, Dr Martinez and had two abnormal EEGs. Objective - General Observations Appearance: Well Groomed Stature: Overweight Posture: WNL Eye Contact: Average Behavior/Activity: Accelerated - Interaction Observations Attitude Towards Examiner: Cooperative, Defensive Stated Mood: Irritable Affect: Labile Speech Pattern/Tone: Excessive, Pressured, Perseverating Thought Process: Tangential, Circumstantial, Over Inclusive Perception: WNL Thought Content: Preoccupation/Ruminations, Grandiose Hallucination Type: Auditory, Visual Delusion Type: Persecution, Grandeur - Cognitive Function Orientation: A&O x 4 Level of Consciousness: Alert Cognition: Impaired Attention/Concentration Estimated Intelligence: Normal Insight: Mostly Blames Others for Problems, Difficulty Acknowledging Presence of Psyciatric Problems Judgment Within Normal Limits: No Ability to Make Reasonable Decisions: Serverely Impaired - Medication Compliance Cooperative with Inpatient Medication Regimen: Yes - Group Participation Participates in Group Activities: Yes Assessment - Assessment Merits Inpatient Hospitalization: For Immediate Safety, For Stabilization, Consolidate Improvements Inpatient DSM-V Dx: F31.64 Clinical Impression: 68yo wf, domiciled, disabled with history of bipolar I disorder who presented to ED after an appointment with her outpatient therapist due to suicidal ideation with plans. She had been drinking alcohol prior to arrival, as well. She merits hospitalization for immediate safety and stabilization. Plan - Plan Treatment Plan: Name: BEATRICE CAMPO Birthdate: 1950 [id number] continue acute intensive psychiatric treatment. may decrease to q30min and allow staff pass. convert to 2pc status continue depakote DR 500mg qam and 1000mg qhs. Increase lurasidone to 80mg daily with dinner. discharge to include outpatient providers and [facility]. obtain valproic acid level on 08/30/19. Continued Medication Management: Start Medication Medications: Current Medications Acetaminophen (Tylenol Tab*) 650 mg PO Q4H PRN PRN Reason: PAIN or TEMP > 101 F Last Admin: 08/28/19 01:40 Dose: 650 mg Al Hydrox/Mg Hydrox/Simethicone (Maalox Plus*) 30 ml PO Q4H PRN PRN Reason: INDIGESTION Last Admin: 08/28/19 14:01 Dose: 30 ml Albuterol (Ventolin Hfa Inhaler*) 2 puff INH Q4H PRN PRN Reason: SOB/WHEEZING Aspirin (Aspirin 81 Mg Chew Tab*) 81 mg PO QAM [facility] Last Admin: 08/29/19 09:33 Dose: 81 mg Atenolol (Tenormin Tab*) 50 mg PO QAM [facility] Last Admin: 08/29/19 09:32 Dose: 50 mg Atorvastatin Calcium (Lipitor*) 20 mg PO BEDTIME [facility] Last Admin: 08/28/19 20:41 Dose: 20 mg Clonazepam (Klonopin Tab(*)) 1 mg PO BID PRN PRN Reason: ANXIETY Last Admin: 08/28/19 22:25 Dose: 1 mg Diphenhydramine HCl (Benadryl Po*) 50 mg PO BEDTIME [facility] Last Admin: 08/28/19 20:40 Dose: 50 mg Divalproex Sodium (Depakote Dr Tab(*)) 500 mg PO DAILY [facility] Last Admin: 08/29/19 09:30 Dose: 500 mg Divalproex Sodium (Depakote Dr Tab(*)) 1,000 mg PO BEDTIME [facility] Last Admin: 08/28/19 20:41 Dose: 1,000 mg Fluticasone Propionate (Flonase Nasal [place] 50mcg*) 1 spray BOTH NARES BID [facility] Last Admin: 08/29/19 09:33 Dose: 1 spray Gabapentin (Neurontin Cap(*)) 200 mg PO BID [facility] Last Admin: 08/29/19 09:31 Dose: 200 mg Ibuprofen (Motrin Tab*) 600 mg PO Q8H PRN PRN Reason: PAIN - MILD Last Admin: 08/29/19 03:49 Dose: 600 mg Lurasidone HCl (Latuda) 80 mg PO 1700 [facility] Last Admin: 08/28/19 17:14 Dose: 80 mg Magnesium Oxide (Magox 400 Tab*) 400 mg PO DAILY@1200 [facility] Last Admin: 08/28/19 12:06 Dose: 400 mg Mometasone Furoate/Formoterol Fumar (Dulera 200/5 Mdi*) 2 puff INH BID [facility] Last Admin: 08/29/19 10:06 Dose: 2 puff Multivitamins (Theragran Tab*) 1 tab PO DAILY [facility] Last Admin: 08/29/19 09:32 Dose: 1 tab Nicotine Polacrilex (Nicotine Gum*) 4 mg PO Q2H PRN 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
[2019-08-29] MEDS: Magnesium Oxide TAB* 400 MG PO SCH (13:48)
[2019-08-29] MEDS: clonazePAM TAB(*) 1 MG PO PRN (15:41)
[2019-08-29] MEDS: Lurasidone(*) 40 MG TAB PO SCH (17:06)
[2019-08-29] MEDS: diPHENhydraMINE PO* 50 MG PO SCH (20:04)
[2019-08-29] MEDS: Atorvastatin* 20 MG TAB PO SCH (20:05)
[2019-08-30] MEDS: Ibuprofen TAB* 600 MG PO PRN ×2 (02:57→21:57)
[2019-08-30] MEDS: Nicotine* 4MG (FRUIT FLAVOR) GUM PO PRN ×5 (05:48→20:55)
[2019-08-30] MEDS: Acetaminophen TAB* 325 MG PO PRN ×2 (05:48→14:06)
[2019-08-30] MEDS: Gabapentin CAP(*) 100 MG PO SCH ×2 (09:06→20:31)
[2019-08-30] MEDS: Aspirin 81 mg CHEW TAB* 81 MG TAB.CHEW PO SCH (09:09)
[2019-08-30] MEDS: Vitamin THERAPEUTIC TAB PO SCH (09:09)
[2019-08-30] MEDS: Pantoprazole TAB * 40 MG TAB PO SCH (09:09)
[2019-08-30] MEDS: tiZANidine TAB* 2 MG PO SCH ×4 (09:09→20:31)
[2019-08-30] MEDS: Atenolol TAB* 50 MG PO SCH (09:09)
[2019-08-30] MEDS: Divalproex DR TAB(*) 500 MG PO SCH ×2 (09:09→20:34)
[2019-08-30] MEDS: Fluticasone NASAL SPRAY 50MCG* 16 gm SPRAY BTL BOTH NARES SCH ×2 (09:12→20:38)
[2019-08-30] MEDS: Mometasone/Formoter 200/5 MDI INH SCH ×2 (09:12→20:40)
[2019-08-30] MEDS: clonazePAM TAB(*) 1 MG PO PRN (10:25)
--- NOTE | 2019-08-30 12:00 | PN ---
Subjective - Subjective Date of Service: 08/30/19 Service Type: 35508 Hosp care 25 min moderate complexity Subjective: Patient is pleasant and talkative. She has many items written down to discuss and repeats these multiple times. She states she woke in the middle of the night due to needing to "get organized and get all my questions answered." She inquires about risk of seizure activity and endorses symptoms likely r/t ed. She denies LOC and has not had post-ictal episodes. Import/Export Clerk left message with office of Dr Martinez to collaborate on monday. Patient notified of valproic acid level and increased dose of latuda. She states that she and her sister, Ángela, have identified a plan for her to stay in her basement apartment after discharge. Objective - General Observations Appearance: Well Groomed Stature: Overweight Posture: WNL Eye Contact: Average Behavior/Activity: Accelerated - Interaction Observations Attitude Towards Examiner: Cooperative Stated Mood: Elevated Affect: Labile Speech Pattern/Tone: Excessive, Perseverating, Quiet Volume Thought Process: Loose Associations, Over Inclusive Perception: WNL Thought Content: Preoccupation/Ruminations, Grandiose Hallucination Type: Auditory, Visual Delusion Type: Denies - Cognitive Function Orientation: A&O x 4 Level of Consciousness: Alert Cognition: Impaired Attention/Concentration Estimated Intelligence: Normal Insight: Difficulty Acknowledging Presence of Psyciatric Problems Judgment Within Normal Limits: No Ability to Make Reasonable Decisions: Moderately Impaired - Medication Compliance Cooperative with Inpatient Medication Regimen: Yes - Group Participation Participates in Group Activities: Yes Assessment - Assessment Merits Inpatient Hospitalization: For Immediate Safety, For Stabilization, Consolidate Improvements Inpatient DSM-V Dx: F31.64 Clinical Impression: 68yo wf, domiciled, disabled with history of bipolar I disorder who presented to ED after an appointment with her outpatient therapist due to suicidal ideation with plans. She had been drinking alcohol prior to arrival, as well. She is tolerating medication changes and continues to merit hospitalization for immediate safety and stabilization. Plan - Plan Treatment Plan: Name: BEATRICE CAMPO Birthdate: 1950 [id number] continue acute intensive psychiatric treatment. may decrease to q30min and allow staff pass. converted to 2pc status increase lurasidone to 120mg daily. continue other meds as ordered. discharge to include outpatient providers and [facility]. valproic acid level on 08/30/19 of 89.0 Continued Medication Management: Start Medication Medications: Current Medications Acetaminophen (Tylenol Tab*) 650 mg PO Q4H PRN PRN Reason: PAIN or TEMP > 101 F Last Admin: 08/30/19 05:48 Dose: 650 mg Al Hydrox/Mg Hydrox/Simethicone (Maalox Plus*) 30 ml PO Q4H PRN PRN Reason: INDIGESTION Last Admin: 08/28/19 14:01 Dose: 30 ml Albuterol (Ventolin Hfa Inhaler*) 2 puff INH Q4H PRN PRN Reason: SOB/WHEEZING Aspirin (Aspirin 81 Mg Chew Tab*) 81 mg PO QAM [facility] Last Admin: 08/30/19 09:09 Dose: 81 mg Atenolol (Tenormin Tab*) 50 mg PO QAM [facility] Last Admin: 08/30/19 09:09 Dose: 50 mg Atorvastatin Calcium (Lipitor*) 20 mg PO BEDTIME [facility] Last Admin: 08/29/19 20:05 Dose: 20 mg Clonazepam (Klonopin Tab(*)) 1 mg PO BID PRN PRN Reason: ANXIETY Last Admin: 08/30/19 10:25 Dose: 1 mg Diphenhydramine HCl (Benadryl Po*) 50 mg PO BEDTIME [facility] Last Admin: 08/29/19 20:04 Dose: 50 mg Divalproex Sodium (Depakote Dr Tab(*)) 500 mg PO DAILY [facility] Last Admin: 08/30/19 09:09 Dose: 500 mg Divalproex Sodium (Depakote Dr Tab(*)) 1,000 mg PO BEDTIME [facility] Last Admin: 08/29/19 20:05 Dose: 1,000 mg Fluticasone Propionate (Flonase Nasal [place] 50mcg*) 1 spray BOTH NARES BID [facility] Last Admin: 08/30/19 09:12 Dose: 1 spray Gabapentin (Neurontin Cap(*)) 200 mg PO BID [facility] Last Admin: 08/30/19 09:06 Dose: 200 mg Ibuprofen (Motrin Tab*) 600 mg PO Q8H PRN PRN Reason: PAIN - MILD Last Admin: 08/30/19 02:57 Dose: 600 mg Lurasidone HCl (Latuda) 120 mg PO 1700 [facility] Last Admin: 08/29/19 17:06 Dose: 80 mg Magnesium Oxide (Magox 400 Tab*) 400 mg PO DAILY@1200 [facility] Last Admin: 08/29/19 13:48 Dose: 400 mg Mometasone Furoate/Formoterol Fumar (Dulera 200/5 Mdi*) 2 puff INH BID [facility] Last Admin: 08/30/19 09:12 Dose: 2 puff Multivitamins (Theragran Tab*) 1 tab PO DAILY [facility] Last Admin: 08/30/19 09:09 Dose: 1 tab Nicotine Polacrilex (Nicotine Gum*) 4 mg PO Q2H PRN PRN 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
[2019-08-30] MEDS: Magnesium Oxide TAB* 400 MG PO SCH (14:07)
[2019-08-30] MEDS: Lurasidone(*) 120 MG TAB PO SCH (17:46)
[2019-08-30] MEDS: Atorvastatin* 20 MG TAB PO SCH (20:31)
[2019-08-30] MEDS: diPHENhydraMINE PO* 50 MG PO SCH (20:33)
[2019-08-31] MEDS: clonazePAM TAB(*) 1 MG PO PRN (04:20)
[2019-08-31] MEDS: Nicotine* 4MG (FRUIT FLAVOR) GUM PO PRN ×5 (04:20→20:55)
[2019-08-31] MEDS: Ibuprofen TAB* 600 MG PO PRN ×3 (05:00→23:13)
[2019-08-31] MEDS: Gabapentin CAP(*) 100 MG PO SCH ×2 (08:05→20:38)
[2019-08-31] MEDS: Divalproex DR TAB(*) 500 MG PO SCH ×2 (08:06→20:37)
[2019-08-31] MEDS: Atenolol TAB* 50 MG PO SCH (08:06)
[2019-08-31] MEDS: tiZANidine TAB* 2 MG PO SCH ×4 (08:07→20:39)
[2019-08-31] MEDS: Aspirin 81 mg CHEW TAB* 81 MG TAB.CHEW PO SCH (08:07)
[2019-08-31] MEDS: Vitamin THERAPEUTIC TAB PO SCH (08:07)
[2019-08-31] MEDS: Pantoprazole TAB * 40 MG TAB PO SCH (08:07)
[2019-08-31] MEDS: Fluticasone NASAL SPRAY 50MCG* 16 gm SPRAY BTL BOTH NARES SCH ×2 (08:44→20:42)
[2019-08-31] MEDS: Mometasone/Formoter 200/5 MDI INH SCH ×2 (08:45→20:43)
[2019-08-31] MEDS: Magnesium Oxide TAB* 400 MG PO SCH (12:07)
[2019-08-31] MEDS: Acetaminophen TAB* 325 MG PO PRN (12:07)
[2019-08-31] MEDS: Lurasidone(*) 120 MG TAB PO SCH (18:06)
[2019-08-31] MEDS: Atorvastatin* 20 MG TAB PO SCH (20:37)
[2019-08-31] MEDS: diPHENhydraMINE PO* 50 MG PO SCH (20:40)
[2019-09-01] MEDS: clonazePAM TAB(*) 1 MG PO PRN (00:01)
[2019-09-01] MEDS: Nicotine* 4MG (FRUIT FLAVOR) GUM PO PRN ×6 (02:30→21:00)
[2019-09-01] MEDS: Acetaminophen TAB* 325 MG PO PRN (02:30)
[2019-09-01] MEDS: Senna TAB 8.6 mg* TAB PO PRN (05:30)
[2019-09-01] MEDS: Fluticasone NASAL SPRAY 50MCG* 16 gm SPRAY BTL BOTH NARES SCH ×2 (09:42→20:15)
[2019-09-01] MEDS: Mometasone/Formoter 200/5 MDI INH SCH ×2 (09:42→20:15)
[2019-09-01] MEDS: Atenolol TAB* 50 MG PO SCH (09:43)
[2019-09-01] MEDS: Pantoprazole TAB * 40 MG TAB PO SCH (09:43)
[2019-09-01] MEDS: Divalproex DR TAB(*) 500 MG PO SCH ×2 (09:43→20:17)
[2019-09-01] MEDS: tiZANidine TAB* 2 MG PO SCH ×4 (09:44→20:16)
[2019-09-01] MEDS: Gabapentin CAP(*) 100 MG PO SCH ×2 (09:44→20:15)
[2019-09-01] MEDS: Aspirin 81 mg CHEW TAB* 81 MG TAB.CHEW PO SCH (09:44)
[2019-09-01] MEDS: Vitamin THERAPEUTIC TAB PO SCH (09:44)
[2019-09-01] MEDS: Magnesium Oxide TAB* 400 MG PO SCH (12:39)
[2019-09-01] MEDS: Ibuprofen TAB* 600 MG PO PRN (12:39)
[2019-09-01] MEDS: Lurasidone(*) 120 MG TAB PO SCH (18:01)
[2019-09-01] MEDS: Atorvastatin* 20 MG TAB PO SCH (20:16)
[2019-09-01] MEDS: diPHENhydraMINE PO* 50 MG PO SCH (20:16)
[2019-09-02] MEDS: Ibuprofen TAB* 600 MG PO PRN ×2 (01:12→15:57)
[2019-09-02] MEDS: clonazePAM TAB(*) 1 MG PO PRN (01:15)
[2019-09-02] MEDS: tiZANidine TAB* 2 MG PO SCH ×4 (09:21→20:46)
[2019-09-02] MEDS: Vitamin THERAPEUTIC TAB PO SCH (09:22)
[2019-09-02] MEDS: Divalproex DR TAB(*) 500 MG PO SCH ×2 (09:23→20:46)
[2019-09-02] MEDS: Atenolol TAB* 50 MG PO SCH (09:23)
[2019-09-02] MEDS: Pantoprazole TAB * 40 MG TAB PO SCH (09:25)
[2019-09-02] MEDS: Aspirin 81 mg CHEW TAB* 81 MG TAB.CHEW PO SCH (09:26)
[2019-09-02] MEDS: Gabapentin CAP(*) 100 MG PO SCH ×2 (09:26→20:45)
[2019-09-02] MEDS: Fluticasone NASAL SPRAY 50MCG* 16 gm SPRAY BTL BOTH NARES SCH ×2 (09:29→20:48)
[2019-09-02] MEDS: Mometasone/Formoter 200/5 MDI INH SCH ×2 (09:29→20:48)
[2019-09-02] MEDS: Nicotine* 4MG (FRUIT FLAVOR) GUM PO PRN ×4 (09:32→21:24)
[2019-09-02] MEDS: Magnesium Oxide TAB* 400 MG PO SCH (12:37)
--- NOTE | 2019-09-02 15:35 | PN ---
Subjective - Subjective Date of Service: 09/02/19 Service Type: [id number] Hosp care 25 min moderate complexity Subjective: Patient is labile, hyperverbal, and has difficulty remaining on task. She is demanding to be discharged and states that she must attend to appointments and court this week. She attributes lack of sleep due to back pain and not having her dog next to her. Patient expresses frustration towards racebook writer due to "having contention" in regards to her wanting to discharge. She speaks of "having contention" with other family members. SW attempted to relay that treatment is on her team and that her sense of being controlled by others is contributing to desire to advocate for self in this setting. Cannoneer and SW expressed to patient that she continues to be highly symptomatic and it is in her best interests to remain inpatient and that her presentation will be assessed on a daily basis. Objective - General Observations Appearance: Well Groomed Stature: Overweight Posture: WNL Eye Contact: Average Behavior/Activity: Agitated - Interaction Observations Attitude Towards Examiner: Defensive, Demanding Stated Mood: Expansive, Irritable Affect: Labile Speech Pattern/Tone: Excessive, Pressured, Perseverating Thought Process: Tangential, Over Inclusive Thought Content: Preoccupation/Ruminations, Grandiose Hallucination Type: Denies Delusion Type: Grandeur - Cognitive Function Orientation: A&O x 4 Level of Consciousness: Alert Cognition: Impaired Attention/Concentration Estimated Intelligence: Normal Insight: Mostly Blames Others for Problems Judgment Within Normal Limits: No Ability to Make Reasonable Decisions: Serverely Impaired - Medication Compliance Cooperative with Inpatient Medication Regimen: Yes - Group Participation Participates in Group Activities: Partial Assessment - Assessment Merits Inpatient Hospitalization: For Immediate Safety, For Stabilization, Consolidate Improvements Inpatient DSM-V Dx: F31.64 Clinical Impression: 68yo wf, domiciled, disabled with history of bipolar I disorder who presented to ED after an appointment with her outpatient therapist due to suicidal ideation with plans. She had been drinking alcohol prior to arrival, as well. She is tolerating medication changes and continues to merit hospitalization for immediate safety and stabilization. Plan - Plan Treatment Plan: Name: BEATRICE CAMPO Birthdate: 1950 [id number] continue acute intensive psychiatric treatment. may decrease to q30min and allow staff pass. converted to 2pc status increase lurasidone to 120mg daily. continue other meds as ordered. discharge to include outpatient providers and [facility]. valproic acid level on 08/30/19 of 89.0 Medications: Current Medications Acetaminophen (Tylenol Tab*) 650 mg PO Q4H PRN PRN Reason: PAIN or TEMP > 101 F Last Admin: 09/01/19 02:30 Dose: 650 mg Al Hydrox/Mg Hydrox/Simethicone (Maalox Plus*) 30 ml PO Q4H PRN PRN Reason: INDIGESTION Last Admin: 08/28/19 14:01 Dose: 30 ml Albuterol (Ventolin Hfa Inhaler*) 2 puff INH Q4H PRN PRN Reason: SOB/WHEEZING Aspirin (Aspirin 81 Mg Chew Tab*) 81 mg PO QAM [facility] Last Admin: 09/02/19 09:26 Dose: 81 mg Atenolol (Tenormin Tab*) 50 mg PO QAM [facility] Last Admin: 09/02/19 09:23 Dose: 50 mg Atorvastatin Calcium (Lipitor*) 20 mg PO BEDTIME [facility] Last Admin: 09/01/19 20:16 Dose: 20 mg Clonazepam (Klonopin Tab(*)) 1 mg PO BID PRN PRN Reason: ANXIETY Last Admin: 09/02/19 01:15 Dose: 1 mg Diphenhydramine HCl (Benadryl Po*) 50 mg PO BEDTIME [facility] Last Admin: 09/01/19 20:16 Dose: 50 mg Divalproex Sodium (Depakote Dr Tab(*)) 500 mg PO DAILY [facility] Last Admin: 09/02/19 09:23 Dose: 500 mg Divalproex Sodium (Depakote Dr Tab(*)) 1,000 mg PO BEDTIME [facility] Last Admin: 09/01/19 20:17 Dose: 1,000 mg Fluticasone Propionate (Flonase Nasal [place] 50mcg*) 1 spray BOTH NARES BID [facility] Last Admin: 09/02/19 09:29 Dose: 1 spray Gabapentin (Neurontin Cap(*)) 200 mg PO BID [facility] Last Admin: 09/02/19 09:26 Dose: 200 mg Ibuprofen (Motrin Tab*) 600 mg PO Q8H PRN PRN Reason: PAIN - MILD Last Admin: 09/02/19 01:12 Dose: 600 mg Lurasidone HCl (Latuda) 120 mg PO 1700 [facility] Last Admin: 09/01/19 18:01 Dose: 120 mg Magnesium Oxide (Magox 400 Tab*) 400 mg PO DAILY@1200 [facility] Last Admin: 09/02/19 12:37 Dose: 400 mg Mometasone Furoate/Formoterol Fumar (Dulera 200/5 Mdi*) 2 puff INH BID [facility] Last Admin: 09/02/19 09:29 Dose: 2 puff Multivitamins (Theragran Tab*) 1 tab PO DAILY [facility] Last Admin: 09/02/19 09:22 Dose: 1 tab Nicotine Polacrilex (Nicotine Gum*) 4 mg PO Q2H PRN PRN 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
[2019-09-02] MEDS: Lurasidone(*) 120 MG TAB PO SCH (17:25)
[2019-09-02] MEDS: Acetaminophen TAB* 325 MG PO PRN (20:43)
[2019-09-02] MEDS: diPHENhydraMINE PO* 50 MG PO SCH (20:44)
[2019-09-02] MEDS: Atorvastatin* 20 MG TAB PO SCH (20:44)
[2019-09-02] MEDS: Senna TAB 8.6 mg* TAB PO PRN (20:45)
[2019-09-03] MEDS: clonazePAM TAB(*) 1 MG PO PRN (01:24)
[2019-09-03] MEDS: Ibuprofen TAB* 600 MG PO PRN (01:25)
[2019-09-03] MEDS: tiZANidine TAB* 2 MG PO SCH ×3 (07:26→17:50)
[2019-09-03] MEDS: Gabapentin CAP(*) 100 MG PO SCH ×2 (08:40→20:51)
[2019-09-03] MEDS: Aspirin 81 mg CHEW TAB* 81 MG TAB.CHEW PO SCH (08:41)
[2019-09-03] MEDS: Mometasone/Formoter 200/5 MDI INH SCH ×2 (08:41→20:55)
[2019-09-03] MEDS: Atenolol TAB* 50 MG PO SCH (08:41)
[2019-09-03] MEDS: Pantoprazole TAB * 40 MG TAB PO SCH (08:41)
[2019-09-03] MEDS: Divalproex DR TAB(*) 500 MG PO SCH ×2 (08:41→20:51)
[2019-09-03] MEDS: Vitamin THERAPEUTIC TAB PO SCH (08:41)
[2019-09-03] MEDS: Fluticasone NASAL SPRAY 50MCG* 16 gm SPRAY BTL BOTH NARES SCH ×2 (08:43→20:54)
[2019-09-03] MEDS ORDERED: Divalproex DR TAB(*) 250 MG PO ONE (10:13)
[2019-09-03] MEDS ORDERED: Divalproex ER TAB(*) 250 MG ONE (10:31)
[2019-09-03] MEDS: clonazePAM TAB(*) 1 MG PO SCH ×2 (10:41→20:53)
[2019-09-03] MEDS: Nicotine* 4MG (FRUIT FLAVOR) GUM PO PRN ×3 (11:02→18:14)
[2019-09-03] MEDS: Magnesium Oxide TAB* 400 MG PO SCH (12:44)
[2019-09-03] MEDS: Lurasidone(*) 120 MG TAB PO SCH (17:51)
[2019-09-03] MEDS: Acetaminophen TAB* 325 MG PO PRN (19:05)
[2019-09-03] MEDS: Atorvastatin* 20 MG TAB PO SCH (20:51)
[2019-09-04] MEDS: Acetaminophen TAB* 325 MG PO PRN ×3 (02:37→20:45)
[2019-09-04] MEDS: tiZANidine TAB* 2 MG PO SCH ×4 (02:55→17:44)
[2019-09-04] MEDS: Al Hydrox/Mg Hydrox/Simet LIQ* 30 ML UDC PO PRN (06:52)
[2019-09-04] MEDS: Gabapentin CAP(*) 100 MG PO SCH ×2 (09:00→20:44)
[2019-09-04] MEDS: Divalproex DR TAB(*) 250 MG PO SCH (09:00)
[2019-09-04] MEDS: Aspirin 81 mg CHEW TAB* 81 MG TAB.CHEW PO SCH (09:01)
[2019-09-04] MEDS: Vitamin THERAPEUTIC TAB PO SCH (09:01)
[2019-09-04] MEDS: clonazePAM TAB(*) 1 MG PO SCH ×2 (09:01→20:42)
[2019-09-04] MEDS: Pantoprazole TAB * 40 MG TAB PO SCH (09:01)
[2019-09-04] MEDS: Fluticasone NASAL SPRAY 50MCG* 16 gm SPRAY BTL BOTH NARES SCH ×2 (09:02→20:47)
[2019-09-04] MEDS: Mometasone/Formoter 200/5 MDI INH SCH ×2 (09:02→21:46)
[2019-09-04] MEDS: Atenolol TAB* 50 MG PO SCH (09:02)
[2019-09-04] MEDS: Nicotine* 4MG (FRUIT FLAVOR) GUM PO PRN ×3 (09:08→17:47)
--- NOTE | 2019-09-04 10:33 | PN ---
Subjective - Subjective Date of Service: 09/04/19 Service Type: 36218 Hosp care 25 min moderate complexity Subjective: 09/02: Patient slept approx total of 1-2 hours per noc staff. Ceo & Board Director spoke with Dr Mccoy, pain specialist in regards to patient's nerve conduction study. Dr Mccoy clarifies that Samreen was referred for such by Dr Shell due to left leg pain, that after the study she will be referred back to Dr Shell, which may include an injection but will depend on conduction study. Dr Mccoy recommends that the patient follow up with her after discharge from [facility] and that availability should not be problematic. Ceo & Board Director spoke with patient's sister, Ángela. She endorses her sister to be very manic and paranoid. She states that Samreen has expressed thoughts that everyone , including family members and hospital providers, are conspiring against her. Ángela states that Samreen and "Dorota" have had difficulty following through on setting up above appointments for months due to Samreen's disorganized state. We reviewed medications and changes made thus far. Ángela states that Samreen has been taking clonazepam regularly for years. While hospitalized, she has been afforded prn clonazepam without much use. Ángela informed that this medicine will switch to scheduled dosing. She states appreciation for conversation and treatment of her sister. 09/03: According to staff, patient slept approx 4-5 hours total. Patient perceives that she slept approx 7 hours. Patient reports speaking with booster pump oiler this morning and that he agreed with her that it was unjustifiable and illegal that appt with pain clinic was changed. Patient did not have such conversation, rather she spoke to UR RN without back and forth speaking. Ceo & Board Director attempts to clarify various answers to her questions and is met with overtalkativeness and tangential speech. Patient accuses telegraphic typewriter mechanic of not listening and "gaslighting." Objective - General Observations Appearance: Well Groomed Stature: Overweight Posture: WNL Eye Contact: Intense Behavior/Activity: Accelerated - Interaction Observations Attitude Towards Examiner: Cooperative, Defensive, Manipulative Stated Mood: Irritable, Anxious Affect: Labile Speech Pattern/Tone: Excessive, Pressured, Perseverating, Quiet Volume Thought Process: Loose Associations, Tangential, Circumstantial, Over Inclusive Perception: WNL Thought Content: Preoccupation/Ruminations, Paranoid, Grandiose Thought Process: Lethality: Paranoid Ideation Hallucination Type: Denies Delusion Type: Persecution, Grandeur - Cognitive Function Orientation: A&O x 4 Level of Consciousness: Alert Cognition: Impaired Attention/Concentration Estimated Intelligence: Normal Insight: Difficulty Acknowledging Presence of Psyciatric Problems Judgment Within Normal Limits: No Ability to Make Reasonable Decisions: Serverely Impaired - Medication Compliance Cooperative with Inpatient Medication Regimen: Yes - Group Participation Participates in Group Activities: Yes Assessment - Assessment Merits Inpatient Hospitalization: For Immediate Safety, For Stabilization Inpatient DSM-V Dx: F31.64 Clinical Impression: 68yo wf, domiciled, disabled with history of bipolar I disorder who presented to ED after an appointment with her outpatient therapist due to suicidal ideation with plans. She had been drinking alcohol prior to arrival, as well. She is tolerating medication changes and continues to merit hospitalization for immediate safety and stabilization. Patient has submitted court request for retention. Plan - Plan Treatment Plan: Name: SAMREEN CAMPO Birthdate: 1950 [id number] continue acute intensive psychiatric treatment. may decrease to q30min and allow staff pass. converted to 2pc status increase lurasidone to 120mg daily. continue other meds as ordered. discharge to include outpatient providers and [facility]. valproic acid level on 08/30/[address] of [address] request for retention. TC court on september 08. Continued Medication Management: Start Medication Medications: Current Medications Acetaminophen (Tylenol Tab*) 650 mg PO Q4H PRN PRN Reason: PAIN or TEMP > 101 F Last Admin: 09/04/19 06:51 Dose: 650 mg Al Hydrox/Mg Hydrox/Simethicone (Maalox Plus*) 30 ml PO Q4H PRN PRN Reason: INDIGESTION Last Admin: 09/04/19 06:52 Dose: 30 ml Albuterol (Ventolin Hfa Inhaler*) 2 puff INH Q4H PRN PRN Reason: SOB/WHEEZING Aspirin (Aspirin 81 Mg Chew Tab*) 81 mg PO QAM [facility] Last Admin: 09/04/19 09:01 Dose: 81 mg Atenolol (Tenormin Tab*) 50 mg PO QAM [facility] Last Admin: 09/04/19 09:02 Dose: 50 mg Atorvastatin Calcium (Lipitor*) 20 mg PO BEDTIME [facility] Last Admin: 09/03/19 20:51 Dose: 20 mg Clonazepam (Klonopin Tab(*)) 1 mg PO BID [facility] Last Admin: 09/04/19 09:01 Dose: 1 mg Divalproex Sodium (Depakote Dr Tab(*)) 1,000 mg PO BEDTIME [facility] Last Admin: 09/03/19 20:51 Dose: 1,000 mg Divalproex Sodium (Depakote Dr Tab(*)) 750 mg PO DAILY [facility] Last Admin: 09/04/19 09:00 Dose: 750 mg Fluticasone Propionate (Flonase Nasal [place] 50mcg*) 1 spray BOTH NARES BID [facility] Last Admin: 09/04/19 09:02 Dose: 1 spray Gabapentin (Neurontin Cap(*)) 200 mg PO BID [facility] Last Admin: 09/04/19 09:00 Dose: 200 mg Ibuprofen (Motrin Tab*) 600 mg PO Q8H PRN PRN Reason: PAIN - MILD Last Admin: 09/03/19 01:25 Dose: 600 mg Lurasidone HCl (Latuda) 120 mg PO 1700 [facility] Last Admin: 09/03/19 17:51 Dose: 120 mg Magnesium Oxide (Magox 400 Tab*) 400 mg PO DAILY@1200 [facility] Last Admin: 09/03/19 12:44 Dose: 400 mg Mometasone Furoate/Formoterol Fumar (Dulera 200/5 Mdi*) 2 puff INH BID [facility] Last Admin: 09/04/19 09:02 Dose: 2 puff Multivitamins (Theragran Tab*) 1 tab PO DAILY [facility] Last Admin: 09/04/19 09:01 Dose: 1 tab Nicotine Polacrilex (Nicotine Gum*) 4 mg PO Q2H PRN 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
[2019-09-04] MEDS: Magnesium Oxide TAB* 400 MG PO SCH (12:51)
--- NOTE | 2019-09-04 16:09 | PN ---
[facility]: Group Therapy Note - Service Type Service Type: [id number] Group Psychotherapy - Medication Education Group: Patient was attentive and participatory in group, and remained in good behavioral control. Patient expressed positive insights regarding relevant treatment interventions. Patient receptive to redirection when monopolizing group.
[2019-09-04] MEDS: Lurasidone(*) 120 MG TAB PO SCH (17:43)
[2019-09-04] MEDS: Ibuprofen TAB* 600 MG PO PRN (17:47)
[2019-09-04] MEDS: Atorvastatin* 20 MG TAB PO SCH (20:42)
[2019-09-04] MEDS: Divalproex DR TAB(*) 500 MG PO SCH (20:43)
[2019-09-05] MEDS: Nicotine* 4MG (FRUIT FLAVOR) GUM PO PRN ×4 (00:20→18:57)
[2019-09-05] MEDS: tiZANidine TAB* 2 MG PO SCH ×4 (00:20→18:31)
[2019-09-05] MEDS: Ibuprofen TAB* 600 MG PO PRN (00:50)
[2019-09-05] MEDS: Acetaminophen TAB* 325 MG PO PRN ×2 (09:01→20:18)
[2019-09-05] MEDS: Aspirin 81 mg CHEW TAB* 81 MG TAB.CHEW PO SCH (09:03)
[2019-09-05] MEDS: Divalproex DR TAB(*) 250 MG PO SCH (09:03)
[2019-09-05] MEDS: Pantoprazole TAB * 40 MG TAB PO SCH (09:03)
[2019-09-05] MEDS: Vitamin THERAPEUTIC TAB PO SCH (09:03)
[2019-09-05] MEDS: clonazePAM TAB(*) 1 MG PO SCH ×2 (09:03→20:19)
[2019-09-05] MEDS: Gabapentin CAP(*) 100 MG PO SCH ×2 (09:03→20:17)
[2019-09-05] MEDS: Fluticasone NASAL SPRAY 50MCG* 16 gm SPRAY BTL BOTH NARES SCH ×2 (09:04→20:20)
[2019-09-05] MEDS: Atenolol TAB* 50 MG PO SCH (09:04)
[2019-09-05] MEDS: Mometasone/Formoter 200/5 MDI INH SCH ×2 (09:05→20:21)
[2019-09-05] MEDS: Magnesium Oxide TAB* 400 MG PO SCH (12:48)
[2019-09-05] MEDS: Lurasidone(*) 120 MG TAB PO SCH (18:31)
[2019-09-05] MEDS: Atorvastatin* 20 MG TAB PO SCH (20:18)
[2019-09-05] MEDS: Divalproex DR TAB(*) 500 MG PO SCH (20:19)
[2019-09-06] MEDS: tiZANidine TAB* 2 MG PO SCH ×4 (00:40→18:21)
[2019-09-06] MEDS: Nicotine* 4MG (FRUIT FLAVOR) GUM PO PRN ×2 (00:40→14:53)
[2019-09-06] MEDS: Ibuprofen TAB* 600 MG PO PRN ×2 (00:40→14:53)
[2019-09-06] MEDS: chlorproMAZINE TAB* 100 MG PO PRN ×2 (00:40→10:17)
[2019-09-06] MEDS: Atenolol TAB* 50 MG PO SCH (08:41)
[2019-09-06] MEDS: Aspirin 81 mg CHEW TAB* 81 MG TAB.CHEW PO SCH (08:44)
[2019-09-06] MEDS: Gabapentin CAP(*) 100 MG PO SCH ×3 (08:44→20:26)
[2019-09-06] MEDS: Vitamin THERAPEUTIC TAB PO SCH (08:44)
[2019-09-06] MEDS: Pantoprazole TAB * 40 MG TAB PO SCH (08:45)
[2019-09-06] MEDS: Divalproex DR TAB(*) 250 MG PO SCH (08:46)
[2019-09-06] MEDS: clonazePAM TAB(*) 1 MG PO SCH ×3 (08:46→21:59)
[2019-09-06] MEDS: Mometasone/Formoter 200/5 MDI INH SCH ×2 (08:47→20:31)
[2019-09-06] MEDS: Fluticasone NASAL SPRAY 50MCG* 16 gm SPRAY BTL BOTH NARES SCH ×2 (08:47→20:31)
--- NOTE | 2019-09-06 10:54 | PN ---
Subjective - Subjective Date of Service: 09/06/19 Service Type: [id number] Hosp care 25 min moderate complexity Subjective: Patient is increasingly agitated and disorganized. She is sleeping approx 5 hours per night and not sleeping during the day. She has phoned police multiple times, as well as her significant other to demand to be transferred to [facility] in [place]. Her S.O. has phoned multiple times demanding that she be transferred. SW has been in communication with him but met with resistance. Patient tells senior technical writer that she has conversations with various staff members, police, and fire truck driver that agree she is being held against her will, illegally. She misunderstood the treatment plan review in that she is being taken to court to be transferred to a state mental institution. Cloud Automation Tester attempted to clarify reality-based information. She requests a different provider. Patient states she will shawn the hospital. Nursing is encouraged to utilize available prn medication. Cloud Automation Tester spoke with patient's sister, Ángela, and clarified treatment course. Apparently, Samreen told Ángela that [facility] [place] Sam[place]. Ángela notified of process that patient submitted a court request for retention and that court is scheduled for morning of monday, 09/08. Also, notified that the patient's staff pass is on hold per policy due to her court request and that the patient can rescind this request at any time. Ángela states that Samreen's daughter, Hyacinth has noted that her mother is more symptomatic than is previous episodes. Ángela was appreciative of information and looks forward to update from senior technical writer after court hearing. Objective - General Observations Appearance: Well Groomed Stature: Overweight Posture: Slumped Eye Contact: Intense Behavior/Activity: Impulsive, Agitated - Interaction Observations Attitude Towards Examiner: Defensive, Demanding, Manipulative, Mistrustful Stated Mood: Expansive Affect: Labile Speech Pattern/Tone: Excessive, Pressured Thought Process: Loose Associations, Tangential, Over Inclusive Perception: WNL Thought Content: Preoccupation/Ruminations, Paranoid, Grandiose Thought Process: Lethality: Paranoid Ideation Hallucination Type: Denies Delusion Type: Persecution, Grandeur, Somatic - Cognitive Function Orientation: A&O x 4 Level of Consciousness: Alert Cognition: Impaired Attention/Concentration Estimated Intelligence: Normal Insight: Difficulty Acknowledging Presence of Psyciatric Problems Judgment Within Normal Limits: No Ability to Make Reasonable Decisions: Serverely Impaired - Medication Compliance Cooperative with Inpatient Medication Regimen: Yes - Group Participation Participates in Group Activities: Partial Assessment - Assessment Merits Inpatient Hospitalization: For Immediate Safety, For Stabilization, Consolidate Improvements Inpatient DSM-V Dx: F31.64 Clinical Impression: 68yo wf, domiciled, disabled with history of bipolar I disorder who presented to ED after an appointment with her outpatient therapist due to suicidal ideation with plans. She had been drinking alcohol prior to arrival, as well. She is tolerating medication changes and continues to merit hospitalization for immediate safety and stabilization. Patient has submitted court request for retention. Plan - Plan Treatment Plan: Name: SAMREEN CAMPO Birthdate: 1950 [id number] continue acute intensive psychiatric treatment. may decrease to q30min. Staff pass on hold due to court request. converted to 2pc status increase clonazepam to 1mg TID for ed; increase gabapentin to 200mg TID for pain; continue other meds as ordered. discharge to include outpatient providers. valproic acid level on 08/30/19 of 89.0. Repeat level on 09/08/19 due to dose increase. Patient submitted court request for retention. TC court on september 08. Continued Medication Management: Start Medication Medications: Current Medications Acetaminophen (Tylenol Tab*) 650 mg PO Q4H PRN PRN Reason: PAIN or TEMP > 101 F Last Admin: 09/05/19 20:18 Dose: 650 mg Al Hydrox/Mg Hydrox/Simethicone (Maalox Plus*) 30 ml PO Q4H PRN PRN Reason: INDIGESTION Last Admin: 09/04/19 06:52 Dose: 30 ml Albuterol (Ventolin Hfa Inhaler*) 2 puff INH Q4H PRN PRN Reason: SOB/WHEEZING Aspirin (Aspirin 81 Mg Chew Tab*) 81 mg PO QAM [facility] Last Admin: 09/06/19 08:44 Dose: 81 mg Atenolol (Tenormin Tab*) 50 mg PO QAM [facility] Last Admin: 09/06/19 08:41 Dose: 50 mg Atorvastatin Calcium (Lipitor*) 20 mg PO BEDTIME [facility] Last Admin: 09/05/19 20:18 Dose: 20 mg Chlorpromazine HCl (Thorazine Tab*) 100 mg PO Q6H PRN PRN Reason: agitation/anxiety Last Admin: 09/06/19 10:17 Dose: 100 mg Clonazepam (Klonopin Tab(*)) 1 mg PO TID [facility] Divalproex Sodium (Depakote Dr Tab(*)) 1,000 mg PO BEDTIME [facility] Last Admin: 09/05/19 20:19 Dose: 1,000 mg Divalproex Sodium (Depakote Dr Tab(*)) 750 mg PO DAILY [facility] Last Admin: 09/06/19 08:46 Dose: 750 mg Fluticasone Propionate (Flonase Nasal [place] 50mcg*) 1 spray BOTH NARES BID [facility] Last Admin: 09/06/19 08:47 Dose: Not Given Gabapentin (Neurontin Cap(*)) 200 mg PO TID [facility] Ibuprofen (Motrin Tab*) 600 mg PO Q8H PRN PRN Reason: PAIN - MILD Last Admin: 09/06/19 00:40 Dose: 600 mg Lurasidone HCl (Latuda) 120 mg PO 1700 [facility] Last Admin: 09/05/19 18:31 Dose: 120 mg Magnesium Oxide (Magox 400 Tab*) 400 mg PO DAILY@1200 [facility] Last Admin: 09/05/19 12:48 Dose: 400 mg Mometasone Furoate/Formoterol Fumar (Dulera 200/5 Mdi*) 2 puff INH BID [facility] Last Admin: 09/06/19 08:47 Dose: Not Given Multi-Ingredient Mouthwash/Gargle (Biotene Dry Mouth Oral Rinse(Nf)) 15 ml MT FIVE TIMES DAILY [facility] Multivitamins (Theragran Tab*) 1 tab PO DAILY [facility] Last Admin: 09/06/19 08:44 Dose: 1 tab Nicotine Polacrilex (Nicotine Gum*) 4 mg PO Q2H PRN 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
[2019-09-06] MEDS: Oral Rinse (Biotene)(NF) 237 ML or 473 ML ORAL RINSE BTL MT SCH ×4 (11:31→23:04)
[2019-09-06] MEDS: Magnesium Oxide TAB* 400 MG PO SCH (12:42)
[2019-09-06] MEDS: Lurasidone(*) 120 MG TAB PO SCH (18:20)
[2019-09-06] MEDS: Atorvastatin* 20 MG TAB PO SCH (20:27)
[2019-09-06] MEDS: Divalproex DR TAB(*) 500 MG PO SCH (20:29)
[2019-09-06] MEDS ORDERED: Haloperidol TAB* 5 MG PO ONE (22:30)
[2019-09-06] MEDS ORDERED: diPHENhydraMINE PO* 50 MG PO ONE (22:30)
[2019-09-06] MEDS ORDERED: Haloperidol TAB* 5 MG ONE (22:32)
[2019-09-06] MEDS ORDERED: diPHENhydraMINE PO* 50 MG ONE (22:33)
[2019-09-07] MEDS: tiZANidine TAB* 2 MG PO SCH ×5 (06:24→16:58)
[2019-09-07] MEDS: Oral Rinse (Biotene)(NF) 237 ML or 473 ML ORAL RINSE BTL MT SCH ×5 (06:50→20:32)
[2019-09-07] MEDS: Ibuprofen TAB* 600 MG PO PRN (07:07)
[2019-09-07] MEDS: Nicotine* 4MG (FRUIT FLAVOR) GUM PO PRN ×3 (07:10→21:54)
[2019-09-07] MEDS: risperiDONE-M * 1 MG TAB.ORADIS PO PRN ×2 (07:31→22:45)
[2019-09-07] MEDS: Vitamin THERAPEUTIC TAB PO SCH (09:24)
[2019-09-07] MEDS: Gabapentin CAP(*) 100 MG PO SCH ×3 (09:24→20:27)
[2019-09-07] MEDS: Pantoprazole TAB * 40 MG TAB PO SCH (09:25)
[2019-09-07] MEDS: Aspirin 81 mg CHEW TAB* 81 MG TAB.CHEW PO SCH (09:25)
[2019-09-07] MEDS: clonazePAM TAB(*) 1 MG PO SCH ×3 (09:25→20:26)
[2019-09-07] MEDS: Divalproex DR TAB(*) 250 MG PO SCH (09:26)
[2019-09-07] MEDS: Atenolol TAB* 50 MG PO SCH (09:26)
[2019-09-07] MEDS: Mometasone/Formoter 200/5 MDI INH SCH ×2 (09:28→20:30)
[2019-09-07] MEDS: Fluticasone NASAL SPRAY 50MCG* 16 gm SPRAY BTL BOTH NARES SCH ×2 (09:28→20:28)
[2019-09-07] MEDS: Magnesium Oxide TAB* 400 MG PO SCH (12:40)
[2019-09-07] MEDS: Acetaminophen TAB* 325 MG PO PRN (13:41)
[2019-09-07] MEDS: Al Hydrox/Mg Hydrox/Simet LIQ* 30 ML UDC PO PRN (14:55)
[2019-09-07] MEDS: Lurasidone(*) 120 MG TAB PO SCH (16:58)
[2019-09-07] MEDS: Atorvastatin* 20 MG TAB PO SCH (20:26)
[2019-09-07] MEDS: Divalproex DR TAB(*) 500 MG PO SCH (20:27)
[2019-09-08] MEDS: tiZANidine TAB* 2 MG PO SCH ×4 (00:30→21:01)
[2019-09-08] MEDS: Ibuprofen TAB* 600 MG PO PRN ×2 (01:56→17:57)
[2019-09-08] MEDS: Mometasone/Formoter 200/5 MDI INH SCH ×2 (09:08→21:01)
[2019-09-08] MEDS: Gabapentin CAP(*) 100 MG PO SCH ×3 (09:08→21:01)
[2019-09-08] MEDS: Fluticasone NASAL SPRAY 50MCG* 16 gm SPRAY BTL BOTH NARES SCH ×2 (09:08→21:01)
[2019-09-08] MEDS: Pantoprazole TAB * 40 MG TAB PO SCH (09:09)
[2019-09-08] MEDS: Vitamin THERAPEUTIC TAB PO SCH (09:09)
[2019-09-08] MEDS: Aspirin 81 mg CHEW TAB* 81 MG TAB.CHEW PO SCH (09:09)
[2019-09-08] MEDS: Atenolol TAB* 50 MG PO SCH (09:10)
[2019-09-08] MEDS: Divalproex DR TAB(*) 250 MG PO SCH (09:10)
[2019-09-08] MEDS: clonazePAM TAB(*) 1 MG PO SCH ×3 (09:11→21:02)
[2019-09-08] MEDS: Nicotine* 4MG (FRUIT FLAVOR) GUM PO PRN ×4 (09:17→21:07)
[2019-09-08] MEDS: Oral Rinse (Biotene)(NF) 237 ML or 473 ML ORAL RINSE BTL MT SCH ×4 (10:30→21:38)
[2019-09-08] MEDS: Magnesium Oxide TAB* 400 MG PO SCH (12:47)
[2019-09-08] MEDS: Acetaminophen TAB* 325 MG PO PRN ×2 (13:54→21:49)
[2019-09-08] MEDS: Lurasidone(*) 120 MG TAB PO SCH (17:56)
[2019-09-08] MEDS: Divalproex DR TAB(*) 500 MG PO SCH (21:02)
[2019-09-08] MEDS: Atorvastatin* 20 MG TAB PO SCH (21:03)
[2019-09-08] MEDS: risperiDONE-M * 1 MG TAB.ORADIS PO PRN (21:05)
[2019-09-08] MEDS: Al Hydrox/Mg Hydrox/Simet LIQ* 30 ML UDC PO PRN (22:05)
[2019-09-09] MEDS: tiZANidine TAB* 2 MG PO SCH ×4 (01:00→17:42)
[2019-09-09] MEDS: Ibuprofen TAB* 600 MG PO PRN ×2 (01:00→13:08)
[2019-09-09] MEDS: Acetaminophen TAB* 325 MG PO PRN ×3 (02:00→20:57)
[2019-09-09] MEDS: Nicotine* 4MG (FRUIT FLAVOR) GUM PO PRN ×4 (05:35→17:40)
[2019-09-09] MEDS: Aspirin 81 mg CHEW TAB* 81 MG TAB.CHEW PO SCH (09:05)
[2019-09-09] MEDS: Pantoprazole TAB * 40 MG TAB PO SCH (09:05)
[2019-09-09] MEDS: Gabapentin CAP(*) 100 MG PO SCH ×3 (09:05→21:01)
[2019-09-09] MEDS: Atenolol TAB* 50 MG PO SCH (09:05)
[2019-09-09] MEDS: Vitamin THERAPEUTIC TAB PO SCH (09:05)
[2019-09-09] MEDS: clonazePAM TAB(*) 1 MG PO SCH ×3 (09:06→21:00)
[2019-09-09] MEDS ORDERED: Divalproex ER TAB(*) 500 MG ONE (09:08)
[2019-09-09] MEDS: Divalproex DR TAB(*) 250 MG PO SCH (09:09)
[2019-09-09] MEDS: Fluticasone NASAL SPRAY 50MCG* 16 gm SPRAY BTL BOTH NARES SCH ×2 (09:10→21:04)
[2019-09-09] MEDS: Mometasone/Formoter 200/5 MDI INH SCH ×2 (09:11→21:04)
[2019-09-09] MEDS: Oral Rinse (Biotene)(NF) 237 ML or 473 ML ORAL RINSE BTL MT SCH ×5 (10:10→22:23)
[2019-09-09] MEDS: Magnesium Oxide TAB* 400 MG PO SCH (13:07)
--- NOTE | 2019-09-09 16:16 | PN ---
Subjective - Subjective Date of Service: 09/09/19 Service Type: [id number] Hosp care 25 min moderate complexity Subjective: patient is noted to have improved behavioral control and is less intrusive, no mood lability noted. She reports some improvement in sleep and attributes waking frequently to leg cramps. She states leg cramps are less painful than before. She is less tangential but tends to be over-inclusive. She has poor insight into conversations with others. She is encouraged to exhibit adequate sleep at night as indicator for readiness for discharge. Objective - General Observations Appearance: Well Groomed Stature: Overweight Posture: WNL Eye Contact: Average Behavior/Activity: Slowed - Interaction Observations Attitude Towards Examiner: Cooperative, Manipulative Stated Mood: Euthymic, Anxious Affect: Blunted Speech Pattern/Tone: Normal Volume, Excessive Thought Process: Circumstantial Perception: WNL Thought Content: Preoccupation/Ruminations Hallucination Type: Denies Delusion Type: Denies - Cognitive Function Orientation: A&O x 4 Level of Consciousness: Alert Cognition: Impaired Attention/Concentration Estimated Intelligence: Normal Insight: Mostly Blames Others for Problems Judgment Within Normal Limits: No Ability to Make Reasonable Decisions: Moderately Impaired - Medication Compliance Cooperative with Inpatient Medication Regimen: Yes - Group Participation Participates in Group Activities: Partial Assessment - Assessment Merits Inpatient Hospitalization: For Immediate Safety, For Stabilization, For Discharge Planning, Pending Safe DC Plan Inpatient DSM-V Dx: F31.64 Clinical Impression: 68yo wf, domiciled, disabled with history of bipolar I disorder who presented to ED after an appointment with her outpatient therapist due to suicidal ideation with plans. She had been drinking alcohol prior to arrival, as well. She is tolerating medication changes and continues to merit hospitalization for immediate safety and stabilization. Patient has rescinded the court request for retention. Plan - Plan Treatment Plan: Name: BEATRICE CAMPO Birthdate: 1950 [id number] continue acute intensive psychiatric treatment. may decrease to q30min and allow staff pass. converted to 2pc status Thorazine DC'd per patient refusal and agreement to utilize risperidone prn agitation. valproic acid level on 08/30/19 of 89.0. Repeat level on 09/08/19 (after dose increase) of 114.0-- AM dose decreased to 500mg. Patient rescinded court request on late afternoon of 3/20/20. Continued Medication Management: Start Medication Medications: Current Medications Acetaminophen (Tylenol Tab*) 650 mg PO Q4H PRN PRN Reason: PAIN or TEMP > 101 F Last Admin: 09/09/19 05:35 Dose: 650 mg Al Hydrox/Mg Hydrox/Simethicone (Maalox Plus*) 30 ml PO Q4H PRN PRN Reason: INDIGESTION Last Admin: 09/08/19 22:05 Dose: 30 ml Albuterol (Ventolin Hfa Inhaler*) 2 puff INH Q4H PRN PRN Reason: SOB/WHEEZING Last Admin: 09/07/19 06:57 Dose: 2 puff Aspirin (Aspirin 81 Mg Chew Tab*) 81 mg PO QAM [facility] Last Admin: 09/09/19 09:05 Dose: 81 mg Atenolol (Tenormin Tab*) 50 mg PO [facility] Last Admin: 09/09/19 09:05 Dose: 50 mg Atorvastatin Calcium (Lipitor*) 20 mg PO BEDTIME [facility] Last Admin: 09/08/19 21:03 Dose: 20 mg Clonazepam (Klonopin Tab(*)) 1 mg PO TID [facility] Last Admin: 09/09/19 13:09 Dose: 1 mg Divalproex Sodium (Depakote Dr Tab(*)) 1,000 mg PO BEDTIME [facility] Last Admin: 09/08/19 21:02 Dose: 1,000 mg Divalproex Sodium (Depakote Dr Tab(*)) 500 mg PO DAILY [facility] Fluticasone Propionate (Flonase Nasal [place] 50mcg*) 1 spray BOTH NARES BID [facility] Last Admin: 09/09/19 09:10 Dose: 1 spray Gabapentin (Neurontin Cap(*)) 200 mg PO TID [facility] Last Admin: 09/09/19 13:08 Dose: 200 mg Ibuprofen (Motrin Tab*) 600 mg PO Q8H PRN PRN Reason: PAIN - MILD Last Admin: 09/09/19 13:08 Dose: 600 mg Lurasidone HCl (Latuda) 120 mg PO 1700 [facility] Last Admin: 09/08/19 17:56 Dose: 120 mg Magnesium Oxide (Magox 400 Tab*) 400 mg PO DAILY@1200 [facility] Last Admin: 09/09/19 13:07 Dose: 400 mg Mometasone Furoate/Formoterol Fumar (Dulera 200/5 Mdi*) 2 puff INH BID [facility] Last Admin: 09/09/19 09:11 Dose: 2 puff Multi-Ingredient Mouthwash/Gargle (Biotene Dry Mouth Oral Rinse(Nf)) 15 ml MT FIVE TIMES DAILY [facility] Last Admin: 09/09/19 13:59 Dose: Not Given Multivitamins (Theragran Tab*) 1 tab PO DAILY [facility] Last Admin: 09/09/19 09:05 Dose: 1 tab Nicotine Polacrilex (Nicotine Gum*) 4 mg PO Q2H PRN 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 Last Admin: 09/09/19 13:10 Dose: 4 mg Pantoprazole Sodium (Protonix Tab*) 40 mg PO DAILY [facility] Last Admin: 09/09/19 09:05 Dose: 40 mg Polyethylene Glycol/Electrolytes (Miralax (17 Gm Dose [place])) 17 gm PO DAILY PRN PRN Reason: CONSTIPATION Last Admin: 08/28/19 21:50 Dose: 17 gm Risperidone (Risperdal-M Tab *) 1 mg PO BID PRN; Protocol PRN Reason: AGITATION/INSOMNIA Last Admin: 09/08/19 21:05 Dose: 1 mg Senna (Senokot 8.6 Mg Tab*) 1 tab PO BEDTIME PRN PRN Reason: CONSTIPATION Last Admin: 09/02/19 20:45 Dose: 1 tab Tizanidine HCl (Zanaflex Tab*) 2 mg PO Q6H [facility] Last Admin: 09/09/19 13:07 Dose: 2 mg - Discharge Plan Discharge Plan: Inpatient Hospitalization
[2019-09-09] MEDS: Lurasidone(*) 120 MG TAB PO SCH (17:23)
[2019-09-09] MEDS: Divalproex DR TAB(*) 500 MG PO SCH (20:59)
[2019-09-09] MEDS: Atorvastatin* 20 MG TAB PO SCH (21:00)
[2019-09-09] MEDS: risperiDONE-M * 1 MG TAB.ORADIS PO PRN (21:05)
[2019-09-10] MEDS: tiZANidine TAB* 2 MG PO SCH ×3 (01:11→13:27)
[2019-09-10] MEDS: Ibuprofen TAB* 600 MG PO PRN ×2 (01:13→12:58)
[2019-09-10] MEDS: Acetaminophen TAB* 325 MG PO PRN (06:33)
[2019-09-10] MEDS: Oral Rinse (Biotene)(NF) 237 ML or 473 ML ORAL RINSE BTL MT SCH ×3 (06:35→15:26)
[2019-09-10] MEDS: clonazePAM TAB(*) 1 MG PO SCH ×2 (08:58→13:26)
[2019-09-10] MEDS: Aspirin 81 mg CHEW TAB* 81 MG TAB.CHEW PO SCH (08:58)
[2019-09-10] MEDS: Atenolol TAB* 50 MG PO SCH (08:58)
[2019-09-10] MEDS: Gabapentin CAP(*) 100 MG PO SCH ×2 (09:00→13:25)
[2019-09-10] MEDS: Pantoprazole TAB * 40 MG TAB PO SCH (09:00)
[2019-09-10] MEDS: Vitamin THERAPEUTIC TAB PO SCH (09:00)
[2019-09-10] MEDS ORDERED: Divalproex DR TAB(*) 250 MG PO SCH (09:00)
[2019-09-10] MEDS: Nicotine* 4MG (FRUIT FLAVOR) GUM PO PRN ×2 (09:06→13:00)
[2019-09-10] MEDS: Fluticasone NASAL SPRAY 50MCG* 16 gm SPRAY BTL BOTH NARES SCH (09:08)
[2019-09-10] MEDS: Mometasone/Formoter 200/5 MDI INH SCH (09:09)
[2019-09-10 10:02] VITALS: BP 134/60
[2019-09-10] MEDS: Magnesium Oxide TAB* 400 MG PO SCH (12:58)
--- NOTE | 2019-09-11 16:53 | DS ---
CC: [facility]; Dr. Mccoy; Dr. Musa* DISCHARGE SUMMARY: DATE OF ADMISSION: 08/24/19 DATE OF DISCHARGE: 09/10/19 SUPERVISING PSYCHIATRIST: Dr. Gilbert Padgett* (dictated by LINK Ho) . DISCHARGE DIAGNOSIS: Bipolar 1 disorder, most recent episode manic with psychotic features. CONDITION AT THE TIME OF DISCHARGE: Improved. The patient is euthymic with congruent affect. She is well related. She reports sleeping well approximately 5 to 7 hours the previous night. She has been safe and in behavioral control. She denies suicidal ideation or paranoid ideation. She has much improved mood, thought, and thought processes. Her most recent valproic acid level was 114 on the morning of 09/08/19, but then decreased the morning dose back to 500 mg and continued 1000 mg at bedtime. She had been using risperidone p.r.n. for agitation and Latuda was titrated to 120 mg. The patient has stabilized in this structured setting. She is pleasant and cooperative. She advocates for discharge, citing desire to return to her home and usual surroundings. She reports she will likely be able to sleep better at home. The patient agrees with discharge planning including above medications as well as following through with providers at [facility]. Social Work spoke with [facility] to discuss followup phone appointments due to current CDC pandemic recommendations. The patient's significant other and sister were in agreement with discharge plan and noted she was much improved at the time of discharge. The patient is discharged to home. MENTAL STATUS EXAM: Samreen is a 68-year-old white female who appears stated age. She is well groomed, casually dressed in her own clothing and her hair and makeup are meticulously done. She is sitting in chair with adequate posture. She is cooperative, pleasant. She is alert and oriented x3. Eye contact is good. Speech is soft and spontaneous. Concentration fair, improved. Memory 3/ 3. Mood is euthymic with bright affect. No abnormal psychomotor activity noted. Thought process is logical, goal directed, and coherent. Thought content is negative for SI, HI, or passive wish. She denies paranoid ideation. She denies auditory or visual hallucinations. Insight and judgment are fair, improved. She appears to have an average intellect and her fund of knowledge is adequate. INSTRUCTIONS GIVEN TO PATIENT: Vicki Medications: 1. Clonazepam 1 mg p.o. b.i.d. p.r.n. anxiety. 2. Depakote DR 500 mg p.o. q.a.m. 3. Depakote DR 1000 mg p.o. at bedtime. 4. Gabapentin 200 mg p.o. t.i.d. 5. Lurasidone 120 mg p.o. at dinner. 6. Nicotine gum q.2 hours p.r.n. craving. B. Diet: Regular. C. Activity: Ambulation as tolerated. Tobacco cessation was provided to patient. There are no pending labs or diagnostic studies. As stated above, her most recent valproic acid level on current dose was 114 and then we decreased the dose to 500 mg and 1000 mg at bedtime. Previous valproic acid level on that regimen was 89. D. Followup care: The patient will return to [facility]. She was referred to Dr. Mccoy for a nerve conduction study. The office preferred to call the patient to discuss an appointment after she is home. She can return to her primary care provider, Dr. Musa, who also preferred that the office call the patient at home to setup an appointment. The patient was also given information about her appointment with physical therapist, Andrew Dennis. She was given information about the [facility] couples therapy options and [facility]. Mike. Substance use followup is not applicable. HOSPITAL COURSE: Part A: Reason for admission: The patient came to the ED on the evening of 08/23/19 on the advise of her outpatient psychotherapist , Polly Hernández, to whom she had reported suicidal thoughts. On interview with her and admitting psychiatrist, the patient reported considering herself by asphyxiation from car exhaust or cutting deeply to exsanguinate. She was unable to state clearly that she would be safe from acting on these thoughts, but instead gave report that she did not indicate she would certainly be safe as she went home. In fact, she and her partner spoke of pursuing admission to another psychiatric unit in [place], [place], for safety and medication adjustment. They reported having been told that she could be transferred by ambulance from [facility] where she wanted to go because she felt she was mistreated during her last examination to this unit. Of note, this was a little over 6 years ago. The patient was hyperverbal and tangential with poor historical account. Separate from being interviewed with her partner , she reported that her partner is often confrontational with medical providers. She reported wanting to go to [facility] because they do yoga there. She reported that her partner has OCD traits, is very controlling, but never violent. She states the more she is out of control as when she is manic, the more he exerts "crushing control" over her. The patient has been seen by Dr. Jarvis at [facility], who will be leaving the clinic and the patient will be transferred to the care of Dr. Maher. On interview in the early afternoon of 08/24/19, the patient was tangential and most of her reports into her preoccupation with the situation was custody of her 3- year-old grandson, the son of her oldest son, Gerard, who she reports has endocarditis contracted through IV heroin use. She is tearful through much of the interview. She is difficult to redirect due to her goal of expressing her frustration, anger, and sadness and not being allowed to see her grandson, Abdoulaye. She says that she has a restraining order taken out by a [id number] , Adina, of her middle son, Juan C, who have filed papers to adopt Abdoulaye. Abdoulaye's mother is likely due to drug overdose. Peyman, the patient's middle son and his are attorneys. When asked if she is suicidal, the patient replies that she might not be after the 09/04/[address] hearing about this restraining order and custody issues implying that a negative legal outcome might provoke higher risk of suicide. The patient reports history of lithium toxicity and was admitted to [facility] last month, taken off lithium and started on Depakote and Zyprexa. She reported parkinsonian symptoms that went away after stopping lithium. According to the patient and medical records, she reports past trials of lithium, Geodon which led to hair loss, Risperdal, Latuda "could not pay for it," Wellbutrin did well on that when taken with lithium, but reports being told by her neurologist it was contraindicated due to signs of seizure disorder such as abnormal EEG. Part B: Psychiatric treatment rendered: The patient was admitted to adult behavioral services unit on voluntary status. She was placed on 15-minute checks for her safety. She was encouraged to avail herself of all milieu activities including group and individual sessions. We reinstated her known outpatient medications and obtained an initial valproic acid level. On 08/25/19 , this was 48 indicating she was likely noncompliant. The patient submitted a 72-hour notice and within a day rescinded due to wanting to continue with treatment. On 08/26/19, the patient requested to meet while her sister, Ángela, who is a retired SALES AND MARKETING PROFESSIONAL as present. Samreen and Ángela were visiting during lunch and spoke with social media director, Bailee Dillon, and this information writer. In conversation, she was overinclusive and attended to information about family members while avoiding direct questions about herself. She continues to present as dysphoric, tearful, and perseverating on topic regarding custody of her grandson. She reiterates much information already provided to the admitting psychiatrist. In regards to symptomatology, she endorses being in a mixed manic state. She states she is experiencing sleep deprivation to the point of seeing hallucinations and endorses seeing spiders, cats, and lee moving continuing into the hospitalizations. She endorses labile mood and decreased memory. She dismisses the notion that any of the symptoms are related to alcohol abuse or withdrawal. She was notified of urine micro positive for E. coli. She states she tends to have explosive BMs due to previous bowel resection. We obtained midstream clean catch prior to starting the antibiotic. This micro specimen was negative. The patient reported that Latuda historically was not covered by insurance. She states that she does not like olanzapine due to weight gain. She reported history of sleeping well with use of diphenhydramine at bedtime. Throughout most of her hospitalization, she was labile with tangential speech. She reported visual hallucination on the feeling and auditory hallucination of music playing from the wheels of her walker. She endorsed being able to identify that those were symptoms and reality based. She agreed to change Depakote ER to DR and b.i.d. dosing and to increase the dose. She was circumstantial in regards to appointments that she had set up prior to hospitalization with the pain clinic. She was hopeful to be able to attend a nerve conduction test while hospitalized. Net Mvc Developer phoned the office of Dr. Mccoy and rescheduled the appointment for next week as the patient was not psychiatrically stable enough to leave the unit and it was uncertain if an outpatient test would be covered by insurance while she was inpatient. We discussed medication history. She reported severe TD symptoms with aripiprazole and ziprasidone. She also endorses alopecia and weight gain on currently prescribed Depakote and olanzapine. She states that she thought Latuda was not covered by insurance. Net Mvc Developer spoke with [facility] to clarify prior medication trials. Latuda was approved in April 2016. She was prescribed this briefly, but did not have a full therapeutic trial. We discontinued olanzapine and started lurasidone 40 mg daily with dinner. She tolerated this medication well. We eventually increased the dose to 120 mg. The patient presented as labile, grandiose with disorganized thoughts. She had asked multiple staff members about the pain clinic appointment that was rescheduled to next week. On 08/28/19 when I told her the appointment is on 09/03/19, she was disappointed and asked for a sooner one. When she was reoriented to today' s date, she was accepting. From there, she was circumstantial about court proceedings and pleating to be discharged. She rescinded her 72-hour notice. We obtained another valproic acid level on 08/30/19 denoted to be 89.0. Due to her presentation, we increased the dose to 750 mg in the morning and continued with 1000 mg at bedtime. She was not sleeping, but a few hours at night she was disorganized, hyperverbal, and hyper-graphic throughout the nightshift. She presented as irritable and labile. She referenced many times having seen neurologist, Dr. Martinez, and having 2 abnormal EEGs. She allowed information writer to reach out to Dr. Martinez. He had no further recommendations other than continuing to treat her manic episodes. She was increasingly demanding and irritable. She completed an MMPI which was noted to indicate ed along with strong personality disorder. She targeted information writer as being manipulative and hostile toward her. She accused information writer of gas lighting. She was given much information about treatment planning and rationale, but was dismissive of such due to her disorganized and paranoid state. She had perceptions of having conversations with many people who agreed with her various irritants; in reality , the patient would talk to many people, but would not allow a two-way conversation. housekeeping department worker kept in contact with family members, especially her daughter who is a nurse in [place]. Her daughter denoted that the patient was in manic state worse than has been in previous episodes. The patient was offered Thorazine as needed for agitation. She took the first dose with strong encouragement and consideration of needing an IM if she was not compliant due to her very agitated state. Later in the day, she pleasantly advocated for a different p.r.n. antipsychotic and agreed to use the risperidone. Over the next few days, the patient utilized this medication and continued taking her scheduled medications. She was noted to gain much improvement in the days prior to discharge. She continued to elicit triangulation among staff, this information writer. and family members, this is likely due to character pathology and not to acute manic episode. On day of discharge, the patient was informed that treatment team would like to discharge her the following day. She pleasantly and appropriately advocated to be considered for discharge that day. Net Mvc Developer reached out to her sister, who agreed with plan. housekeeping department worker spoke with outpatient providers and the patient's significant other. We hope that Samreen does well in the outpatient setting. LINK HO [id number]/[facility] #: [id number] [place]
== END 2019-09-10 16:05 | disposition home or self-care (01) | DRG 885 ==
LOC: ED 20:12 → BSU 08-24 01:44
PROVIDERS: ADMIT Psychiatry & Neurology Psychiatry; ATTEND Psychiatry & Neurology Psychiatry
DX: F31.2 Bipolar disorder, current episode manic severe with psychotic features (principal); R45.851 Suicidal ideations; F17.210 Nicotine dependence, cigarettes, uncomplicated; I10 Essential (primary) hypertension; E78.00 Pure hypercholesterolemia, unspecified; J44.9 Chronic obstructive pulmonary disease, unspecified; M54.30 Sciatica, unspecified side; I73.9 Peripheral vascular disease, unspecified; G40.909 Epilepsy, unspecified, not intractable, without status epilepticus; F60.9 Personality disorder, unspecified; K55.20 Angiodysplasia of colon without hemorrhage; F10.10 Alcohol abuse, uncomplicated; M54.9 Dorsalgia, unspecified; Y90.0 Blood alcohol level of less than 20 mg/100 ml; M79.89 Other specified soft tissue disorders; Z79.82 Long term (current) use of aspirin; Z79.899 Other long term (current) drug therapy; Z91.040 Latex allergy status; Z88.2 Allergy status to sulfonamides; Z91.048 Other nonmedicinal substance allergy status; Z81.1 Family history of alcohol abuse and dependence; Z81.3 Family history of other psychoactive substance abuse and dependence; Z91.14 Patient's other noncompliance with medication regimen
CPT/HCPCS: 36415; 80053; 80061; 80164; 80178; 80307; 80320; 80329; 81003; 81015; 83036; 84443; 85025; 87077; 87086; 87186; 90853; 99222; 99231; 99232; 99238; 99285; A9270-GY; G0480

== ENCOUNTER 2022-07-13 01:38 | Inpatient (IN) ==
[2022-07-13 02:08] LABS: ABS Eosinophils 0.2 10^3/ul (0-0.6); ABS Lymphocytes 2.8 10^3/ul (1.0-4.8); ABS Monocytes 0.7 10^3/ul (0-0.8); ABS Neutrophils 6.8 10^3/ul (1.5-7.7); Eosinophil % 2.1 %; Hematocrit 38 % (35-47); Hemoglobin 12.5 g/dL (12.0-16.0); Lymphocyte % 26.6 %; Mean Corpuscular HGB Conc 33 g/dL (31-36); Mean Corpuscular Hemoglobin 32 pg (27-31); Mean Corpuscular Volume 98 fL (80-97); Mean Platelet Volume 7.6 fL (7.4-10.4); Nucleated Red Blood Cells % 0.1; Platelet Count 239 10^3/uL (150-450); Red Blood Count 3.88 10^6 /uL (3.70-4.87); Red Cell Distribution Width 14 % (10-15); White Blood Count 10.5 10^3/uL (3.5-10.8)
[2022-07-13 03:04] LABS: Albumin 3.8 g/dL (3.2-5.2); CO2 Carbon Dioxide 23 mmol/L (22-32); Calcium 9.1 mg/dL (8.6-10.3); Chloride 110 mmol/L (101-111); Lithium 0.52 mmol/L (0.6-1.2); Sodium 137 mmol/L (135-145)
[2022-07-13 03:06] LABS: Anion Gap 4 mmol/L (2-11)
[2022-07-13 03:11] LABS: ALT 13 U/L (7-52); Acetaminophen < 15 mcg/mL; Alcohol, S < 13 mg/dL (<13); Alkaline Phosphatase 55 U/L (35-149); Blood Urea Nitrogen 9 mg/dL (6-24); Creatinine, Serum 0.67 mg/dL (0.51-0.95); Globulin 1.9 g/dL (2-4); Glucose 89 mg/dL (70-100); Salicylate < 2.50 mg/dL (<30); Total Protein 5.7 g/dL (6.4-8.9)
[2022-07-13 03:44] LABS: TSH Ultra Thyroid Stim Horm 2.94 mcIU/mL (0.34-5.60)
[2022-07-13 03:45] LABS: Potassium Redraw 3.4 mmol/L (3.5-5.0)
[2022-07-13 05:24] LABS: Urine Appearance Cloudy; Urine Bilirubin Negative (Negative); Urine Blood Negative (Negative); Urine Color Straw; Urine Glucose Negative (Negative); Urine Ketones Negative (Negative); Urine Nitrite Negative (Negative); Urine Protein Negative (Negative); Urine Specific Gravity 1.003 (1.002-1.030); Urine Urobilinogen Negative (Negative)
[2022-07-13 05:37] LABS: Urine Benzodiazepine Screen None Detected (None Detect); Urine Cannabinoids Screen None Detected (None Detect); Urine Opiates Screen None Detected (None Detect)
[2022-07-13 06:48] LABS: Urine Bacteria Absent (Absent); Urine Red Blood Cell Absent (Absent); Urine Squamous Epithelial Cell Present (Absent); Urine White Blood Cell Trace(0-5/hpf) (Absent)
[2022-07-13] MEDS ORDERED: Al Hydrox/Mg Hydrox/Simet LIQ 30 ML UDC PO PRN (13:23)
[2022-07-13] MEDS ORDERED: Polyethylene Glycol 3350 17 GM PACKET PO PRN (13:24)
[2022-07-13] MEDS ORDERED: Senna/Docusate 8.6/50 mg (NF) TAB PO PRN (13:26)
[2022-07-13] MEDS ORDERED: Senna TAB 8.6 mg TAB PO PRN (13:57)
[2022-07-13] MEDS ORDERED: Docusate LIQ 100 MG/10 ML UDC PO PRN (13:58)
[2022-07-13] MEDS: Fluticasone NASAL SPRAY 50MCG 16 gm SPRAY BTL BOTH NARES SCH (20:01)
[2022-07-14] MEDS: Cholecalciferol (VIT D3) 1,000 unit TAB PO SCH (09:09)
[2022-07-14] MEDS: Aspirin EC 81 mg TAB.EC (enteric coated) PO SCH (09:10)
[2022-07-14] MEDS: SPIRIVA Respimat (tiotropium) 2.5 mcg/inh Inhaler INH SCH (09:10)
[2022-07-14] MEDS: Fluticasone NASAL SPRAY 50MCG 16 gm SPRAY BTL BOTH NARES SCH ×2 (09:12→19:44)
[2022-07-15 00:19] VITALS: BP 135/70
[2022-07-15] MEDS: Cholecalciferol (VIT D3) 1,000 unit TAB PO SCH (08:38)
[2022-07-15] MEDS: Fluticasone NASAL SPRAY 50MCG 16 gm SPRAY BTL BOTH NARES SCH (08:56)
[2022-07-15] MEDS: SPIRIVA Respimat (tiotropium) 2.5 mcg/inh Inhaler INH SCH (08:56)
[2022-07-15] MEDS: Aspirin EC 81 mg TAB.EC (enteric coated) PO SCH (08:57)
== END 2022-07-15 13:15 | disposition home or self-care (01) | DRG 883 ==
LOC: ED 01:38 → BSU 13:09
PROVIDERS: ADMIT Psychiatry & Neurology Psychiatry; ATTEND Psychiatry & Neurology Psychiatry

== ENCOUNTER 2022-07-20 11:54 | Inpatient (IN) ==
[2022-07-20 12:46] LABS: ABS Basophils 0.1 10^3/ul (0-0.2); ABS Eosinophils 0.1 10^3/ul (0-0.6); ABS Lymphocytes 1.7 10^3/ul (1.0-4.8); ABS Monocytes 0.9 10^3/ul (0-0.8); ABS Neutrophils 12.8 10^3/ul (1.5-7.7); Eosinophil % 0.4 %; Hematocrit 42 % (35-47); Hemoglobin 14.1 g/dL (12.0-16.0); Lymphocyte % 11.2 %; Mean Corpuscular HGB Conc 33 g/dL (31-36); Mean Corpuscular Hemoglobin 32 pg (27-31); Mean Corpuscular Volume 97 fL (80-97); Mean Platelet Volume 8.1 fL (7.4-10.4); Platelet Count 282 10^3/uL (150-450); Red Blood Count 4.35 10^6 /uL (3.70-4.87); Red Cell Distribution Width 14 % (10-15); White Blood Count 15.6 10^3/uL (3.5-10.8)
[2022-07-20 13:09] LABS: High Sens Troponin Baseline 18 pg/mL (<15)
[2022-07-20 13:30] LABS: ALT 18 U/L (7-52); Acetaminophen 16 mcg/mL; Albumin 4.7 g/dL (3.2-5.2); Albumin/Globulin Ratio 1.7 (1-3); Alcohol, S < 13 mg/dL (<13); Alkaline Phosphatase 67 U/L (35-149); Blood Urea Nitrogen 11 mg/dL (6-24); CO2 Carbon Dioxide 27 mmol/L (22-32); Calcium 10.6 mg/dL (8.6-10.3); Chloride 102 mmol/L (101-111); Globulin 2.8 g/dL (2-4); Glucose 138 mg/dL (70-100); Salicylate < 2.50 mg/dL (<30); Sodium 136 mmol/L (135-145); Total Protein 7.5 g/dL (6.4-8.9); eGFR CKD-EPI 79.2 (>60)
[2022-07-20 14:17] LABS: High Sensitivity Troponin 1 Hr 20 pg/mL (<15)
[2022-07-20 15:24] LABS: Anion Gap 7 mmol/L (2-11)
[2022-07-20 17:00] LABS: Albumin/Globulin Ratio 1.9 (1-3); Creatinine, Serum 0.72 mg/dL (0.51-0.95); Globulin 2.1 g/dL (2-4); Lithium 0.79 mmol/L (0.6-1.2); Magnesium 1.8 mg/dL (1.9-2.7); Potassium 3.5 mmol/L (3.5-5.0); Total Bilirubin 0.6 mg/dL (0.2-1.0); Total Protein 6.1 g/dL (6.4-8.9); eGFR CKD-EPI 89.9 (>60)
[2022-07-20] MEDS: Enoxaparin 40 MG/0.4 ML SYR SUBCUT SCH (17:00)
[2022-07-20] MEDS: NS 0.9% 1000 ml BAG 1,000 ML IV SCH (19:24)
[2022-07-21] MEDS ORDERED: Iohexol 350 (CONTRAST) 500 ML MDV IV ONE (09:24)
[2022-07-21] MEDS: NS 0.9% 1000 ml BAG 1,000 ML IV SCH ×2 (09:25→23:27)
[2022-07-21 09:50] LABS: ABS Lymphocytes 1.5 10^3/ul (1.0-4.8); ABS Monocytes 0.8 10^3/ul (0-0.8); ABS Neutrophils 13.9 10^3/ul (1.5-7.7); Eosinophil % 0.3 %; Hematocrit 40 % (35-47); Hemoglobin 13.2 g/dL (12.0-16.0); Mean Corpuscular HGB Conc 33 g/dL (31-36); Mean Corpuscular Hemoglobin 32 pg (27-31); Mean Corpuscular Volume 98 fL (80-97); Mean Platelet Volume 7.9 fL (7.4-10.4); Platelet Count 258 10^3/uL (150-450); Red Blood Count 4.08 10^6 /uL (3.70-4.87); Red Cell Distribution Width 13 % (10-15); White Blood Count 16.3 10^3/uL (3.5-10.8)
[2022-07-21 10:06] LABS: Activated Partial Thrombo Time 35.3 seconds (26.0-38.0); INR 1.03 (0.88-1.18)
[2022-07-21 10:40] LABS: Albumin/Globulin Ratio 2.1 (1-3); Calcium 9.4 mg/dL (8.6-10.3); Creatinine, Serum 0.68 mg/dL (0.51-0.95); Globulin 1.9 g/dL (2-4); HDL Cholesterol 70.7 mg/dL; Potassium 3.8 mmol/L (3.5-5.0); Total Bilirubin 0.5 mg/dL (0.2-1.0); Total Protein 5.9 g/dL (6.4-8.9); eGFR CKD-EPI 93.6 (>60)
[2022-07-21] MEDS: Cholecalciferol (VIT D3) 1,000 unit TAB PO SCH (11:15)
[2022-07-21] MEDS: Polyethylene Glycol 3350 17 GM PACKET PO SCH ×2 (11:16→20:40)
[2022-07-21] MEDS: Aspirin EC 81 mg TAB.EC (enteric coated) PO SCH (11:16)
[2022-07-21] MEDS: Enoxaparin 40 MG/0.4 ML SYR SUBCUT SCH (18:12)
[2022-07-22] MEDS: Polyethylene Glycol 3350 17 GM PACKET PO SCH ×2 (09:24→20:27)
[2022-07-22] MEDS: Cholecalciferol (VIT D3) 1,000 unit TAB PO SCH (09:25)
[2022-07-22] MEDS: Aspirin EC 81 mg TAB.EC (enteric coated) PO SCH (09:25)
[2022-07-22] MEDS ORDERED: Thiamine 100 MG/ML 2 ml VIAL 250 MG in NS 0.9% 100 ml BAG 100 ML IV SCH ×2 (12:00→21:00)
[2022-07-22] MEDS: NS 0.9% 1000 ml BAG 1,000 ML IV SCH (13:30)
[2022-07-22] MEDS: Thiamine 100 MG/ML 2 ml VIAL 250 MG in NS 0.9% 100 ml BAG 100 ML IV SCH ×2 (18:02→20:18)
[2022-07-22] MEDS: Enoxaparin 40 MG/0.4 ML SYR SUBCUT SCH (18:04)
[2022-07-23] MEDS: NS 0.9% 1000 ml BAG 1,000 ML IV SCH ×2 (04:09→18:00)
[2022-07-23] MEDS: Thiamine 100 MG/ML 2 ml VIAL 250 MG in NS 0.9% 100 ml BAG 100 ML IV SCH ×3 (09:35→21:02)
[2022-07-23] MEDS: Cholecalciferol (VIT D3) 1,000 unit TAB PO SCH (09:35)
[2022-07-23] MEDS: Aspirin EC 81 mg TAB.EC (enteric coated) PO SCH (09:37)
[2022-07-23] MEDS: Polyethylene Glycol 3350 17 GM PACKET PO SCH ×2 (09:37→22:48)
[2022-07-23] MEDS: Enoxaparin 40 MG/0.4 ML SYR SUBCUT SCH ×2 (14:29→15:10)
[2022-07-24] MEDS ORDERED: Nicotine PATCH 7 MG/24 HR PATCH TRANSDERM SCH ×2 (01:00)
[2022-07-24] MEDS: Thiamine 100 MG/ML 2 ml VIAL 250 MG in NS 0.9% 100 ml BAG 100 ML IV SCH ×2 (08:10→15:35)
[2022-07-24] MEDS: Cholecalciferol (VIT D3) 1,000 unit TAB PO SCH (08:11)
[2022-07-24] MEDS: Aspirin EC 81 mg TAB.EC (enteric coated) PO SCH (08:11)
[2022-07-24] MEDS: Polyethylene Glycol 3350 17 GM PACKET PO SCH ×2 (09:17→20:16)
[2022-07-25] MEDS: Polyethylene Glycol 3350 17 GM PACKET PO SCH ×2 (08:44→20:55)
[2022-07-25] MEDS: SPIRIVA Respimat (tiotropium) 2.5 mcg/inh Inhaler INH SCH (08:45)
[2022-07-25] MEDS: Cholecalciferol (VIT D3) 1,000 unit TAB PO SCH (08:48)
[2022-07-25] MEDS: Aspirin EC 81 mg TAB.EC (enteric coated) PO SCH (09:48)
[2022-07-26] MEDS: Cholecalciferol (VIT D3) 1,000 unit TAB PO SCH (07:38)
[2022-07-26] MEDS: Aspirin EC 81 mg TAB.EC (enteric coated) PO SCH (07:41)
[2022-07-26] MEDS: SPIRIVA Respimat (tiotropium) 2.5 mcg/inh Inhaler INH SCH (08:19)
[2022-07-26] MEDS: Polyethylene Glycol 3350 17 GM PACKET PO SCH ×2 (08:19→21:49)
[2022-07-26] MEDS: Nicotine GUM 2MG FRUIT FLAVOR PO PRN ×2 (17:59→20:32)
[2022-07-27] MEDS: Cholecalciferol (VIT D3) 1,000 unit TAB PO SCH (08:24)
[2022-07-27] MEDS: Aspirin EC 81 mg TAB.EC (enteric coated) PO SCH (08:24)
[2022-07-27] MEDS: Polyethylene Glycol 3350 17 GM PACKET PO SCH ×2 (08:26→20:22)
[2022-07-27] MEDS: Nicotine GUM 2MG FRUIT FLAVOR PO PRN ×4 (08:28→20:25)
[2022-07-27] MEDS: SPIRIVA Respimat (tiotropium) 2.5 mcg/inh Inhaler INH SCH (08:29)
[2022-07-28] MEDS: Aspirin EC 81 mg TAB.EC (enteric coated) PO SCH (08:53)
[2022-07-28] MEDS: Cholecalciferol (VIT D3) 1,000 unit TAB PO SCH (08:54)
[2022-07-28] MEDS: Nicotine GUM 2MG FRUIT FLAVOR PO PRN ×3 (08:55→20:13)
[2022-07-28] MEDS: Polyethylene Glycol 3350 17 GM PACKET PO SCH ×2 (09:44→20:17)
[2022-07-28] MEDS: SPIRIVA Respimat (tiotropium) 2.5 mcg/inh Inhaler INH SCH (09:44)
[2022-07-29] MEDS: Cholecalciferol (VIT D3) 1,000 unit TAB PO SCH (07:50)
[2022-07-29] MEDS: SPIRIVA Respimat (tiotropium) 2.5 mcg/inh Inhaler INH SCH (07:51)
[2022-07-29] MEDS: Aspirin EC 81 mg TAB.EC (enteric coated) PO SCH (07:51)
[2022-07-29] MEDS: Polyethylene Glycol 3350 17 GM PACKET PO SCH (07:52)
[2022-07-29] MEDS: Nicotine GUM 2MG FRUIT FLAVOR PO PRN ×2 (08:45→13:08)
[2022-07-29 10:48] VITALS: BP 114/92
== END 2022-07-29 16:30 | disposition home or self-care (01) | DRG 917 ==
LOC: EDHOLD 11:54 → ED 11:54 → EDHOLD 17:55 → MEDTELE 18:49 → SUATTDRO 07-22 11:01 → BSU 07-24 13:19
PROVIDERS: ADMIT Hospitalist; ATTEND Psychiatry & Neurology Psychiatry

== ENCOUNTER 2024-03-26 16:24 | Inpatient (IN) ==
[2024-03-26 18:30] LABS: Urine Appearance Clear; Urine Bilirubin Negative (Negative); Urine Blood Negative (Negative); Urine Color Light-Yellow; Urine Glucose Negative (Negative); Urine Ketones Negative (Negative); Urine Nitrite Negative (Negative); Urine Protein Negative (Negative); Urine Specific Gravity 1.007 (1.002-1.030); Urine Urobilinogen Negative (Negative)
[2024-03-26 18:33] LABS: Urine Bacteria 1+ /HPF (Absent); Urine Red Blood Cell 1+(3-5/hpf) /HPF (0-Trace); Urine White Blood Cell 3+(>20/hpf) /HPF (0-Trace)
[2024-03-26 18:38] LABS: Urine Benzodiazepine Screen None Detected (None Detect); Urine Cannabinoids Screen None Detected (None Detect); Urine Opiates Screen None Detected (None Detect)
[2024-03-26] MEDS: Fluticasone NASAL SPRAY 50MCG 16 gm SPRAY BTL INTRANASAL SCH (23:31)
[2024-03-26] MEDS: Polyethylene Glycol 3350 17 GM PACKET PO SCH (23:38)
[2024-03-27] MEDS: Cholecalciferol (VIT D3) 1,000 unit TAB PO SCH (08:46)
[2024-03-27] MEDS: Nicotine GUM 2MG FRUIT FLAVOR PO PRN (08:46)
[2024-03-27] MEDS: DULoxetine DR 60 mg CAP PO SCH (08:59)
[2024-03-27] MEDS: Nicotine PATCH 14 MG/24 HR PATCH TRANSDERM SCH (09:20)
[2024-03-27] MEDS: OMEGA PO SCH (09:21)
[2024-03-27] MEDS: FATTY ACID PO SCH (09:21)
[2024-03-27] MEDS: Vitamin THERAPEUTIC TAB PO SCH (09:21)
[2024-03-27] MEDS: BIOTIN 5 MG PO SCH (09:22)
[2024-03-27] MEDS: OLANZapine 5 mg TAB *ODT PO PRN (09:59)
[2024-03-27] MEDS: Al Hydrox/Mg Hydrox/Simet LIQ 30 ML UDC PO PRN (21:16)
[2024-03-28 08:34] LABS: ABS Eosinophils 0.3 10^3/uL (0.0-0.5); ABS Lymphocytes 3.2 10^3/uL (1.0-4.8); ABS Monocytes 0.8 10^3/uL (0.0-0.9); ABS Neutrophils 6.5 10^3/uL (1.5-7.6); ABS Nucleated RBC 0.01 10^3/ul; Hematocrit 43.9 % (35-45); Hemoglobin 14.9 g/dL (11.5-14.3); Lymphocyte % 29.5 %; Mean Corpuscular Hemoglobin 31.6 pg (27-33); Mean Corpuscular Hgb Conc 33.9 g/dL (31-36); Mean Corpuscular Volume 93.1 fL (80-97); Platelet Count 303 10^3/uL (150-450); Red Blood Count 4.71 10^6/uL (3.63-4.92); Red Cell Distribution Width 14.3 % (12-17); White Blood Count 10.9 10^3/uL (3.8-11.8)
[2024-03-28 08:45] LABS: Albumin/Globulin Ratio 1.6 (1-3); Calcium 9.3 mg/dL (8.6-10.3); Creatinine, Serum 0.57 mg/dL (0.51-0.95); Globulin 2.5 g/dL (2-4); HDL Cholesterol 72.4 mg/dL; Potassium 4.7 mmol/L (3.5-5.0); Total Bilirubin 0.3 mg/dL (0.2-1.0); Total Protein 6.5 g/dL (6.4-8.9); eGFR CKD-EPI 96.5 (>60)
[2024-03-28 08:59] LABS: TSH Ultra Thyroid Stim Horm 1.25 mcIU/mL (0.34-5.60)
[2024-04-03] MEDS: Polyethylene Glycol 3350 17 GM PACKET ONE (09:23)
[2024-04-03 09:39] VITALS: BP 131/77
== END 2024-04-03 14:00 | disposition home or self-care (01) | DRG 883 ==
LOC: ED 16:24 → EDHOLD 20:48 → BSU 20:57
PROVIDERS: ADMIT Psychiatry & Neurology Psychiatry; ATTEND Psychiatry & Neurology Psychiatry

== ENCOUNTER 2024-04-05 13:05 | Inpatient (IN) ==
[2024-04-05 16:16] LABS: ABS Basophils 0.1 10^3/uL (0.0-0.1); ABS Eosinophils 0.2 10^3/uL (0.0-0.5); ABS Lymphocytes 3.7 10^3/uL (1.0-4.8); ABS Monocytes 0.8 10^3/uL (0.0-0.9); ABS Neutrophils 9.2 10^3/uL (1.5-7.6); ABS Nucleated RBC 0.01 10^3/ul; Eosinophil % 1.1 %; Hematocrit 43.5 % (35-45); Hemoglobin 14.5 g/dL (11.5-14.3); Lymphocyte % 26.5 %; Mean Corpuscular Hemoglobin 31.1 pg (27-33); Mean Corpuscular Hgb Conc 33.3 g/dL (31-36); Mean Corpuscular Volume 93.3 fL (80-97); Mean Platelet Volume 8.1 fL (7.5-11.2); Nucleated Red Blood Cells % 0.1 %/100WBC (0.0-0.8); Platelet Count 302 10^3/uL (150-450); Red Blood Count 4.66 10^6/uL (3.63-4.92); Red Cell Distribution Width 14.2 % (12-17); White Blood Count 13.9 10^3/uL (3.8-11.8)
[2024-04-05] MEDS: Ondansetron 4 mg VIAL 2 MG/ML 2 ml VIAL IV ONE (16:27)
[2024-04-05 16:48] LABS: Urine Benzodiazepine Screen None Detected (None Detect); Urine Cannabinoids Screen None Detected (None Detect); Urine Opiates Screen None Detected (None Detect)
[2024-04-05 16:52] LABS: ALT 17 U/L (7-52); Acetaminophen < 15 mcg/mL; Albumin 4.1 g/dL (3.2-5.2); Albumin/Globulin Ratio 1.7 (1-3); Alcohol, S < 13 mg/dL (<13); Alkaline Phosphatase 66 U/L (35-149); Anion Gap 8 mmol/L (2-16); Blood Urea Nitrogen 8 mg/dL (6-24); CO2 Carbon Dioxide 25 mmol/L (22-32); Calcium 10.1 mg/dL (8.6-10.3); Chloride 106 mmol/L (101-111); Creatinine, Serum 0.58 mg/dL (0.51-0.95); Globulin 2.4 g/dL (2-4); Glucose 94 mg/dL (70-100); Lipase 30 U/L (11.0-82.0); Salicylate < 2.50 mg/dL (<30); Sodium 139 mmol/L (135-145); Total Bilirubin 0.7 mg/dL (0.2-1.0); Total Protein 6.5 g/dL (6.4-8.9); eGFR CKD-EPI 96.1 (>60)
[2024-04-05] MEDS: Iohexol 350 (CONTRAST) 500 ML MDV IV ONE (17:35)
[2024-04-05] MEDS: Polyethylene Glycol 3350 17 GM PACKET PO SCH (20:01)
[2024-04-05] MEDS: Nicotine GUM 2MG FRUIT FLAVOR PO ONE (20:05)
[2024-04-05] MEDS: Fluticasone NASAL SPRAY 50MCG 16 gm SPRAY BTL INTRANASAL SCH (21:13)
[2024-04-06] MEDS: Nicotine GUM 2MG FRUIT FLAVOR PO PRN (06:02)
[2024-04-06] MEDS: Cholecalciferol (VIT D3) 1,000 unit TAB PO SCH (08:55)
[2024-04-06] MEDS ORDERED: Vitamin THERAPEUTIC TAB PO SCH (09:00)
[2024-04-06] MEDS: Tiotropium Brom/Olodaterol MDI (ACUTE) INH SCH (09:01)
[2024-04-07] MEDS: Al Hydrox/Mg Hydrox/Simet LIQ 30 ML UDC PO PRN (00:05)
[2024-04-09] MEDS ORDERED: Polyethylene Glycol 3350 BTL 238 GM BTL PO PRN (11:17)
[2024-04-09] MEDS ORDERED: Albuterol HFA INHALER 8 gm MDI INH PRN (11:21)
[2024-04-10] MEDS: CMC:FLUTICAS/UMECLI/VILANT 100-62.5-25 MDI (NF) INH SCH (08:36)
[2024-04-19 08:16] VITALS: BP 130/83
== END 2024-04-19 12:55 | disposition home or self-care (01) | DRG 885 ==
LOC: ED 13:05 → EDHOLD 15:50 → BSU 19:11
PROVIDERS: ADMIT Psychiatry & Neurology Psychiatry; ATTEND Psychiatry & Neurology Psychiatry